=== PATIENT | male | born 1950 | race Caucasian/White ===

== ENCOUNTER 2017-12-11 16:41 | Outpatient (CLI) | payer BC, SELFPAY ==
[2017-12-11 17:20] LABS: Abs Immature Grans 0.01 k/cumm (0.0-0.09); Absolute Basophil Count 0.03 k/cumm (0.0-0.2); Absolute Eosinophil Count 0.03 k/cumm (0.0-0.7); Absolute Lymphocyte Count 1.61 k/cumm (1.2-3.4); Absolute Monocyte Count 0.52 k/cumm (0.11-0.7); Absolute Neutrophil Count 3.67 k/cumm (1.2-6.7); Basophils % 0.5; Eosinophils % 0.5; HCT 44.8 % (40.0-50.0); HGB 14.9 g/dL (13.5-17.5); Immature Grans % 0.2; Lymphocytes % 27.4; Mean Corp. HGB Concentration 33.3 g/dL (32.0-36.0); Mean Corpuscular Volume 99.1 fL (80-95); Mean Platelet Volume 11.3 fL (8.0-11.0); Monocytes % 8.9; Neutrophils % 62.5; Platelet Count 203 x1000/uL (130-400); RBC 4.52 m/cumm (4.50-6.00); RBC Distribution Width 12.5 % (11.8-14.1); White Blood Cell Count 5.87 k/cumm (4.4-10.8)
[2017-12-11 17:48] LABS: ALT 27 U/L (12-78); AST 17 U/L (15-37); Albumin 3.5 g/dL (3.4-5.0); Alkaline Phosphatase 87 U/L (46-116); Anion Gap 6.3 mmol/L (3-11); BUN 13 mg/dL (7-18); Bilirubin, Total 0.4 mg/dL (0.2-1.0); CO2 31.7 mmol/L (21.0-32.0); CREATININE 0.72 mg/dL (0.70-1.30); Calcium 8.7 mg/dL (8.5-10.1); Chloride 102 mmol/L (98-107); Glucose 106 mg/dL (70-100); Potassium 4.3 mmol/L (3.5-5.1); Sodium 140 mmol/L (136-145); Total Protein 6.4 g/dL (6.4-8.2)
== END 2017-12-11 17:01 ==
PROVIDERS: PCP General Practice; Visit Provider Family Medicine
DX: Z79.899 Other long term (current) drug therapy (principal)
CPT/HCPCS: 36415; 80053; 85025

== ENCOUNTER 2018-02-16 14:08 | Outpatient (CLI) | payer BC, SELFPAY ==
[2018-02-17 14:08] LABS: SS-B (La) Ab, IgG 1.6 Units (<20)
[2018-02-17 14:09] LABS: SS-A Antibody 1.4 Units (<20)
[2018-02-17 14:51] LABS: ANA Interpretation Negative (NEGAT)
[2018-02-19 11:34] LABS: c-ANCA Negative (Negative); p-ANCA Negative (Negative)
== END 2018-02-16 14:28 ==
PROVIDERS: PCP General Practice; Visit Provider Otolaryngology Otolaryngology/Facial Plastic Surgery
DX: H04.123 Dry eye syndrome of bilateral lacrimal glands (principal); R68.2 Dry mouth, unspecified; K13.79 Other lesions of oral mucosa
CPT/HCPCS: 36415; 86038; 86235; 86255

== ENCOUNTER 2018-05-28 15:41 | Outpatient (CLI) | payer BC, SELFPAY ==
[2018-05-28 16:25] LABS: Abs Immature Grans 0.01 k/cumm (0.0-0.09); Absolute Basophil Count 0.03 k/cumm (0.0-0.2); Absolute Eosinophil Count 0.03 k/cumm (0.0-0.7); Absolute Lymphocyte Count 1.22 k/cumm (1.2-3.4); Absolute Neutrophil Count 2.96 k/cumm (1.2-6.7); Basophils % 0.6; Eosinophils % 0.6; HCT 43.2 % (40.0-50.0); HGB 14.9 g/dL (13.5-17.5); Immature Grans % 0.2; Lymphocytes % 25.7; Mean Corp. HGB Concentration 34.5 g/dL (32.0-36.0); Mean Corpuscular Hemoglobin 33.7 pg (27.0-33.0); Mean Corpuscular Volume 97.7 fL (80-95); Mean Platelet Volume 10.6 fL (8.0-11.0); Monocytes % 10.5; Neutrophils % 62.4; Platelet Count 211 x1000/uL (130-400); RBC 4.42 m/cumm (4.50-6.00); RBC Distribution Width 13.3 % (11.8-14.1); White Blood Cell Count 4.75 k/cumm (4.4-10.8)
[2018-05-28 17:43] LABS: ALT 31 U/L (12-78); AST 22 U/L (15-37); Albumin 3.9 g/dL (3.4-5.0); Alkaline Phosphatase 83 U/L (46-116); Anion Gap 6.4 mmol/L (3-11); BUN 16 mg/dL (7-18); Bilirubin, Total 0.6 mg/dL (0.2-1.0); CO2 32.6 mmol/L (21.0-32.0); CREATININE 0.82 mg/dL (0.70-1.30); Calcium 9.1 mg/dL (8.5-10.1); Chloride 101 mmol/L (98-107); Glucose 94 mg/dL (70-100); Potassium 4.4 mmol/L (3.5-5.1); Sodium 140 mmol/L (136-145); Total Protein 6.4 g/dL (6.4-8.2)
== END 2018-05-28 16:01 ==
PROVIDERS: PCP General Practice; Visit Provider Family Medicine
DX: Z79.899 Other long term (current) drug therapy (principal); R69 Illness, unspecified
CPT/HCPCS: 36415; 80053; 85025

== ENCOUNTER 2018-08-11 16:51 | Outpatient (CLI) | payer BC, SELFPAY ==
[2018-08-11 17:53] LABS: Absolute Basophil Count 0.03 k/cumm (0.0-0.2); Absolute Eosinophil Count 0.01 k/cumm (0.0-0.7); Absolute Lymphocyte Count 1.18 k/cumm (1.2-3.4); Absolute Monocyte Count 0.47 k/cumm (0.11-0.7); Absolute Neutrophil Count 3.36 k/cumm (1.2-6.7); Basophils % 0.6; Eosinophils % 0.2; HCT 44.4 % (40.0-50.0); HGB 15.3 g/dL (13.5-17.5); Lymphocytes % 23.4; Mean Corp. HGB Concentration 34.5 g/dL (32.0-36.0); Mean Corpuscular Hemoglobin 33.9 pg (27.0-33.0); Mean Corpuscular Volume 98.4 fL (80-95); Mean Platelet Volume 10.8 fL (8.0-11.0); Monocytes % 9.3; Neutrophils % 66.5; Platelet Count 236 x1000/uL (130-400); RBC 4.51 m/cumm (4.50-6.00); RBC Distribution Width 14.1 % (11.8-14.1); White Blood Cell Count 5.05 k/cumm (4.4-10.8)
[2018-08-11 18:10] LABS: ALT 27 U/L (12-78); AST 18 U/L (15-37); Albumin 3.9 g/dL (3.4-5.0); Alkaline Phosphatase 84 U/L (46-116); Anion Gap 5.3 mmol/L (3-11); BUN 16 mg/dL (7-18); Bilirubin, Total 0.5 mg/dL (0.2-1.0); CO2 30.7 mmol/L (21.0-32.0); CREATININE 0.83 mg/dL (0.70-1.30); Calcium 9.3 mg/dL (8.5-10.1); Chloride 103 mmol/L (98-107); Glucose 90 mg/dL (70-100); Potassium 4.2 mmol/L (3.5-5.1); Sodium 139 mmol/L (136-145); Total Protein 6.8 g/dL (6.4-8.2)
== END 2018-08-11 17:11 ==
PROVIDERS: PCP General Practice; Visit Provider Family Medicine
DX: Z79.899 Other long term (current) drug therapy (principal)
CPT/HCPCS: 36415; 80053; 85025

== ENCOUNTER 2018-08-31 02:49 | Outpatient (CLI) | payer BC, SELFPAY | END 2018-08-31 03:09 | PROVIDERS: PCP General Practice; Visit Provider Family Medicine | DX: B60.0 Babesiosis (principal); I10 Essential (primary) hypertension | CPT/HCPCS: 93005; 93010 ==

== ENCOUNTER 2018-11-05 14:22 | Outpatient (CLI) | payer BC, SELFPAY ==
[2018-11-05 15:21] LABS: Absolute Basophil Count 0.02 k/cumm (0.0-0.2); Absolute Eosinophil Count 0.02 k/cumm (0.0-0.7); Absolute Lymphocyte Count 1.28 k/cumm (1.2-3.4); Absolute Monocyte Count 0.48 k/cumm (0.11-0.7); Absolute Neutrophil Count 3.89 k/cumm (1.2-6.7); Basophils % 0.4; Eosinophils % 0.4; HCT 44.9 % (40.0-50.0); HGB 15.3 g/dL (13.5-17.5); Lymphocytes % 22.5; Mean Corp. HGB Concentration 34.1 g/dL (32.0-36.0); Mean Corpuscular Hemoglobin 33.6 pg (27.0-33.0); Mean Corpuscular Volume 98.7 fL (80-95); Mean Platelet Volume 10.7 fL (8.0-11.0); Monocytes % 8.4; Neutrophils % 68.3; Platelet Count 227 x1000/uL (130-400); RBC 4.55 m/cumm (4.50-6.00); RBC Distribution Width 13.7 % (11.8-14.1); White Blood Cell Count 5.69 k/cumm (4.4-10.8)
[2018-11-05 15:57] LABS: ALT 39 U/L (16-63); AST 21 U/L (15-37); Albumin 3.8 g/dL (3.4-5.0); Alkaline Phosphatase 92 U/L (46-116); Anion Gap 7.1 mmol/L (3-11); BUN 15 mg/dL (7-18); Bilirubin, Total 0.5 mg/dL (0.2-1.0); CO2 32.9 mmol/L (21.0-32.0); CREATININE 0.93 mg/dL (0.70-1.30); Calcium 9.2 mg/dL (8.5-10.1); Chloride 103 mmol/L (98-107); Glucose 130 mg/dL (70-100); Potassium 4.5 mmol/L (3.5-5.1); Sodium 143 mmol/L (136-145); Total Protein 6.8 g/dL (6.4-8.2)
[2018-11-05 20:32] LABS: Calculated LDL 83 mg/dL; Cholesterol 155 mg/dL (50-200); HDL Cholesterol 65 mg/dL (40-60); Triglyceride 37 mg/dL (30-150)
== END 2018-11-05 14:42 ==
PROVIDERS: PCP General Practice; Visit Provider Family Medicine
DX: F32.9 Major depressive disorder, single episode, unspecified (principal); Z79.899 Other long term (current) drug therapy; Z00.00 Encounter for general adult medical examination without abnormal findings; Z13.220 Encounter for screening for lipoid disorders; Z13.1 Encounter for screening for diabetes mellitus
CPT/HCPCS: 36415; 80053; 80061; 85025

== ENCOUNTER 2019-02-07 15:45 | Emergency (ER) | payer BC, SELFPAY ==
[2019-02-07 15:53] VITALS: BP 128/68; PULSE 76; RESP 16; TEMP 36.6; O2SAT 98
--- NOTE | 2019-02-07 16:50 | DI.RAD_ITS ---
EXAM: XR FOOT LT COMPLETE INDICATION: pain, great toe MCP. COMPARISON: RIGHT FOOT COMPLETE from 06/02/2009 TECHNIQUE: 2D digital imaging was performed. FINDINGS: No acute fracture or dislocation is seen. No radiographic findings to suggest gout are seen. The [place] are normally mineralized. The joint spaces are fairly well maintained. The soft tissues are unr emarkable. IMPRESSION: No acute abnormality. No radiographic findings to suggest gout.
[2019-02-07 16:55] LABS: Uric Acid 3.6 mg/dL (3.5-7.2)
--- NOTE | 2019-02-07 17:03 | DI.VRAD_ITS ---
PROCEDURE INFORMATION: Exam: XR Left Foot Complete Exam date and time: 02/07/2019 4:24 PM Age: 68 years old Clinical history: Foot; Left; Patient HX: ? Gout / arthritis, pain in great toe TECHNIQUE: Imaging protocol: XR Left foot. Views: 3 or more views. COMPARISON: No relevant prior studies available. FINDINGS: Bones/joints: Mild subchondral cystic change and sclerosis about the 1st metatarsophalangeal joint. Joint spaces are maintained. No fracture Soft tissues: Normal. Vasculature: Vascular calcifications. IMPRESSION: Mild subchondral cystic change and sclerosis about the 1st metatarsophalangeal joint. The appearance is atypical for gout and suggestive of chronic degenerative changes. Dictated and Authenticated by: Tip Marin MD. Ordering:ZIYAD Colon MD
--- NOTE | 2019-02-07 17:28 | W.ED.GENAD ---
Discharge Plan Disposition Patient Disposition: HOME Condition: Good Discharge Details Chief Complaint: Orthopedic Clinical Impression: Acute foot pain Primary Care Provider: Ryan Guy ED Provider: Darlene Perez Home Meds and New Rx's Prescriptions: No Action gabapentin 600 MG tablet 600 mg PO DAILY RF: 0 doxycycline hyclate 100 MG capsule 100 mg PO BID RF: 0 famciclovir 250 MG tablet 500 mg PO BID RF: 0 duloxetine [Cymbalta] 60 MG capsule,delayed release(DR/EC) 30 mg PO DAILY RF: 0 fluoxetine 20 MG capsule 20 mg PO DAILY RF: 0 buprenorphine-naloxone [Suboxone] 2-0.5 mg Film 2 film buccal DAILY RF: 0 buprenorphine-naloxone [Suboxone] 8-2 mg Film 8 film sublingual DAILY RF: 0 prednisone 5 MG tablet 20 mg PO DAILY RF: 0 Discharge Instructions Instructions: Leg Pain (ED) Additional Instructions: Rest. Activities as tolerated. Elevate injury to prevent swelling. Postoperative shoe for comfort Ice to the area of discomfort for 15 min. 3-5 times daily. Tylenol every 6 hours for soreness if needed over the counter for comfort. Continue prednisone for inflammation. Have Ultrasound tomorrow, call radiology in morning, followup in ER. Followup with orthopedic doctor as discussed if not improving in one week. Return for any worsening or concerns sooner if needed. Referrals: Antony Feliciano MD [ [facility] STAFF PHYSICIAN] - Medical Decision Making Is a 68-year-old patient with chronic pain complaints who reports left great toe MCP joint pain which developed the day following Thanksgiving dinner. Patient reports he is concerned with the possibility of arthritis versus gout. He is on chronic prednisone did increase his dose to 20 mg in the last few days which has improved his pain. Patient reports pain is more tolerable than it was previously in the last few days. Patient denies associated injury or trauma. Patient did report in the last few days significant swelling of the lower leg on the left specifically without contralateral leg swelling. Patient reports the swelling had extended into the calf. Patient reports swelling of the calf is resolved at this time patient does have persistent pitting edema of the left foot with associated erythema which is vague at the MCP joint. Pain with palpation of the site. No fevers or ill feeling associated. Patient's exam is consistent with possible gouty flare. Patient requesting x-ray. X-ray reveals mild subchondral cystic changes and sclerosis about the first meta tarsal phalangeal joint. The appearance is atypical for gout and suggestive of chronic degenerative changes. Patient has no history of gout previously. Patient's uric acid was normal today. Pseudogout remains in the differential diagnosis. DVT is also a possibility however patient swelling has improved vital signs are stable and he has no associated difficulty being or shortness of breath or wheezing. No calf pain or swelling at this time however patient does have obvious edema which is pitting in the left foot. This could be dependent edema. Patient would feel more comfortable with an ultrasound evaluation of the leg however ultrasound is unavailable at this time. Discussed prophylactic use of anticoagulation however given low suspicion I do not feel this is necessary at this time patient would prefer to follow-up for outpatient ultrasound tomorrow and follow-up in the emergency room which I feel is appropriate. Patient encouraged to continue prednisone treatment which has been improving his pain. Postoperative shoe offered. Rice encouraged. Follow-up with PCP encouraged upon discharge patient is requesting a urinalysis as he reports his urine was somewhat cloudy this week. Patient denies any associated urinary urgency, frequency or dysuria. Denies any flank or abdominal pain. Patient denies again any ill feeling. Patient is requesting urinalysis to be followed up with on an outpatient basis with his PCP. Urinalysis was ordered at patient's request. The patient was stable and requested discharge. Prior to discharge, my usual and customary return precautions were reviewed with the patient - this included follow-up instructions and reasons to return to the Emergency Department if conditions worsens, does not improve as expected, or other new concerns arise. HPI General Date/Time Provider Initiated Documentation: 02/07/19 16:22. HPI Narrative: Is a 68-year-old patient with chronic pain syndrome and fatigue who reports onset of left foot pain specifically at the base of the great toe which began on the day following Thanksgiving dinner. Patient is reportedly concerned with possible gout. Patient had been tapering down on his prednisone dose. He reports that he had 1 month ago tapered from 20 mg to 15 mg. After onset of left foot pain he increased his prednisone in the last few days back to 20 mg which has been helping with his pain. Patient is requesting x-ray evaluation and evaluation for possible gout of the left foot. Patient also reports significant swelling of the left leg extending all the way to the mid calf from the foot. Patient reports the calf swelling has improved however foot swelling persists. Patient denies difficulty breathing with shortness of breath or wheezing. No other concerns or complaints today. Denies specific injury or trauma to the foot. Related Data Home Medications Medication Instructions Recorded Confirmed doxycycline hyclate 100 mg PO BID cap 04/13/13 02/07/19 duloxetine [Cymbalta] 30 mg PO DAILY cap 04/13/13 02/07/19 famciclovir 500 mg PO BID tab 04/13/13 02/07/19 gabapentin 600 mg PO DAILY tab 04/13/13 02/07/19 fluoxetine 20 mg PO DAILY 08/11/14 02/07/19 prednisone 20 mg PO DAILY 10/16/16 02/07/19 buprenorphine-naloxone [Suboxone] 2 film BUCCAL DAILY 02/07/19 02/07/19 buprenorphine-naloxone [Suboxone] 8 film SUBLINGUAL DAILY 02/07/19 02/07/19 Allergies Allergy/AdvReac Type Severity Reaction Status Date / Time ciprofloxacin Allergy Unknown skin Unverified 02/07/19 15:56 rash,fever Penicillins Allergy Unknown rash Unverified 02/07/19 15:56 Sulfa (Sulfonamide Allergy Unknown skin rash Unverified 02/07/19 15:56 Antibiotics) NSAIDS (Non-Steroidal AdvReac Unknown GI Bleeding Unverified 02/07/19 15:56 Anti-Inflamma General Stated Complaint: Orthopedic SERENA: 3 Review of Systems All systems reviewed & are unremarkable except as noted in HPI and below Constitutional Constitutional: Denies chills and Denies fever(s) Musculoskeletal Musculoskeletal: Denies numbness, Denies radiating pain into limb, Reports stiffness and Reports other (MCP joint swelling and erythema) Integumentary/Breasts Skin/Breast: Reports erythema Neurologic Neurologic: Denies numbness [facility] Social History Smoking/Tobacco Use Status: Former Tobacco Use Alcohol Intake: never Drug use: Daily Substance use type: marijuana Do you feel safe in your relationship?: Yes Exam Narrative Exam Narrative: CONST: Healthy appearing patient, in no acute distress. Well hydrated. Alert and alert. MUSCULOSKELETAL: Left great toe pain at the MCP joint with palpation. Diffuse foot swelling is present with pitting edema in the foot. Pulses are intact. Mild erythema noted at the MCP joint which is vague and consistent with possible gout. Nothing to indicate a Tenosynovitis of the digit. No swelling distally. No calf pain, ankle pain or swelling proximal to the foot. Sensation intact distally. SKIN: Normal. Dry. No rashes. No breaks in the skin. See above NEURO: Alert and awake. Speech clear. PSYCH: Normal affect. Cooperative. Course Vital Signs Vital signs: Vital Signs Temperature 36.6 C 02/07/19 15:53 Pulse 76 02/07/19 15:53 Respiratory Rate 16 02/07/19 15:53 Blood Pressure 128/68 02/07/19 15:53 Pulse Oximetry 98 02/07/19 15:53 Temperature 36.6 C 02/07/19 15:53 Temperature Source Skin 02/07/19 15:53 Pulse 76 02/07/19 15:53 Respiratory Rate 16 02/07/19 15:53 Respiratory Effort Non-Labored 02/07/19 15:53 Blood Pressure 128/68 02/07/19 15:53 Blood Pressure Position Sitting 02/07/19 15:53 Pulse Oximetry 98 02/07/19 15:53 Oxygen Delivery Method Room Air 02/07/19 15:53 Oxygen Flow Rate 0 02/07/19 15:53 Pain Level 4 02/07/19 15:53 Lab/Test Results Lab/Test Results: Laboratory Tests Range/Units 02/07/19 16:40 Uric Acid (3.5-7.2) mg/dL 3.6
[2019-02-07 17:51] LABS: Bilirubin Negative (Negative); Blood Negative (Negative); Clarity Clear (Clear); Glucose Negative (Negative); Ketones Negative (Negative); Leukocyte Esterase Negative (Negative); Nitrite Negative (Negative); Urobilinogen 0.2 EU/dL (Up TO 0.2)
--- NOTE | 2019-02-08 11:35 | PDOC.ERCMPRO ---
- If Service Date Differs Date of service: 02/08/19 Time of Service: 11:35 Care Management Progress Note Patient called with questions. States that he is now having similar symptoms on other foot. He plans to see Dr. Feliciano and will come tomorrow for the scheduled ultrasound and ED followup.CM reviewed negative tests results (U/A, Uric acid and foot xray) again. These were reviewed by provider in ED on 02/07/19.
== END 2019-02-07 17:58 | disposition home or self-care (01) ==
PROVIDERS: Emergency Provider Physician Assistant; PCP General Practice
DX: M79.675 Pain in left toe(s) (principal)
CPT/HCPCS: 36415; 99283; 73630; 81003; 84550

== ENCOUNTER 2019-05-20 14:10 | Outpatient (CLI) | payer BC, SELFPAY ==
[2019-05-20 15:24] LABS: Abs Immature Grans 0.01 k/cumm (0.0-0.09); Absolute Basophil Count 0.03 k/cumm (0.0-0.2); Absolute Eosinophil Count 0.01 k/cumm (0.0-0.7); Absolute Lymphocyte Count 0.96 k/cumm (1.2-3.4); Absolute Monocyte Count 0.33 k/cumm (0.11-0.7); Absolute Neutrophil Count 3.79 k/cumm (1.2-6.7); Basophils % 0.6; Eosinophils % 0.2; HCT 45.8 % (40.0-50.0); HGB 15.7 g/dL (13.5-17.5); Immature Grans % 0.2 %; Lymphocytes % 18.7; Mean Corp. HGB Concentration 34.3 g/dL (32.0-36.0); Mean Corpuscular Hemoglobin 34.3 pg (27.0-33.0); Mean Platelet Volume 10.6 fL (8.0-11.0); Monocytes % 6.4; Neutrophils % 73.9; Platelet Count 244 x1000/uL (130-400); RBC 4.58 m/cumm (4.50-6.00); RBC Distribution Width 13.6 % (11.8-14.1); White Blood Cell Count 5.13 k/cumm (4.4-10.8)
[2019-05-20 15:55] LABS: ALT 26 U/L (16-63); AST 23 U/L (15-37); Albumin 3.8 g/dL (3.4-5.0); Alkaline Phosphatase 103 U/L (46-116); BUN 17 mg/dL (7-18); Bilirubin, Total 0.4 mg/dL (0.2-1.0); CREATININE 0.97 mg/dL (0.70-1.30); Calcium 8.7 mg/dL (8.5-10.1); Chloride 103 mmol/L (98-107); Glucose 142 mg/dL (74-106); Potassium 4.6 mmol/L (3.5-5.1); Sodium 142 mmol/L (136-145); Total Protein 6.7 g/dL (6.4-8.2)
--- NOTE | 2019-05-21 11:34 | CMACTNOTE_ITS ---
- If Service Date Differs Date of service: 05/20/19 Time of Service: 11:34 Care Management Activity Note CM meets with Joseluis at the request of the laboratory. Joseluis talks at great length about his medical history and being diagnosed with Lyme disease in February of 2013. He shares his belief that he now has the [place] virus and several other tick borne illnesses. Joseluis states he is in need of a primary care physician. He formerly saw Dr. Mayer at [facility] but states she fired him in 2009. His last PCP was Dr. Guy but he is now retired. Records indicate that Joseluis was also seen by Dr. Jayde Cabrera at [facility] for a period of time prior to transferring to Dr. 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 Joseluis expresses no preference with respect to which doctor's office to establish care with. JOY will make inquiries of [facility] centers as to availability and will discuss those accepting new patients with Joseluis prior to making a referral.
== END 2019-05-20 14:30 ==
PROVIDERS: Visit Provider Family Medicine
DX: Z79.2 Long term (current) use of antibiotics (principal)
CPT/HCPCS: 36415; 80053; 85025

== ENCOUNTER 2019-09-21 04:57 | Outpatient (CLI) | payer BC, SELFPAY ==
[2019-09-21 14:52] LABS: Abs Immature Grans 0.01 k/cumm (0.0-0.09); Absolute Basophil Count 0.02 k/cumm (0.0-0.2); Absolute Eosinophil Count 0.01 k/cumm (0.0-0.7); Absolute Monocyte Count 0.34 k/cumm (0.11-0.7); Absolute Neutrophil Count 4.65 k/cumm (1.2-6.7); Basophils % 0.3; Eosinophils % 0.2; HGB 15.5 g/dL (13.5-17.5); Immature Grans % 0.2 %; Lymphocytes % 13.7; Mean Corp. HGB Concentration 34.4 g/dL (32.0-36.0); Mean Corpuscular Hemoglobin 34.1 pg (27.0-33.0); Mean Corpuscular Volume 99.1 fL (80-95); Mean Platelet Volume 10.6 fL (8.0-11.0); Monocytes % 5.8; Neutrophils % 79.8; Platelet Count 249 x1000/uL (130-400); RBC 4.54 m/cumm (4.50-6.00); RBC Distribution Width 13.3 % (11.8-14.1); White Blood Cell Count 5.83 k/cumm (4.4-10.8)
[2019-09-21 15:30] LABS: ESR 4 mm/hr (1-20)
[2019-09-21 16:02] LABS: ALT 34 U/L (16-63); AST 28 U/L (15-37); Alkaline Phosphatase 117 U/L (46-116); Anion Gap 5.8 mmol/L (3-11); BUN 14 mg/dL (7-18); Bilirubin, Total 0.5 mg/dL (0.2-1.0); C-Reactive Protein 0.11 mg/dL (0.0-0.3); CO2 34.2 mmol/L (21.0-32.0); Chloride 101 mmol/L (98-107); Glucose 105 mg/dL (74-106); Potassium 4.3 mmol/L (3.5-5.1); Sodium 141 mmol/L (136-145); TSH 0.97 uIU/mL (0.36-3.74)
[2019-09-21 23:02] LABS: Estradiol 30 pg/mL (<40)
[2019-09-22 09:41] LABS: DHEA Sulfate 769 ug/dL (228-284); FSH 2.8 mIU/mL (1.4-18.1); LH 0.4 mIU/mL (1.5-9.3); Prolactin 5.2 ng/mL (2.1-17.7)
[2019-09-23 16:02] LABS: Zinc, Serum 0.92 mcg/mL (0.66-1.10)
[2019-09-24 14:55] LABS: IGF-1, LC/MS, S 146 ng/mL (32-209); Z-score 1.04 SD
[2019-09-26 12:13] LABS: Testosterone, Free 4.45 ng/dL (3.47-13.0); Testosterone, Total 262 ng/dL (240-950)
== END 2019-09-21 05:17 ==
PROVIDERS: PCP Family Medicine; Visit Provider Family Medicine
DX: R53.83 Other fatigue (principal); E29.1 Testicular hypofunction; R21 Rash and other nonspecific skin eruption; B60.0 Babesiosis; E55.9 Vitamin D deficiency, unspecified; E83.2 Disorders of zinc metabolism; Z79.2 Long term (current) use of antibiotics
CPT/HCPCS: 36415; 80053; 82306; 82627; 84402; 84403; 85652; 82670; 83001; 83002; 84146; 84305; 84443; 84630; 85025; 86140

== ENCOUNTER 2019-11-08 01:43 | Outpatient (CLI) | payer BC, SELFPAY ==
--- NOTE | 2019-11-08 | DI.NM_ITS ---
APPROVED REPORT Exam: Exercise/Lexiscan transition test. Patient Location: Out-Patient Room/Bed: Stress Nurse: Kimberly Zamarripa RN BMI: 22.04 Baseline Rhythm: Sinus Rhythm Comment: PACs/PVCs Indications: Chest pain. Medical History Medical History: Lyme disease. Cardiac Medications: Aspirin. Allergies: NSAIDS. Penicillins. Sulfa. Ciprofloxacin. Cardiac Risk Factors: FHX of CAD, Smoking Exercise History: Indeterminate Lung Sounds: Clear to auscultation Heart Sounds: Regular Stress Test Details Test: Exercise stress converted to pharmacologic stress due to failure to obtain a diagnostic stress test. Nuclear Acquisition: Rest Tc-99m/Stress Tc-99m 1 day Rest Isotope: Tc-99m Sestamibi. Dose: 10.2 Date: 11/08/2019 Injection Time: 0915 Stress Isotope: Tc-99m Sestamibi. Dose: 31.5 Date: 11/08/2019 Injection Time: 1100 HR Resting HR Supine: 65 bpm Max Heart Rate (APMHR): 152.831851 bpm Resting HR Standin bpm Target HR (85% APMHR): 129.332424 bpm Max HR Achieved: 115 bpm % of APMHR: 75.66 Recovery HR: 79 bpm HR response to stress: Blunted HR response to stress BP Resting BP Supine: 158/70 mmHg Resting BP Standin/74 mmHg Max BP: 170/66 mmHg Recovery BP: 154/78 mmHg BP response to stress: Normal blood pressure response to stress. ECG Resting ECG: Sinus Rhythm Ectopy: PACs/PVCs Stress ECG: Sinus Tachycardia ST Change: No siginificant ST segment changes Arrhythmia: APC's, VPC's Recovery ECG: Sinus Rhythm Recovery ST Change: No significant ST segment changes Recovery Arrhythmia: PVCs/PACs Clinical Reason for Termination: Fatigue, Dyspnea Stress Symptoms: Dyspnea, Leg Fatigue, General Fatigue Exercise duration: 09 min57 sec Highest Stage Reached: Stage 4: 4.2 mph at 16% grade. Exercise capacity: 11.71 METs Functional Capacity: Above average capacity Stress ECG Conclusion 1. The resting electrocardiogram showed LVH with minor ST abnormalities 2. Patient exercised on the José Miguel protocol and completed a workload of 11.71 METS limited by dyspnea and fatigue 3. Normal blood pressure response to exercise. Blunted heart rate response to exercise the patient a chieved 75% of predicted heart rate for age as well as pharmacologic stress 4. The electrocardiographic portion of the test was nondiagnostic due to inadequate heart rate 5. Atrial and ventricular ectopic beats were noted Stress Test Summary STAGE Time (mins) Speed (mph) Grade (%) HR BP SYMPTOMS METS Supine 65 158/70 Standing 66 154/74 1 3 1.7 10 78 164/72 4.6 2 6 2.5 12 86 170/66 7 3 9 3.4 14 95 10.2 1 min post Lexiscan injection 90 150/72 3 min post Lexiscan injection 93 148/76 6 min post Lexiscan injection 79 154/78 MPI Conclusion Artifact No obvious ischemia within the limits of the study Radiologist Interpretation Radiologist Interpretation by: Irvin Farah MD Interpretation Date/Time: 11/08/2019 15:47:03
[2019-11-08] MEDS: Regadenoson 0.4 MG/5 ML SYR IVP (11:40)
== END 2019-11-08 02:03 ==
PROVIDERS: PCP Family Medicine; Visit Provider Family Medicine
DX: R07.9 Chest pain, unspecified (principal); Z82.49 Family history of ischemic heart disease and other diseases of the circulatory system; F17.210 Nicotine dependence, cigarettes, uncomplicated; I49.1 Atrial premature depolarization; I49.3 Ventricular premature depolarization; R94.39 Abnormal result of other cardiovascular function study
CPT/HCPCS: 78452; 93017; J2785

== ENCOUNTER 2020-01-08 13:25 | Emergency (ER) | payer MEDICARE, BC, SELFPAY ==
[2020-01-08 13:34] VITALS: BP 158/83; PULSE 76; RESP 18; TEMP 36.9; O2SAT 98
--- NOTE | 2020-01-08 14:04 | W.ED.GENAD ---
Discharge Plan Disposition Patient Disposition: HOME Condition: Good Discharge Details Clinical Impression: Bilateral knee pain, Osteoarthritis, Effusion into joint Primary Care Provider: Alex Sotelo ED Provider: Noris Womack Home Meds and New Rx's Prescriptions: Continued famciclovir 250 MG tablet 500 mg PO BID RF: 0 duloxetine [Cymbalta] 60 MG capsule,delayed release(DR/EC) 30 mg PO DAILY RF: 0 fluoxetine 20 MG capsule 20 mg PO DAILY RF: 0 buprenorphine-naloxone [Suboxone] 2-0.5 mg Film 2 film buccal DAILY RF: 0 buprenorphine-naloxone [Suboxone] 8-2 mg Film 8 film sublingual DAILY RF: 0 gabapentin 600 mg tablet 600 mg PO TID RF: 0 hydrocortisone 5 mg tablet 5 mg PO QID RF: 0 valganciclovir 450 mg tablet 450 mg PO DAILY RF: 0 trazodone 100 mg tablet 100 mg PO QHS RF: 0 prednisone 5 MG tablet 20 mg PO DAILY RF: 0 Discharge Instructions Instructions: Knee Pain (ED) Additional Instructions: Encourage rest, ice, elevation. Tylenol and ibuprofen as needed for discomfort. You may take your other chronic pain medications as prescribed. Please follow-up with orthopedics, please call Friday to schedule appointment. Number listed below. If you develop any fever/chills, increased pain, redness or other new/worsening symptoms please seek care urgently once again. Referrals: Yohan Boateng MD [ [facility] STAFF PHYSICIAN] - Alex Sotelo [Primary Care Provider] - Discharge Data Discharge Date/Time-TO BE ENTERED AT DEPARTURE: 01/08/20 15:34 Medical Decision Making Patient is a 69 year old male, presenting today with c/c of bilateral knee pain. Reports that he has diffuse arthritis states that for the past several weeks he has been having knee pain bilaterally seems to fluctuate between the 2. Today, the pain is worse in the left knee and he noted some swelling that began 4 days ago. No fevers or chills. No known trauma. He has had surgery to the left knee to have part of his patella resected many years ago. Patient does have history of chronic Lyme and is being followed by specialist in [place]. States that he did recently come off of his antibiotics for this. On exam, patient appears nontoxic. He has a small effusion to the left knee. No erythema, warmth. Has full extension, limited flexion likely secondary to the swelling. Pain along medial joint line. Ligamentously intact. Contralateral side is without significant abnormality although he does endorse some mild discomfort fairly diffusely. I not see any evidence to suggest an acute infection. Patient I discussed treatment options. He would like to move forward with x-rays for further evaluation. FINDINGS: Bones/joints: No acute fracture or dislocation. Absent inferior left patella. Query prior surgical resection. Heterotopic ossification below the remaining patella. Superior patellar enthesophyte. Large calcific tendinosis involving the superior aspect of left medial collateral ligament. Mild medial compartment joint space narrowing. Lateral and patellofemoral compartment well preserved. Soft tissues: Normal. IMPRESSION: 1. No acute fracture or dislocation. 2. 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 Query prior resection after trauma history. FINDINGS: Bones/joints: No acute fracture or dislocation. No significant degenerative joint space narrowing. Superomedial collateral ligament calcific tendinosis. Soft tissues: Normal. Vasculature: Mild atherosclerotic vascular calcifications. IMPRESSION: 1. No acute fracture or dislocation. 2. Calcific tendinosis involving the superior aspect of the medial collateral ligament 50 findings with the patient. This confirms his initial concern of osteoarthritis being because of his discomfort. Will apply Patricio wrap. He has seen Dr. Boateng historically, will refer back to him. Advised to follow-up with chronic Lyme specialist regarding reevaluation on further work-up for this. Encouraged elevation. Advised Tylenol and ibuprofen as needed for discomfort. Return precautions were discussed, in particular signs of infection. All of his questions and concerns were addressed and he is in agreement with this plan. [facility] General Mode of arrival: ambulatory. Date/Time Provider Initiated Documentation: 01/08/20 14:04. Limitations to Documentation: no limitations. Information obtained by: patient and RN notes reviewed. History of Present Illness 69 year old M presents to the emergency department with the chief complaint of bilateral knee pain, described as moderate and similar to prior episodes, Quality is described as aching, and is localized to the left, right and lower extremity. Patient reports no radiation. Patient started experiencing this week(s) and it has been intermittent. Immobilization improves symptom(s), Movement worsens symptoms (worse with ambulation) . Patient notes no other symptoms.. Patient did receive the following treatments prior to arrival, none Related Data Home Medications Medication Instructions Recorded Confirmed duloxetine [Cymbalta] 30 mg PO DAILY cap 04/13/13 01/08/20 famciclovir 500 mg PO BID tab 04/13/13 01/08/20 fluoxetine 20 mg PO DAILY 08/11/14 01/08/20 prednisone 20 mg PO DAILY 10/16/16 01/08/20 buprenorphine-naloxone [Suboxone] 2 film BUCCAL DAILY 02/07/19 01/08/20 buprenorphine-naloxone [Suboxone] 8 film SUBLINGUAL DAILY 02/07/19 01/08/20 gabapentin 600 mg PO TID 01/08/20 01/08/20 hydrocortisone 5 mg PO QID 01/08/20 01/08/20 trazodone 100 mg PO QHS 01/08/20 01/08/20 valganciclovir 450 mg PO DAILY 01/08/20 01/08/20 Allergies Allergy/AdvReac Type Severity Reaction Status Date / Time ciprofloxacin Allergy Unknown skin Unverified 01/08/20 13:38 rash,fever Penicillins Allergy Unknown rash Unverified 01/08/20 13:38 Sulfa (Sulfonamide Allergy Unknown skin rash Unverified 01/08/20 13:38 Antibiotics) NSAIDS (Non-Steroidal AdvReac Unknown GI Bleeding Unverified 01/08/20 13:38 Anti-Inflamma General Stated Complaint: GenMedical SERENA: 3 Review of Systems Constitutional Constitutional: Reports as per HPI, Denies chills, Denies fever(s), Denies headache(s) and Denies weakness ENT Ears, Nose, Mouth, and Throat: Denies headache(s) Cardiovascular Cardiovascular: Reports as per HPI Respiratory Respiratory: Reports as per HPI and Denies cough Musculoskeletal Musculoskeletal: Reports as per HPI and Denies tingling Integumentary/Breasts Skin/Breast: Reports as per HPI, Denies rash and Denies wounds Neurologic Neurologic: Reports as per HPI, Denies headache(s), Denies tingling, Denies paresthesias and Denies weakness [facility] Social History Smoking/Tobacco Use Status: Former Tobacco Use Smoking risk assessment performed?: Yes Alcohol Intake: never Drug use: Daily Substance use type: marijuana Do you feel safe at home: Yes Do you feel safe in your relationship?: Yes Exam Const General: cooperative, healthy appearing, comfortable, no acute distress, well developed and well groomed Nutritional Appearance: average body habitus and well nourished Orientation: alert and awake Resp Effort & Inspection: normal respiratory effort, able to speak in complete sentences and no respiratory distress Cardio Rate: regular rate Rhythm: regular rhythm Skin General skin exam: no rashes or lesions noted Lesions: no lesions Rashes: no rashes Trauma: no lacerations or abrasions Neuro General: patient alert and patient awake Cognition: normal cognition Speech: speech normal Gait: normal gait Motor: muscle tone normal throughout Sensory Exam: no sensory deficits noted Extrem Right lower extremity: normal to inspection, full ROM, normal capillary refill, no joint enlargement and knee Details: normal to inspection, normal ROM and knee ligament exam normal Details: anterior drawer test normal, posterior drawer test normal, valgus stress test normal and varus stress test normal; no pain with axial loading; no tenderness and no swelling Left lower extremity: normal to inspection, normal capillary refill and knee (small knee joint effuse) Details: tenderness Location: of the medial joint line, swelling and knee ligament exam normal Details: anterior drawer test normal, posterior drawer test normal, valgus stress test normal and varus stress test normal; ROM abnormal (full extension, flexion limited to 45), Nini's Test not performed (unable to complete seconedary to pain), no ecchymosis, no crepitus, no deformity and no unusual warmth; abnormal ROM and joint enlargement noted Psych Appearance: grossly normal and well kempt Mental Status: mental status grossly normal Speech and Movement: speech and movement normal Course Vital Signs Vital signs: Vital Signs Temperature 36.9 C 01/08/20 13:34 Pulse 76 01/08/20 13:34 Respiratory Rate 18 01/08/20 13:34 Blood Pressure 158/83 H 01/08/20 13:34 Pulse Oximetry 98 01/08/20 13:34 Temperature 36.9 C 01/08/20 13:34 Temperature Source Temporal Artery Scan 01/08/20 13:34 Pulse 76 01/08/20 13:34 Respiratory Rate 18 01/08/20 13:34 Respiratory Effort 01/08/20 13:47 Respiratory Depth Normal 01/08/20 13:47 Respiratory Pattern Normal 01/08/20 13:47 Blood Pressure 158/83 H 01/08/20 13:34 Blood Pressure Position Supine 01/08/20 13:34 Pulse Oximetry 98 01/08/20 13:34 Oxygen Delivery Method Room Air 01/08/20 13:34 Oxygen Flow Rate 0 01/08/20 13:34
--- NOTE | 2020-01-08 14:15 | DI.RAD_ITS ---
EXAM: XR KNEE RT 3V AP,LAT,IGNACIO CLINICAL HISTORY: acute on chronic pain. TECHNIQUE: 2D digital imaging was performed. COMPARISON: No exams were available for comparison FINDINGS: BONES: No acute fracture is present. No bony destructive lesion is seen. JOINTS: The knee is normally aligned. No joint effusion is seen. SOFT TISSUE: Atherosclerosis. Calcifications seen medial to the medial femoral condyle likely reflec ting old ligamentous injury. IMPRESSION: No acute abnormality. DATA REPOSITORY: RADIATION DOSE DELIVERED:
--- NOTE | 2020-01-08 14:15 | DI.RAD_ITS ---
EXAM: XR KNEE LT 3V AP,LAT,IGNACIO CLINICAL HISTORY: acute on chronic pain. TECHNIQUE: 2D digital imaging was performed. COMPARISON: No previous for comparison. FINDINGS: BONES: No acute fracture is present. No bony destructive lesion is seen. There is absence of the inf erior patella which may be postsurgical or posttraumatic. Dystrophic calcifications are seen inferio r to the patella. Ninth ease O phyte is seen at the superior patella. JOINTS: The knee is normally aligned. No joint effusion is seen. Mild joint space narrowing and peria rticular spurring is seen in the medial joint compartment. SOFT TISSUE: Atherosclerosis. IMPRESSION: No acute abnormality. DATA REPOSITORY: RADIATION DOSE DELIVERED:
--- NOTE | 2020-01-08 14:59 | DI.VRAD_ITS ---
PROCEDURE INFORMATION: Exam: XR Right Knee Exam date and time: 01/08/2020 2:34 PM Age: 69 years old Clinical indication: Bilateral; Patient HX: Chronic pain, left knee injury 1972 TECHNIQUE: Imaging protocol: XR Right knee. Views: 3 views. COMPARISON: No relevant prior studies available. FINDINGS: Bones/joints: No acute fracture or dislocation. No significant degenerative joint space narrowing. Superomedial collateral ligament calcific tendinosis. Soft tissues: Normal. Vasculature: Mild atherosclerotic vascular calcifications. IMPRESSION: 1. No acute fracture or dislocation. 2. Calcific tendinosis involving the superior aspect of the medial collateral ligament. Dictated and Authenticated by: Kaiser Lawrence MD. Ordering:HAFSA Hamm MD
--- NOTE | 2020-01-08 15:02 | DI.VRAD_ITS ---
PROCEDURE INFORMATION: Exam: XR Left Knee Exam date and time: 01/08/2020 2:38 PM Age: 69 years old Clinical indication: Pain; Knee; Bilateral TECHNIQUE: Imaging protocol: XR Left knee. Views: 3 views. COMPARISON: No relevant prior studies available. FINDINGS: Bones/joints: No acute fracture or dislocation. Absent inferior left patella. Query prior surgical resection. Heterotopic ossification below the remaining patella. Superior patellar enthesophyte. Large calcific tendinosis involving the superior aspect of left medial collateral ligament. Mild medial compartment joint space narrowing. Lateral and patellofemoral compartment well preserved. Soft tissues: Normal. IMPRESSION: 1. No acute fracture or dislocation. 2. 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 Query prior resection after trauma history. Dictated and Authenticated by: Kaiser Lawrence MD. Ordering:HAFSA Hamm MD
== END 2020-01-08 15:34 | disposition home or self-care (01) ==
PROVIDERS: Emergency Provider Physician Assistant; PCP Family Medicine
DX: M17.0 Bilateral primary osteoarthritis of knee (principal); M25.462 Effusion, left knee; Z86.19 Personal history of other infectious and parasitic diseases
CPT/HCPCS: 73562; 99283

== ENCOUNTER → 2020-06-12 13:19 | Outpatient (BNVA) | payer MEDICARE, BC, SELFPAY | PROVIDERS: PCP Family Medicine; Referring Provider Family Medicine; Visit Provider Student in an Organized Health Care Education/Training Program | DX: A69.20 Lyme disease, unspecified (principal); G89.29 Other chronic pain | CPT/HCPCS: 99213 ==

== ENCOUNTER 2020-07-12 21:51 | Outpatient (REF) | payer MEDICARE, BC, SELFPAY ==
[2020-07-12 21:59] LABS: Bilirubin Negative (Negative); Blood Negative (Negative); Clarity Clear (Clear); Glucose Negative (Negative); Ketones Negative (Negative); Leukocyte Esterase Negative (Negative); Nitrite Negative (Negative); Specific Gravity 1.025 (1.005-1.025); Urobilinogen 0.2 EU/dL (Up TO 0.2)
== END 2020-07-12 21:52 | disposition home or self-care (01) ==
LOC: NCHCN 21:51
PROVIDERS: PCP Family Medicine; Visit Provider Family Medicine
DX: R30.0 Dysuria (principal); I10 Essential (primary) hypertension
CPT/HCPCS: 81003

== ENCOUNTER 2020-08-24 02:04 | Outpatient (CLI) | payer MEDICARE, BC, SELFPAY ==
[2020-08-24 16:19] LABS: Abs Immature Grans 0.02 10^3/uL (0.0-0.06); Absolute Basophil Count 0.03 10^3/uL (0.0-0.2); Absolute Eosinophil Count 0.05 10^3/uL (0.0-0.7); Absolute Lymphocyte Count 1.05 10^3/uL (1.2-3.4); Absolute Monocyte Count 0.61 10^3/uL (0.1-0.8); Absolute Neutrophil Count 4.31 10^3/uL (1.2-6.7); Basophils % 0.5; Eosinophils % 0.8; HCT 46.3 % (40.0-50.0); HGB 15.6 g/dL (13.5-17.5); Immature Grans % 0.3; Lymphocytes % 17.3; MCH 33.3 pg (27.0-33.0); MCHC 33.7 % (32.0-36.0); MCV 98.7 fL (80-95); Neutrophils % 71.1; Nucleated RBC 0 %; Platelet Count 220 10^3/uL (130-400); RBC 4.69 10^6/uL (4.36-5.78); RDW 13.5 % (11.8-14.1); RDW-SD 49.6 fL; WBC 6.07 10^3/uL (4.4-10.8)
[2020-08-24 17:23] LABS: ALT 24 U/L (16-63); AST 17 U/L (15-37); Albumin 3.8 g/dL (3.4-5.0); Alkaline Phosphatase 73 U/L (46-116); Anion Gap 6.7 mmol/L (3-11); BUN 14 mg/dL (7-18); Bilirubin, Total 0.6 mg/dL (0.2-1.0); CO2 33.3 mmol/L (21.0-32.0); CREATININE 0.9 mg/dL (0.70-1.30); Calcium 9.4 mg/dL (8.5-10.1); Chloride 103 mmol/L (98-107); Glucose 126 mg/dL (74-106); Potassium 4.5 mmol/L (3.5-5.1); Sodium 143 mmol/L (136-145); Total Protein 6.7 g/dL (6.4-8.2)
== END 2020-08-24 02:05 | disposition home or self-care (01) ==
LOC: LBO 02:04
PROVIDERS: PCP Family Medicine; Visit Provider Family Medicine
DX: Z79.2 Long term (current) use of antibiotics (principal); R21 Rash and other nonspecific skin eruption; B60.09 Other babesiosis
CPT/HCPCS: 36415; 80053; 85025

== ENCOUNTER 2020-10-16 19:46 | Outpatient (REF) | payer MEDICARE, BC, SELFPAY ==
[2020-10-16 22:06] LABS: Vitamin D 25 Total 116.3 ng/mL (30-100)
[2020-10-21 17:14] LABS: Testosterone, Free 21.9 ng/dL (3.47-13.0); Testosterone, Total 643 ng/dL (240-950)
== END 2020-10-16 19:47 | disposition home or self-care (01) ==
LOC: NCHCN 19:46
PROVIDERS: PCP Family Medicine; Visit Provider Family Medicine
DX: E55.9 Vitamin D deficiency, unspecified (principal); E29.1 Testicular hypofunction
CPT/HCPCS: 82306; 84402; 84403

== ENCOUNTER 2020-10-27 20:23 | Outpatient (REF) | payer MEDICARE, BC, SELFPAY | END 2020-10-27 20:24 | disposition home or self-care (01) | LOC: NCHCN 20:23 | PROVIDERS: PCP Family Medicine; Visit Provider Family Medicine | DX: R33.9 Retention of urine, unspecified (principal) | CPT/HCPCS: 87086 ==

== ENCOUNTER → 2020-11-09 08:26 | Outpatient (BNVA) | payer MEDICARE, BC, SELFPAY | PROVIDERS: PCP Family Medicine; Referring Provider Family Medicine; Visit Provider Nurse Practitioner Gerontology | DX: N40.1 Benign prostatic hyperplasia with lower urinary tract symptoms (principal); N13.8 Other obstructive and reflux uropathy | CPT/HCPCS: 99214 ==

== ENCOUNTER 2020-11-09 09:41 | Outpatient (REF) | payer MEDICARE, BC, SELFPAY ==
[2020-11-09 18:36] LABS: PSA, Screening 0.5 ng/mL (0.0-4.5)
== END 2020-11-09 09:42 | disposition home or self-care (01) ==
LOC: LBN 09:41
PROVIDERS: PCP Family Medicine; Visit Provider Nurse Practitioner Gerontology
DX: N40.1 Benign prostatic hyperplasia with lower urinary tract symptoms (principal); N13.8 Other obstructive and reflux uropathy; Z12.5 Encounter for screening for malignant neoplasm of prostate
CPT/HCPCS: 84153

== ENCOUNTER 2020-11-10 16:25 | Outpatient (REF) | payer MEDICARE, BC, SELFPAY ==
[2020-11-13 08:28] LABS: Vitamin D 25 Total 107.6 ng/mL (30-100)
== END 2020-11-10 16:26 | disposition home or self-care (01) ==
LOC: NCHCN 16:25
PROVIDERS: PCP Family Medicine; Visit Provider Family Medicine
DX: E55.9 Vitamin D deficiency, unspecified (principal)
CPT/HCPCS: 82306

== ENCOUNTER 2020-12-01 03:22 | Outpatient (CLI) | payer MEDICARE, BC, SELFPAY ==
[2020-12-01 11:50] LABS: Abs Immature Grans 0.02 10^3/uL (0.0-0.06); Absolute Basophil Count 0.04 10^3/uL (0.0-0.2); Absolute Monocyte Count 0.55 10^3/uL (0.1-0.8); Absolute Neutrophil Count 6.18 10^3/uL (1.2-6.7); Basophils % 0.5; Eosinophils % 1.2; HCT 45.1 % (40.0-50.0); HGB 15.2 g/dL (13.5-17.5); Immature Grans % 0.2; Lymphocytes % 14.8; MCH 33.1 pg (27.0-33.0); MCHC 33.7 % (32.0-36.0); MCV 98.3 fL (80-95); MPV 10.3 fL (8.0-11.0); Monocytes % 6.8; Neutrophils % 76.5; Nucleated RBC 0 %; Platelet Count 222 10^3/uL (130-400); RBC 4.59 10^6/uL (4.36-5.78); RDW 14.1 % (11.8-14.1); RDW-SD 51.5 fL; WBC 8.09 10^3/uL (4.4-10.8)
[2020-12-01 12:50] LABS: ALT 27 U/L (16-63); AST 15 U/L (15-37); Albumin 3.7 g/dL (3.4-5.0); Alkaline Phosphatase 75 U/L (46-116); Anion Gap 3.1 mmol/L (3-11); BUN 15 mg/dL (7-18); Bilirubin, Total 0.6 mg/dL (0.2-1.0); CO2 37.9 mmol/L (21.0-32.0); Chloride 101 mmol/L (98-107); Glucose 146 mg/dL (74-106); Potassium 4.3 mmol/L (3.5-5.1); Sodium 142 mmol/L (136-145); Total Protein 6.6 g/dL (6.4-8.2)
== END 2020-12-01 03:23 | disposition home or self-care (01) ==
LOC: LBO 03:22
PROVIDERS: PCP Family Medicine; Visit Provider Family Medicine
DX: B33.8 Other specified viral diseases (principal)
CPT/HCPCS: 36415; 80053; 85025

== ENCOUNTER → 2020-12-06 09:11 | Outpatient (BNVA) | payer MEDICARE, BC, SELFPAY | PROVIDERS: PCP Family Medicine; Referring Provider Family Medicine; Visit Provider Nurse Practitioner Gerontology | DX: N40.1 Benign prostatic hyperplasia with lower urinary tract symptoms (principal); N13.8 Other obstructive and reflux uropathy; N52.9 Male erectile dysfunction, unspecified | CPT/HCPCS: 99443 ==

== ENCOUNTER 2021-01-18 18:58 | Outpatient (REF) | payer MEDICARE, BC, SELFPAY ==
[2021-01-19 00:48] LABS: Hemoglobin A1C 5.4 % (<5.7)
[2021-01-19 09:06] LABS: Vitamin D 25 Total 108.7 ng/mL (30-100)
== END 2021-01-18 18:59 | disposition home or self-care (01) ==
LOC: NCHCN 18:58
PROVIDERS: PCP Family Medicine; Visit Provider Family Medicine
DX: E55.9 Vitamin D deficiency, unspecified (principal); R73.9 Hyperglycemia, unspecified
CPT/HCPCS: 82306; 83036

== ENCOUNTER 2021-01-29 13:13 | Outpatient (CLI) | payer MEDICARE, BC, SELFPAY ==
--- NOTE | 2021-01-29 14:54 | DI.RAD_ITS ---
Exam(s) XR HIP RT COMPLETE AP PELVIS EXAM: XR HIP RT COMPLETE AP PELVIS INDICATION: RT HIP PAIN, [id number]. COMPARISON: No exams were available for comparison TECHNIQUE: 2D digital imaging was performed. FINDINGS: The hip joint spaces are well maintained. There is mild bilateral acetabular spurring. Enthesophyte s are noted at the iliac wings. Vascular calcifications are seen. IMPRESSION: Mild degenerative changes. DATA REPOSITORY: RADIATION DOSE DELIVERED:
== END 2021-01-29 13:33 ==
PROVIDERS: PCP Family Medicine; Visit Provider Family Medicine
DX: M25.551 Pain in right hip (principal); M25.751 Osteophyte, right hip
CPT/HCPCS: 73502

== ENCOUNTER → 2021-02-06 14:59 | Outpatient (BNVA) | payer MEDICARE, BC, SELFPAY | PROVIDERS: PCP Family Medicine; Visit Provider Nurse Practitioner Gerontology | DX: N40.1 Benign prostatic hyperplasia with lower urinary tract symptoms (principal); N13.8 Other obstructive and reflux uropathy; Z79.899 Other long term (current) drug therapy; F41.9 Anxiety disorder, unspecified | CPT/HCPCS: 99214 ==

== ENCOUNTER → 2021-05-07 14:48 | Outpatient (BNVA) | payer MEDICARE, SELFPAY | PROVIDERS: PCP Family Medicine; Referring Provider Family Medicine; Visit Provider Nurse Practitioner Gerontology | DX: N40.1 Benign prostatic hyperplasia with lower urinary tract symptoms (principal); N13.8 Other obstructive and reflux uropathy | CPT/HCPCS: 99214 ==

== ENCOUNTER 2021-05-09 18:47 | Outpatient (REF) | payer MEDICARE, SELFPAY ==
[2021-05-10 05:47] LABS: Vitamin D 25 Total 86.7 ng/mL (30-100)
== END 2021-05-09 18:48 | disposition home or self-care (01) ==
LOC: NCHCN 18:47
PROVIDERS: PCP Family Medicine; Visit Provider Family Medicine
DX: E55.9 Vitamin D deficiency, unspecified (principal)
CPT/HCPCS: 82306

== ENCOUNTER 2021-06-13 14:54 | Outpatient (REF) | payer MEDICARE, SELFPAY ==
[2021-06-13 22:16] LABS: Vitamin B12 1500 pg/mL (193-986)
== END 2021-06-13 14:55 | disposition home or self-care (01) ==
LOC: NCHCN 14:54
PROVIDERS: PCP Family Medicine; Visit Provider Family Medicine
DX: A69.20 Lyme disease, unspecified (principal); R61 Generalized hyperhidrosis; Z79.899 Other long term (current) drug therapy
CPT/HCPCS: 82607

== ENCOUNTER 2021-08-10 01:40 | Outpatient (CLI) | payer MEDICARE, SELFPAY ==
[2021-08-10 13:54] LABS: Abs Immature Grans 0.02 10^3/uL (0.0-0.06); Absolute Basophil Count 0.06 10^3/uL (0.0-0.2); Absolute Eosinophil Count 0.16 10^3/uL (0.0-0.7); Absolute Lymphocyte Count 1.46 10^3/uL (1.2-3.4); Absolute Monocyte Count 0.59 10^3/uL (0.1-0.8); Absolute Neutrophil Count 5.67 10^3/uL (1.2-6.7); Basophils % 0.8; HCT 43.9 % (40.0-50.0); HGB 15.1 g/dL (13.5-17.5); Immature Grans % 0.3; Lymphocytes % 18.3; MCH 33.9 pg (27.0-33.0); MCHC 34.4 % (32.0-36.0); MCV 99 fL (80-95); MPV 10.2 fL (8.0-11.0); Monocytes % 7.4; Neutrophils % 71.2; Platelet Count 260 10^3/uL (130-400); RBC 4.45 10^6/uL (4.36-5.78); RDW 13.2 % (11.8-14.1); RDW-SD 48.4 fL; WBC 7.96 10^3/uL (4.4-10.8)
[2021-08-10 14:45] LABS: ALT 28 U/L (16-63); AST 19 U/L (15-37); Albumin 3.7 g/dL (3.4-5.0); Alkaline Phosphatase 93 U/L (46-116); Anion Gap 7.2 mmol/L (3-11); BUN 18 mg/dL (7-18); Bilirubin, Total 0.5 mg/dL (0.2-1.0); CO2 32.8 mmol/L (21.0-32.0); CREATININE 0.9 mg/dL (0.70-1.30); Calcium 8.8 mg/dL (8.5-10.1); Chloride 102 mmol/L (98-107); Glucose 112 mg/dL (74-106); Potassium 4.3 mmol/L (3.5-5.1); Sodium 142 mmol/L (136-145); Total Protein 6.6 g/dL (6.4-8.2)
== END 2021-08-10 01:41 | disposition home or self-care (01) ==
LOC: LBO 01:41
PROVIDERS: PCP Family Medicine; Visit Provider Family Medicine
DX: B33.8 Other specified viral diseases (principal)
CPT/HCPCS: 36415; 80053; 85025

== ENCOUNTER 2021-10-01 17:26 | Outpatient (REF) | payer MEDICARE, SELFPAY ==
[2021-10-16] LABS: Testosterone, Free 1.44 ng/dL (3.28-12.2); Testosterone, Total 65 ng/dL (240-950)
== END 2021-10-01 17:27 | disposition home or self-care (01) ==
LOC: NCHCN 17:26
PROVIDERS: PCP Family Medicine; Visit Provider Family Medicine
DX: E29.1 Testicular hypofunction (principal)
CPT/HCPCS: 84402; 84403

== ENCOUNTER → 2021-12-05 11:38 | Outpatient (BNVA) | payer MEDICARE, SELFPAY | PROVIDERS: PCP Family Medicine; Referring Provider Family Medicine; Visit Provider Nurse Practitioner Gerontology | DX: N40.1 Benign prostatic hyperplasia with lower urinary tract symptoms (principal); N13.8 Other obstructive and reflux uropathy | CPT/HCPCS: 51798; 99215 ==

== ENCOUNTER 2022-03-27 03:01 | Outpatient (CLI) | payer MEDICARE, SELFPAY ==
[2022-03-27 12:43] LABS: Abs Immature Grans 0.01 10^3/uL (0.0-0.06); Absolute Basophil Count 0.06 10^3/uL (0.0-0.2); Absolute Eosinophil Count 0.12 10^3/uL (0.0-0.7); Absolute Lymphocyte Count 1.42 10^3/uL (1.2-3.4); Absolute Monocyte Count 0.61 10^3/uL (0.1-0.8); Absolute Neutrophil Count 5.47 10^3/uL (1.2-6.7); Basophils % 0.8; Eosinophils % 1.6; HCT 43.2 % (40.0-50.0); HGB 14.9 g/dL (13.5-17.5); Immature Grans % 0.1; Lymphocytes % 18.5; MCH 33.6 pg (27.0-33.0); MCHC 34.5 % (32.0-36.0); MCV 97 fL (80-95); MPV 11.5 fL (8.0-11.0); Monocytes % 7.9; Neutrophils % 71.1; Platelet Count 257 10^3/uL (130-400); RBC 4.44 10^6/uL (4.36-5.78); RDW 13.4 % (11.8-14.1); RDW-SD 48.7 fL; WBC 7.69 10^3/uL (4.4-10.8)
[2022-03-27 13:05] LABS: ALT 21 U/L (16-63); AST 24 U/L (15-37); Albumin 3.8 g/dL (3.4-5.0); Alkaline Phosphatase 92 U/L (46-116); Anion Gap -0.3 mmol/L (3-11); BUN 16 mg/dL (7-18); Bilirubin, Total 0.5 mg/dL (0.2-1.0); CO2 33.3 mmol/L (21.0-32.0); CREATININE 0.9 mg/dL (0.70-1.30); Calcium 8.9 mg/dL (8.5-10.1); Chloride 101 mmol/L (98-107); Estimated GFR 91.88 (mL/min/1.73m2); Glucose 120 mg/dL (74-106); Potassium 3.6 mmol/L (3.5-5.1); Sodium 134 mmol/L (136-145); Total Protein 7.1 g/dL (6.4-8.2)
== END 2022-03-27 03:02 | disposition home or self-care (01) ==
LOC: LOS 03:01
PROVIDERS: PCP Family Medicine; Visit Provider Family Medicine
DX: B33.8 Other specified viral diseases (principal)
CPT/HCPCS: 36415; 80053; 85025

== ENCOUNTER → 2022-05-27 12:59 | Outpatient (BNVA) | payer MEDICARE, SELFPAY | PROVIDERS: PCP Family Medicine; Visit Provider Nurse Practitioner Gerontology | DX: N40.1 Benign prostatic hyperplasia with lower urinary tract symptoms (principal); N13.8 Other obstructive and reflux uropathy | CPT/HCPCS: 51798; 99213 ==

== ENCOUNTER 2022-08-02 00:51 | Outpatient (CLI) | payer MEDICARE, SELFPAY ==
--- NOTE | 2022-08-02 | DI.RAD_ITS ---
Exam(s) XR HAND RT COMPLETE EXAM: XR HAND RT COMPLETE CLINICAL HISTORY: RT FINGER PAIN, [id number]. TECHNIQUE: 2D digital imaging was performed. COMPARISON: No exams were available for comparison FINDINGS: 3 views No evidence of fracture nor dislocation. No osseous lesions nor erosions. There is a 1 millimeter c alcific density adjacent to the lateral base of the proximal phalanx of the 5th finger. No other sof t tissue calcifications evident. Bone density is age-appropriate. First carpometacarpal joint appea rs unremarkable. MTP joints appear unremarkable. IMPRESSION: Mild findings as above. DATA REPOSITORY: RADIATION DOSE DELIVERED:
== END 2022-08-02 01:11 ==
LOC: DI 00:51
PROVIDERS: PCP Family Medicine; Visit Provider Family Medicine
DX: M79.644 Pain in right finger(s) (principal)
CPT/HCPCS: 73130

== ENCOUNTER 2022-08-02 13:51 | Outpatient (CLI) | payer MEDICARE, SELFPAY ==
[2022-08-02 13:52] LABS: Abs Immature Grans 0.02 10^3/uL (0.0-0.06); Absolute Basophil Count 0.05 10^3/uL (0.0-0.2); Absolute Eosinophil Count 0.03 10^3/uL (0.0-0.7); Absolute Lymphocyte Count 1.14 10^3/uL (1.2-3.4); Absolute Monocyte Count 0.66 10^3/uL (0.1-0.8); Absolute Neutrophil Count 6.56 10^3/uL (1.2-6.7); Basophils % 0.6; Eosinophils % 0.4; HCT 44.2 % (40.0-50.0); HGB 15.2 g/dL (13.5-17.5); Immature Grans % 0.2; Lymphocytes % 13.5; MCH 33.3 pg (27.0-33.0); MCHC 34.4 % (32.0-36.0); MCV 97 fL (80-95); MPV 9.9 fL (8.0-11.0); Monocytes % 7.8; Neutrophils % 77.5; Platelet Count 219 10^3/uL (130-400); RBC 4.56 10^6/uL (4.36-5.78); RDW 12.9 % (11.8-14.1); WBC 8.46 10^3/uL (4.4-10.8)
[2022-08-02 14:24] LABS: ALT 23 U/L (16-63); AST 19 U/L (15-37); Albumin 3.8 g/dL (3.4-5.0); Alkaline Phosphatase 88 U/L (46-116); Anion Gap 4.2 mmol/L (3-11); BUN 17 mg/dL (7-18); Bilirubin, Total 0.5 mg/dL (0.2-1.0); CO2 31.8 mmol/L (21.0-32.0); CREATININE 0.9 mg/dL (0.70-1.30); Calcium 8.8 mg/dL (8.5-10.1); Chloride 102 mmol/L (98-107); Estimated GFR 91.88 (mL/min/1.73m2); Glucose 124 mg/dL (74-106); Potassium 4.2 mmol/L (3.5-5.1); Sodium 138 mmol/L (136-145); Total Protein 7.1 g/dL (6.4-8.2)
[2022-08-07 16:54] LABS: Testosterone, Total 450 ng/dL (240-950)
== END 2022-08-02 13:52 | disposition home or self-care (01) ==
LOC: LBO 13:52
PROVIDERS: Internal Medicine Endocrinology, Diabetes & Metabolism; PCP Family Medicine; Visit Provider Family Medicine
DX: Z79.2 Long term (current) use of antibiotics (principal); E29.1 Testicular hypofunction
CPT/HCPCS: 36415; 80053; 84403; 85025

== ENCOUNTER → 2022-08-21 13:09 | Outpatient (BNVA) | payer MEDICARE, SELFPAY | PROVIDERS: PCP Family Medicine; Referring Provider Family Medicine; Visit Provider Student in an Organized Health Care Education/Training Program | DX: S63.614A Unspecified sprain of right ring finger, initial encounter (principal); X58.XXXA Exposure to other specified factors, initial encounter; M25.641 Stiffness of right hand, not elsewhere classified | CPT/HCPCS: 99213 ==

== ENCOUNTER 2022-11-01 01:38 | Outpatient (CLI) | payer MEDICARE, SELFPAY ==
[2022-11-01 13:48] LABS: Abs Immature Grans 0.02 10^3/uL (0.0-0.06); Absolute Basophil Count 0.04 10^3/uL (0.0-0.2); Absolute Eosinophil Count 0.05 10^3/uL (0.0-0.7); Absolute Lymphocyte Count 1.14 10^3/uL (1.2-3.4); Absolute Monocyte Count 0.46 10^3/uL (0.1-0.8); Absolute Neutrophil Count 7.01 10^3/uL (1.2-6.7); Basophils % 0.5; Eosinophils % 0.6; HCT 45.5 % (40.0-50.0); HGB 15.3 g/dL (13.5-17.5); Immature Grans % 0.2; Lymphocytes % 13.1; MCH 32.5 pg (27.0-33.0); MCHC 33.6 % (32.0-36.0); MCV 97 fL (80-95); MPV 10.2 fL (8.0-11.0); Monocytes % 5.3; Neutrophils % 80.3; Platelet Count 250 10^3/uL (130-400); RBC 4.71 10^6/uL (4.36-5.78); RDW 13.9 % (11.8-14.1); RDW-SD 50.1 fL; WBC 8.72 10^3/uL (4.4-10.8)
[2022-11-01 14:04] LABS: ALT 23 U/L (16-63); AST 15 U/L (15-37); Albumin 3.7 g/dL (3.4-5.0); Alkaline Phosphatase 95 U/L (46-116); Anion Gap 5.2 mmol/L (3-11); BUN 23 mg/dL (7-18); Bilirubin, Total 0.6 mg/dL (0.2-1.0); CO2 34.8 mmol/L (21.0-32.0); Calcium 8.9 mg/dL (8.5-10.1); Chloride 98 mmol/L (98-107); Estimated GFR 80.47 (mL/min/1.73m2); Glucose 189 mg/dL (74-106); Potassium 4.3 mmol/L (3.5-5.1); Sodium 138 mmol/L (136-145); Total Protein 7.1 g/dL (6.4-8.2)
[2022-11-04 11:28] LABS: Adrenocorticotropic Hormone, P 7.9 pg/mL
[2022-11-06 12:51] LABS: Testosterone, Total 465 ng/dL (240-950)
== END 2022-11-01 01:39 | disposition home or self-care (01) ==
LOC: LBO 01:38
PROVIDERS: Family Medicine; PCP Family Medicine; Visit Provider Internal Medicine Endocrinology, Diabetes & Metabolism
DX: Z79.2 Long term (current) use of antibiotics (principal); E29.1 Testicular hypofunction; Z79.52 Long term (current) use of systemic steroids
CPT/HCPCS: 80053; 82533; 84403; 82024; 85025

== ENCOUNTER → 2022-11-25 13:30 | Outpatient (BNVA) | payer MEDICARE, SELFPAY | PROVIDERS: PCP Family Medicine; Visit Provider Nurse Practitioner Gerontology | DX: R39.89 Other symptoms and signs involving the genitourinary system (principal); N40.1 Benign prostatic hyperplasia with lower urinary tract symptoms | CPT/HCPCS: 36415; 51798; 99214 ==

== ENCOUNTER 2022-11-25 14:01 | Outpatient (REF) | payer MEDICARE, SELFPAY ==
[2022-11-25 23:11] LABS: PSA, Diagnostic 0.6 ng/mL (<=6.5)
== END 2022-11-25 14:02 | disposition home or self-care (01) ==
LOC: LBN 14:01
PROVIDERS: PCP Family Medicine; Visit Provider Nurse Practitioner Gerontology
DX: N40.1 Benign prostatic hyperplasia with lower urinary tract symptoms (principal); N13.8 Other obstructive and reflux uropathy
CPT/HCPCS: 84153

== ENCOUNTER → 2023-03-12 03:10 | Outpatient (CLI) | payer MEDICARE, SELFPAY ==
--- NOTE | 2023-03-12 13:30 | DI.US_ITS ---
APPROVED REPORT EXAM: Comprehensive 2D, Doppler, and color-flow Echocardiogram Patient Location: Out-Patient Business Development Assistant: Zeus Rob RDCS (AE) Indications: sleep apnea Other Information Study Quality: Good Conclusion 1.Mildly to moderately dilated atria,ventricles normal. 2.Normal LV systolic function without wall motion abnormality,EF 60-65%.Normal RV systolic function. 3.Anatomically normal valves. Mild MR,mild to moderate TR,no pulmnary hypertension. 4.No intracardiac shunt 5.No pericardial effusion. Wall motion Left Ventricle The left ventricle is normal size. Left ventricular systolic function is normal. The left ventricular ejection fraction is within the normal range. There is normal left ventricular wall thickness. There is normal LV segmental wall motion. There is no ventricular septal defect visualized. LVEF is 60%. Right Ventricle Right ventricle is mildly dilated. The right ventricular systolic function is normal. The RVSP is 37. 2 mmHg. Atria Left atrium is borderline dilated. Right atrium is mildly dilated. Aortic Valve The aortic valve is normal in structure. Aortic valve is trileaflet. There is no aortic valvular sten osis. No aortic regurgitation is present. Mitral Valve The mitral valve is normal in structure. No evidence of mitral valve stenosis. Trace mitral regurgita tion. Tricuspid Valve The tricuspid valve is normal in structure. There is no tricuspid valve stenosis. Mild to moderate tr icuspid regurgitation. Pulmonic Valve The pulmonary valve is normal in structure. There is no pulmonic valvular stenosis. Moderate pulmonic regurgitation. Great Vessels The aortic root is normal in size. Ascending aorta is not well visualized. Aortic arch is not well vi sualized. IVC is normal in size and collapses >50% with inspiration. Pericardium There is no pericardial effusion. 2D Dimensions IVSD d PLAX 0.74 cm M: 0.6-1.2 Ao Root d 3.30 cm M: 3.1 - 3.7 LVPW d PLAX 0.72 cm M: 0.6 - 1.2 LVID d PLAX 4.17 cm M: 4.2 - 5.8 LVDs 2.80 cm M: 2.5 - 4.0 LV EF Teichholz 61.7 % FS 32.78 % LV EDV (Teich) 77.2 mL LV ESV (Teich) 29.6 mL Stroke Vol Index (Teich) 27.36 M-Mode TAPSE 2.28 cm (M/F) >1.7 Auto EF LV EDV A4C 116.7 mL LV EDV A2C 152.6 mL LV EDV BP 133.4 mL LV ESV A4C 46.2 mL LV ESV A2C 62.3 mL LV ESV BP 55.3 mL LVEF(%) A4C 60.4 % LVEF(%) A2C 59.2 % LVEF(%) BP 58.5 % LV SV A4C 70.5 ml LV SV A2C 90.3 ml LV SV BP 78.1 ml LV CO A4C 4.3 L/min LV CO A2C 6.0 L/min LV CO BP 5.1 L/min HR A4C 60.51 BPM HR A2C 66.06 BPM LV EDV Index (BP) LA Volume LA Length A4C 6.1 cm LA Length A2C 5.9 cm LA Area A4C s 14.94 cm2 LA Area A2C s 16.05 cm2 LA Vol A4C A-L 30.92 mL LA Vol A2C A-L 37.21 mL LA Vol Biplane A-L 34.6 mL LA Vol/BSA A4C A-L LA Vol/BSA A2C A-L LA Vol/BSA BP A-L 19.9 mL/m2 LA Vol A4C MOD 29.4 mL LA Vol A2C MOD 35.7 mL LA Vol BP MOD 32.8 mL RA Volume RA Area A4C 15.0 cm2 RA ESV A4C (A-L) 40.1mL RA Vol/BSA A4C A-L RA Length A4C 4.8 cm RA ESV A4C (MOD) 40.6mL LV Diastology MV E' medial 0.119 (>0.07 m/s) MV E Vmax 0.77 (0.4-1.3 m/s) MV E/E' MED 6.48 (<14) MV A Vmax 0.95 (0.4-1.3 m/s) MV E' lateral 0.110 (>0.1 m/s) E/A Ratio 0.8 MV E/E' LAT 7.01 (<14) MV E' Average 0.114 m/s MV E/E'(average) 6.73 Aortic Valve AoV Vmax 1.77 m/s LVOT Vmax 1.24 m/s AoV Peak Grad 12.6 mmHg LVOT Peak Grad 6.2 mmHg AoV Area (Vmax) 1.51 cm2 LVOT VTI 0.302 m AoV VTI 0.408 m LVOT Mean Grad 3.6 mmHg AoV Mean Tomas. 1.22 m/s LVOT SV 65.37 mL AoV Mean Grad 6.8 mmHg LVOT Diam s 1.65 cm AoV Area (VTI) 1.60 cm2 Velocity Ratio 0.70 Mitral Valve MV DT 248 (160-240 msec) Pulmonary Valve PV Vmax 1.29 (0.5-1.5 m/s) RVOT Vmax 0.83 m/s PV Peak Grad 6.6 mmHg RVOT Peak Gr. 2.8 mmHg PV Mean Tomas 0.83 m/s RVOT VTI 0.204 m PV Mean Grad 3.3 mmHg RVOT Mean Gr. 1.7 mmHg Tricuspid Valve RA Pressure 3.00 mmHg TR Vmax 2.92 m/s TR Peak Grad 34.1 mmHg RVSP (TR) 37.2 mmHg
== END ==
PROVIDERS: PCP Family Medicine; Visit Provider Family Medicine
DX: G47.33 Obstructive sleep apnea (adult) (pediatric) (principal)
CPT/HCPCS: 93306

== ENCOUNTER → 2023-05-19 14:30 | Outpatient (BNVA) | payer MEDICARE, SELFPAY | PROVIDERS: PCP Family Medicine; Referring Provider Family Medicine; Visit Provider Nurse Practitioner Gerontology | DX: N40.1 Benign prostatic hyperplasia with lower urinary tract symptoms (principal); N13.8 Other obstructive and reflux uropathy | CPT/HCPCS: 51798; 99214 ==

== ENCOUNTER 2023-06-09 06:10 | Outpatient (CLI) | payer MEDICARE, SELFPAY ==
[2023-06-09 12:46] LABS: Abs Immature Grans 0.01 10^3/uL (0.0-0.06); Absolute Basophil Count 0.04 10^3/uL (0.0-0.2); Absolute Eosinophil Count 0.25 10^3/uL (0.0-0.7); Absolute Lymphocyte Count 2.02 10^3/uL (1.2-3.4); Absolute Monocyte Count 0.66 10^3/uL (0.1-0.8); Absolute Neutrophil Count 4.14 10^3/uL (1.2-6.7); Basophils % 0.6; Eosinophils % 3.5; HCT 43.9 % (40.0-50.0); HGB 14.4 g/dL (13.5-17.5); Immature Grans % 0.1; Lymphocytes % 28.4; MCH 32.4 pg (27.0-33.0); MCHC 32.8 % (32.0-36.0); MCV 99 fL (80-95); Monocytes % 9.3; Neutrophils % 58.1; Platelet Count 219 10^3/uL (130-400); RBC 4.45 10^6/uL (4.36-5.78); RDW 14.2 % (11.8-14.1); RDW-SD 52.4 fL; WBC 7.12 10^3/uL (4.4-10.8)
[2023-06-09 12:59] LABS: ALT 23 U/L (16-63); AST 16 U/L (15-37); Albumin 3.6 g/dL (3.4-5.0); Alkaline Phosphatase 91 U/L (46-116); Anion Gap 6.7 mmol/L (3-11); BUN 13 mg/dL (7-18); Bilirubin, Total 0.7 mg/dL (0.2-1.0); CO2 33.3 mmol/L (21.0-32.0); CREATININE 0.8 mg/dL (0.70-1.30); Calcium 8.7 mg/dL (8.5-10.1); Chloride 102 mmol/L (98-107); Estimated GFR 94.62 (mL/min/1.73m2); Glucose 102 mg/dL (74-106); Potassium 3.8 mmol/L (3.5-5.1); Sodium 142 mmol/L (136-145); Total Protein 6.9 g/dL (6.4-8.2)
== END 2023-06-09 06:11 | disposition home or self-care (01) ==
PROVIDERS: PCP Family Medicine; Visit Provider Family Medicine
DX: Z79.2 Long term (current) use of antibiotics (principal)
CPT/HCPCS: 36415; 80053; 85025

== ENCOUNTER 2023-06-11 15:03 | Outpatient (CLI) | payer MEDICARE, SELFPAY ==
[2023-06-11 14:55] LABS: HCT 41.9 % (40.0-50.0); HGB 13.9 g/dL (13.5-17.5); MCH 32.4 pg (27.0-33.0); MCHC 33.2 % (32.0-36.0); MCV 98 fL (80-95); MPV 10.5 fL (8.0-11.0); Platelet Count 203 10^3/uL (130-400); RBC 4.29 10^6/uL (4.36-5.78); RDW-SD 50.7 fL; WBC 6.66 10^3/uL (4.4-10.8)
[2023-06-11 15:38] LABS: ALT 23 U/L (16-63); AST 17 U/L (15-37); Albumin 3.8 g/dL (3.4-5.0); Alkaline Phosphatase 99 U/L (46-116); Anion Gap 1.9 mmol/L (3-11); BUN 15 mg/dL (7-18); Bilirubin, Total 0.5 mg/dL (0.2-1.0); CO2 38.1 mmol/L (21.0-32.0); CREATININE 0.8 mg/dL (0.70-1.30); Calcium 8.9 mg/dL (8.5-10.1); Chloride 102 mmol/L (98-107); Estimated GFR 94.62 (mL/min/1.73m2); Glucose 101 mg/dL (74-106); Potassium 4.2 mmol/L (3.5-5.1); Sodium 142 mmol/L (136-145); Total Protein 7.4 g/dL (6.4-8.2)
[2023-06-11 23:01] LABS: LH <0.3 mIU/mL (3.1-34.6)
[2023-06-13 12:36] LABS: Adrenocorticotropic Hormone, P <5.0 pg/mL
[2023-06-19 09:44] LABS: Testosterone, Free 32.1 ng/dL (3.28-12.2); Testosterone, Total 955 ng/dL (240-950)
== END 2023-06-11 15:04 | disposition home or self-care (01) ==
LOC: LBO 15:03
PROVIDERS: PCP Family Medicine; Visit Provider Student in an Organized Health Care Education/Training Program
DX: E27.49 Other adrenocortical insufficiency (principal)
CPT/HCPCS: 36415; 80053; 82533; 84402; 84403; 85027; 82024; 83002; 84439; 84443

== ENCOUNTER 2023-09-30 01:33 | Outpatient (CLI) | payer MEDICARE, SELFPAY ==
--- OUTSIDE RECORDS SUMMARY | 2023-09-30 01:40 | XMS_ITS | Encounter Summary ---
Author Organization [facility] [place] [place] [address] Care Team Providers Care Slurry Control Tender Name Role Phone Unknown Primary Care Provider Unavailabl e Reason for Visit * Reason Comments Medication Refill Encounter Details Date Type Department Care Team (Late st Contact Info) Description 04/30/2018 Refill [place] [address] Natalio Willoughby MD [facility] [address] [place] [address] Social History Tobacco Use Types Packs/Day Years Used Date Smoking Tobacco: Former Cigarettes 0.5 20 0 11/19/1985 - 11/19/2005 Smokeless Tobacco: Never Alcohol Use Standard Drinks/Week Comments No 0 (1 standard drink = 0.6 oz pur e alcohol) Denies DUI or DWI Sex and Gender Information Value Date Recorded Sex Assigned at Not on file Gender Identity Not on file Sexual Orientation Not on file documented as of this encounter Plan of Treatment Not on file documented as of this encounter Visit Diagnoses Not on filedocumented in this encounter Care Teams Slurry Control Tender Relationship Specialty Start Date End Date Unknown None PCP - General 03/10/19 documented as of this encounter
--- OUTSIDE RECORDS SUMMARY | 2023-09-30 01:40 | XMS_ITS | Encounter Summary ---
Author Organization [facility] [place] [address] Care Team Providers Care Senior Game Advisor Name Role Phone Ryan Guy MD Primary Care Provider [phone] Encounter Details Date Type Department Care Team (Late st Contact Info) Description 05/26/2018 3:30 PM EDT Office Visit Rheumat[facility] at [facility] [place] [place] [address] Jermaine Hyatt MD [facility] [place] [address] Morning joint stiffness; Chronic pain of both shoulders; Bilateral wrist pain; Testicular pain; SOB (shortness of breath); Pain in both lower extremities; Inflammatory arthropathy; High risk medication use; Low serum vitamin D Social History Tobacco Use Types Packs/Day Years [...] on file documented as of this encounter Last Filed Vital Signs Vital Sign Reading Time Taken Comments Blood Pressure 116/65 05/26/2018 3:24 PM EDT Pulse 71 05/26/2018 3:24 PM EDT Temperature 37.6 ??C (99.6 ??F) 05/26/2018 3:24 PM ED T Respiratory Rate - - Oxygen Saturation 95% 05/26/2018 3:24 PM EDT Inhaled Oxygen Concentration - - Weight 68.5 kg (151 lb) 05/26/2018 3:24 PM EDT Height 170.2 cm (5' 7) 05/26/2018 3:24 PM EDT Body Mass Index 23.65 05/26/2018 3:24 PM EDT documented in this encounter Progress Notes * Jermaine Hyatt MD - 05/26/2018 3:30 PM EDT Rheumatology Follow-Up Note Rheumatology History: ?? Dr FRAIRE PATIENT ?? 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 Cymbalta and gabapentin with no discernible benefit ?? transitioned to Suboxone ?? stop hydrocortisone which she got from his Lyme doctor he should stop the Plaquenil which I had prescribed for fatigue with no effect ?? 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 Patient has been doing better brings a long list with a table to review his symptoms which her rates from 0-3vwith 2 being the worst. There were many 2-3 pages well over 30 but we went through them. After we were done we decided to focus on 3 or 4 that worried him the most. He has chronic testicular apin for many years he had a vasectomy and was worried that it had been infected at the time. Though it got better he still has residual pain. He does not want me to examine the scrotum today. He also is worried about poor circulation and occasional chest pain with shortness of b reath. It tends to be more with activity. His hands become ice cold. They do nto become white, change color, and his house is always at 71F. He has shortness of breath with activity and cough withoutPND, He has chronic hand pain along the ulnar distribution in his right elbow and in the CMC of theleft.. No chest pain Today. ROS was given on piece of paper provided by the patient to scanned into the chart in addition to what is below ROS: General (-)fevers, (+)chills, (+night sweats, (-)wt loss/gain, feels cold HEENT (-)head trauma, (-)vision change, (-)tinnitus, (-)epistaxis, (Intermittnetn )sore throat, (-)bleeding gums, (-)oral ulcers, +)dry eyes, (- )dry mouth, (-)dysphagia, (-)GERD, (-)photo sensitivity, (-)Hair loss, (+)dizziness CVS (+)chest pain, (-)palpitations, (-)pedal edema, (-)PND, (-)orthopnea. Pulm (+)shortness of breath, (+)PEGN, (-)wheezes, (-)cough, (-)pleuritic pain GI (-)N/V, (-)abdominal pain, (-)emesis, (-)hematemesis, (-)hematochezia, (- )change in appetite (-)hematuria, (-)dysuria, (-)frequency, (-)nocturia, (-)genital ulcers MS (-)muscle weakness, (-)paralysis, (-)joint pain, (-)hx of arthritis Endo (-)thyroid disorders, (-)diabetes, (-)temperature intolerance. Neuro (-)focal weakness, (-)paresthesias, (-)gait instability. Skin (-)Raynaud's, ulcers Psych (+) mood disorder. Past Medical History: Diagnosis Date ??? Asthma Childhood ??? Chronic fatigue syndrome ??? Chronic pain ??? Depression depression going back to at least 1992 at the time of several family deaths, controlled ??? Fibromyalgia ??? Opioid dependence, continuous ??? Prostatitis, chronic Patient Active Problem List Diagnosis Date Noted ??? Fatigue 11/19/2010 Priority: High Class: Chronic ??? Hypogonadism male 11/19/2010 Priority: High Class: Chronic ??? Inflammatory arthropathy 03/30/2018 ??? High risk medication use 03/30/2018 ??? Low serum vitamin D 03/30/2018 ??? Rash 03/28/2016 ??? Chronic midline low back pain without sciatica 10/16/2015 ??? Chronic midline thoracic back pain 10/16/2015 ??? Depression 07/10/2015 ??? Leg pain 10/09/2010 ??? Cervicalgia 10/09/2010 ??? Chronic fatigue syndrome 10/09/2010 ??? Chronic low back pain 10/08/2010 Past Surgical History: Procedure Laterality Date ??? CERVICAL FUSION anterior ??? KNEE SURGERY left ??? VASECTOMY Family History Problem Relation Age of Onset ??? Coronary Artery Disease Other ??? Cancer Other Social History Socioeconomic History ??? Marital status: Spouse name: Not on file ??? Number of children: 2 ??? Years of education: Not on file ??? Highest education level: Not on file Occupational History ??? 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 Financial resource strain: Not on file ??? Food insecurity: Worry: Not on file Inability: Not on file ??? Transportation needs: Medical: Not on file Non-medical: Not on file Tobacco Use ??? Smoking status: Former Smoker Packs/day: 0.50 Years: 20.00 Pack years: 10.00 Types: Cigarettes Last attempt to quit: 11/19/2005 Years since quittin.5 ??? Smokeless tobacco: Never Used Substance and Sexual Activity ??? Alcohol use: No Comment: Denies DUI or DWI ??? Drug use: No ??? Sexual activity: Not on file Lifestyle ??? Physical activity: Days per week: Not on file Minutes per session: Not on file ??? Stress: Not on file Relationships ??? Social connections: Talks on phone: Not on file Gets together: Not on file Attends hoahaoism service: Not on file Active member of club or organization: Not on file Attends meetings of clubs or organizations: Not on file Relationship status: Not on file ??? Intimate partner violence: Fear of current or ex partner: Not on file Emotionally abused: Not on file Physically abused: Not on file Forced sexual activity: Not on file Other Topics Concern ??? Not on file Social History Narrative OPIOID HISTORY Methadone affected LEA Relationship with Dr Mayer deteriorated which he states was precipitated by neurologic sx Took more medications then prescribed secondary to flares Urine toxicology was inconsistent in [address] Mayer and had a prescription for methadone Rx pain clinic and was switched to morphine because of testosterone level and took a previous prescription methadone because of BTP and was tested again and was positive with decrease levels [facility] received suboxone and helped pain Current Outpatient Medications Medication Sig Dispense Refill ??? atovaquone (MEPRON) 750 mg/5 mL Suspension Take 750 mg by mouth daily. ??? Doxycycline Hyclate (PERIOSTAT) 100 mg Tablet, Delayed Release (E.C.) Take 100 tablets by mouth. ??? Acetylcysteine (NAC) 600 mg Capsule Take by mouth. ??? Acetylcarnitine 500 mg Capsule Take 500 mg by mouth. ??? acetylcarnitin/alpha lipoic ac (ACETYLCARNITIN HCL-A LIPOIC AC) 400-200 mg Capsule Take by mouth. ??? azithromycin (ZITHROMAX) 250 mg Tablet Take 250 mg by mouth 2 times daily. Day1:take 2 tablets daily, Day 2-5:Take one tablet daily ??? diclofenac (VOLTAREN) 1 % Gel Apply 2 g topically 4 times daily as needed. 100 g 0 ??? hydrocortisone (CORTEF) 5 mg Tablet take 1 tablet by mouth four times a day 0 ??? SUBOXONE 2-0.5 mg Film dissolve 1 FILM under the tongue once daily 0 ??? predniSONE (DELTASONE) 5 mg Tablet Take 4 tablets by mouth daily. (Patient not taking: Reportedon 09/25/2017) 120 tablet 5 ??? traZODone (DESYREL) 50 mg Tablet TAKE ONE TO TWO TABLETS BY MOUTH AT BEDTIME 60 tablet 11 ??? DOCOSAHEXANOIC ACID/EPA (FISH OIL ORAL) Take 2 capsules by mouth daily. ??? valGANciclovir (VALCYTE) 450 mg Tablet Take 1 tablet by mouth daily. 30 tablet 3 ??? COQ10, LIPOSOMAL UBIQUINOL, ORAL Take 200 mg by mouth daily. ??? aspirin 81 mg Tablet, Delayed Release (E.C.) Take 81 mg by mouth daily. ??? Garlic Capsule Take 1 capsule by mouth daily. ??? UNABLE TO FIND Med Name: NAC, 1 capsule daily. ??? ferrous sulfate (FEOSOL) 325 mg (65 mg iron) Tablet Take 325 mg by mouth daily (with breakfast). ??? UNABLE TO FIND An additional iron supplement. ??? FLUoxetine (PROZAC) 20 mg Capsule Take 1 capsule by mouth daily. 90 capsule 3 ??? Prasterone, DHEA, (DHEA) 50 mg Capsule Take 50 mg by mouth daily. ??? cyclobenzaprine (FLEXERIL) 5 mg Tablet Take 1 tablet by mouth nightly. (Patient not taking: Reported on 03/30/2018) 60 tablet 1 ??? DULoxetine (CYMBALTA) 30 mg Capsule, Delayed Release(E.C.) Take 30 mg by mouth daily. ??? gabapentin (NEURONTIN) 600 mg tablet Take 600 mg by mouth daily. ??? lidocaine (LIDODERM) 5 %(700 mg/patch) Place 1 patch onto the skin as needed. ??? famciclovir (FAMVIR) 500 mg tablet Take 500 mg by mouth 2 times daily. ??? Cholecalciferol, Vitamin D3, (VITAMIN D-3) 5,000 unit Tab Take 1 tablet by mouth 2 times daily. ??? MV-MN/FA/LYCOPENE/LUT/HB#178 (FREDRICK MULTIVITAMIN FOR MEN ORAL) Take 1 tablet by mouth daily. ??? ASCORBATE CALCIUM (VITAMIN C ORAL) Take 1,000 mg by mouth 5 times daily. Time released. ??? Selenium 100 mcg Cap Take 3-4 capsules by mouth every morning. ??? b complex vitamins (VITAMIN B COMPLEX) capsule Take 1 capsule by mouth daily. ??? Testosterone 50 mg/5 gram (1 %) Gel Apply 0.5 MG 2 times daily. No current facility-administered medications for this visit. Current Outpatient Medications on File Prior to Visit Medication Sig Dispense Refill ??? atovaquone (MEPRON) 750 mg/5 mL Suspension Take 750 mg by mouth daily. ??? Doxycycline Hyclate (PERIOSTAT) 100 mg Tablet, Delayed Release (E.C.) Take 100 tablets by mouth. ??? Acetylcysteine (NAC) 600 mg Capsule Take by mouth. ??? Acetylcarnitine 500 mg Capsule Take 500 mg by mouth. ??? acetylcarnitin/alpha lipoic ac (ACETYLCARNITIN HCL-A LIPOIC AC) 400-200 mg Capsule Take by mouth. ??? azithromycin (ZITHROMAX) 250 mg Tablet Take 250 mg by mouth 2 times daily. Day1:take 2 tablets daily, Day 2-5:Take one tablet daily ??? diclofenac (VOLTAREN) 1 % Gel Apply 2 g topically 4 times daily as needed. 100 g 0 ??? hydrocortisone (CORTEF) 5 mg Tablet take 1 tablet by mouth four times a day 0 ??? SUBOXONE 2-0.5 mg Film dissolve 1 FILM under the tongue once daily 0 ??? predniSONE (DELTASONE) 5 mg Tablet Take 4 tablets by mouth daily. (Patient not taking: Reportedon 09/25/2017) 120 tablet 5 ??? traZODone (DESYREL) 50 mg Tablet TAKE ONE TO TWO TABLETS BY MOUTH AT BEDTIME 60 tablet 11 ??? DOCOSAHEXANOIC ACID/EPA (FISH OIL ORAL) Take 2 capsules by mouth daily. ??? valGANciclovir (VALCYTE) 450 mg Tablet Take 1 tablet by mouth daily. 30 tablet 3 ??? COQ10, LIPOSOMAL UBIQUINOL, ORAL Take 200 mg by mouth daily. ??? aspirin 81 mg Tablet, Delayed Release (E.C.) Take 81 mg by mouth daily. ??? Garlic Capsule Take 1 capsule by mouth daily. ??? UNABLE TO FIND Med Name: NAC, 1 capsule daily. ??? ferrous sulfate (FEOSOL) 325 mg (65 mg iron) Tablet Take 325 mg by mouth daily (with breakfast). ??? UNABLE TO FIND An additional iron supplement. ??? FLUoxetine (PROZAC) 20 mg Capsule Take 1 capsule by mouth daily. 90 capsule 3 ??? Prasterone, DHEA, (DHEA) 50 mg Capsule Take 50 mg by mouth daily. ??? cyclobenzaprine (FLEXERIL) 5 mg Tablet Take 1 tablet by mouth nightly. (Patient not taking: Reported on 03/30/2018) 60 tablet 1 ??? DULoxetine (CYMBALTA) 30 mg Capsule, Delayed Release(E.C.) Take 30 mg by mouth daily. ??? gabapentin (NEURONTIN) 600 mg tablet Take 600 mg by mouth daily. ??? lidocaine (LIDODERM) 5 %(700 mg/patch) Place 1 patch onto the skin as needed. ??? famciclovir (FAMVIR) 500 mg tablet Take 500 mg by mouth 2 times daily. ??? Cholecalciferol, Vitamin D3, (VITAMIN D-3) 5,000 unit Tab Take 1 tablet by mouth 2 times daily. ??? MV-MN/FA/LYCOPENE/LUT/HB#178 (FREDRICK MULTIVITAMIN FOR MEN ORAL) Take 1 tablet by mouth daily. ??? ASCORBATE CALCIUM (VITAMIN C ORAL) Take 1,000 mg by mouth 5 times daily. Time released. ??? Selenium 100 mcg Cap Take 3-4 capsules by mouth every morning. ??? b complex vitamins (VITAMIN B COMPLEX) capsule Take 1 capsule by mouth daily. ??? Testosterone 50 mg/5 gram (1 %) Gel Apply 0.5 MG 2 times daily. No current facility-administered medications on file prior to visit. Allergies Allergen Reactions ??? Ciprofloxacin Rash and Other (See Comments) fever ??? Diclofenac Rash ??? Mobic [Meloxicam] Palpitations ??? Sulfa (Sulfonamide Antibiotics) Rash Physical Exam: BP 116/65 Pulse 71 Temp 37.6 ??C (99.6 ??F) Ht 170.2 cm (5' 7) Wt 68.5 kg (151 lb) SpO2 95% BMI 23.65 kg/m?? General: Patient upset, tremulous, pressured not apparent today. He still is worried about chronic lyme. And has some distress about it HEENT: Mucous membranes are moist, no oral mucosal ulcerations, Neck: Supple, no lymphadenopathy, full range of motion. He was concerned sbout LAD but he was feeling his mylohyoid muscles plus some additional neck strap muscle wit his neck extedned Cardiovascular: RR, no murmurs Lungs: Clear to auscultation bilaterally. (-)R/R/W Abdomen: Soft, non tender, non distended, + bowel sounds, no hepatosplenomegaly. Neuro: Alert and oriented x3. Cranial nerves II through XII grossly intact. - Strength 5/5 throughout, -Sensation to light touch is grossly normal throughout. DTRs are 2+ throughout. Skin: (-)ulcers, (-)rash visibly and did not get into a gown Vascular: Pulses are equal in all extremities. Goo cap refill no edema MSK Back: Non tender over the spine and costovertebral angles bilaterally. (-)Archie Extremities Shoulders: FROM, non-tender to palpation Elbows:FROM, (-)pain, (-)nodules Wrists: FROM, no swelling, non-tender, tinneles paheln and durke Hands: No synovitis, no MCP compression tenderness, full claw and fist Hips: FROM, (-) archie Knees: (-)effusions, non-tender ROM Ankles: FROM, non-tender, no swelling Feet: no MTP compression tenderness Spine, shoulders, elbows, wrists, fingers, hips, knees and ankles; no active swelling, tenderness or synovitis at any joint. No soft tissue nodules. Labs: Studies: Assessment: Joseluis Dewey is a 67 y.o. male who presents today with concern about chronic Lyme/neurogenic Lyme patient currently on Azithromycin and Doxy per outside provider. Patient aware of concern and treatment recs. Focused based on extent of problem list. SOB with activity poor circulation at times with occasional chest pain. He has no chest pain at this time, no apparent edema, but will get echo and PFTs to evlaute Hand pain - ulnar nerve dysfunction given some exercises Thumb pain given diclofenac OA of the hands Testicular pain- unclear etiology Plan or Recommendations: ?? Lyme testing ?? Echo cardiogram and PFTs ?? Exercised and strethes for ulnar dysfucntion ?? Neurology referral for symptoms placed last visit ?? Asked patient to take detailed notes on when he has a symptom how long it last, what was he doing before it happened, what made it better , what made it worse. ?? Would benefit from CBT referral ?? Would recommend against continued courses of antibiotics without evidence of acute infection. documented in this encounter Plan of Treatment Not on file documented as of this encounter Visit Diagnoses Diagnosis Morning joint stiffness Stiffness of joint, not elsewhere classified, unspecified site Chronic pain of both shoulders Pain in joint, shoulder region Bilateral wrist pain Pain in joint, forearm Testicular pain Unspecified disorder of male genital organs SOB (shortness of breath) Shortness of breath Pain in both lower extremities Inflammatory arthropathy Arthropathy, unspecified, site unspecified High risk medication use Encounter for long-term (current) use of other medications Low serum vitamin D documented in this encounter Care Teams Senior Game Advisor Relationship Specialty Start Date End Date Ryan Guy MD PCP - General General Internal Medicine 08/01/16 documented as of this encounter
--- OUTSIDE RECORDS SUMMARY | 2023-09-30 01:40 | XMS_ITS | Clinical Summary ---
Author Organization [facility] Address [facility] [place] [address] Care Team Providers Care Recreation Superintendent Name Role Phone Unknown Primary Care Provider Unavailabl e Allergies Active Allergy Reactions Criticality Noted Date Comments Ciprofloxacin Rash,Other (See Comments) Medium 011 fever Diclofenac Rash 04/25/2016 Meloxicam Palpitations 04/25/2016 Sulfa (Sulfonamide Antibiotics) Rash Medications Medication Sig Dispensed Refills Start Date End Date Status famciclovir (FAMVIR) 500 mg tablet Take 500 mg by mouth 2 times daily. Active Cholecalciferol, Vitamin D3, (VITAMIN D-3) 5,000 unit Tab Take 1 tablet by mouth 2 times daily. Active MV-MN/FA/LYCOPENE/L [place]/HB#178 (FREDRICK MULTIVITAMIN FOR MEN ORAL) Take 1 tablet by mouth daily. Active ASCORBATE CALCIUM (VITAMIN C ORAL) Take 1,000 mg by mouth 2 times daily. Time released. Active Selenium 100 mcg Cap Take 3-4 capsules by mouth every morning. Active b complex vitamins (VITAMIN B COMPLEX) capsule Take 1 capsule by mouth daily. Active Testosterone 50 mg/5 gram (1 %) Gel Activ e gabapentin (NEURONTIN) 600 mg tablet Take 600 mg by mouth 3 times daily. 08/16/2013 Active lidocaine (LIDODERM) 5 %(700 mg/patch) Place 1 patch onto the skin as needed. 09/23/2013 Active DULoxetine (CYMBALTA) 30 mg Capsule, Delayed Release(E.C.) Take 30 mg by mouth daily. Active Prasterone, DHEA, (DHEA) 50 mg Capsule Take 50 mg by mouth daily. Active FLUoxetine (PROZAC) 20 mg CapsuleIndications: Mild single current episode of major depressive disorder Take 1 capsule by mouth daily. 90 capsule 3 10/02/2016 Active ferrous sulfate (FEOSOL) 325 mg (65 mg iron) Tablet Take 325 mg by mouth daily (with breakfast). Active UNABLE TO FIND An additional iron supplement. Active aspirin 81 mg Tablet, Delayed Release (E.C.) Take 81 mg by mouth daily. Active Garlic Capsule Take 1 capsule by mouth daily. Active DOCOSAHEXANOIC ACID/EPA (FISH OIL ORAL) Take 2 capsules by mouth daily. Active valGANciclovir (VALCYTE) 450 mg TabletIndications:F atigue due to depression Take 1 tablet by mouth daily. 30 tablet 3 04/03/2017 Active predniSONE (DELTASONE) 5 mg TabletIndications:C hronic fatigue syndrome Take 4 tablets by mouth daily. 120 tablet 5 08/21/2017 Active Additional Information Patient not taking.Reported on 08/06/2018 hydrocortisone (CORTEF) 5 mg Tablet take 1 tablet by mouth four times a day 0 09/18/2017 Active SUBOXONE 2-0.5 mg Film dissolve 1 FILM under the tongue once daily 0 09/22/2017 Active atovaquone (MEPRON) 750 mg/5 mL Suspension Take 750 mg by mouth daily. Active Doxycycline Hyclate (PERIOSTAT) 100 mg Tablet, Delayed Release (E.C.) Take 100 mg by mouth 2 times daily. Active Acetylcysteine (NAC) 600 mg Capsule Take by mouth. Active Acetylcarnitine 500 mg Capsule Take 500 mg by mouth. Active acetylcarnitin/alph a lipoic ac (ACETYLCARNITIN HCL-A LIPOIC AC) 400-200 mg Capsule Take by mouth daily. Active azithromycin (ZITHROMAX) 250 mg Tablet Take 250 mg by mouth daily. Day1:take 2 tablets daily, Day 2-5:Take one tablet daily Active buprenorphine-nalox one 2-0.5 mg Film dissolve 1 FILM under the tongue once daily 0 05/25/2018 Active buprenorphine-nalOX one (SUBOXONE) 8-2 mg Film dissolve 1 FILM under the tongue once daily 0 05/25/2018 Active traZODone (DESYREL) 100 mg Tablet take 1 tablet by mouth at bedtime 0 05/11/2018 Active diclofenac (VOLTAREN) 1 % GelIndications:Pain in both lower extremities,Inflamm atory arthropathy,High risk medication use,Low serum vitamin D Apply 2 g topically 4 times daily as needed. 100 g 3 08/01/2018 Active Active Problems Problem Noted Date Diagnosed Date Morning joint stiffness 05/26/2018 Chronic pain of both shoulders 05/26/2018 Bilateral wrist pain 05/26/2018 Testicular pain 05/26/2018 SOB (shortness of breath) 05/26/2018 Inflammatory arthropathy 03/30/2018 High risk medication use 03/30/2018 Low serum vitamin D 03/30/2018 Rash 03/28/2016 Chronic midline low back pain without sciatica 0 10/16/2015 Chronic midline thoracic back pain 10/16/2015 Depression 07/10/2015 Fatigue 11/19/2010 Hypogonadism male 11/19/2010 Leg pain 10/09/2010 Cervicalgia 10/09/2010 Chronic fatigue syndrome 10/09/2010 Chronic low back pain 10/08/2010 Immunizations Name Administration Dates Next Due Pneumococcal Polysaccharide (Pneumovax 23) 11/16,01/03/1993 TD Adult 04/24/2000,03/10/1992 Family History Medical History Relation Comments Cancer Other Coronary Artery Disease Other Relation Status Comments Other Social History Tobacco Use Types Packs/Day Years [...] on file Sexual Orientation Not on file Last Filed Vital Signs Vital Sign Reading Time Taken Comments Blood Pressure 139/70 08/06/2018 1:28 PM EDT Pulse 72 08/06/2018 1:28 PM EDT Temperature 37.3 ??C (99.2 ??F) 08/06/2018 1:28 PM ED T Respiratory Rate 18 08/01/2016 1:02 PM EDT Oxygen Saturation 96% 08/06/2018 1:28 PM EDT Inhaled Oxygen Concentration - - Weight 66.2 kg (146 lb) 08/06/2018 1:28 PM EDT Height 170.2 cm (5' 7) 08/06/2018 1:28 PM EDT Body Mass Index 22.87 08/06/2018 1:28 PM EDT Plan of Treatment Health Maintenance Due Date Last Done Comments CT Colonography 1950 Colonoscopy 1950 Colorectal Cancer Screening 1950 FIT DNA 1950 FIT 1950 Sigmoidoscopy (10 year) with FIT yearly 1950 Sigmoidoscopy 1950 Lipid Screening 09/04/1969 Tdap adult 09/04/1970 Zoster vaccine (1 of 2) 09/04/2001 Advance Directive 09/04/2006 Tetanus vaccine 04/24/2010 04/24/2000, 03/10/1992 AAA Screen 09/04/2016 Pneumoccocal Vaccine: 65+ (2 of 2 - PCV) 09/04/2016 11/16/2002, 01/03/1993 Covid-19 Vaccine (1 - 2022- season) 2022 Influenza (Flu) vaccine (1 o f 1 - Influenza standard series) 11/09/2023 Hepatitis C Screening Completed 09/30/2013 Procedures Procedure Name Priority Date/Time Associated Diagnosis Comments HEPATITIS C ANTIBODY Routine 09/30/2013 4:08 PM EDT Pain from Last 3 Months or Most Recently Relevant to Health Maintenance Results * Hepatitis C Antibody (09/30/2013 4:08 PM EDT) Hepatitis C Ab Negative Negative SHASTA WAHLIUM Blood specimen (specimen) 09/30/2013 4:08 PM EDT 09/30/2013 4:18 PM EDT Narrative Resulting Agency Comment Spec In Lab Natalio Willoughby MD IMMUNOLOGY ORDERABLE S [facility] from Last 3 Months or Most Recently Relevant to Health Maintenance Care Teams Recreation Superintendent Relationship Specialty Start Date End Date Unknown None PCP - General 03/10/19
--- OUTSIDE RECORDS SUMMARY | 2023-09-30 01:40 | XMS_ITS | Encounter Summary ---
Author Organization [facility] [place] [address] Care Team Providers Care Nurse Discharge Name Role Phone Unknown Primary Care Provider Unavailabl e Reason for Visit * Reason Onset Date Comments Follow-up 03/15/2019 Encounter Details Date Type Department Care Team (Late st Contact Info) Description 03/15/2019 Tele[place] [id number] Rayne Lemus RN Follow-up Social History Tobacco Use Types Packs/Day Years [...] on file documented as of this encounter Miscellaneous Notes * Telephone Encounter - Rayne Lemus RN - 03/18/2019 9:52 AM EST Jermaine Hyatt MD sent to Rayne Lemus RN Caller: Unspecified (6 days ago, 10:47 AM) ?? We can offer brook referral to an alternative institution for eval. His PCP is also a resource Thanks Jermaine I spoke with Joseluis and he reports that he needs a Marine Underwriter. States he does not have a PCP. Advised to seek out a PCP. States no PCP wants him because he has Lyme. Joseluis states wants nothing to do with him. I advised Joseluis that I have asked Nurse Cinder Pit Crane Operator to reach out to him. Joseluis does not accept the recommendations from Dr. Hyatt and has not had any phone calls from anyone else in this department. I advised Joseluis that he should speak with someone in patient relations as he is not happy with being referred elsewhere. Transferred call to [place]. * Telephone Encounter - Rayne Lemus RN - 03/15/2019 10:14 AM EST Images from the original note were not included. 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 Symptom Review: Onset: Ongoing Location: Feet and Hands Duration: Ongoing What makes it better: Tylenol helps What makes it worse: Cold weather Timing of symptoms:Back in January states pain/swelling started when he decreased Prednisone from 20 mg to 15 mg. Review of Systems related to Reason for Call: Integumentary: Pos Reports Rash on chest, back reports as macular. Reports rash is not itchy. 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 Head (ENT/Neuro): Neg Respiratory: PosReports that he has difficulty taking a deep breath sometimes. Cardiac: Not currently but reports Chest Pain in past history GI: Neg : Pos states occasional incontinence 3 or 4 times over this last month. Reports flow is sometimesdifficult to get going. Occasional burning. Reports dark yellow cloudy urine. Musculoskeletal: Pos reports swelling in hands and feet, denies red, hot, joints. Pertinent Positive and Negative findings: Reports low grade fever of 99 degrees at end of every day Select specific Decision Support Tool used: Telephone Triage Protocols for Nurses, 5th Edition, Daniela Quarles, 2016 Disposition: Telephone advice Plan of Care:TBD Per Decision Support Tool (note specific protocol from text selected above): Pain Patient/responsible caregiver able to read back instructions/plan of care? yes Recommendations for worsening condition given to patient/responsible caregiver? NO Patient/responsible caregiver able to read back actions for worsening condition? no Patient/responsible caregiver intends to comply with action/disposition? Unknown Follow up needed? yes If yes, outline:TBD Call received from Joseluis advising that ID referral was not accepted and he was advised to go backto Rheumatology. Reports he has runaway inflammation due to this virus that he has, that no one will acknowledge. Wants to see Dr. Hyatt right away. RTC to Joseluis and he was busy and requests a call back in 15 minutes. Joseluis reports he was referred to ID and they do not want to see him. See note below. 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 Has never been tested for Powassan or diagnosed with Powassan by a healthcare provider. I spent almost 1 hour on the phone with this patient trying to obtain the above information from him. Constantly redirecting him fixation on Powassan. Looking for direction in regards to Symptoms above. DeweyJoseluis to Riri Charles ?? 03/12/19 11:19 AM Pt called to follow up on status of referral. Referral was closed; I advised pt he should contact referring provider to discuss with them. Pt continued on the phone for 26 minutes very upset, repeatedly yelling at me, apologizing, crying, talking about his disease.. claims he is a victim [place] [facility] Isuggested contacting Pt Services and offered to help him get in touch with them. He did not want my help - he eventually apologized and hung up but was extremely upset. documented in this encounter Plan of Treatment Not on file documented as of this encounter Visit Diagnoses Not on filedocumented in this encounter Care Teams Nurse Discharge Relationship Specialty Start Date End Date Unknown None PCP - General 03/10/19 documented as of this encounter
--- OUTSIDE RECORDS SUMMARY | 2023-09-30 01:40 | XMS_ITS | Encounter Summary ---
Author Organization [facility] [place] [address] Care Team Providers Care Glycerine Plant Operator Name Role Phone Unknown Primary Care Provider Unavailabl e Encounter Details Date Type Department Care Team (Late st Contact Info) Description 03/16/2019 [place] [address] Riri Charles Social History Tobacco Use Types Packs/Day Years [...] on filedocumented in this encounter Care Teams Glycerine Plant Operator Relationship Specialty Start Date End Date Unknown None PCP - General 03/10/19 documented as of this encounter
--- OUTSIDE RECORDS SUMMARY | 2023-09-30 01:40 | XMS_ITS | Encounter Summary ---
Author Organization [facility] [place] [address] Care Team Providers Care Card Puncher Name Role Phone Ryan Guy MD Primary Care Provider [phone] Reason for Visit * Reason Onset Date Comments Medication Refill 07/31/2018 Encounter Details Date Type Department Care Team (Late st Contact Info) Description 07/31/2018 Refill Rheumatology at [facility] [place] [address] Jermaine Hyatt MD [facility] [place] [address] Pain in both lower extremities; Inflammatory arthropathy; [...] as of this encounter Visit Diagnoses Diagnosis Pain in both lower extremities Inflammatory arthropathy Arthropathy, unspecified, site unspecified High risk medication use Encounter for long-term (current) use of other medications Low serum vitamin D documented in this encounter Care Teams Card Puncher Relationship Specialty Start Date End Date Ryan Guy MD PCP - General General Internal Medicine 08/01/16 documented as of this encounter
--- OUTSIDE RECORDS SUMMARY | 2023-09-30 01:40 | XMS_ITS | Encounter Summary ---
Author Organization [facility] [place] [address] Care Team Providers Care Body Technician/Painter Name Role Phone Ryan Guy MD Primary Care Provider [phone] Reason for Visit * Reason Onset Date Comments Questions 02/08/2019 Encounter Details Date Type Department Care Team (Late st Contact Info) Description 02/08/2019 Telephone [place] [phone] Jane Sanches RN Questions Social History Tobacco Use Types Packs/Day Years [...] encounter Miscellaneous Notes * Telephone Encounter - Jane Griffith RN - 02/11/2019 9:29 AM EST Images from the original note were not included. Jermaine Hyatt MD to Me ?? 02/08/19 3:32 PM He need to see ID for this. I have referred in he past but now can go through the ??PCP can refer. ?? Jermaine I left a voicemail for Joseluis with the information above from (identified/confidential voicemail). I left my name and callback number for him if needed. * Telephone Encounter - Jane Griffith RN - 02/08/2019 1:12 PM EST Patient calls asking for a Powassan virus test. He has a longstanding history of Lyme and other tickborne illness and feels very strongly that he needs to get this test done. Joseluis states I will do whatever I need to in order to have this test performed. He asked about seeing the infectious disease clinic about this. I will ask to advise on this and call Joseluis back when I receive a response. Joseluis is in agreement with this plan. documented in this encounter Plan of Treatment Not on file documented as of this encounter Visit Diagnoses Not on filedocumented in this encounter Care Teams Body Technician/Painter Relationship Specialty Start Date End Date Ryan Guy MD PCP - General General Internal Medicine 08/01/16 documented as of this encounter
--- OUTSIDE RECORDS SUMMARY | 2023-09-30 01:40 | XMS_ITS | Encounter Summary ---
Author Organization [facility] Address [facility] [place] [address] Care Team Providers Care Tie Up Worker Name Role Phone Ryan Guy MD Primary Care Provider [phone] Reason for Referral * Consultation (Routine) - Specialty Diagnoses / Procedures Referred By Contbrittany t Referred To Contact Diagnoses Pain in both lower extremities Jermaine Hyatt MD [facility] [place] [address] Referral ID Status Reason Start Date Expiration Date V isits Requested Visits Authorized [id number] Consult, Test & Treat 08/10/2018 02/06/2019 1 1 Encounter Details Date Type Department Care Team (Late st Contact Info) Description 08/06/2018 1:30 PM EDT Office Visit Rheumatology at [facility] [place] [place] [address] Jermaine Hyatt MD [facility] [place] [address] Inflammatory arthropathy; Pain in both lower extremities Social History Tobacco Use Types Packs/Day Years [...] 08/06/2018 1:28 PM ED T Respiratory Rate - - Oxygen Saturation 96% 08/06/2018 1:28 PM EDT Inhaled Oxygen Concentration - - Weight 66.2 kg (146 lb) 08/06/2018 1:28 PM EDT Height 170.2 cm (5' 7) 08/06/2018 1:28 PM EDT Body Mass Index 22.87 08/06/2018 1:28 PM EDT documented in this encounter Progress Notes * Jermaine Hyatt MD - 08/06/2018 1:30 PM EDT Rheumatology Follow-Up Note Rheumatology History: ?? Dr FRAIRE PATIENT- ALANA ?? 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 ?? Cymbalta and gabapentin with no discernible benefit ?? transitioned to Suboxone ?? stop hydrocortisone which she got from his Lyme doctor he should stop the Plaquenil which I had prescribed for fatigue with no effect ?? 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 I have previously received a Ideagen message from marv which I did my best to address during our visit. 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 I have tried my best to address marv's concerns giving him additional time since he reports he has been fired from his PCP. Marv talks very fast so keeping track of his doctors by name and whathe is seeing them for is somewhat challenging. It is also difficult to get a detailed hx and discerning new symptoms, current symptoms and past symptoms. Many times leslie refers to print out eitherfrom a website or an excel sheet. At a prior visit we went through his excel sheet of symptoms, however this was challenging as the legibility of list of symptoms was poor. I had asked him to bring me a copy that was perhaps typed for the record with more detial but has not done. He has some chronic fatigue, pain and feels as if he is in a cloud. He was just treated with antibiotics and was doing better. But he went off antibiotics do to resitent thrush and it is unclear if he is being treated again with antibiotics. I have no documentation from his other doctor though requesting him to give perhaps to get his records. His most recent message was concerning the Powsassan virus with recent tic bite. This is based on the timing of the tick on the skin. He notes 'he has all the symptoms in review he will repeat the same. Mika biggest concern is that a diagnosis was missed and he has been concerned about other tick related diseases mostly he is concerned about potentially missed diagnosis of Lyme but now is resulted in neurogenic Lyme or chronic Neuroborreliosis. When talking about alternative treaments he mentions he is only interested only in IV abx therapy for chronic lyme. When explaining the risk in of a port., IV line, chronic abx therapy, he says he has I have all the symptoms in the article. aMrv is aware that he has been seen by Dr Bro an expert in Lyme Dz who has low suspscion that tis is chronic lyme or neuroboreliosis. I have explained ot leslie of my low suspicion and have offered a referal for a 3rd opinion to both ID and rheum butmicheal seems disinterested. He did curse at me which he apologized for but the patient left upset so we were unable to do an exam He is not interested in any referrals which I have provided so he says. But want me to find him a doctor that will see him. I am concenred that marv will get a port or a picc and get an infection related to treatment that is not medically necessary. I feel marv illness is outside the scope ofrheumatology. I have done my best to see marv more frequently in the setting of what is unlikely lyme related but some other underlying issue outside of rheuamtology. He did send me a mydh messagein which he is interested in a entertainment lawyer. 50 minutes of time spend discussing the concern with the patient and trying to elicit a hx. documented in this encounter Plan of Treatment Scheduled Referrals Name Type Priority Associated Diagnoses Orde r Schedule Referral to Rheumatology Outpatient Referral Routine Pain in both lower extremities Ordered: 08/10/2018 documented as of this encounter Visit Diagnoses Diagnosis Inflammatory arthropathy Arthropathy, unspecified, site unspecified Pain in both lower extremities documented in this encounter Care Teams Tie Up Worker Relationship Specialty Start Date End Date Ryan Guy MD PCP - General General Internal Medicine 08/01/16 documented as of this encounter
--- OUTSIDE RECORDS SUMMARY | 2023-09-30 01:40 | XMS_ITS | Continuity of Care Document ---
Author Organization [facility] Address [address] [place] [address] Care Team Providers Care Geology Scientist Name Role Phone Flavia Syed Primary Care Physician [facility]): 07/09/23 - 07/09/23 [facility] [address] [place] [address] Encounter Diagnosis Obstructive sleep apnea, adult(Discharge Diagnosis) - 07/09/23 Discharge Disposition: Home or Self Care Attending Physician: Robert Lemus MD Allergies, Adverse Reactions, Alerts Substance Reaction Severity Status tamsulosin Unknown Active Assessment and Plan Future Appointments Immunizations Given and Recorded Vaccine Date Status Refusal Reason SARS-CoV-2 (COVID-19) mRNA-1273 vaccine 07/11/20 R ecorded SARS-CoV-2 (COVID-19) mRNA-1273 vaccine 06/13/20 R ecorded Medications Albuterol (Eqv-Proventil HFA) 90 mcg/inh inhalation aerosol 0 Refill(s) Start Date: 04/25/23 Status: Ordered Arnuity Ellipta furoate 100 mcg inhalation powder INHALE ONE PUFF BY MOUTH EVERY DAY Start Date: 04/25/23 Status: Ordered aspirin 81 mg oral capsule 486 mg = 6 cap, Oral, every 4 hr, do not exceed 48 capsules in 24 hours, # 30 cap, 0 Refill(s) Start Date: 03/29/22 Status: Ordered DULoxetine 30 mg oral delayed release capsule 30 mg = 1 cap, Oral, Daily, do not crush or chew, 0 Refill(s) Start Date: 03/29/22 Status: Ordered famciclovir 500 mg oral tablet 500 mg = 1 tab, Oral, BID, # 14 tab, 0 Refill(s) Start Date: 03/29/22 Stop Date: 04/04/22 Status: Ordered FIRST-Testosterone MC 2% transdermal cream 0 Refill(s) Start Date: 03/29/22 Status: Ordered fluocinolone 0.01% topical cream 1 all, Topical, TID, # 15 g, 0 Refill(s) Start Date: 03/29/22 Status: Ordered FLUoxetine (Eqv-PROzac) 20 mg oral tablet 20 mg = 1 tab, Oral, Daily, # 30 tab, 0 Refill(s) Start Date: 12/05/22 Status: Ordered FLUoxetine 20 mg oral capsule 40 mg = 2 cap, Oral, Daily, # 60 cap, 0 Refill(s) Start Date: 03/29/22 Status: Ordered gabapentin 600 mg oral tablet 600 mg =, Oral, every other day, # 30 cap, 0 Refill(s) Start Date: 03/29/22 Status: Ordered hydrocortisone 5 mg oral tablet 10 mg = 2 tab, Oral, BID, # 40 tab, 0 Refill(s) Start Date: 03/29/22 Stop Date: 04/07/22 Status: Ordered ketoconazole 2% topical shampoo APPLY TO AFFECTED AREA(S) DAILY LEAVE ON 3-5 MINUTES THEN RINSE Start Date: 10/14/22 Status: Ordered lisinopril 10 mg oral tablet 10 mg = 1 tab, Oral, Daily, # 90 tab, 0 Refill(s) Start Date: 03/29/22 Status: Ordered Suboxone 0 Refill(s) Start Date: 07/09/23 Status: Ordered Suboxone 12 mg-3 mg sublingual film 2 film, SL, Daily, dissolve under the tongue, 0 Refill(s) Start Date: 03/29/22 Status: Ordered terazosin 1 mg oral capsule TAKE ONE CAPSULE BY MOUTH EVERY DAY Start Date: 10/14/22 Status: Ordered terazosin 2 mg oral capsule 0 Refill(s) Start Date: 12/05/22 Status: Ordered traZODone 100 mg oral tablet 100 mg = 1 tab, Oral, TID, # 90 tab, 0 Refill(s) Start Date: 03/29/22 Status: Ordered VALGANCICLOVIR 450 MG TABS VALGANCICLOVIR 450 MG TABS, 0 Refill(s) Start Date: 10/14/22 Status: Ordered valGANciclovir 450 mg oral tablet 450 mg = 1 tab, Oral, Daily, # 21 tab, 0 Refill(s) Start Date: 03/29/22 Stop Date: 04/18/22 Status: Ordered Vitamin B Complex oral capsule 1 cap, Oral, Daily, # 90 cap, 0 Refill(s) Start Date: 03/29/22 Status: Ordered Voltaren Arthritis Pain 1% topical gel 0 Refill(s) Start Date: 03/29/22 Status: Ordered Problem List Condition Confirmation Course Effective Dates Status Health St atus Informant Acute skin eruption of discoloration, elevations, blisters Confirmed Active Anxiety Confirmed Active Chest pain Confirmed Active Chronic insomnia Confirmed Active Chronic pain Confirmed Active Low testosterone in male Confirmed Active Depression Confirmed Active Dysuria Confirmed Active Blood pressure elevated without history of HTN Confirmed Active Hip pain, right Confirmed Active Elevated blood sugar Confirmed Active Hypertension Confirmed Active Joint pain Confirmed Active Skin lesion of scalp Confirmed Active Lyme disease Confirmed Active Night sweat Confirmed Active Obstructive sleep apnea, adult Confirmed Active Paresthesias Confirmed Active Well adult exam Confirmed Active Recurrent oral herpes simplex infection Confirmed Active Urinary retention Confirmed Active SVT (supraventricular tachycardia) Confirmed Active Vitamin D deficiency Confirmed Active Vital Signs Most recent to oldest [Reference Range]: 1 Peripheral Pulse Rate [60-100 bpm] 71 bp m (07/09/23 2:46 PM) Blood Pressure [90-140/60-90 mmHg] 115/6 7mmHg (07/09/23 2:46 PM) Mean Arterial Pressure, Cuff [65-140 mmH g] 83 mmHg (07/09/23 2:46 PM) Weight 63.05 kg (07/09/23 2:46 PM) Weight Measured (lbs) 139.001 lb (07/09/23 2:46 PM) Weight Dosing 63.050 kg (07/09/23 2:46 PM) Height 170 cm (07/09/23 2:46 PM) Height/Length Measured (inches) 66.93 in ch (07/09/23 2:46 PM) BSA Measured 1.73 m2 (07/09/23 2:46 PM) Body Mass Index 21.82 kg/m2 (07/09/23 2:46 PM) Social History Social History Type Response Tobacco Never tobacco user T obacco Use:. Sex Male Patient Care team information Care Team Personnel Name: Flavia Syed MD Position: No Access Member Role: Primary Care Physician
--- OUTSIDE RECORDS SUMMARY | 2023-09-30 01:40 | XMS_ITS | Encounter Summary ---
[place] [address] Care Team Providers Care Computer Technical Support Specialist Name Role Phone Ryan Guy MD Primary Care Provider [phone] Reason for Referral * Consultation (Routine) - Closed Specialty Diagnoses / Procedures Referred By Contac t Referred To Contact Infectious Diseases Diagnoses Inflammatory arthropathy Risk of exposure to Lyme disease [place] [address] [facility] [address] [place] [id number] Referral ID Status Reason Start Date Expiration Date V isits Requested Visits Authorized [id number] Closed Consult, Test & Treat 02/12/2019 02/12/2020 1 1 Reason for Visit * Reason Onset Date Comments Other 02/12/2019 Encounter Details Date Type Department Care Team (Late st Contact Info) Description 02/12/2019 [place] [address] Jane Sanches RN Other Social History Tobacco Use Types Packs/Day [...] Telephone Encounter - Jane Griffith RN - 02/15/2019 4:24 PM EST Images from the original note were not included. Jermaine Hyatt MD Vlahos, Elaina, RN Caller: Unspecified (4 days ago, 11:45 AM) ?? Orders in I was able to reach Joseluis and let him know that his referral for ID has been placed. He was very grateful for the assistance and thanked myself and very much for our efforts on this. I thanked Joseluis for his message and welcomed him to call back at anytime if needed. I also provided theID phone number for him. * Telephone Encounter - Jane Griffith RN - 02/12/2019 3:15 PM EST Awaiting response from chiropractic practice manager Daniela for further instruction/advisemnt. verbalized that he has asked her to review this case and advise. * Telephone Encounter - Jane Griffith RN - 02/12/2019 10:10 AM EST Joseluis called back stating that his ID referral has and is no longer valid. He requested anew referral from his PCP however they are closing the practice and asked Joseluis to request a new referral from . Joseluis also requested to get a Powassan virus test again. He has requested this multiple times. I will send Joseluis's requests to . I left him a return voicemail letting him know that we received his request for a referral and lab test and will be calling him back when we receive a response from . I left my name and callback number for him if needed. documented in this encounter Plan of Treatment Scheduled Referrals Name Type Priority Associated Diagnoses Order Schedule Referral to Infectious Disease and International [facility] Outpatient Referral Routine Inflammatory arthropathy Risk of exposure to Lyme disease Ordered: 02/12/2019 documented as of this encounter Visit Diagnoses Diagnosis Inflammatory arthropathy Arthropathy, unspecified, site unspecified Risk of exposure to Lyme disease Other specified personal history presenting hazards to health documented in this encounter Care Teams Computer Technical Support Specialist Relationship Specialty Start Date End Date Ryan Guy MD PCP - General General Internal Medicine 08/01/16 documented as of this encounter
--- OUTSIDE RECORDS SUMMARY | 2023-09-30 01:40 | XMS_ITS | Encounter Summary ---
Author Organization [facility] Address [facility] [place] [address] Care Team Providers Care Area Field Worker Name Role Phone Ryan Guy MD Primary Care Provider [phone] Reason for Referral * Consultation (Routine) - Closed Specialty Diagnoses / Procedures Referred By Contac t Referred To Contact Neurology Diagnoses Pain in both lower extremities Inflammatory arthropathy High risk medication use Low serum vitamin D Hemicrania continua Jermaine Hyatt MD [facility] [place] [address] [facility] [address] [place] [phone] Referral ID Status Reason Start Date Expiration Date V isits Requested Visits Authorized [id number] Closed Consult, Test & Treat 03/30/2018 03/30/2019 1 1 * Consultation (Routine) - Closed Specialty Diagnoses / Procedures Referred By Contac t Referred To Contact Infectious Diseases Diagnoses Pain in both lower extremities Inflammatory arthropathy High risk medication use Low serum vitamin D Hemicrania continua Jermaine Hyatt MD [facility] [place] [address] [facility] [address] [place] [phone] Referral ID Status Reason Start Date Expiration Date V isits Requested Visits Authorized [id number] Closed Specialty Service Requested 03/30/2018 03/30/2019 1 1 Encounter Details Date Type Department Care Team (Late st Contact Info) Description 03/30/2018 1:30 PM EST Office Visit Rheumatology at [facility] KARINA Mratinez [phone] Jermaine Hyatt MD [facility] [place] [address] Pain in both lower extremities; Inflammatory arthropathy; High risk medication use; Low serum vitamin D; Hemicrania continua Social History Tobacco Use Types Packs/Day Years [...] Sign Reading Time Taken Comments Blood Pressure 152/77 03/30/2018 1:23 PM EST Pulse 78 03/30/2018 1:23 PM EST Temperature 37.3 ??C (99.1 ??F) 03/30/2018 1:23 PM ES T Respiratory Rate - - Oxygen Saturation - - Inhaled Oxygen Concentration - - Weight 68.6 kg (151 lb 4.8 oz) 03/30/2018 1:23 P M EST Height 170.2 cm (5' 7) 03/30/2018 1:23 PM EST Body Mass Index 23.7 03/30/2018 1:23 PM EST documented in this encounter Progress Notes * Jermaine Hyatt MD - 03/30/2018 1:30 PM EST Rheumatology Follow-Up Note Rheumatology History: ?? Dr [...] 67 y.o. male who presents today for evaluation of post lymearthralgia. Unfortunately despite significant time spent trying to obtain a history and further evaluate his current symptoms, I was unable to obtain this information. When asked specific questions about his current issue, the patient continually refers to Elizabeth article on MSIDS model stating he has all the symptoms. The patient is concerned about neurogenic lyme. 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 He reports he is currently on antibiotic treatment at 12 Mepron, (atovaquone) doxycycline, azithromycin, valacyclovir, He feels he has poor memory and unable to work - reporting loss of previous income. No longer taking hydroxychloroquine ROS was not complete because patient was not willing to answer questions stating I have all of it referring to MSIDS. But 11 point asked ROS: General (-)fevers, (-)chills, (-)night sweats, (-)wt loss/gain. HEENT (-)head trauma, (-)vision change, (-)tinnitus, (-)epistaxis, (-)sore throat, (-)bleeding gums, (-)oral ulcers, (-)dry eyes, (-)dry mouth, (- )dysphagia, (-)GERD, (-)photo sensitivity, (-)Hair loss, (-)vertigo CVS (-)chest pain, (-)palpitations, (-)pedal edema, (-)PND, (-)orthopnea. Pulm (-)shortness of breath, (-)PENG, (-)wheezes, (-)cough, (-)pleuritic pain GI (-)N/V, (-)abdominal pain, (-)emesis, (-)hematemesis, (-)hematochezia, (- )change in appetite (-)hematuria, (-)dysuria, (-)frequency, (-)nocturia, (-)genital ulcers MS (-)muscle weakness, (-)paralysis, (-)joint pain, (-)hx of arthritis Endo (-)thyroid disorders, (-)diabetes, (-)temperature intolerance. Neuro (-)focal weakness, (-)paresthesias, (-)gait instability. Skin (-)Raynaud's, ulcers Psych (-) mood disorder. Past Medical History: Diagnosis Date [...] Socioeconomic History ??? Marital status: Spouse name: None ??? Number of children: 2 ??? Years of education: None ??? Highest education level: None Social Needs ??? Financial resource strain: None ??? Food insecurity - worry: None ??? Food insecurity - inability: None ??? Transportation needs - medical: None ??? Transportation needs - non-medical: None Occupational History ??? Occupation: [employer] Comment: disability Tobacco Use ??? Smoking status: Former Smoker Packs/day: 0.50 Years: 20.00 Pack years: 10.00 Types: Cigarettes Last attempt to quit: 11/19/2005 Years since quittin.3 ??? Smokeless tobacco: Never Used Substance and Sexual Activity ??? Alcohol use: No Comment: Denies DUI or DWI ??? Drug use: No ??? Sexual activity: None Other Topics Concern ??? None Social History Narrative OPIOID HISTORY Methadone affected LEA Relationship with Dr Mayer deteriorated which he states was precipitated by neurologic sx Took more medications then prescribed secondary to flares Urine toxicology was inconsistent [place] [address] Mayer and had a prescription for methadone [facility] clinic and was switched to morphine [...] under the tongue once daily 0 ??? traZODone (DESYREL) 50 mg Tablet TAKE ONE TO TWO TABLETS BY MOUTH AT BEDTIME 60 tablet 11 ??? DOCOSAHEXANOIC ACID/EPA (FISH OIL ORAL) Take 2 capsules by mouth daily. ??? valGANciclovir (VALCYTE) 450 mg Tablet Take 1 tablet by mouth daily. 30 tablet 3 ??? aspirin 81 mg Tablet, Delayed Release [...] Take 50 mg by mouth daily. ??? DULoxetine (CYMBALTA) 30 mg Capsule, Delayed Release(E.C.) Take 30 mg by mouth daily. ??? gabapentin (NEURONTIN) 600 mg tablet Take 600 mg by mouth daily. ??? famciclovir (FAMVIR) 500 mg tablet Take [...] Gel Apply 0.5 MG 2 times daily. ??? predniSONE (DELTASONE) 5 mg Tablet Take 4 tablets by mouth daily. (Patient not taking: Reportedon 09/25/2017) 120 tablet 5 ??? hydroxychloroquine (PLAQUENIL) 200 mg Tablet Take 1 tablet by mouth daily. (Patient not taking:Reported on 03/30/2018) 90 tablet 3 ??? COQ10, LIPOSOMAL UBIQUINOL, ORAL Take 200 mg by mouth daily. ??? cyclobenzaprine (FLEXERIL) 5 mg Tablet Take 1 tablet by mouth nightly. (Patient not taking: Reported on 03/30/2018) 60 tablet 1 ??? lidocaine (LIDODERM) 5 %(700 mg/patch) Place 1 patch onto the skin as needed. No current facility-administered medications for this visit. [...] daily, Day 2-5:Take one tablet daily ??? hydrocortisone (CORTEF) 5 mg Tablet take 1 tablet by mouth four times a day 0 ??? SUBOXONE 2-0.5 mg Film dissolve 1 FILM under the tongue once daily 0 ??? traZODone (DESYREL) 50 mg Tablet TAKE ONE TO TWO TABLETS BY MOUTH AT BEDTIME 60 tablet 11 ??? DOCOSAHEXANOIC ACID/EPA (FISH OIL ORAL) Take 2 capsules by mouth daily. ??? valGANciclovir (VALCYTE) 450 mg Tablet Take 1 tablet by mouth daily. 30 tablet 3 ??? aspirin 81 mg Tablet, Delayed Release [...] Take 50 mg by mouth daily. ??? DULoxetine (CYMBALTA) 30 mg Capsule, Delayed Release(E.C.) Take 30 mg by mouth daily. ??? gabapentin (NEURONTIN) 600 mg tablet Take 600 mg by mouth daily. ??? famciclovir (FAMVIR) 500 mg tablet Take [...] Gel Apply 0.5 MG 2 times daily. ??? predniSONE (DELTASONE) 5 mg Tablet Take 4 tablets by mouth daily. (Patient not taking: Reportedon 09/25/2017) 120 tablet 5 ??? hydroxychloroquine (PLAQUENIL) 200 mg Tablet Take 1 tablet by mouth daily. (Patient not taking:Reported on 03/30/2018) 90 tablet 3 ??? COQ10, LIPOSOMAL UBIQUINOL, ORAL Take 200 mg by mouth daily. ??? cyclobenzaprine (FLEXERIL) 5 mg Tablet Take 1 tablet by mouth nightly. (Patient not taking: Reported on 03/30/2018) 60 tablet 1 ??? lidocaine (LIDODERM) 5 %(700 mg/patch) Place 1 patch onto the skin as needed. No current facility-administered medications on file prior to visit. Allergies Allergen Reactions ??? Ciprofloxacin Rash and Other (See Comments) fever ??? Diclofenac Rash ??? Mobic [Meloxicam] Palpitations ??? Sulfa (Sulfonamide Antibiotics) Rash Physical Exam: BP 152/77 Pulse 78 Temp 37.3 ??C (99.1 ??F) Ht 170.2 cm (5' 7) Wt 68.6 kg (151 lb 4.8 oz) BMI 23.70 kg/m?? General: Patient upset, tremulous, pressured, HEENT: Mucous membranes are moist, no oral mucosal ulcerations, Neck: Supple, no lymphadenopathy, full range of motion. Cardiovascular: RR, Lungs: Clear to auscultation bilaterally. (-)R/R/W Abdomen: Soft, non tender, non distended, + bowel sounds, no hepatosplenomegaly. Neuro: Alert and oriented x3. Cranial nerves II through XII grossly intact. - Strength 5/5 throughout, -Sensation to light touch is grossly normal throughout. DTRs are 2+ throughout. Skin: (-)ulcers, (-)rash visibly and did not get into a gown Vascular: Pulses are equal in all extremities. MSK Back: Non tender over the spine and costovertebral angles bilaterally. (-)Archie Extremities Shoulders: FROM, non-tender to palpation Elbows:FROM, (-)pain, (-)nodules Wrists: FROM, no swelling, non-tender Hands: No synovitis, no MCP compression tenderness, [...] presents today with concern about chronic Lyme/neurogenic Lyme. This is my first time meeting the patient. Followed by Dr Fraire a Lyme expert. According to thenotes and patient current medication he is being treated for lyme. Based on his history he has beenadequately treated in the past unless he has been reinfected. I have explained to the patient the ri sks of repeated antibiotics. Based on the information available to me I do not thnk the patient haslyme that is Chronic neurogenic/involving the nervous system. Neurogenic Lyme disease is very variable and nonspecific symptoms which can include fatigue, cognitive slowing and memory difficulties with persistent musculoskeletal pain. Objective evidence does not support a chronic infection of Borrelia burgdorferi and does not benefit from additional antibiotic treatment based on the evidence at this time. I have offered the patient additional laboratory testing for Lyme serologies however the patient reports he is not interested in under going these test. I am concerned that other etiologies of his symptoms are being missed because of the inability to pursue alternate causes of the patient symptoms. I have recommended a IDs input to further put the patient concerns at ease. Will also request neurologist input regarding his neurologic symptoms. Macrocytosis - AST wnl - B12, folate, TSH have not been performed. Plan or Recommendations: ?? Offered lyme testing ?? Neurology referral for symptoms ?? Would benefit from CBT referral ?? Recommend PCP Check B12, folate, TSH ?? Would recommend against continued courses of antibiotics without evidence of acute infection. documented in this encounter Plan of Treatment Scheduled Referrals Name Type Priority Associated Diagnoses Order Schedule Referral to Infectious Disease and [facility] Outpatient Referral Routine Pain in both lower extremities Inflammatory arthropathy High risk medication use Low serum vitamin D Hemicrania continua Ordered: 03/30/2018 Referral to Neurology Outpatient Referral Routine Pain in both lower extremities Inflammatory arthropathy High risk medication use Low serum vitamin D Hemicrania continua Ordered: 03/30/2018 documented as of this encounter Procedures Procedure Name Priority Date/Time Associated Diagnosis Comments CRP, ACUTE INFLAMMATION Routine 03/30/2018 2:46 PM EST Pain in both lower extremities Inflammatory arthropathy High risk medication use Low serum vitamin D HEMOGRAM Routine 03/30/2018 2:46 PM EST Pain in both lower extremities Inflammatory arthropathy High risk medication use Low serum vitamin D DIFFERENTIAL, AUTOMATED Routine 03/30/2018 2:46 PM EST Pain in both lower extremities Inflammatory arthropathy High risk medication use Low serum vitamin D SEDIMENTATION RATE Routine 03/30/2018 2: 46 PM EST Pain in both lower extremities Inflammatory arthropathy High risk medication use Low serum vitamin D CBC (WITH DIFF) Routine 03/30/2018 2:46 PM EST Pain in both lower extremities Inflammatory arthropathy High risk medication use Low serum vitamin D COMPREHENSIVE METABOLIC PANEL (NON-FASTING) Routine 03/30/2018 2:46 PM EST Pain in both lower extremities Inflammatory arthropathy High risk medication use Low serum vitamin D documented in this encounter Results * Differential, Automated (03/30/2018 2:46 PM EST) Neutrophils % 67.9 % [facility] Neutr Abs (ANC) 3.97 1.70 - 6.10 x10(3)/[facility] Lymphocytes % 22.9 % [facility] Lymphocytes Abs 1.3 0.9 - 3.2 x10(3)/[facility] Monocytes % 7.9 % [facility] Monocyte Abs 0.5 0.3 - 0.9 x10(3)/[facility] Eosinophils % 0.2 % [facility] Eosinophils Abs 0.0 0.0 - 0.4 x10(3)/[facility] Basophils % 0.9 % [facility] Basophils Abs 0.0 0.0 - 0.1 x10(3)/[facility] Immature Gran % 0.20 % [facility] Comment: Immature granulocytes(IG's)percentage and absolute count will include metamyelocytes, myelocytes, and promyelocytes. Blood smears from CBCs yielding IG's will be scanned manually for concordance. If this scan disagrees with the automated IG or if promyelocytes are noted, a manual differential will be performed. Jada Gran Abs 0.01 0.00 - 0.04 x10(3)/[facility] Blood specimen (specimen) 03/30/2018 2:46 PM EST 03/30/2018 3:09 PM EST Narrative Resulting Agency Comment Spec In Lab Jermaine Hyatt MD HEMATOLOGY ORDERABLE S [facility] [place] [address] * (ABNORMAL) Hemogram (03/30/2018 2:46 PM EST) WBC 5.8 4.0 - 9.5 x10(3)/[facility] RBC 4.71 4.58 - 5.54 x10(6)/[facility] Hemoglobin 15.7 13.7 - 16.5 gm/dL [facility] Hematocrit 45.7 40.5 - 48.5 % [facility] MCV 97.0(H) 82.9 - 93.1 fL [facility] MCH 33.3(H) 27.5 - 32.1 pg [facility] MCHC 34.4 32.0 - 35.7 gm/dL [facility] Platelets 232 145 - 357 x10(3)/[facility] RDWSD 49.0(H) 36.0 - 45.0 fL [facility] RDWCV 13.6 11.4 - 13.8 % [facility] MPV 11.0 7.6 - 12.9 fL [facility] nRBC % Auto 0.0 % [facility] nRBC Abs Auto 0.000 0.000 - 0.000 x10(3)/mcL [facility] Blood specimen (specimen) 03/30/2018 2:46 PM EST 03/30/2018 3:09 PM EST Narrative Resulting Agency Comment Spec In Lab Jermaine Hyatt MD HEMATOLOGY ORDERABLE S Performing Organization Address [facility]/ZIP Co de Phone Number [facility] [place] [address] * Sedimentation rate (03/30/2018 2:46 PM EST) Sed Rate 3 0 - 15 mm/hr [facility] Blood specimen (specimen) 03/30/2018 2:46 PM EST 03/30/2018 3:09 PM EST Narrative Resulting Agency Comment Spec In Lab Jermaine Hyatt MD HEMATOLOGY ORDERABLE S Performing Organization Address [facility] Co de Phone Number [facility] [place] [address] * (ABNORMAL) Comprehensive metabolic panel (non-fasting) (03/30/2018 2:46 PM EST) Glucose Lvl 143 65 - 199 mg/dL [facility] Comment:Diabetes: >=200 mg/d L plus symptoms BUN 15 10 - 20 mg/dL [facility] Creatinine 0.79(L) 0.80 - 1.50 mg/dL [facility] Sodium 141 135 - 145 mmol/L [facility] Potassium 3.9 3.5 - 5.0 mmol/L [facility] Comment: Please note: ??Patients with WBC >100,000 may have falsely elevated Potassium levels. ??For accurate Potassium quantification in these patients send serum separator tube (gold top) for subsequent determinations. ??Contact the Clinical Chemistry Laboratory if there are any questions. Chloride 101 98 - 107 mmol/L [facility] CO2 30 22 - 31 mmol/L [facility] Anion Gap 10 5 - 15 mmol/L [facility] Calcium 9.2 8.5 - 10.5 mg/dL [facility] Total Protein 6.9 6.1 - 8.0 gm/dL [facility] Albumin 4.1 3.2 - 5.2 gm/dL [facility] AST 24 0 - 39 unit/L [facility] ALT 21 0 - 55 unit/L [facility] Alk Phos 81 40 - 120 unit/L [facility] Total Bilirubin 0.3 0.2 - 1.3 mg/dL [facility] Estimated GFR 94 >=60 mL/min/1. 73 m?? [facility] Comment: The eGFR was calculated using the CKD-EPI equation. As with all creatinine based estimates of kidney function, eGFR values calculated with the CKD-EPI equation are not accurate in patients with acute kidney failure, extremes of body mass or the acutely ill. [email or web address] eGFR 108 >=60 mL/min/1. 73 m?? [facility] Comment: The eGFR was calculated using the CKD-EPI equation. As with all creatinine based estimates of kidney function, eGFR values calculated with the CKD-EPI equation are not accurate in patients with acute kidney failure, extremes of body mass or the acutely ill. [email or web address] Blood specimen (specimen) 03/30/2018 2:46 PM EST 03/30/2018 3:09 PM EST Narrative Resulting Agency Comment Spec In Lab Jermaine Hyatt MD CHEMISTRY ORDERABLES [facility] [place] [address] * CRP, acute inflammation (03/30/2018 2:46 PM EST) CRP 0.5 <=4.9 mg/L [facility] Blood specimen (specimen) 03/30/2018 2:46 PM EST 03/30/2018 3:09 PM EST Narrative Resulting Agency Comment Spec In Lab Jermaine Hyatt MD CHEMISTRY ORDERABLES Performing Organization Address City/State/[facility] Co de Phone Number [facility] [place] [address] documented in this encounter Visit Diagnoses Diagnosis Pain in both lower extremities Inflammatory arthropathy Arthropathy, unspecified, site unspecified High risk medication use Encounter for long-term (current) use of other medications Low serum vitamin D Hemicrania continua documented in this encounter Care Teams Area Field Worker Relationship Specialty Start Date End Date Ryan Guy MD PCP - General General Internal Medicine 08/01/16 documented as of this encounter
--- OUTSIDE RECORDS SUMMARY | 2023-09-30 01:41 | XMS_ITS | Encounter Summary ---
Author Organization [facility] [place] [address] Care Team Providers Care Cleaner And Trimmer Name Role Phone Unknown Primary Care Provider Unavailabl e Reason for Visit * Reason Comments Medication Refill Encounter Details Date Type Department Care Team (Late st Contact Info) Description 08/01/2017 [place] [address] Natalio Willoughby MD [facility] [place] [address] Chronic fatigue syndrome Social History Tobacco Use Types Packs/Day Years [...] as of this encounter Visit Diagnoses Diagnosis Chronic fatigue syndrome documented in this encounter Care Teams Cleaner And Trimmer Relationship Specialty Start Date End Date Unknown None PCP - General 03/10/19 documented as of this encounter
--- OUTSIDE RECORDS SUMMARY | 2023-09-30 01:41 | XMS_ITS | Encounter Summary ---
Author Organization [facility] [place] [address] Care Team Providers Care Tearoom Hostess Name Role Phone Ryan Guy MD Primary Care Provider [phone] Reason for Visit * Reason Onset Date Comments Other 07/10/2017 Encounter Details Date Type Department Care Team (Late st Contact Info) Description 07/10/2017 [place] [phone] Douglas Herrera RN Other Social History Tobacco Use Types [...] Telephone Encounter - Rayne Lemus RN - 07/10/2017 11:46 AM EDT RTC to Joseluis and he states that Zfran would be for the nausea that he may experience when transitioning from Methadone to Suboxone. I advised that he call PCP for his request for Zofran. * Telephone Encounter - Douglas Herrera RN - 07/10/2017 8:34 AM EDT Patient calls, leaves message stating he is switching from methadone to suboxone, requests zofran prescription to be sent to [facility] in [facility]. Call placed to patient, unavailable, message [employer] with call back number provided. documented in this encounter Plan of Treatment Not on file documented as of this encounter Visit Diagnoses Not on filedocumented in this encounter Care Teams Tearoom Hostess Relationship Specialty Start Date End Date Ryan Guy MD PCP - General General Internal Medicine 08/01/16 documented as of this encounter
--- OUTSIDE RECORDS SUMMARY | 2023-09-30 01:41 | XMS_ITS | Encounter Summary ---
[place] [address] Care Team Providers Care Wire Mill Rover Name Role Phone Ryan Guy MD Primary Care Provider [phone] Reason for Visit * Reason Onset Date Comments Medication Refill 12/09/2016 Encounter Details Date Type Department Care Team (Late st Contact Info) Description 12/09/2016 [place] [address] Afia Munoz MA Chronic fatigue syndrome Social History Tobacco Use Types Packs/Day Years Used Date Smoking Tobacco: Former Cigarettes Q uit: 11/19/2005 Smokeless Tobacco: Never Alcohol Use Standard [...] syndrome documented in this encounter Care Teams Wire Mill Rover Relationship Specialty Start Date End Date Ryan Guy MD PCP - General General Internal Medicine 08/01/16 documented as of this encounter
--- OUTSIDE RECORDS SUMMARY | 2023-09-30 01:41 | XMS_ITS | Encounter Summary ---
Author Organization [facility] [place] [address] Care Team Providers Care Bad Work Gatherer Name Role Phone Alex Sotelo MD Primary Care Provider [phone] Reason for Visit * Reason Onset Date Comments Other 01/19/2016 Follow Up Encounter Details Date Type Department Care Team (Late st Contact Info) Description 01/19/2016 Telephone [place] [phone] Rayne Lemus RN Other (Follow Up) Social History Tobacco Use Types Packs/Day Years [...] Telephone Encounter - Rayne Lemus RN - 01/19/2016 4:13 PM EST Called Joseluis to report Potassium of 3.2 and to advise on eating more in his diet. Joseluis agrees and will try to take in more potassium in diet like Bananas. documented in this encounter Plan of Treatment Not on file documented as of this encounter Visit Diagnoses Not on filedocumented in this encounter Care Teams Bad Work Gatherer Relationship Specialty Start Date End Date Alex Sotelo MD [address] [address] PCP - General 09/30/13 07/31/16 documented as of this encounter
--- OUTSIDE RECORDS SUMMARY | 2023-09-30 01:41 | XMS_ITS | Encounter Summary ---
Author Organization [facility] Address [facility] [place] [address] Care Team Providers Care Cyber Intel Planner Name Role Phone Ryan Guy MD Primary Care Provider [phone] Reason for Visit * Reason Comments Follow-up Encounter Details Date Type Department Care Team (Late st Contact Info) Description 11/21/2016 11:00 AM EDT Office [place] [address] Natalio Willoughby MD [facility] [place] [address] Chronic fatigue syndrome Social History Tobacco Use [...] Sign Reading Time Taken Comments Blood Pressure 135/59 11/21/2016 11:11 AM EDT Pulse 63 11/21/2016 11:11 AM EDT Temperature 36.9 ??C (98.4 ??F) 11/21/2016 11:11 AM E DT Respiratory Rate - - Oxygen Saturation 97% 11/21/2016 11:11 AM EDT Inhaled Oxygen Concentration - - Weight 64.9 kg (143 lb) 11/21/2016 11:11 AM EDT Height 170.2 cm (5' 7) 11/21/2016 11:11 AM EDT Body Mass Index 22.4 11/21/2016 11:11 AM EDT documented in this encounter Progress Notes * Natalio Willoughby MD - 11/21/2016 11:00 AM EDT The patient is a 66-year-old male with a long history of chronic Lyme disease, ehrlichiosis, babessiosis, CMV, EBV, depression, OCD, anxiety disorder. 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 He had very much difficulty with memory-cognitive issues and confusion in the first 2 months, but now he is getting a hold of it. He has been maintained on 5 mg of prednisone in addition to a long list of medications that are in the eD-H that include Flexeril, Voltaren Gel, Cymbalta, Famvir, fluoxetine, gabapentin, testosterone, trazodone, and most importantly, he gets methadone from a methadone clinic which was the primary topic of conversation for 40 minutes. Fundamentally, he feels very angry having been dismissed from his primary care doctor and having his medical condition be minimized or trivialized, and he is very apprehensive about losing methadone because he needs it for pain relief. However, he is very apprehensive about getting it at the methadone clinic because he thinks he will run into potential customers, and word will get around that he is narcotic dependent, and it will ruin his ability to work. He is going to be seen in Pain Clinic at [facility] by Dr. Galvez and requests that I write a letter expressing this issue in hopes that he will be able to get methadone through a physician rather than through the clinic, thus preserving his privacy. I made no medication changes myself, and I will follow up in 3 months. documented in this encounter Plan of Treatment Not on file documented as of this encounter Procedures Procedure Name Priority Date/Time Associated Diagnosis Comments IRON AND TIBC Routine 11/21/2016 1:18 PM EDT Chronic fatigue syndrome TESTOSTERONE, TOTAL Routine 11/21/2016 1 :18 PM EDT Chronic fatigue syndrome documented in this encounter Results * Iron and TIBC (11/21/2016 1:18 PM EDT) Pathologist [facility] Iron 57 45 - 160 mcg/dL [facility] TIBC 265 250 - 450 mcg/dL [facility] Iron Saturation 22 20 - 50 % [facility] Blood specimen (specimen) 11/21/2016 1:18 PM EDT 11/21/2016 1:24 PM EDT Narrative Resulting Agency Comment Spec In Lab Natalio Willoughby MD CHEMISTRY ORDERABLES Performing Organization Address City/State/[facility] Co de Phone Number [facility] [place] [address] * Testosterone, total (11/21/2016 1:18 PM EDT) Pathologist [facility] Testo Total 7.48 2.80 - 8.00 ng/mL [facility] Comment: Reference Ranges: ? Males (7to18 years) ?Females (8-18 years) Samuel Stage ?ng/ml ? ng/ml ? 1 ? <0.03 ? <0.03 to 0.06 ? 2 ? <0.03 to 4.32 ? <0.03 to 0.10 ? 3 ? 0.65 to 7.78 ?<0.03 to 0.24 ? 4 ? 1.80 to 7.63 ?<0.03 to 0.27 ? 5 ? 1.88 to 8.82 ?<0.05 to 0.38 ?Males 18 years to adult ? Females 18 years to adult ? 2.80 to 8.00 ng/ml ?0.06 to 0.82 ng/ml Stated adult reference ranges derived from review of [employer] E170 Testosterone reagent package insert 01/12, V8 Stated pediatric reference ranges derived from review of [employer] E170 Testosterone II reagent package insert 09/16, V2. Blood specimen (specimen) 11/21/2016 1:18 PM EDT 11/21/2016 1:24 PM EDT Narrative Resulting Agency Comment Spec In Lab Natalio Willoughby MD CHEMISTRY ORDERABLES Performing Organization Address City/State/[facility] Co de Phone Number [facility] [place] [address] documented in this encounter Visit Diagnoses Diagnosis Chronic fatigue syndrome documented in this encounter Care Teams Cyber Intel Planner Relationship Specialty Start Date End Date Ryan Guy MD PCP - General General Internal Medicine 08/01/16 documented as of this encounter
--- OUTSIDE RECORDS SUMMARY | 2023-09-30 01:41 | XMS_ITS | Encounter Summary ---
Author Organization [facility] [address] Care Team Providers Care Manager Care Management Name Role Phone Alex Sotelo MD Primary Care Provider [phone] Encounter Details Date Type Department Care Team (Late st Contact Info) Description 11/03/2015 Telephone [place] [phone] Adali Jones LPN Social History Tobacco Use Types Packs/Day Years Used Date Smoking Tobacco: Former Cigarettes Q uit: 11/19/2005 Alcohol Use Standard Drinks/Week Comments No 0 (1 standard drink = 0.6 oz pur e alcohol) Denies DUI or DWI Sex and Gender Information Value Date Recorded Sex Assigned at Not on file Gender Identity Not on file Sexual Orientation Not on file documented as of this encounter Miscellaneous Notes * Telephone Encounter - Adali Jones LPN - 11/03/2015 3:44 PM EDT Pt phones to ask if Dr Willoughby could put an order in for another testosterone level to be drawn on 11/07/15 when comes to his pain clinic appointment. Please advise. documented in this encounter Plan of Treatment Not on file documented as of this encounter Visit Diagnoses Not on filedocumented in this encounter Care Teams Manager Care Management Relationship Specialty Start Date End Date Alex Sotelo MD [address] [address] PCP - General 09/30/13 07/31/16 documented as of this encounter
--- OUTSIDE RECORDS SUMMARY | 2023-09-30 01:41 | XMS_ITS | Encounter Summary ---
Author Organization [facility] Address [facility] [place] [address] Care Team Providers Care Ict Account Manager Name Role Phone Ryan Guy MD Primary Care Provider [phone] Reason for Visit * Reason Comments Follow-up Encounter Details Date Type Department Care Team (Late st Contact Info) Description 08/01/2016 1:00 PM EDT Office [place] [address] Natalio Willoughby MD [facility] [place] [address] Chronic fatigue syndrome Social History Tobacco Use [...] Sign Reading Time Taken Comments Blood Pressure 115/57 08/01/2016 1:02 PM EDT Pulse 69 08/01/2016 1:02 PM EDT Temperature 37.1 ??C (98.8 ??F) 08/01/2016 1:02 PM ED T Respiratory Rate 18 08/01/2016 1:02 PM EDT Oxygen Saturation 96% 08/01/2016 1:02 PM EDT Inhaled Oxygen Concentration - - Weight 70.3 kg (155 lb) 08/01/2016 1:02 PM EDT Height 170.2 cm (5' 7) 08/01/2016 1:02 PM EDT Body Mass Index 24.28 08/01/2016 1:02 PM EDT documented in this encounter Progress Notes * Natalio Willoughby MD - 08/01/2016 1:00 PM EDT The patient is a 65-year-old male with a long history of chronic Lyme disease, ehrlichiosis, depression, OCD, anxiety disorder, on methadone. He has T2 hyperintense lesions, but probably it is age-related. He is very depressed and has subjective worsening of his executive function, but it is actually probably normal. He is finally addressing the issue of coming off of disability, and he has several job offers. He is elated today with very few complaints. 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 He is going to start out doing e-negotiations and then move to a in-person position, and is very excited about that. He had an evaluation by an Integrative Medicine doctor, who documented elevated IgG to mycoplasma, but normal IgM, normal magnesium, normal testosterone although on the low end, elevated chlamydia, pneumonia, IgG and IgA, but not IgM. Normal CBC. EBV, IgG, IgM titers to VCA and EBNA. Elevated DHEA levels, but he is on exogenous testosterone. Elevated herpes virus IgG 6 and a positive CMV. His vitamin D status was normal at 85. He received a short course of prednisone and got a dramatic improvement and is requesting a low dose of prednisone. He has OA, and I think that is probably the etiology, but in any case, I gave him a trial of 5 mg of prednisone and I will follow up in 3 months. documented in this encounter Plan of Treatment Not on file documented as of this encounter Visit Diagnoses Diagnosis Chronic fatigue syndrome documented in this encounter Care Teams Ict Account Manager Relationship Specialty Start Date End Date Ryan Guy MD PCP - General General Internal Medicine 08/01/16 documented as of this encounter
--- OUTSIDE RECORDS SUMMARY | 2023-09-30 01:41 | XMS_ITS | Encounter Summary ---
Author Organization [facility] [place] [address] Care Team Providers Care Tire Duster Name Role Phone Alex oStelo MD Primary Care Provider [phone] Encounter Details Date Type Department Care Team (Late st Contact Info) Description 03/22/2016 [place] [phone] Rayne Lemus RN Social History Tobacco Use Types Packs/Day Years [...] Telephone Encounter - Rayne Lemus RN - 03/22/2016 9:59 AM EST Joseluis calls to have labs faxed to another provider. RTC and left message for Joseluis indicating that I would need a name and number to send labs to. Faxed to Dr. Sotelo @ [phone] per request of Joseluis. documented in this encounter Plan of Treatment Not on file documented as of this encounter Visit Diagnoses Not on filedocumented in this encounter Care Teams Tire Duster Relationship Specialty Start Date End Date Alex Sotelo MD [address] [address] PCP - General 09/30/13 07/31/16 documented as of this encounter
--- OUTSIDE RECORDS SUMMARY | 2023-09-30 01:41 | XMS_ITS | Encounter Summary ---
Author Organization [facility] Address [facility] [place] [address] Care Team Providers Care Security Associate Name Role Phone Ryan Guy MD Primary Care Provider [phone] Reason for Visit * Reason Comments Follow-up Encounter Details Date Type Department Care Team (Late st Contact Info) Description 02/20/2017 1:30 PM EST Office [place] [address] Natalio Willoughby MD [facility] [place] [address] Chronic fatigue syndrome; Other depression; Chronic midline thoracic back pain Social History Tobacco Use Types Packs/Day Years [...] Sign Reading Time Taken Comments Blood Pressure 137/70 02/20/2017 1:18 PM EST Pulse 71 02/20/2017 1:18 PM EST Temperature 37.2 ??C (98.9 ??F) 02/20/2017 1:18 PM ES T Respiratory Rate - - Oxygen Saturation 96% 02/20/2017 1:18 PM EST Inhaled Oxygen Concentration - - Weight 70.3 kg (155 lb) 02/20/2017 1:18 PM EST Height 170.2 cm (5' 7) 02/20/2017 1:18 PM EST Body Mass Index 24.28 02/20/2017 1:18 PM EST documented in this encounter Progress Notes * Natalio Willoughby MD - 02/20/2017 1:30 PM EST This is a follow-up appointment for Joseluis Dewey birthdate 1950 The patient is a 66-year-old male with a whole long history of chronic Lyme disease or alkalosis babesiosis CMV EBV depression OCD anxiety disorder he has T2 hyperintense lesions on the MRIof the brain probably age-related and cervical and thoracic disc disease which may be responsible for his pain he believes that he has myelopathy from the above infectious diseases but the MRI evidence albeit it was 2010 is largely for degenerative disc disease he is maintained on methadone 20 mg twice daily Cymbalta and gabapentin and is moderately symptomatic with chronic pain We spent most of the 40 minutes reviewing his unfortunate history but things are looking up he has an home delivery driver Dr. Guy who may be willing to prescribe the methadone which is been a source of constant unhappiness because he does not like to be considered a drug addict and he needs to go to the methadone clinic one possibility is that he has some medial aspect of his back pain and as a attempt to address that I have given him a trial of 20 mg of prednisone over and above the 5 that he gets today if this is successful I think he will need additional imaging both because it so old and also because it was not done with contrast I also think that we might do additional investigations even including a spinal tap and evaluation for spondyloarthropathy documented in this encounter Plan of Treatment Not on file documented as of this encounter Visit Diagnoses Diagnosis Chronic fatigue syndrome Other depression Chronic midline thoracic back pain documented in this encounter Care Teams Security Associate Relationship Specialty Start Date End Date Ryan Guy MD PCP - General General Internal Medicine 08/01/16 documented as of this encounter
--- OUTSIDE RECORDS SUMMARY | 2023-09-30 01:41 | XMS_ITS | Encounter Summary ---
Author Organization [facility] [place] [address] Care Team Providers Care Recreational Leader Name Role Phone Unknown Primary Care Provider Unavailabl e Reason for Visit * Reason Comments Medication Refill Encounter Details Date Type Department Care Team (Late st Contact Info) Description 08/01/2017 [place] [address] Natalio Willoughby MD [facility] [place] [address] Fatigue due to depression Social History Tobacco Use Types Packs/Day Years [...] as of this encounter Visit Diagnoses Diagnosis Fatigue due to depression documented in this encounter Care Teams Recreational Leader Relationship Specialty Start Date End Date Unknown None PCP - General 03/10/19 documented as of this encounter
--- OUTSIDE RECORDS SUMMARY | 2023-09-30 01:41 | XMS_ITS | Encounter Summary ---
Author [facility] [place] [address] Care Team Providers Care Waste Specialist Name Role Phone Ryan Guy MD Primary Care Provider [phone] Reason for Visit * Reason Onset Date Comments Medication Refill 08/18/2017 Encounter Details Date Type Department Care Team (Late st Contact Info) Description 08/18/2017 [place] [phone] Rayne Lemus strategy consultant fatigue syndrome Social History Tobacco Use Types [...] Telephone Encounter - Rayne Lemus RN - 08/18/2017 3:18 PM EDTFrom: Joseluis Dewey To: Eugenia Willoughby MD Sent: 08/18/2017 2:18 PM EDT Subject: Medication Renewal Request Original authorizing provider: MD Joseluis LIRA would like a refill of the following medications: predniSONE (DELTASONE) 5 mg Tablet [EUGENIA WILLOUGHBY MD] Preferred pharmacy: [address] Comment: InfectedParotid glands On 08/13/17 I had periodontal surgery /was prescribed 7 days of Keflex 500mg to prevent infection. On FridayAugust 16 I discovered my swollen parotid glands in my neck have been reduced by HALF of their size. These are same parotid glands that DR Sotelo had imaged at [facility] in early 2017. 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 On 08/11/17 I had re- started [address] Sotelo after a 2 week hiatus. This change is very important documented in this encounter Plan of Treatment Not on file documented as of this encounter Visit Diagnoses Diagnosis Chronic fatigue syndrome documented in this encounter Care Teams Waste Specialist Relationship Specialty Start Date End Date Ryan Guy MD PCP - General General Internal Medicine 08/01/16 documented as of this encounter
--- OUTSIDE RECORDS SUMMARY | 2023-09-30 01:41 | XMS_ITS | Encounter Summary ---
Author Organization [facility] [place] [address] Care Team Providers Care Meeting Planner Name Role Phone Ryan Guy MD Primary Care Provider [phone] Encounter Details Date Type Department Care Team (Late st Contact Info) Description 10/02/2017 Telephone [place] [phone] Rayne Lemus RN Social History Tobacco Use [...] Telephone Encounter - Rayne Lemus RN - 10/06/2017 10:38 AM EDT Sent [facility] message about low testosterone. documented in this encounter Plan of Treatment Not on file documented as of this encounter Visit Diagnoses Not on filedocumented in this encounter Care Teams Meeting Planner Relationship Specialty Start Date End Date Ryan Guy MD PCP - General General Internal Medicine 08/01/16 documented as of this encounter
--- OUTSIDE RECORDS SUMMARY | 2023-09-30 01:41 | XMS_ITS | Encounter Summary ---
Author Organization Counts Include [facility] Address [facility] [address] Care Team Providers Care Clinical Support Associate Name Role Phone Alex Sotelo MD Primary Care Provider [phone] Reason for Visit * Reason Comments Pain Management Pain, Chronic * Consultation (Routine) - Closed Specialty Diagnoses / Procedures Referred By Contac t Referred To Contact Pain Management Diagnoses Chronic midline low back pain without sciatica Michael Paige, PA [facility] [place] [address] [facility] [address] [place] [phone] Referral ID Status Reason Start Date Expiration Date V isits Requested Visits Authorized [id number] Closed Consult, Test & Treat 10/16/2015 10/15/2016 1 1 Encounter Details Date Type Department Care Team (Late st Contact Info) Description 11/07/2015 3:45 PM EDT [place] [phone] Michelle Bender APRN [facility] [place] [address] DDD (degenerative disc disease), cervical; Chronic low back pain with left-sided sciatica, unspecified back pain laterality Social History Tobacco Use Types Packs/Day Years [...] Sign Reading Time Taken Comments Blood Pressure 150/78 11/07/2015 3:27 PM EDT Pulse 64 11/07/2015 3:27 PM EDT Temperature - - Respiratory Rate - - Oxygen Saturation 97% 11/07/2015 3:27 PM EDT Inhaled Oxygen Concentration - - Weight 74.8 kg (164 lb 12.8 oz) 11/07/2015 3:27 PM EDT Height 172.7 cm (5' 8) 11/07/2015 3:27 PM EDT Body Mass Index 25.06 11/07/2015 3:27 PM EDT documented in this encounter Progress Notes * Michelle Bender, CATEGORY MANAGER - 11/07/2015 3:45 PM EDT Images from the original note were not included. [facility] [place] [address] Phone: PAIN MANAGEMENT NEW PATIENT / CONSULTATION NOTE DATE OF VISIT 11/07/2015 Patient Joseluis Dewey 1950 REFERRING PROVIDER JOSEPH Jenkins [facility] [place] [address] PRIMARY CARE PROVIDER ALEX SOTELO MD CHIEF COMPLAINT: Joseluis Dewey is a 65 y.o. male with paravertebral pain, who is seen in consultation at the request of Michael Paige for evaluation, recommendations, and management.The history is obtained from the patient, and I have reviewed medical records provided by the referring physician and located in the electronic medical record to fill in gaps in the patient's recollection of events, treatments and outcomes. Goal of visit: Want someone to prescribe methadone clinic. Goes to pain clinic in [facility]. Have you ever gone to another pain center? Yes in [facility]. Reason for leaving: does not want to go to a methadone clinic. I am locked out of the medical system. I want to be treated humanely. HPI Patient reports that he's been treated since 2004 or so for Lyme's disease but he believes he actually got it in 1998 and 6: Infections. He previously used to go into many old basements in [place] and felt that he had a tick bite at that point time he was finally tested positive in 2012. He hasa large folder full of multiple papers that he refers to constantly throughout the history and discussion that is somewhat rambling and tangential. 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 He tells me he previously saw Leticia Hinton here in the pain clinic but she really didn't treat him because he couldn't find any objective evidence of disease on x-rays. In 2009 he was dismissed from practice for coming up short on methadone every month and he relates that he came up short every month and sometimes did not treat his provider the way he would like to have done. He found someone else for 1 month and then his primary care provider fired him. He reports that he never had a inconsistent urine however. His doctor Nya has been prescribing him. At 2009 [facility]. He could manage his pain and I had a bad attitude with my doctor. He has tried multiple, on planimetry treatments including GC mass which she obtained from [place], he will without pain medication for 199901/10/2013 he lost a significant amount of weight and then [facility] where he was maintained on methadone. He tells me he is not beingtreated for addiction but that they are doing him a favor by treating him under the guise as of addictionhe reports that the first 2 years at [facility] he got punished for cognitive issues. He had to get up and presented to the clinic every morning for his methadone and he reports that it almost killed me he is here today because he would like to see if he could obtain his methadone from somewhereother than a methadone clinic because he would eventually like to go back to work. He feels that ifhe goes back to work and is in the methadone clinic he will not be perceived well in his community and if he tapers down off the methadone and then finds that he needs that he would not then need to go back to the methadone clinic to obtain it which would mean that he would have to percent daily for treatment which she also doesn't think that he could tolerate. Most recent MRI or Xray: Thoracic MR 07/14/2015 1. No evidence for transverse myelitis. 2. Large hiatal hernia. 3. Unexpected finding. 1 cm T2 hyperintense enhancing lesion in the posterior liver, incompletely characterized. This may reflect benign lesion such as hemangioma although more aggressive lesion not excluded. Further evaluation with abdominal imaging is recommended. PAIN ASSESSMENT: Description: Pain in neck and back pain Weakness, numbness, tingling:yes Saddle Anesthesia: ED, Other associated symptoms: Some bowel and bladder Frequency, intermittent Alleviating factors:medication Aggravating factors: cold, diet Ave past week:3- , better with testosterone level higher FUNCTIONAL HISTORY Work:no, private disability # of missed days from work past month due to pain: Na Interference with activities/ADL: yes Exercise/activities: mountain biking, 1mile daily How do you spend your day? Work on [employer] house CURRENT THERAPIES: Methadone 20 mg bid cymbalta 30 prozac 20 Gabapentin 600-1200 PAST THERAPIES: Acetaminophen:yes NSAID:yes, ulcer Opioids:methadone At methadone clninic Storage of opioids: Locked in a drawer Antidepressants :cymbalta Anticonvulsants:gabapentin 600-1200 mgs daily Muscle relaxants:yes can help Topicals:lidocaine patch Herbal supplements/vitamins:multiple supplements Injections:no Surgery: no Physical Therapy:no TENS: yes Acupuncture:yes Chiropractic:yes Massage: no doesn't help CBT,Meditation/Imagery: does imagery, prayer work Yoga/Azar Chi/ Movement:did yoga and azar chi in the past Marijuana:vape is no card Other:biomagnatism treatment REVIEW OF SYSTEMS: Constitutional: denies fever, chills, cough, signs of infection, weight changes, fatigue HEENT: Denies headaches, +blurry/limited vision eyes cross no, photophobia, difficulty hearing, Cardiac:denies chest pain or pressure, lower extremity edema Lungs: + SOB on exertion hiatal hernia GI: denies constipation or diarrhea, black tarry stool, loss of control; : denies urgency, hesitation, or incontinence + frequency, Neuro: denies dizziness, numbness, seizures, tremors looses balance Muscle skeletal: denies use of ambulatory aide, fall on bike Skin: denies open sores or rashes Psychological/Mood: Somewhat tearful, anxious Sleep: poor RELEVANT SOCIAL HISTORY: Lives with: Smoking:no Alcohol: present and past: no Illegal/prescription drug misuse past/present:denies Are you now or in past received methadone or suboxone (buprenorphine) for substance abuse? Yes at [facility] Ever participated in drug or alcohol rehabilitation program? Yes [facility] Share your pain medications or accepted pain medications from family/friends?no Financial concerns: yes Addiction Behaviors Checklist (NA = not assessed) Addiction behaviors--since last visit 1. Patient used illicit drugs or evidences problem drinking* yes 2. Patient has hoarded meds no 3. Patient used more narcotic than prescribed yes 4. Patient ran out of meds early yes 5. Patient has increased use of narcotics yes 6. Patient used analgesics PRN when prescription is for time contingent use no 7. Patient received narcotics from more than one provider yes 8. Patient bought meds on the streets no Addiction behaviors--within current visit 1. Patient appears sedated or confused (e.g., slurred speech, unresponsive) no 2. Patient expresses worries about addiction no 3. Patient expressed a strong preference for a specific type of analgesic or a specific route of administration no 4. Patient expresses concern about future availability of narcotic no 5. Patient reports worsened relationships with family no 6. Patient misrepresented analgesic prescription or use Discussed That was treated at [facility] as Abuse, but not really for that 7. Patient indicated she or he ?needs? or ?must have? analgesic meds yes 8. Discussion of analgesic meds was the predominant issue of visit no 9. Patient exhibited lack of interest in rehab or self-management no 10. Patient reports minimal/inadequate relief from narcotic analgesic no 11. Patient indicated difficulty with using medication agreement no Other 1. Significant others express concern over patient???s use of analgesics no ABC Score: __>3____ Score of ?3 indicates possible inappropriate opioid use and should flag for further examination of specific signs of misuse and more careful patient monitoring (i.e., urine screening, pill counts, removal of opioid). MEDICATIONS The [place] was checked and no concerns were identified. Medications 10/16/15 5777 Medication Sig Taking? FLUoxetine (PROZAC) 20 mg Capsule Take 1 capsule by mouth daily. traZODone (DESYREL) 50 mg Tablet take 1 to 2 tablets by mouth at bedtime cyclobenzaprine (FLEXERIL) 5 mg Tablet Take 5 mg by mouth as needed for Muscle spasms. methadone (DOLOPHINE) 100 mg/10 mL Concentrate Take 20 mg by mouth 2 times daily. DULoxetine (CYMBALTA) 30 mg Capsule, Delayed Release(E.C.) Take 30 mg by mouth daily. gabapentin (NEURONTIN) 600 mg tablet daily. lidocaine (LIDODERM) 5 %(700 mg/patch) famciclovir (FAMVIR) 500 mg tablet Take 500 mg by mouth daily. Cholecalciferol, Vitamin D3, (VITAMIN D-3) 5,000 unit Tab Take 1 tablet by mouth 2 times daily. MV-MN/FA/LYCOPENE/LUT/HB#178 (FREDRICK MULTIVITAMIN FOR MEN ORAL) Take 1 tablet by mouth daily. ASCORBATE CALCIUM (VITAMIN C ORAL) Take 1,800 mg by mouth See Admin Instructions. 1-2 TIMES DAILY Selenium 100 mcg Cap Take 1 capsule by mouth nightly. b complex vitamins (VITAMIN B COMPLEX) capsule Take 1 capsule by mouth See Admin Instructions. 1-2 daily of the timed release Prasterone, DHEA, (DHEA) 25 mg Tab Take 1 tablet by mouth daily. FERROUS FUMARATE/ASCORBIC ACID (VITRON-C ORAL) Take 1 tablet by mouth See Admin Instructions. as directed Testosterone 50 mg/5 gram (1 %) Gel Place onto the skin See Admin Instructions. apply 0.5 GM 1-2 times daily ADVERSE DRUG REACTIONS Allergies as of 11/07/2015 - Review Complete 10/16/2015 Allergen Reaction Noted ??? Ciprofloxacin Rash and Other (See Comments) 10/09/2010 ??? Sulfa (sulfonamide antibiotics) Rash MEDICAL HISTORY Past Medical History Diagnosis Date ??? Asthma Childhood ??? Chronic fatigue syndrome ??? Chronic pain ??? Depression depression going back to at least 1992 at the time of several family deaths, controlled ??? Fibromyalgia ??? Opioid dependence, continuous ??? Prostatitis, chronic SURGICAL HISTORY Past Surgical History Procedure Laterality Date ??? Knee surgery left ??? Cervical fusion anterior ??? Vasectomy FAMILY HISTORY Family History Problem Relation Age of Onset ??? Coronary Artery Disease Other ??? Cancer Other Opioid Risk Tool Female Male 1. Family history of Substance Abuse Alcohol [] 1 [] 3 Illegal Drugs [] 2 [] 3 Prescription Drugs [] 4 [] 4 2. Personal History of Substance Abuse Alcohol [] 3 [] 3 Illegal Drugs [] 4 [] 4 Prescription Drugs [x] 5 [] 5 3. Age (levon box if 16-45) [] 1 [] 1 4. History of Preadolescent Sexual Abuse [] 3 [] 0 5. Psychological Disease Attention Deficit Disorder, Obsessive Compulsive D/o, Bipolar, Schizophrenia [x] 2 [] 2 Depression [x] 1 [] 1 TOTAL: Comments about ORT in relation to this patient: Opioid Risk Category: high risk >8 PHYSICAL EXAMINATION There were no vitals filed for this visit. There is no height or weight on file to calculate BMI. There were no vitals taken for this visit. No flowsheet data found. Appearance/ Behavior Well groomed, good eye contact, relaxed, cooperative, normal speech, no acute distress, no involuntary movements Eyes Sclera anicteric, conjunctiva clear. ENT Hearing grossly intact Lungs CTA bilaterally Cardiovascular Reg RR without murmur, Skin No rash, asymmetric hair loss, bruises, scars, swelling Musckuloskeletal Inspection/Palpation/ Range of Motion/Facet Loading maneuvers The patient stands with erect posture. He has good lumbar flexibility, he has good cervical flexibility. He has normal strength, sensation, and reflexes there is no Yovani or clonus and Babinski with downgoing toes. He can tandem walk without any difficulty in short his exam is un-remarkable. Neuro Motor Strength Segment Muscle Action Bilateral Results C5 Detoid Shoulder abduction 5/5 C5 Biceps Elbow flexion 5/5 C6 Extensor carpi radialis Wrist extension 5/5 C7 Triceps Elbow extension 5/5 C8, T1 Hand intrinsics Grasp 5/5 L2-5, S 1 Gluteus medius Hip Adduction 5/5 L4-5, S1 Gluteus medius Hip Abduction 5/5 L2 Iliopsoas Hip flexion 5/5 L3 Quadriceps Knee extension 5/5 L4 Tibialis anterior Ankle Dorsiflexion 5/5 L5 Extensor hallucis Great toe extension 5/5 S1 Gastrocnemius Ankle Plantar flexion 5/5 Reflexes: Segment Tendon Bilateral C5 Biceps 2+ C6 Brachioradialis 2+ C7 Triceps 2+ Upper Rodriguez Neg L3-4 Patella 2+ S1 Ankle 2+ Lower Babinski Down going Clonus Neg Sensory Exam: No sensory deficits noted in cervical, thoracic, lumbar dermatomes Vascular: warm to touch + 2 pedal pulses ASSESSMENT The patient reports that he is chronic Lyme's disease. He certainly has a chronic pain syndrome. Hehas pain predominantly through the neck and shoulders and back. PLAN/RECOMMENDATIONS I did explain to the patient that unfortunately we would not be able to take over his prescribing. He is receiving appropriate care through the methadone clinic and he is taking an adequate dose to relieve his pain to down to a 2-3 level on a regular basis. His other treatments including Cymbalta and gabapentin are completely appropriate. I did speak to him about the fact that perhaps something like the [facility] program would help him obtain his goal of being able to return to work. At various times during this discussion he has gotten angry and upset but he has held himself in check and eventually shook my hand and left the clinic. I would be happy to make a referral for him to the [facility] program if interested and I gave him a video to review. Joseluis Herrera Maco had the opportunity to ask questions and indicated that all questions were answered to his satisfaction. Michelle Bender MS SR TECHNICAL SALES CONSULTANT-, CATEGORY MANAGER Nurse Practitioner [facility] documented in this encounter Plan of Treatment Scheduled Referrals Name Type Priority Associated Diagnoses Orde r Schedule Referral to Pain Clinic Outpatient Referral Routine Chronic midline low back pain without sciatica Ordered: 10/16/2015 documented as of this encounter Visit Diagnoses Diagnosis DDD (degenerative disc disease), cervical Degeneration of cervical intervertebral disc Chronic low back pain with left-sided sciatica, unspecified back pain laterality documented in this encounter Care Teams Clinical Support Associate Relationship Specialty Start Date End Date Alex Sotelo MD [facility] [address] [place] [id number] PCP - General 09/30/13 07/31/16 documented as of this encounter
--- OUTSIDE RECORDS SUMMARY | 2023-09-30 01:41 | XMS_ITS | Encounter Summary ---
Author Organization [facility] Address [facility] [place] [address] Care Team Providers Care Dormitory Keeper Name Role Phone Ryan Guy MD Primary Care Provider [phone] Reason for Visit * Diagnostic Test (Routine) - Closed Specialty Diagnoses / Procedures Referred By Hadley valerio Referred To Contact Radiology Diagnoses Chronic fatigue Procedures PET CT Standard Skull Base to Mid-Thigh PET CT Standard Plus Extremities & Head Natalio Willoughby MD [facility] [place] [address] [place] [address] Referral ID Status Reason Start Date Expiration Date V isits Requested Visits Authorized [id number] Closed Specialty Service Requested 05/20/2017 07/18/2017 1 1 Encounter Details Date Type Department Care Team (Latest Contact Info) Description 05/23/2017 1:22 PM EDT - 05/23/2017 11:59 PM EDT Hospital En[place] [address] Natalio Willoughby MD [facility] [place] [address] Chronic fatigue Discharge Disposition: Home Social History Tobacco Use Types Packs/Day Years [...] on file documented as of this encounter Medications at Time of Discharge Medication Sig Dispensed Refills Start Date End Date DOCOSAHEXANOIC ACID/EPA (FISH OIL ORAL) Take 2 capsules by mouth daily. valGANciclovir (VALCYTE) 450 mg TabletIndications:Nicole cook due to depression Take 1 tablet by mouth daily. 30 tablet 3 04/03/2017 aspirin 81 mg Tablet, Delayed Release (E.C.) Take 81 mg by mouth daily. Garlic Capsule Take 1 capsule by mouth daily. ferrous sulfate (FEOSOL) 325 mg (65 mg iron) Tablet Take 325 mg by mouth daily (with breakfast). UNABLE TO FIND An additional iron supplement. FLUoxetine (PROZAC) 20 mg CapsuleIndications:Larry crandall single current episode of major depressive disorder Take 1 capsule by mouth daily. 90 capsule 3 10/02/2016 Prasterone, DHEA, (DHEA) 50 mg Capsule Take 50 mg by mouth daily. DULoxetine (CYMBALTA) 30 mg Capsule, Delayed Release(E.C.) Take 30 mg by mouth daily. gabapentin (NEURONTIN) 600 mg tablet Take 600 mg by mouth 3 times daily. 08/16/2013 lidocaine (LIDODERM) 5 %(700 mg/patch) Place 1 patch onto the skin as needed. 09/23/2013 famciclovir (FAMVIR) 500 mg tablet Take 500 mg by mouth 2 times daily. Cholecalciferol, Vitamin D3, (VITAMIN D-3) 5,000 unit Tab Take 1 tablet by mouth 2 times daily. MV-MN/FA/LYCOPENE/LUT/ HB#178 (FREDRICK MULTIVITAMIN FOR MEN ORAL) Take 1 tablet by mouth daily. ASCORBATE CALCIUM (VITAMIN C ORAL) Take 1,000 mg by mouth 2 times daily. Time released. Selenium 100 mcg Cap Take 3-4 capsules by mouth every morning. b complex vitamins (VITAMIN B COMPLEX) capsule Take 1 capsule by mouth daily. Testosterone 50 mg/5 gram (1 %) Gel traZODone (DESYREL) 50 mg Tablet TAKE ONE TO TWO TABLETS BY MOUTH AT BEDTIME 60 tablet 11 05/20/2017 05/26/2018 hydroxychloroquine (PLAQUENIL) 200 mg TabletIndications:Nicole cook due to depression Take 1 tablet by mouth daily. 90 tablet 3 04/03/2017 04/01/2018 COQ10, LIPOSOMAL UBIQUINOL, ORAL Take 200 mg by mouth daily. 05/26/2018 UNABLE TO FIND Med Name: CBD, 1 capsule daily. 09/25/2017 UNABLE TO FIND Med Name: NAC, 1 capsule daily. 05/26/2018 predniSONE (DELTASONE) 5 mg TabletIndications:Bpo Specialist katharina fatigue syndrome Take 4 tablets by mouth daily. 120 tablet 5 02/20/2017 08/21/2017 methadone (DOLOPHINE) 20 mg/2 mL Concentrate Take 20 mg by mouth 2 times daily. 09/25/2017 diclofenac (VOLTAREN) 1 % GelIndications:Pain in both lower extremities Apply 2 g topically 4 times daily. 100 g 3 04/25/2016 03/02/2018 cyclobenzaprine (FLEXERIL) 5 mg TabletIndications:Bpo Specialist katharina fatigue syndrome Take 1 tablet by mouth nightly. 60 tablet 1 01/18/2016 05/26/2018 documented as of this encounter Plan of Treatment Not on file documented as of this encounter Procedures Procedure Name Priority Date/Time Associated Diagnosis Comments NM PET CT SKULL BASE TO MID-THIGH ([facility]) Routine 05/23/2017 3:05 PM EDT Chronic fatigue POCT GLUCOSE Routine 05/23/2017 1:37 PM EDT documented in this encounter Results * PET CT Standard Skull Base to Mid-Thigh (05/23/2017 3:05 PM EDT) Anatomical Region Laterality Modality Positron Emissio n Tomography (PET) Impressions 05/23/2017 5:28 PM EDT No evidence for FDG avid malignancy or metastasis with specific attention to the liver where there is normal activity in all regions and no significant abnormality seen on noncontrast enhanced CT. Thank you for referring this patient to [facility]. Narrative 05/23/2017 5:28 PM EDT EXAMINATION: PET CT STANDARD SKULL BASE TO MID-THIGH CLINICAL HISTORY: fatigue hyperintense liver lesion ? malignancy TECHNIQUE: Following IV injection of 13-jdnmyg-9-deoxyglucose (FDG) a standard uptake of approximately 60 minutes, a noncontrast CT scan followed by a PET scan were acquired from the base of the skull to mid thighs. The noncontrast CT was used for anatomic localization and photon attenuation correction of the PET scan. Blood glucose level: 113 (mg/dL) FDG dose: 11 mCi COMPARISON: None FINDINGS: HEAD/NECK: Normal activity in all soft tissue regions of the neck and visualized lower head. No significant adenopathy on CT. CHEST: Normal activity in all soft tissue regions. Incidental CT finding of large left-sided diaphragmatic hernia, coronary and aortic calcifications. No significant pulmonary nodules or adenopathy. ABDOMEN/PELVIS: Normal activity in all soft tissue regions. Specifically, there is normal activity in all regions of the liver. Small simple appearing cyst in the left hepatic lobe. No other liver abnormality is seen on the noncontrast enhanced CT portion of this PET/CT. Diffuse vascular calcifications are present. SKELETON/EXTREMITIES: Normal activity in all regions of the axial and ??visualized appendicular skeleton. ? Procedure Note Rashad Brody MD - 05/23/2017 EXAMINATION: PET CT STANDARD SKULL BASE TO MID-THIGH CLINICAL HISTORY: fatigue hyperintense liver lesion ? malignancy TECHNIQUE: Following IV injection of 70-nzheer-1-deoxyglucose (FDG) astandard uptake of approximately 60 minutes, a noncontrast CT scan followed by aPET scan were acquired from the base of the skull to mid thighs. The noncontrast CTwas used for anatomic localization and photon attenuation correction of thePET scan. Blood glucose level: 113 (mg/dL) FDG dose: 11 mCi COMPARISON: None FINDINGS: HEAD/NECK: Normal activity in all soft tissue regions of the neck and visualizedlower head. No significant adenopathy on CT. CHEST: Normal activity in all soft tissue regions. Incidental CT finding oflarge left-sided diaphragmatic hernia, coronary and aortic calcifications. No significant pulmonary nodules or adenopathy. ABDOMEN/PELVIS: Normal activity in all soft tissue regions. Specifically, there isnormal activity in all regions of the liver. Small simple appearing cyst in theleft hepatic lobe. No other liver abnormality is seen on the noncontrastenhanced CT portion of this PET/CT. Diffuse vascular calcifications are present. SKELETON/EXTREMITIES: Normal activity in all regions of the axial and visualized appendicular skeleton. IMPRESSION No evidence for FDG avid malignancy or metastasis with specific attentionto the liver where there is normal activity in all regions and no significant abnormality seen on noncontrast enhanced CT. Thank you for referring this patient to [facility]. Natalio Willoughby MD IMG PET ORDERABLES * POCT Glucose (05/23/2017 1:37 PM EDT) POC Glucose 113 65 - 199 mg/dL [facility] Comment: Supplemental ranges: <140 mg/dL before meals <180 mg/dL all other times of the day Blood specimen (specimen) 05/23/2017 1:37 PM EDT 05/23/2017 1:37 PM EDT Natalio Willoughby MD POINT OF CARE TEST O RDERABLES Performing Organization Address City/State/[facility] Co de Phone Number [facility] [place] [address] documented in this encounter Visit Diagnoses Diagnosis Chronic fatigue Other malaise and fatigue Chronic fatigue Other malaise and fatigue documented in this encounter Care Teams Dormitory Keeper Relationship Specialty Start Date End Date Ryan Guy MD PCP - General General Internal Medicine 08/01/16 documented as of this encounter
--- OUTSIDE RECORDS SUMMARY | 2023-09-30 01:41 | XMS_ITS | Encounter Summary ---
[facility] [place] [address] Care Team Providers Care Supervisor Instrument Maintenance Name Role Phone Ryan Guy MD Primary Care Provider [phone] Reason for Visit * Reason Onset Date Comments Other 08/01/2017 Encounter Details Date Type Department Care Team (Late st Contact Info) Description 08/01/2017 [place] [phone] Douglas Herrera RN Other Social History Tobacco [...] encounter Miscellaneous Notes * Telephone Encounter - Douglas Herrera RN - 08/01/2017 3:39 PM EDT Patient calls regarding Valcyte. He requests prescription for 3 weeks and will contact in [place] to complete future refills. He was notified verbally that prescription had been refused due to no indication for anti-viral. documented in this encounter Plan of Treatment Not on file documented as of this encounter Visit Diagnoses Not on filedocumented in this encounter Care Teams Supervisor Instrument Maintenance Relationship Specialty Start Date End Date Ryan Guy MD PCP - General General Internal Medicine 08/01/16 documented as of this encounter
--- OUTSIDE RECORDS SUMMARY | 2023-09-30 01:41 | XMS_ITS | Encounter Summary ---
Author Organization [facility] Address [facility] [place] [address] Care Team Providers Care Trolley Operator Name Role Phone Alex Sotelo MD Primary Care Provider [phone] Encounter Details Date Type Department Care Team (Latest Contact Info) Description 01/18/2016 2:13 PM EST - 01/18/2016 11:59 PM [facility] Hospital Encounter XRay at [address] [place] [address] Natalio Willoughby MD [facility] [place] [address] Chronic fatigue syndrome Discharge Disposition: Home Social History Tobacco Use [...] Sig Dispensed Refills Start Date End Date DULoxetine (CYMBALTA) 30 mg Capsule, Delayed Release(E.C.) [...] 1 tablet by mouth 2 times daily. MV-MN/FA/LYCOPENE/LUT/H B#178 (FREDRICK MULTIVITAMIN FOR MEN ORAL) Take 1 tablet by mouth daily. ASCORBATE CALCIUM (VITAMIN C ORAL) Take 1,000 mg by mouth 2 times daily. Time released. Selenium 100 mcg Cap Take 3-4 capsules by mouth every morning. b complex vitamins (VITAMIN B COMPLEX) capsule Take 1 capsule by mouth daily. Testosterone 50 mg/5 gram (1 %) Gel cyclobenzaprine (FLEXERIL) 5 mg TabletIndications:Chron ic fatigue syndrome Take 1 tablet by mouth nightly. 60 tablet 1 01/18/2016 05/26/2018 Diclofenac Sodium (VOLTAREN XR) 100 mg Tablet Sustained Release 24 hrIndications:Chronic fatigue syndrome Take 1 tablet by mouth daily. 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 90 capsule 3 10/12/2015 10/01/2016 traZODone (DESYREL) 50 mg Tablet take 1 to 2 tablets by mouth at bedtime 60 tablet 3 09/25/2015 01/27/2016 methadone (DOLOPHINE) 100 mg/10 mL Concentrate Take 20 mg by mouth 2 times daily. Reported on 04/25/2016 04/25/2016 Prasterone, DHEA, (DHEA) 25 mg Tab Take 1 tablet by mouth daily. Reported on 04/25/2016 04/25/2016 FERROUS FUMARATE/ASCORBIC ACID (VITRON-C ORAL) Take 1 tablet by mouth See Admin Instructions. as directed 11/21/2016 documented as of this encounter Plan of Treatment Not on file documented as of this encounter Procedures Procedure Name Priority Date/Time Associated Diagnosis Comments XR HANDS MIN 3 VIEWS BILAT Routine 01/18/2016 2:30 PM EST Chronic fatigue syndrome documented in this encounter Results * XR Hands Min 3 views Bilat (01/18/2016 2:30 PM EST) Anatomical Region Laterality Modality Hand Bilateral Digital Radiogra phy Impressions 01/18/2016 5:21 PM EST 1. ?? Slight decreased bone mineralization. 2. ??No erosions. 3. ??Mild osteoarthropathy at scattered IP joints Narrative 01/18/2016 5:21 PM EST EXAMINATION: XR HANDS MIN 3 VIEWS BILAT CLINICAL HISTORY: 1st MTP arthritis TECHNIQUE: 4 views each COMPARISON: None FINDINGS: BONES : Decreased mineralization. SOFT TISSUES: Symmetric soft tissues and no calcifications. JOINTS: IP joints- a few small osteophytes but relative preservation of joint spaces. No erosions. MCP joints- no erosions or osteophytes. Basal and scaphoid trapezial trapezoid [STT] joints- tiny osteophytes. Radial carpal joint- no erosions Distal radioulnar joint - congruent Procedure Note Rosalind Sanchez MD - 01/18/2016 EXAMINATION: XR HANDS MIN 3 VIEWS BILAT CLINICAL HISTORY: 1st MTP arthritis TECHNIQUE: 4 views each COMPARISON: None FINDINGS: BONES : Decreased mineralization. SOFT TISSUES: Symmetric soft tissues and no calcifications. JOINTS: IP joints- a few small osteophytes but relative preservation of jointspaces. No erosions. MCP joints- no erosions or osteophytes. Basal and scaphoid trapezial trapezoid [STT] joints- tiny osteophytes. Radial carpal joint- no erosions Distal radioulnar joint - congruent IMPRESSION 1. Slight decreased bone mineralization. 2. No erosions. 3. Mild osteoarthropathy at scattered IP joints Natalio Willoughby MD IMG DX ORDERABLES documented in this encounter Visit Diagnoses Diagnosis Chronic fatigue syndrome documented in this encounter Care Teams Trolley Operator Relationship Specialty Start Date End Date Alex Sotelo MD [address] [address] PCP - General 09/30/13 07/31/16 documented as of this encounter
--- OUTSIDE RECORDS SUMMARY | 2023-09-30 01:41 | XMS_ITS | Encounter Summary ---
Author Organization [facility] Address [facility] [place] [address] Care Team Providers Care Data Collection Interviewer Name Role Phone Alex Sotelo MD Primary Care Provider [phone] Encounter Details Date Type Department Care Team (Late st Contact Info) Description 04/25/2016 Transcribe [place] [id number] Natalio Willoughby MD [facility] [place] [address] Social History Tobacco Use Types Packs/Day Years [...] on filedocumented in this encounter Care Teams Data Collection Interviewer Relationship Specialty Start Date End Date lAex Sotelo MD [address] [address] PCP - General 09/30/13 07/31/16 documented as of this encounter
--- OUTSIDE RECORDS SUMMARY | 2023-09-30 01:41 | XMS_ITS | Encounter Summary ---
Author Organization [facility] [place] [address] Care Team Providers Care Nut Orchardist Name Role Phone Unknown Primary Care Provider Unavailabl e Reason for Visit * Reason Comments Medication Refill Encounter Details Date Type Department Care Team (Late st Contact Info) Description 08/18/2017 Ref[place] [address] Natalio Willoughby MD [facility] [place] [address] Chronic fatigue syndrome Social History Tobacco Use [...] syndrome documented in this encounter Care Teams Nut Orchardist Relationship Specialty Start Date End Date Unknown None PCP - General 03/10/19 documented as of this encounter
--- OUTSIDE RECORDS SUMMARY | 2023-09-30 01:41 | XMS_ITS | Encounter Summary ---
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 Joseluis states he does not feel like he should have to go to in [facility] to get a medication that Dr. Willoughby has prescribed for him in the past. Message Received: Today ? Natalio Willoughby MD sent to Rayne Lemus RN ? Caller: Unspecified (Today, ??9:00 AM) ? I never prescibed it. At his request for convenience I might have refilled it. He can followup with his natropath since he does not have a rheumatic condition I spoke with Joseluis and he states he is going to discuss with Patient Relations. Transferred to [place]. I notified Ruthie in Administration that patient was transferred to [place]. documented in this encounter Plan of Treatment Not on file documented as of this encounter Visit Diagnoses Not on filedocumented in this encounter Care Teams Bit Shaver Relationship Specialty Start Date End Date Ryan Guy MD PCP - General General Internal Medicine 08/01/16 documented as of this encounter
--- OUTSIDE RECORDS SUMMARY | 2023-09-30 01:41 | XMS_ITS | Encounter Summary ---
Author Organization [facility] Address [facility] [place] [address] Care Team Providers Care Tubular Stock Glass Bulb Machine Former Name Role Phone Alex Sotelo MD Primary Care Provider [phone] Encounter Details Date Type Department Care Team (Latest Contact Info) Description 04/25/2016 2:46 PM EST - 04/25/2016 11:59 PM EST Hospital Encounter XRay at [address] [place] [address] Natalio Willoughby MD [facility] [place] [address] Pain in both lower extremities Discharge Disposition: Home Social History Tobacco Use [...] Sig Dispensed Refills Start Date End Date Prasterone, DHEA, (DHEA) 50 mg Capsule Take [...] Testosterone 50 mg/5 gram (1 %) Gel methadone (DOLOPHINE) 20 mg/2 mL Concentrate Take 20 mg by mouth 2 times daily. 09/25/2017 diclofenac (VOLTAREN) 1 % GelIndications:Pain in both lower extremities Apply 2 g topically 4 times daily. 100 g 3 04/25/2016 03/02/2018 traZODone (DESYREL) 50 mg Tablet take 1 to 2 tablets by mouth at bedtime 60 tablet 3 01/29/2016 05/24/2016 cyclobenzaprine (FLEXERIL) 5 mg TabletIndications:Chron ic fatigue syndrome Take 1 tablet by mouth nightly. 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 90 capsule 3 10/12/2015 10/01/2016 FERROUS FUMARATE/ASCORBIC ACID (VITRON-C ORAL) Take 1 tablet by mouth See Admin Instructions. as directed 11/21/2016 documented as of this encounter Plan of Treatment Not on file documented as of this encounter Procedures Procedure Name Priority Date/Time Associated Diagnosis Comments XR FOOT MIN 3 VIEWS BILAT Routine 04/25/2016 3:15 PM EST Pain in both lower extremities documented in this encounter Results * XR Foot Min 3 views Bilat (Generic) (04/25/2016 3:15 PM EST) Anatomical Region Laterality Modality Foot Bilateral Digital Radiogra phy Impressions 04/25/2016 3:49 PM EST Mild degenerative changes within both feet, as described above. I have personally reviewed the image(s) and the residents interpretation and agree with the findings, Rosalind Sanchez at 04/25/2016 3:49 PM Narrative 04/25/2016 3:49 PM EST EXAMINATION: XR FOOT MIN 3 VIEWS BILAT (GENERIC) CLINICAL HISTORY: OA TECHNIQUE: AP, oblique and lateral views of both feet COMPARISON: None FINDINGS: Minimal degenerative changes are seen at the first MTPs, characterized by subchondral sclerosis and osteophyte formation. There is also subchondral sclerosis seen at the first TMT joints and the talonavicular joints bilaterally. Mild pes planus on the LEFT. No other osseous abnormalities are identified. Procedure Note Rosalind Sanchez MD - 04/25/2016 EXAMINATION: XR FOOT MIN 3 VIEWS BILAT (GENERIC) CLINICAL HISTORY: OA TECHNIQUE: AP, oblique and lateral views of both feet COMPARISON: None FINDINGS: Minimal degenerative changes are seen at the first MTPs, characterizedby subchondral sclerosis and osteophyte formation. There is also subchondral sclerosis seen at the first TMT joints and the talonavicular joints bilaterally. Mild pes planus on the LEFT. No other osseous abnormalities are identified. IMPRESSION Mild degenerative changes within both feet, as described above. I have personally reviewed the image(s) and the residents interpretationand agree with the findings, Rosalind Sanchez at 04/25/2016 3:49 PM Natalio Willoughby MD IMG DX ORDERABLES documented in this encounter Visit Diagnoses Diagnosis Pain in both lower extremities documented in this encounter Care Teams Tubular Stock Glass Bulb Machine Former Relationship Specialty Start Date End Date Alex Sotelo MD [address] [address] PCP - General 09/30/13 07/31/16 documented as of this encounter
--- OUTSIDE RECORDS SUMMARY | 2023-09-30 01:41 | XMS_ITS | Encounter Summary ---
Author Organization [facility] [place] [address] Care Team Providers Care Media Producer Name Role Phone Ryan Guy MD Primary Care Provider [phone] Reason for Visit * Diagnostic Test (Routine) - Closed Specialty Diagnoses / Procedures Referred By Hadley valerio Referred To Contact Radiology Diagnoses Chronic fatigue Procedures PET CT Standard Skull Base to Mid-Thigh PET CT Standard Plus Extremities & Head Natalio Willoughby MD [facility] [place] [address] [place] [address] Referral ID Status Reason Start Date Expiration Date V isits Requested Visits Authorized [id number] Closed Specialty Service Requested 05/20/2017 07/18/2017 1 1 Encounter Details Date Type Department Care Team (Latest Contact Info) Description 05/23/2017 1:21 PM EDT Hospital Encounter [place] [address] Natalio Willoughby MD [facility] [place] [address] Chronic fatigue Discharge Disposition: Home [...] capsule daily. 05/26/2018 predniSONE (DELTASONE) 5 mg TabletIndications:Slurry Plant Operator katharina fatigue syndrome Take 4 tablets by mouth daily. 120 tablet 5 02/20/2017 08/21/2017 methadone (DOLOPHINE) 20 mg/2 mL Concentrate Take 20 mg by mouth 2 times daily. 09/25/2017 diclofenac (VOLTAREN) 1 % GelIndications:Pain in both lower extremities Apply 2 g topically 4 times daily. 100 g 3 04/25/2016 03/02/2018 cyclobenzaprine (FLEXERIL) 5 mg TabletIndications:Slurry Plant Operator katharina fatigue syndrome Take 1 tablet by mouth nightly. 60 tablet 1 01/18/2016 05/26/2018 documented as of this encounter Plan of Treatment Not on file documented as of this encounter Procedures Procedure Name Priority Date/Time Associated Diagnosis Comments NM PET CT SKULL BASE TO MID-THIGH ([facility]) Routine 05/23/2017 3:05 PM EDT Chronic fatigue documented in this encounter Results * PET [...] Thank you for referring this patient to [facility]. Narrative 05/23/2017 5:28 PM EDT EXAMINATION: PET CT STANDARD SKULL BASE TO MID-THIGH CLINICAL HISTORY: fatigue hyperintense liver lesion ? malignancy TECHNIQUE: Following IV injection of 06-bgbjrs-0-deoxyglucose (FDG) a standard uptake of approximately 60 [...] ? malignancy TECHNIQUE: Following IV injection of 89-voaxpj-9-deoxyglucose (FDG) astandard uptake of approximately 60 minutes, [...] Thank you for referring this patient to [facility]. Natalio Willoughby MD IMG PET ORDERABLES documented in this encounter Visit Diagnoses Diagnosis Chronic fatigue Other malaise and fatigue Chronic fatigue Other malaise and fatigue documented in this encounter Administered Medications Inactive Administered Medications - up to 3 most recent administrations Medication Order MAR Action Action Date Dose Rate Site fludeoxyglucose (F-18) FDG injection 11 mCi 11 mCi, Intravenous, ONCE PRN, 1 dose, Starting on Fri05/23/17 at 1342, Until Fri05/23/17 at 1342, Per Protocol, RACF, Routine Given 05/23/2017 1:42 PM EDT 11 mCi documented in this encounter Care Teams Media Producer Relationship Specialty Start Date End Date Ryan Guy MD PCP - General General Internal Medicine 08/01/16 documented as of this encounter
--- OUTSIDE RECORDS SUMMARY | 2023-09-30 01:41 | XMS_ITS | Encounter Summary ---
[place] [address] Care Team Providers Care Neon Sign Servicer Name Role Phone Ryan Guy MD Primary Care Provider [phone] Reason for Visit * Reason Onset Date Comments Medication Refill 05/19/2017 Encounter Details Date Type Department Care Team (Late st Contact Info) Description 05/19/2017 [place] [phone] Douglas Herrera, RN Social History Tobacco Use Types Packs/Day [...] on filedocumented in this encounter Care Teams Neon Sign Servicer Relationship Specialty Start Date End Date Ryan Guy MD PCP - General General Internal Medicine 08/01/16 documented as of this encounter
--- OUTSIDE RECORDS SUMMARY | 2023-09-30 01:41 | XMS_ITS | Encounter Summary ---
Author Organization [facility] [place] [address] Care Team Providers Care Sorting Machine Operator Name Role Phone Unknown Primary Care Provider Unavailabl e Reason for Visit * Reason Onset Date Comments Medication Refill 10/06/2017 Encounter Details Date Type Department Care Team (Late st Contact Info) Description 10/06/2017 [place] [address] Natalio Willoughby MD [facility] DR [place]HEUMAT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
--- OUTSIDE RECORDS SUMMARY | 2023-09-30 01:41 | XMS_ITS | Encounter Summary ---
Author Organization [place] [address] Care Team Providers Care Bulbs Farmworker Name Role Phone Ryan Guy MD Primary Care Provider [phone] Reason for Visit * Reason Onset Date Comments Other 02/28/2017 Encounter Details Date Type Department Care Team (Late st Contact Info) Description 02/28/2017 Telephone [place] [phone] Rayne Lemus RN Other Social History Tobacco [...] Telephone Encounter - Rayne Lemus RN - 02/28/2017 10:35 AM EST Joseluis calls to report that he is feeling much better with taking Prednisone 20 mg daily. Will check with Dr. Willoughby for plan moving forward as it looks like he was considering imaging. RTC to Joseluis and he will wait to hear back, advised it may not be until after the Holiday. documented in this encounter Plan of Treatment Not on file documented as of this encounter Visit Diagnoses Not on filedocumented in this encounter Care Teams Bulbs Farmworker Relationship Specialty Start Date End Date Ryan Guy MD PCP - General General Internal Medicine 08/01/16 documented as of this encounter
--- OUTSIDE RECORDS SUMMARY | 2023-09-30 01:41 | XMS_ITS | Encounter Summary ---
Author Organization [facility] [place] [address] Care Team Providers Care Automatic Fancy Machine Operator Name Role Phone Alex Sotelo MD Primary Care Provider [phone] Reason for Visit * Reason Comments Medication Refill Encounter Details Date Type Department Care Team (Late st Contact Info) Description 01/27/2016 [place] [address] Natalio Willoughby MD [facility] [place] [address] Social History Tobacco Use Types Packs/Day Years [...] on filedocumented in this encounter Care Teams Automatic Fancy Machine Operator Relationship Specialty Start Date End Date Alex Sotelo MD [address] [address] PCP - General 09/30/13 07/31/16 documented as of this encounter
--- OUTSIDE RECORDS SUMMARY | 2023-09-30 01:41 | XMS_ITS | Encounter Summary ---
Author Organization [facility] Address [facility] [place] [address] Care Team Providers Care Cardiology Consultants Name Role Phone Ryan Guy MD Primary Care Provider [phone] Reason for Visit * Reason Comments Follow-up Encounter Details Date Type Department Care Team (Late st Contact Info) Description 09/25/2017 1:30 PM EDT Office [place] [address] Natalio Willoughby MD [facility] [place] [address] Fatigue due to depression; Other depression; Chronic fatigue syndrome Social History Tobacco Use [...] Sign Reading Time Taken Comments Blood Pressure 130/65 09/25/2017 1:40 PM EDT Pulse 70 09/25/2017 1:40 PM EDT Temperature 37.1 ??C (98.7 ??F) 09/25/2017 1:40 PM ED T Respiratory Rate - - Oxygen Saturation 96% 09/25/2017 1:40 PM EDT Inhaled Oxygen Concentration - - Weight 70.8 kg (156 lb) 09/25/2017 1:40 PM EDT Height 170.2 cm (5' 7) 09/25/2017 1:40 PM EDT Body Mass Index 24.43 09/25/2017 1:40 PM EDT documented in this encounter Progress Notes * Natalio Willoughby MD - 09/25/2017 1:30 PM EDT Is a follow-up appointment for Joseluis Dewey birthdate is 1950 The patient is a 67-year-old male with chronic fatigue and 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 I tried a number of different medications including Cymbalta and gabapentin with no discernible benefit he is followed by a Lyme literate doctor in [place] who prescribes antivirals Today's discussion revolved around methadone he is no longer taking methadone but has been transitioned to Suboxone still has very lot of anger about that and was very defensive about the chronic infections that he claims to have at this juncture I decided he should stop hydrocortisone which she got from his Lyme doctor he should stop the Plaquenil which I had prescribed for fatigue with no effect and I asked him to choose between Prozac and Cymbalta but not to take both He was very adamant that he has all these chronic diseases which I think are largely undocumented in today try to claim that he had lupus for which she has no serologic or clinical evidence 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 and should be on as few medicines as possible primarily directed at depression and fibromyalgia documented in this encounter Miscellaneous Notes * Addendum Note - Keisha Stratton - 09/25/2017 2:20 PM EDTAddended by: KEISHA STRATTON on: 09/25/2017 02:20 PM Modules accepted: Orders documented in this encounter Plan of Treatment Not on file documented as of this encounter Procedures Procedure Name Priority Date/Time Associated Diagnosis Comments CRP, ACUTE INFLAMMATION Routine 09/25/2017 2:26 PM EDT Fatigue due to depression TESTOSTERONE, TOTAL AND FREE Routine 09/25/2017 2:26 PM EDT documented in this encounter Results * (ABNORMAL) Testosterone, total and free (09/25/2017 2:26 PM EDT) Testo Total 126(L) 250 - 1100 ng/dL [facility] Comment: Men with clinically significant hypogonadal symptoms and testosterone values repeatedly in the range of the 200-300 ng/dL or less, may benefit from testosterone treatment after adequate risk and benefits counseling. For more information on this test, go to http://education.[employer].TV (Wayin)/faq/ TotalTestosteroneLCMSMS This test was developed and its analytical performance characteristics have been determined by [employer] [place], [place]. It has not been cleared or approved by the U.S. Food and Drug Administration. This assay has been validated pursuant to the CLIA regulations and is used for clinical purposes. Testo Free 15.0(L) 35.0 - 155.0 pg/mL [facility] Comment: This test was developed and its analytical performance characteristics have been determined by [employer] [place], [place]. It has not been cleared or approved by the U.S. Food and Drug Administration. This assay has been validated pursuant to the CLIA regulations and is used for clinical purposes. Test Performed by [facility], [employer] [place], [address] [place], [place] Tip Wylie M.D., Ph.D., Director of Laboratories , CLIA [id number] Blood specimen (specimen) Venous Draw / Unknown 09/25/2017 2:26 PM EDT 09/29/2017 4:34 PM EDT Narrative Resulting Agency Comment Spec In Lab Natalio Willoughby MD CHEMISTRY ORDERABLES [facility] [place] [address] * CRP, acute inflammation (09/25/2017 2:26 PM EDT) CRP 0.8 <=4.9 mg/L [facility] Blood specimen (specimen) 09/25/2017 2:26 PM EDT 09/25/2017 2:33 PM EDT Narrative Resulting Agency Comment Spec In Lab Natalio Willoughby MD CHEMISTRY ORDERABLES Performing Organization Address City/State/[facility] Co de Phone Number [facility] [place] [place] [address] documented in this encounter Visit Diagnoses Diagnosis Fatigue due to depression Other depression Chronic fatigue syndrome documented in this encounter Care Teams Cardiology Consultants Relationship Specialty Start Date End Date Ryan Guy MD PCP - General General Internal Medicine 08/01/16 documented as of this encounter
--- OUTSIDE RECORDS SUMMARY | 2023-09-30 01:41 | XMS_ITS | Encounter Summary ---
Author Organization [facility] [place] [address] Care Team Providers Care Athletics Teacher Name Role Phone Unknown Primary Care Provider Unavailabl e Reason for Visit * Reason Comments Medication Refill Encounter Details Date Type Department Care Team (Late st Contact Info) Description 07/30/2017 Ref[place] [address] Natalio Willoughby MD [facility] [place] [address] Fatigue due to depression Social History Tobacco [...] Telephone Encounter - Rayne Lemus RN - 07/31/2017 11:06 AM EDT Joseluis calls to report the Valcyte is working well for him and is requesting refills. documented in this encounter Plan of Treatment Not on file documented as of this encounter Visit Diagnoses Diagnosis Fatigue due to depression documented in this encounter Care Teams Athletics Teacher Relationship Specialty Start Date End Date Unknown None PCP - General 03/10/19 documented as of this encounter
--- OUTSIDE RECORDS SUMMARY | 2023-09-30 01:41 | XMS_ITS | Encounter Summary ---
[place] [address] Care Team Providers Care Heel Builder Name Role Phone Ryan Guy MD Primary Care Provider [phone] Reason for Visit * Reason Onset Date Comments Medication Refill 08/20/2017 Encounter Details Date Type Department Care Team (Late st Contact Info) Description 08/21/2017 Refill [place] [phone] Rayne Lemus, electrophysiologist fatigue syndrome Social History Tobacco Use Types [...] syndrome documented in this encounter Care Teams Heel Builder Relationship Specialty Start Date End Date Ryan Guy MD PCP - General General Internal Medicine 08/01/16 documented as of this encounter
--- OUTSIDE RECORDS SUMMARY | 2023-09-30 01:41 | XMS_ITS | Encounter Summary ---
Author Organization [facility] [place] [address] Care Team Providers Care Heating And Air Conditioning Mechanic Name Role Phone Alex Sotelo MD Primary Care Provider Encounter Details Date Type Department Care Team (Late st Contact Info) Description 03/20/2016 Orders [place] [address] Natalio Willoughby MD [facility] 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 [address] [place] [address] PCP - General 09/30/13 07/31/16 documented as of this encounter
--- OUTSIDE RECORDS SUMMARY | 2023-09-30 01:41 | XMS_ITS | Encounter Summary ---
Author Organization [facility] [place] [address] Care Team Providers Care Mobile Crane Operator Name Role Phone Ryan Guy MD Primary Care Provider [phone] Encounter Details Date Type Department Care Team (Late st Contact Info) Description 03/19/2017 Telephone [place] [address] Douglas Herrera RN Social History Tobacco Use Types Packs/Day [...] Telephone Encounter - Douglas Herrera RN - 03/21/2017 4:39 PM EST Return call to patient, no additional testing currently scheduled, patient to have f/u at clinic [facility] discuss with Dr. Willoughby. Patient states will call office to schedule earlier appointment. * Telephone Encounter - Douglas Herrera RN - 03/21/2017 12:49 PM EST Spoke with patient, states was seen in office on February 20, 2017, Talked about transverse myelitis, lyme activated aruna waite, chronic pain since 200, high viral load EB, lyme infections. Mentioned he was told he would be called about having additional imaging done as previous imaging not done with contrast. Has f/u 05/21/2017. Message sent to Dr. Willoughby. * Telephone Encounter - Douglas Herrera RN - 03/21/2017 12:16 PM EST Patient left message, returned patient's call, no answer, left message with call back number. * Telephone Encounter - Luann Skaggs - 03/19/2017 4:46 PM EST Joseluis calls back to speak with Dr. Willoughby's nurse Douglas, who was not available. Douglas had called Joseluis earlier, but was unable to leave a message as Joseluis's VM was full. Joseluis asked me to let Douglas know that he would clean out his voicemail and to please call him again tomorrow. documented in this encounter Plan of Treatment Not on file documented as of this encounter Visit Diagnoses Not on filedocumented in this encounter Care Teams Mobile Crane Operator Relationship Specialty Start Date End Date Ryan Guy MD PCP - General General Internal Medicine 08/01/16 documented as of this encounter
--- OUTSIDE RECORDS SUMMARY | 2023-09-30 01:41 | XMS_ITS | Encounter Summary ---
Author Organization [facility] [place] [address] Care Team Providers Care Neuropsychologist Name Role Phone Alex Sotelo MD Primary Care Provider [phone] Reason for Visit * Reason Onset Date Comments Other 03/20/2016 Medication Issue Encounter Details Date Type Department Care Team (Late st Contact Info) Description 03/20/2016 [place] [address] Rayne Lemus RN Other (Medication Issue) Social History Tobacco Use Types Packs/Day Years [...] Telephone Encounter - Rayne Lemus RN - 03/20/2016 2:21 PM EST Joseluis will stop Diclofenac and start Mobic at direction of Dr. Willoughby. * Telephone Encounter - Rayne Lemus RN - 03/20/2016 11:32 AM EST Joseluis calls to report Heart Problems while taking Diclofenac. Reports Heart pounding and palpitations. States diclofenac works well for Arthritis pain. Would like to try something else. RTC to Joseluis, he reports the above starting the first week he took Diclofenac. Notes that he has symptoms about 45 minutes after taking diclofenac. Denies any chest pain, SOB or dizziness. Joseluis reports that he is noticing more areas of Arthritis pain as well. I advised Joseluis that I would check with Dr. Willoughby about stopping Diclofenac and call him back. documented in this encounter Plan of Treatment Not on file documented as of this encounter Visit Diagnoses Not on filedocumented in this encounter Care Teams Neuropsychologist Relationship Specialty Start Date End Date Alex Sotelo MD [address] [address] PCP - General 09/30/13 07/31/16 documented as of this encounter
--- OUTSIDE RECORDS SUMMARY | 2023-09-30 01:41 | XMS_ITS | Encounter Summary ---
Author Organization [facility] [place] [address] Care Team Providers Care Vortex Operator Name Role Phone Alex Sotelo MD Primary Care Provider [phone] Reason for Visit * Reason Onset Date Comments Allergic Reaction 03/25/2016 Encounter Details Date Type Department Care Team (Late st Contact Info) Description 03/25/2016 Telephone [place] [phone] Rayne Lemus RN Allergic Reaction Social History Tobacco Use Types Packs/Day Years [...] Telephone Encounter - Rayne Lemus RN - 03/26/2016 10:02 AM EST I spoke with Joseluis and advised a visit to PCP to document an allergic rash. Joseluis states he does not have a PCP as he was fired by his PCP because he states that he was crazy 2 years ago. Joseluis prefers not to go to [facility] to be evaluated. He will send pictures via [facility] for to view. I have advised Zyrtecx or Claritin OTC for Symptoms in addition to Benadryl. * Telephone Encounter - Rayne Lemus RN - 03/26/2016 9:21 AM EST I spoke with Joseluis and he reports that the rash progressed yesterday to his whole body. Joseluis thinks that the reaction started right after taking because he was itchy, but no rash until the next day. Joseluis is asking that Dr. Willoughby reconsider recommendation to restart Mobic in a week. Advised I would discuss with Dr. Willoughby. * Telephone Encounter - Rayne Lemus RN - 03/26/2016 8:07 AM EST 2 days is a long time for hives to develop to a medication. Asking him top stpop until the hives have gone wait a week and try it again. thanks RTC to Joseluis and asked him to RTC to nurse to discuss above message from Dr. Willoughby. * Telephone Encounter - Rayne Lemus RN - 03/25/2016 11:51 AM EST Joseluis calls to report that he developed Hives on his arms 2 days after starting Mobic. Reports Palpitations are gone. RTC to Joseluis and he reports hives just on his arms. Denies any difficulty breathing or swallowingand rash is not progressing. I advised Joseluis to stop Mobic and take Benadryl 25-50 mg every 8 hours as needed for hives/itching. I have instructed Joseluis to seek emergency medical attention should he develop difficulty swallowing or breathing. Will check with Dr. Willoughby for his recommendations on new medication? documented in this encounter Plan of Treatment Not on file documented as of this encounter Visit Diagnoses Not on filedocumented in this encounter Care Teams Vortex Operator Relationship Specialty Start Date End Date Alex Sotelo MD [address] [address] PCP - General 7/24/14 5/24/17 documented as of this encounter
--- OUTSIDE RECORDS SUMMARY | 2023-09-30 01:41 | XMS_ITS | Encounter Summary ---
Author Organization [facility] [place] [address] Care Team Providers Care Ward Helper Name Role Phone Ryan Guy MD Primary Care Provider [phone] Reason for Visit * Reason Onset Date Comments Other 05/20/2017 Encounter Details Date Type Department Care Team (Late st Contact Info) Description 05/20/2017 Tele[place] [phone] Rayne Lemus RN Other Social History Tobacco [...] Telephone Encounter - Rayne Lemus RN - 05/21/2017 12:13 PM EDT Gave Urology Referral to Riri to set up at [facility]. * Telephone Encounter - Rayne Lemus RN - 05/21/2017 9:14 AM EDT Message Received: Yesterday ? Natalio Willoughby MD sent to Rayne Lemus RN ? Caller: Unspecified (Yesterday, ??8:38 AM) ? No he can see a urologist if he wants Left a message for Joseluis to RTC to nurse. I spoke with Joseluis and he would like to see a Urologist and would like to have a referral [facility] if possible. * Telephone Encounter - Rayne Lemus RN - 05/20/2017 2:00 PM EDT Joseluis calls to let me know that the PET/CT is scheduled for this Friday. Joseluis would like to know if Dr. Willoughby will order a testicular Ultrasound. 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 Reports Hypogonadism history. Joseluis thinks everything fits together with the EBV. Will check with Dr. Willoughby for his recommendations. * Telephone Encounter - Rayne Lemus RN - 05/20/2017 8:38 AM EDT Joseluis called Logistics Service Representative line with questions about PET/CT. RTC and left a message to RTC to nurse to discuss further. documented in this encounter Plan of Treatment Not on file documented as of this encounter Visit Diagnoses Not on filedocumented in this encounter Care Teams Ward Helper Relationship Specialty Start Date End Date Ryan Guy MD PCP - General General Internal Medicine 08/01/16 documented as of this encounter
--- OUTSIDE RECORDS SUMMARY | 2023-09-30 01:41 | XMS_ITS | Encounter Summary ---
Author Organization [facility] Address [facility] [place] [address] Care Team Providers Care Pulp Tester Name Role Phone Ryan Guy MD Primary Care Provider [phone] Reason for Visit * Reason Comments Follow-up Encounter Details Date Type Department Care Team (Late st Contact Info) Description 04/03/2017 4:00 PM EST Office [place] [address] Natalio Willoughby MD [facility] [place] [address] Fatigue due to depression Social History Tobacco [...] Sign Reading Time Taken Comments Blood Pressure 155/75 04/03/2017 3:50 PM EST Pulse 79 04/03/2017 3:50 PM EST Temperature 37.4 ??C (99.4 ??F) 04/03/2017 3:50 PM ES T Respiratory Rate - - Oxygen Saturation 96% 04/03/2017 3:50 PM EST Inhaled Oxygen Concentration - - Weight 70.3 kg (155 lb) 04/03/2017 3:50 PM EST Height 170.2 cm (5' 7) 04/03/2017 3:50 PM EST Body Mass Index 24.28 04/03/2017 3:50 PM EST documented in this encounter Progress Notes * Natalio Willoughby MD - 04/03/2017 4:00 PM EST This is a follow-up appointment for Joseluis Dewey birthdate is 1950 The patient is a 66-year-old male with a long history of chronic Lyme disease and a variety of other infections that are difficult to evaluate including 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 Today focusing mostly on EBV with the thought that he has some genetic susceptibility based on his sister having Crohn's disease and his other sister having lymphoma He does have MRI evidence of small vessel disease probably not related to any infection and we MRI his spine for evidence of myelopathy which he thought he was suffering from and that was all normal he has several specific complaints 1 of which he wants a longer acting version of famciclovir and although he does not have anything that suggests an ongoing herpetic infection I gave him a trial of valacyclovir Last time I saw him I gave him a trial of Medrol although I did not have any evidence that he had an active inflammatory process he felt better he with less fatigue and because of this and the fact the chronic Lyme patients are frequently given hydroxychloroquine I gave him a prescription for Plaquenil 200 mg once a day I asked him to get eye exams every year Most the time was spent about him complaining about the methadone clinic he has been forced to go to the methadone clinic twice daily for medication because he failed some appointments and they wouldnot give him medicine to take home I told him that there was nothing I could do about that and thatI recommended she go to a pain clinic locally and see if they are willing to assume responsibility for his methadone if he does be happy to speak with them otherwise I will follow-up in 3 months Eventually have to transfer him to another provider because I do not have room for additional adults in my schedule documented in this encounter Plan of Treatment Not on file documented as of this encounter Visit Diagnoses Diagnosis 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
--- OUTSIDE RECORDS SUMMARY | 2023-09-30 01:41 | XMS_ITS | Encounter Summary ---
Author Organization [facility] Address [facility] [place] [address] Care Team Providers Care Corporate Associate Name Role Phone Alex Sotelo MD Primary Care Provider [phone] Reason for Visit * Reason Comments Follow-up Encounter Details Date Type Department Care Team (Late st Contact Info) Description 04/25/2016 1:30 PM EST Office [place] [address] Natalio Willoughby MD [facility] [place] [address] Pain in both lower extremities; Fatigue due to depression; Other depression Social History Tobacco Use Types Packs/Day [...] Sign Reading Time Taken Comments Blood Pressure 137/72 04/25/2016 1:04 PM EST Pulse 80 04/25/2016 1:04 PM EST Temperature 36.6 ??C (97.8 ??F) 04/25/2016 1:04 PM ES T Respiratory Rate - - Oxygen Saturation 94% 04/25/2016 1:04 PM EST Inhaled Oxygen Concentration - - Weight 72.1 kg (159 lb) 04/25/2016 1:04 PM EST Height 170.2 cm (5' 7) 04/25/2016 1:04 PM EST Body Mass Index 24.9 04/25/2016 1:04 PM EST documented in this encounter Progress Notes * Natalio Willoughby MD - 04/25/2016 1:30 PM EST The patient is a 65-year-old male with a long history of chronic Lyme disease, obesity, ehrlichiosis, depression, OCD, and anxiety disorder. He has T2 hyperintense lesions and some volume loss that has not been fully explained, but is possibly consistent with age He never had neurocognitive testing done, but he thinks he has decreased executive function, but he is so depressed it is difficult to sort out. He has been out of work for many years, and has some financial constraints that are forcing him back to work and is causing a great deal of anxiety. He became very agitated during the conversation having to do with his need for methadone, which I do not prescribe, and his desire to get off of it, but the fear that he will be much worse and consequently have to go back on it and the implications that has for his lifestyle and also his employability. At various points and times, he thought he has had various different diseases besides the chronic Lyme disease, including Chatham's, but the testing was unrevealing. 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 I need to refer him to a urologist, because in order to continue the testosterone he needed to have a prostate exam, and I sent a urology consult. He is going to try to go to [facility] as well, perhaps sooner so he does not run out of the testosterone he has. Today's medical complaints are he wants to have x-rays of his foot because of foot pain, which is likely to be OA, and he has point tenderness over the supraspinatus tendon in his left shoulder, which he has had chronically. I offered to inject it. He declined, but we are going to give him diclofenac gel. Interestingly, he had a trial of nonsteroidals and he had palpitations to meloxicam, and then a rash to diclofenac. The rash was apparently extensive enough to persist in spite of Benadryl, and I gave him a prescription for prednisone. Interestingly, he got much better on prednisone in spite of the fact that his inflammatory markers have been checked in the past and have been normal. Today I ordered laboratory studies that are pending at the time of this dictation. Around the idea that prednisone improved him, I gave him topical diclofenac for his shoulder. Topical diclofenac and oral diclofenac generally do not give the same allergic reactions. I will follow up in 3 months. documented in this encounter Plan of Treatment Not on file documented as of this encounter Procedures Procedure Name Priority Date/Time Associated Diagnosis Comments EXTRACTABLE NUCLEAR ANTIGEN (RASHARD) AB Routine 04/25/2016 2:27 PM EST Pain in both lower extremities HEMOGRAM Routine 04/25/2016 2:27 PM EST Pain in both lower extremities DIFFERENTIAL, AUTOMATED Routine 04/25/2016 2:27 PM EST Pain in both lower extremities SEDIMENTATION RATE Routine 04/25/2016 2: 27 PM EST Pain in both lower extremities CBC (WITH DIFF) Routine 04/25/2016 2:27 PM EST Pain in both lower extremities CRP, CARDIAC RISK (HS CRP) Routine 04/25/2016 2:27 PM EST Pain in both lower extremities CESAR ANTIBODY SCREEN Routine 04/25/2016 2 :27 PM EST Pain in both lower extremities TESTOSTERONE, TOTAL Routine 04/25/2016 2 :27 PM EST Pain in both lower extremities CORTISOL Routine 04/25/2016 2:27 PM EST Pain in both lower extremities COMPREHENSIVE METABOLIC PANEL (NON-FASTING) Routine 04/25/2016 2:27 PM EST Pain in both lower extremities [...] PM Natalio Willoughby MD IMG DX ORDERABLES * Differential, Automated (04/25/2016 2:27 PM EST) Neutrophils % 64.6 % [facility] Neutr Abs (ANC) 5.23 1.70 - 6.10 x10(3)/[facility] Lymphocytes % 23.7 % [facility] Lymphocytes Abs 1.9 0.9 - 3.2 x10(3)/[facility] LAB[facility] Monocytes % 10.6 % [facility] Monocyte Abs 0.9 0.3 - 0.9 x10(3)/[facility] Eosinophils % 0.5 % [facility] Eosinophils Abs 0.0 0.0 - 0.4 x10(3)/[facility] LAB[facility] Basophils % 0.4 % [facility] Basophils Abs 0.0 0.0 - 0.1 x10(3[place] Immature Gran % 0.20 % [facility] Comment: Immature granulocytes(IG's)percentage and absolute count will include metamyelocytes, myelocytes, and promyelocytes. Blood smears from CBCs yielding IG's will be scanned manually for concordance. If this scan disagrees with the automated IG or if promyelocytes are noted, a manual differential will be performed. Jada Gran Abs 0.02 0.00 - 0.04 x10(3)/[facility] Blood specimen (specimen) 04/25/2016 2:27 PM EST 04/25/2016 2:43 PM EST Narrative Resulting Agency Comment Spec In Lab Natalio Willoughby MD HEMATOLOGY ORDERABLE S [facility] [place] [address] * (ABNORMAL) Hemogram (04/25/2016 2:27 PM EST) WBC 8.1 4.0 - 9.5 x10(3)/[facility] LAB[facility] RBC 4.43(L) 4.58 - 5.54 x10(6)/[facility] Hemoglobin 14.4 13.7 - 16.5 gm/dL [facility] Hematocrit 41.9 40.5 - 48.5 % [facility] MCV 94.6(H) 82.9 - 93.1 fL [facility] MCH 32.5(H) 27.5 - 32.1 pg [facility] MCHC 34.4 32.0 - 35.7 gm/dL [facility] Platelets 204 145 - 357 x10(3[place] RDWSD 48.0(H) 36.0 - 45.0 fL [facility] RDWCV 13.8 11.4 - 13.8 % [facility] MPV 11.1 7.6 - 12.9 fL [facility] nRBC % Auto 0.0 % [facility] nRBC Abs Auto 0.000 0.000 - 0.000 x10(3)/mcL [facility] Blood specimen (specimen) 04/25/2016 2:27 PM EST 04/25/2016 2:43 PM EST Narrative Resulting Agency Comment Spec In Lab Natalio Willoughby MD HEMATOLOGY ORDERABLE S Performing Organization Address City/State/[facility] Co de Phone Number [facility] [place] [address] * Testosterone, total (04/25/2016 2:27 PM EST) Testo Total 6.20 2.80 - 8.00 ng/mL [facility] Comment: Reference Ranges: ? Males (7to18 [...] adult reference ranges derived from review of UMicIt E170 Testosterone reagent package insert 01/12, V8 Stated pediatric reference ranges derived from review of UMicIt E170 Testosterone II reagent package insert 09/16, V2. Blood specimen (specimen) 04/25/2016 2:27 PM EST 04/25/2016 2:43 PM EST Narrative Resulting Agency Comment Spec In Lab Natalio Willoughby MD CHEMISTRY ORDERABLES Performing Organization Address [facility]/State/[facility] Co de Phone Number [facility] [place] [address] * Cortisol (04/25/2016 2:27 PM EST) Cortisol 4.4 mcg/dL [facility] Comment: An updated cortisol assay reagent was implemented 03/27/16. Please note the modified reference intervals. Reference ranges: ??AM (6-10am): ??4.8-19.5 mcg/dL ??PM (4-8pm) : ??2.5-11.9 mcg/dL Blood specimen (specimen) 04/25/2016 2:27 PM EST 04/25/2016 2:43 PM EST Narrative Resulting Agency Comment Spec In Lab Natalio Willoughby MD CHEMISTRY ORDERABLES [facility] [place] [address] * Extractable Nuclear Antigen (RASHARD) Ab (04/25/2016 2:27 PM EST) RASHARD Ab Test ?Result ?Flag ??Unit ??RefValue Ab to Extractable Nuclear Ag Eval,S ??SS-A/Ro Ab, IgG, S ?<0.2 ?U ? <1.0 (Negative) ??SS-B/La Ab, IgG, S ?<0.2 ?U ? <1.0 (Negative) ??Sm Ab, IgG, S ? <0.2 ?U ? <1.0 (Negative) ??ETHYLBENZENE CRACKING SUPERVISOR Ab, IgG, S ?0.2 ? U ? <1.0 (Negative) ??Scl 70 Ab, IgG, S ? <0.2 ?U ? <1.0 (Negative) ??Sarai 1 Ab, IgG, S ? <0.2 ?U ? <1.0 (Negative) ?Test Performed by: ?[facility] ?[address] [id number] ?Bladder Tier: Mike Do II, M.D., Ph.D. [facility] Blood specimen (specimen) 04/25/2016 2:27 PM EST 04/26/2016 8:05 AM EST Narrative Resulting Agency Comment Spec In Lab Natalio Willoughby MD IMMUNOLOGY ORDERABLE S Performing Organization Address [facility] de Phone Number [facility] [place] [address] * CESAR (04/25/2016 2:27 PM EST) CESAR Neg Neg [facility] Blood specimen (specimen) 04/25/2016 2:27 PM EST 04/26/2016 8:07 AM EST Narrative Resulting Agency Comment Spec In Lab Natalio Willoughby MD IMMUNOLOGY ORDERABLE S Performing Organization Address [facility] de Phone Number [facility] [place] [address] * CRP, cardiac risk (HS CRP) (04/25/2016 2:27 PM EST) CRP High Sens 9.9 mg/L [facility] Comment: For cardiac risk assessment, two values (fasting or nonfasting sample acceptable) taken at least 2 weeks apart, should be averaged to provide a more reliable estimate of marker level. This laboratory will be using the recommendations from the AHA/CDC Scientific Statement for interpretations of future risks of cardiovascular events: ?<1.0 mg/L: low risk ?1.0 to 3.0 mg/L: moderate risk ?>3.0 mg/L: high risk ?>10.0 mg/L: Acute Inflammation Note: CRP values >10 mg/L indicate an acute inflammatory condition or infection. The >10 mg/L value should not be used for cardiac risk assessment and a repeat specimen should be collected at least two weeks after resolution of the acute inflammatory condition. References: 1. Edie ALVES et. al. ??AHA/CDC Scientific Statement: Markers of Inflammation and Cardiovascular Disease. ??Circulation 2003; 107:499-511 2. Ridker PM. ??Clinical applications of C-reactive protein for cardiovascular disease detection and prevention. ??Circulation 2003; 107:363-369 CRP Cardiac Risk High Risk [facility] Blood specimen (specimen) 04/25/2016 2:27 PM EST 04/25/2016 2:43 PM EST Narrative Resulting Agency Comment Spec In Lab Natalio Willoughby MD CHEMISTRY ORDERABLES Performing Organization Address [facility] de Phone Number [facility] [place] [address] * Sedimentation rate (04/25/2016 2:27 PM EST) Sed Rate 7 0 - 15 mm/hr [facility] Blood specimen (specimen) 04/25/2016 2:27 PM EST 04/25/2016 2:43 PM EST Narrative Resulting Agency Comment Spec In Lab Natalio Willoughby MD HEMATOLOGY ORDERABLE S Performing Organization Address [facility] de Phone Number [facility] [place] [address] * Comprehensive metabolic panel (non-fasting) (04/25/2016 2:27 PM EST) Glucose Lvl 98 65 - 199 mg/dL [facility] Comment:Diabetes: >=200 mg/d L plus symptoms BUN 11 10 - 20 mg/dL [facility] Creatinine 0.80 0.80 - 1.50 mg/dL [facility] Comment: Please note that the pediatric reference intervals supplied above were not validated at [place]. Results from pediatric patients should be interpreted in conjunction to the patient's age, height and muscle mass. Sodium 141 135 - 145 mmol/L [facility] Potassium 3.9 3.5 - 5.0 mmol/L [facility] Comment: Please note: ??Patients with WBC >100,000 may have falsely elevated Potassium levels. ??For accurate Potassium quantification in these patients send serum separator tube (gold top) for subsequent determinations. ??Contact the Clinical Chemistry Laboratory if there are any questions. Chloride 101 98 - 107 mmol/L [facility] CO2 29 22 - 31 mmol/L [facility] Anion Gap 11 5 - 15 mmol/L [facility] Calcium 9.0 8.5 - 10.5 mg/dL [facility] Total Protein 6.8 6.1 - 8.0 gm/dL [facility] Albumin 4.0 3.2 - 5.2 gm/dL [facility] AST 23 0 - 39 unit/L [facility] ALT 26 0 - 55 unit/L [facility] Alk Phos 71 40 - 120 unit/L [facility] Total Bilirubin 0.6 0.2 - 1.3 mg/dL [facility] Bili, Direct 0.2 0.0 - 0.3 mg/dL [facility] Estimated GFR >60 >=60 [facility] Comment: This estimated GFR (eGFR) value was calculated using the MDRD equation which has been validated on patients between the ages of 18 and 70. The MDRD should not be used to assess kidney function in patients < 18 years of age or in patients with extremes of body mass, or in patients with acute kidney failure. This value should be multiplied by 1.2 for patients. For further information please copy and paste the following links into your internet browser. http://Linkedwith/DHnkdep http://[email or web address]/DHMCnkf Blood specimen (specimen) 04/25/2016 2:27 PM EST 04/25/2016 2:43 PM EST Narrative Resulting Agency Comment Spec In Lab Natalio Willoughby MD CHEMISTRY ORDERABLES Performing Organization Address City/State/[facility] Co de Phone Number [facility] [place] [address] documented in this encounter Visit Diagnoses Diagnosis Pain in both lower extremities Fatigue due to depression Other depression Pain in both lower extremities documented in this encounter Care Teams Corporate Associate Relationship Specialty Start Date End Date Alex Sotelo MD [facility] [address] [place] [id number] PCP - General 09/30/13 07/31/16 documented as of this encounter
--- OUTSIDE RECORDS SUMMARY | 2023-09-30 01:41 | XMS_ITS | Encounter Summary ---
Author Organization [facility] [place] [address] Care Team Providers Care Institute Director Name Role Phone Ryan Guy MD Primary Care Provider [phone] Reason for Visit * Reason Onset Date Comments Medication Refill 10/01/2016 Encounter Details Date Type Department Care Team (Late st Contact Info) Description 10/01/2016 [place] [address] Natalio Willoughby MD [facility] [address] [place] [address] Mild single current episode of major depressive [...] disorder documented in this encounter Care Teams Institute Director Relationship Specialty Start Date End Date Ryan Guy MD PCP - General General Internal Medicine 08/01/16 documented as of this encounter
--- OUTSIDE RECORDS SUMMARY | 2023-09-30 01:41 | XMS_ITS | Encounter Summary ---
[place] [address] Care Team Providers Care Income Tax Administrator Name Role Phone Ryan Guy MD Primary Care Provider [phone] Reason for Visit * Reason Onset Date Comments Appointment 03/27/2017 Encounter Details Date Type Department Care Team (Late st Contact Info) Description 03/27/2017 [place] [phone] Douglas Herrera, RN Appointment Social History Tobacco Use Types Packs/Day Years [...] Telephone Encounter - Douglas Herrera RN - 03/27/2017 3:36 PM EST Patient calls, requests earlier appointment to discuss treatment options. documented in this encounter Plan of Treatment Not on file documented as of this encounter Visit Diagnoses Not on filedocumented in this encounter Care Teams Income Tax Administrator Relationship Specialty Start Date End Date Ryan Guy MD PCP - General General Internal Medicine 08/01/16 documented as of this encounter
--- OUTSIDE RECORDS SUMMARY | 2023-09-30 01:41 | XMS_ITS | Encounter Summary ---
Author Organization [facility] [place] [address] Care Team Providers Care Broadcast Transmitter Operator Name Role Phone Alex Sotelo MD Primary Care Provider [phone] Reason for Visit * Reason Onset Date Comments Other 03/26/2016 Encounter Details Date Type Department Care Team (Late st Contact Info) Description 03/26/2016 [place] [phone] Rayne Lemus RN Other Social History Tobacco [...] Encounter - Rayne Lemus RN - 03/26/2016 2:56 PM EST Call received from Joseluis stating that he is upset that we are doubting that he is having a reaction to Mobic, he points out that he has always had stomach issues with NSAIDS as well. He will send a message regarding his NSAID history via [employer]. documented in this encounter Plan of Treatment Not on file documented as of this encounter Visit Diagnoses Not on filedocumented in this encounter Care Teams Broadcast Transmitter Operator Relationship Specialty Start Date End Date Alex Sotelo MD [facility] [address] [place] [id number] PCP - General 09/30/13 07/31/16 documented as of this encounter
--- OUTSIDE RECORDS SUMMARY | 2023-09-30 01:41 | XMS_ITS | Encounter Summary ---
[facility] [place] [address] Care Team Providers Care Racebook Writer Name Role Phone Ryan Guy MD Primary Care Provider Reason for Visit * Reason Onset Date Comments Other 05/26/2017 Pet/CT Results Encounter Details Date Type Department Care Team (Late st Contact Info) Description 05/26/2017 Telephone [place] [phone] Rayne Lemus RN Other (Pet/CT Results) Social History Tobacco Use Types Packs/Day Years [...] Telephone Encounter - Rayne Lemus RN - 05/26/2017 11:10 AM EDT Message ?? PET/CT was normal ?? ----- Message ----- ? From: Department, Radiology ? Sent: 05/23/2017 ?? 5:33 PM ? To: Natalio Willoughby MD ?? I spoke with Joseluis and reported findings per Dr. Willoughby. documented in this encounter Plan of Treatment Not on file documented as of this encounter Visit Diagnoses Not on filedocumented in this encounter Care Teams Racebook Writer Relationship Specialty Start Date End Date Ryan Guy MD PCP - General General Internal Medicine 08/01/16 documented as of this encounter
--- OUTSIDE RECORDS SUMMARY | 2023-09-30 01:41 | XMS_ITS | Encounter Summary ---
Author Organization [facility] [place] [address] Care Team Providers Care Fourth Mate Name Role Phone Unknown Primary Care Provider Unavailabl e Reason for Visit * Reason Comments Medication Refill Encounter Details Date Type Department Care Team (Late st Contact Info) Description 08/08/2017 [place] [address] Natalio Willoughby MD [facility] [address] [place] [address] Chronic fatigue syndrome Social History Tobacco Use [...] syndrome documented in this encounter Care Teams Fourth Mate Relationship Specialty Start Date End Date Unknown None PCP - General 03/10/19 documented as of this encounter
--- OUTSIDE RECORDS SUMMARY | 2023-09-30 01:41 | XMS_ITS | Encounter Summary ---
Author Organization [facility] Address [facility] [place] [address] Care Team Providers Care Labeling Machine Operator Name Role Phone Alex Sotelo MD Primary Care Provider [phone] Reason for Visit * Reason Comments Follow-up Encounter Details Date Type Department Care Team (Late st Contact Info) Description 01/18/2016 1:30 PM EST Office [place] [address] Natalio Willoughby MD [facility] [place] [address] Chronic fatigue syndrome; Hypogonadism male Social History Tobacco Use Types Packs/Day Years [...] Sign Reading Time Taken Comments Blood Pressure 124/72 01/18/2016 1:18 PM EST Pulse 69 01/18/2016 1:18 PM EST Temperature 37.4 ??C (99.4 ??F) 01/18/2016 1:18 PM ES T Respiratory Rate 18 01/18/2016 1:18 PM EST Oxygen Saturation 95% 01/18/2016 1:18 PM EST Inhaled Oxygen Concentration - - Weight 72.6 kg (160 lb) 01/18/2016 1:18 PM EST Height 170.2 cm (5' 7) 01/18/2016 1:18 PM EST Body Mass Index 25.06 01/18/2016 1:18 PM EST documented in this encounter Progress Notes * Natalio Willoughby MD - 01/18/2016 1:30 PM EST The patient is a 65-year-old male with a long history of chronic Lyme disease, obesity, Ehrlichiosis, depression, OCD and anxiety disorder. He has T2 hyperintense lesions and some volume loss on brain MRI that has not been fully explained but probably consistent with age. He never got neurocognitive testing done. He thinks he has decreased executive function but it is a little hard to sort out because he is depressed and he is on a number of different meds that could impair his cognitive function. He is continuing to use complimentary and alternative therapy. He wants to go back to work in July but he is very ambivalent because he is very anxious that he cannot do the job. At one point he was thought to have thoracic outlet or a syrinx or transverse myelitis; none of which panned out on further testing. He is convinced he has chronic Lyme disease but his Lyme tests are negative. 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 Today he complains of arthritis in right hand that resolved on its own and then followed by his left hand. The left hand is primarily at the first MTP associated with some very low grade fevers. On exam, he is basically healthy looking, very anxious. His blood pressure is 124/72, his pulse is 69, his respiration is 18, his pulse ox is 95%, his temp is 99.4. His weight is stable at 160. His HEENT exam: He was complaining of floaters. I did a funduscopic exam; I thought it was normal. His chest is clear. Heart exam is unremarkable. His carotids are free of bruits. His hands: Both hands have osteoarthritis changes. His left first MTP is somewhat swollen. I am not convinced that it is anything more than DJD but I will get some labs and x-rays to try and clarify that. Today, at his request I eva him Flexeril 5 mg at bedtime which he can take in addition to his other medications. I also gave him Diclofenac 100 mg for his arthritis. I ordered x-rays of his hands and blood tests; all of which are pending at the time of this dictation. I will follow up in three months in clinic but he is going to call me next week regarding the x-rays and the blood test results. xrays c/w OA documented in this encounter Miscellaneous Notes * Addendum Note - Lashell Rosales - 01/18/2016 2:38 PM ESTAddended by: LASHELL ROSALES on: 01/18/2016 02:38 PM Modules accepted: Orders documented in this encounter Plan of Treatment Not on file documented as of this encounter Procedures Procedure Name Priority Date/Time Associated Diagnosis Comments HEMOGRAM Routine 01/18/2016 2:51 PM EST Chronic fatigue syndrome DIFFERENTIAL, AUTOMATED Routine 01/18/2016 2:51 PM EST Chronic fatigue syndrome TESTOSTERONE, TOTAL AND FREE Routine 01/18/2016 2:51 PM EST Hypogonadism male DHEA Routine 01/18/2016 2:51 PM EST Chronic fatigue syndrome SEDIMENTATION RATE Routine 01/18/2016 2: 51 PM EST Chronic fatigue syndrome CBC (WITH DIFF) Routine 01/18/2016 2:51 PM EST Chronic fatigue syndrome CRP, CARDIAC RISK (HS CRP) Routine 01/18/2016 2:51 PM EST Chronic fatigue syndrome URIC ACID Routine 01/18/2016 2:51 PM EST Chronic fatigue syndrome COMPREHENSIVE METABOLIC PANEL (NON-FASTING) Routine 01/18/2016 2:51 PM EST Chronic fatigue syndrome documented in this encounter Results * (ABNORMAL) Differential, Automated (01/18/2016 2:51 PM EST) Neutrophils % 70.9 % [facility] Neutr Abs (ANC) 7.37(H) 1.70 - 6.10 x10(3)/[facility] Lymphocytes % 19.3 % [facility] Lymphocytes Abs 2.0 0.9 - 3.2 x10(3)/[facility] Monocytes % 8.8 % [facility] Monocyte Abs 0.9 0.3 - 0.9 x10(3)/[facility] Eosinophils % 0.3 % [facility] Eosinophils Abs 0.0 0.0 - 0.4 x10(3)/[facility] Basophils % 0.4 % [facility] Basophils Abs 0.0 0.0 - 0.1 x10(3)/[facility] Immature Gran % 0.30 % [facility] Comment: Immature granulocytes(IG's)percentage and absolute count will include metamyelocytes, myelocytes, and promyelocytes. Blood smears from CBCs yielding IG's will be scanned manually for concordance. If this scan disagrees with the automated IG or if promyelocytes are noted, a manual differential will be performed. Jada Gran Abs 0.03 0.00 - 0.04 x10(3)/[facility] Blood specimen (specimen) 01/18/2016 2:51 PM EST 01/18/2016 2:58 PM EST Narrative Resulting Agency Comment Spec In Lab Natalio Willoughby MD HEMATOLOGY ORDERABLE S [facility] [place] [address] * (ABNORMAL) Hemogram (01/18/2016 2:51 PM EST) WBC 10.4(H) 4.0 - 9.5 x10(3)/[facility] RBC 4.63 4.58 - 5.54 x10(6)/[facility] Hemoglobin 14.6 13.7 - 16.5 gm/dL [facility] Hematocrit 42.7 40.5 - 48.5 % [facility] MCV 92.2 82.9 - 93.1 [facility] MCH 31.5 27.5 - 32.1 pg [facility] MCHC 34.2 32.0 - 35.7 gm/dL [facility] Platelets 238 145 - 357 x10(3)/[facility] RDWSD 47.5(H) 36.0 - 45.0 [facility] RDWCV 14.0(H) 11.4 - 13.8 % [facility] MPV 11.3 7.6 - 12.9 [facility] nRBC % Auto 0.0 % [facility] nRBC Abs Auto 0.000 0.000 - 0.000 x10(3)/[facility] Blood specimen (specimen) 01/18/2016 2:51 PM EST 01/18/2016 2:58 PM EST Narrative Resulting Agency Comment Spec In Lab Natalio Willoughby MD HEMATOLOGY ORDERABLE S [facility] [place] [address] * Testosterone, total and free (01/18/2016 2:51 PM EST) Testo Total 448 250 - 1100 ng/dL [facility] Comment: Men with clinically significant hypogonadal symptoms and testosterone values repeatedly in the range of the 200-300 ng/dL or less, may benefit from testosterone treatment after adequate risk and benefits counseling. For more information on this test, go to http://education.[employer]/faq/ TotalTestosteroneLCMSMS Testo Free 113.8 35.0 - 155.0 pg/mL [facility] Comment: Test Performed by Lucero Cordon, [facility][1], [address] [place] [address] Tip Wylie M.D., Ph.D., Director of Laboratories , CLIA [id number] Blood specimen (specimen) 01/18/2016 2:51 PM EST 01/19/2016 8:29 AM EST Narrative Resulting Agency Comment Spec In Lab Natalio Willoughby MD CHEMISTRY ORDERABLES Performing Organization Address [facility] de Phone Number [facility] [place] [address] * DHEA (01/18/2016 2:51 PM EST) [facility] DHEA 1.8 <5.0 ng/mL [facility] Comment: ADDITIONAL INFORMATION This test was developed and its performance characteristics determined by [facility] in a manner consistent with CLIA requirements. This test has not been cleared or approved by the U.S. Food and Drug Administration. Test Performed by: [facility] [place] [address] Resin Shaver: Mike Do II, M.D., Ph.D. Blood specimen (specimen) 01/18/2016 2:51 PM EST 01/19/2016 8:22 AM EST Narrative Resulting Agency Comment Spec In Lab Natalio Willoughby MD CHEMISTRY ORDERABLES Performing Organization Address [facility] de Phone Number [facility] [place] [address] * High Sensitivity CRP (01/18/2016 2:51 PM EST) [facility] CRP High Sens 9.5 mg/L [facility] Comment: Interpretations: 1) For accurate cardiac risk assessment, the average of 2 values >2 weeks apart should be obtained (ref 1&2). A value >10 mg/L indicates an inflammatory condition, concentrations >10 mg/L should not be used for cardiac risk assessment. ?<1.0 mg/L: low risk ?1.0 - 3.0 mg/L: moderate risk ?>3.0 mg/L: high risk groups for future cardiovascular events 2) The general reference range of apparently healthy individuals using this test is <5.0 mg/L (derived from the test package insert) References: 1. Edie ALVES et. al. ??AHA/CDC Scientific Statement: Markers of Inflammation and Cardiovascular Disease. ??Circulation 2003; 107:499-511 ?2.Ridker PM. ??Clinical applications of C-reactive protein for cardiovascular disease detection and prevention. ??Circulation ?2003; 107:363-369 Blood specimen (specimen) 01/18/2016 2:51 PM EST 01/18/2016 2:58 PM EST Narrative Resulting Agency Comment Spec In Lab Natalio Willoughby MD CHEMISTRY ORDERABLES Performing Organization Address [facility] de Phone Number [facility] [place] [address] * Sedimentation rate (01/18/2016 2:51 PM EST) Sed Rate 6 0 - 15 mm/hr [facility] Blood specimen (specimen) 01/18/2016 2:51 PM EST 01/18/2016 2:58 PM EST Narrative Resulting Agency Comment Spec In Lab Natalio Willoughby MD HEMATOLOGY ORDERABLE S Performing Organization Address [facility] de Phone Number [facility] [place] [address] * Uric acid (01/18/2016 2:51 PM EST) Uric Acid 4.5 3.5 - 8.5 mg/dL [facility] Blood specimen (specimen) 01/18/2016 2:51 PM EST 01/18/2016 2:58 PM EST Narrative Resulting Agency Comment Spec In Lab Natalio Willoughby MD CHEMISTRY ORDERABLES [facility] [place] [address] * Comprehensive metabolic panel (non-fasting) (01/18/2016 2:51 PM EST) Glucose Lvl 132 65 - 199 mg/dL [facility] Comment:Diabetes: >=200 mg/d L plus symptoms BUN 14 10 - 20 mg/dL [facility] Creatinine 0.83 0.80 - 1.50 mg/dL [facility] Comment: Please note that the pediatric reference intervals supplied above were not validated at [facility]. Results from pediatric patients should be interpreted in conjunction to the patient's age, height and muscle mass. Sodium 143 135 - 145 mmol/L [facility] Potassium 3.9 3.5 - 5.0 mmol/L [facility] Comment: Please note: ??Patients with WBC >100,000 may have falsely elevated Potassium levels. ??For accurate Potassium quantification in these patients send serum separator tube (gold top) for subsequent determinations. ??Contact the Clinical Chemistry Laboratory if there are any questions. Chloride 101 98 - 107 mmol/L [facility] CO2 29 22 - 31 mmol/L [facility] Anion Gap 13 5 - 15 mmol/L [facility] Calcium 8.9 8.5 - 10.5 mg/dL [facility] Total Protein 6.6 6.1 - 8.0 gm/dL [facility] Albumin 4.4 3.2 - 5.2 gm/dL [facility] AST 23 0 - 39 unit/L [facility] ALT 19 0 - 55 unit/L [facility] Alk Phos 83 40 - 120 unit/L [facility] Total Bilirubin 0.5 0.2 - 1.3 mg/dL [facility] Bili, Direct 0.1 0.0 - 0.3 mg/dL [facility] Estimated GFR >60 >=60 [place] [...] the following links into your internet browser. 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
--- OUTSIDE RECORDS SUMMARY | 2023-09-30 01:41 | XMS_ITS | Encounter Summary ---
Author Organization [facility] [place] [address] Care Team Providers Care Poured Pipe Maker Name Role Phone Alex Sotelo MD Primary Care Provider [phone] Encounter Details Date Type Department Care Team (Late st Contact Info) Description 11/03/2015 [place] [address] Natalio Willoughby MD [facility] [place] [address] Hypogonadism male Social History Tobacco Use Types [...] on file documented as of this encounter Results * Testosterone, total and free (01/18/2016 2:51 PM EST) Testo Total 448 250 - 1100 ng/dL [facility] Comment: Men with clinically significant hypogonadal symptoms and testosterone values repeatedly in the range of the 200-300 ng/dL or less, may benefit from testosterone treatment after adequate risk and benefits counseling. For more information on this test, go to http://education.[employer].com/faq/ TotalTestosteroneLCMSMS Testo Free 113.8 35.0 - 155.0 pg/mL [facility] Comment: Test Performed by Lucero Cordon, [facility], [address] [place] [address] Tip Wylie M.D., Ph.D., Director of Laboratories , [place] [id number] Blood specimen (specimen) 01/18/2016 2:51 PM EST 01/19/2016 8:29 AM EST Narrative Resulting Agency Comment Spec In Lab Natalio Willoughby MD CHEMISTRY ORDERABLES [facility] [place] [address] documented in this encounter Visit Diagnoses Diagnosis Hypogonadism male Other testicular hypofunction documented in this encounter Care Teams Poured Pipe Maker Relationship Specialty Start Date End Date Alex Sotelo MD [address] [address] PCP - General 09/30/13 07/31/16 documented as of this encounter
--- OUTSIDE RECORDS SUMMARY | 2023-09-30 01:41 | XMS_ITS | Encounter Summary ---
Author Organization [facility] [address] Care Team Providers Care Molding Manager Name Role Phone Alex Sotelo MD Primary Care Provider [phone] Reason for Referral * Consultation (Routine) - Closed Specialty Diagnoses / Procedures Referred By Hadley valerio Referred To Contact Urology Diagnoses Hypogonadism male Natalio Willoughby MD [facility] [place] [address] [facility] [place] [address] Referral ID Status Reason Start Date Expiration Date V isits Requested Visits Authorized [id number] Closed Consult, Test & Treat 04/23/2016 04/23/2017 1 1 Encounter Details Date Type Department Care Team (Late st Contact Info) Description 04/23/2016 Orders [place] [phone] Natalio Willoughby MD [facility] [place] [address] Hypogonadism male Social History Tobacco Use Types [...] as of this encounter Plan of Treatment Scheduled Referrals Name Type Priority Associated Diagnoses Orde r Schedule Referral to Urology Outpatient Referral Routine Hypogonadism male Ordered: 04/23/2016 documented as of this encounter Visit Diagnoses Diagnosis Hypogonadism male Other testicular hypofunction documented in this encounter Care Teams Molding Manager Relationship Specialty Start Date End Date Alex Sotelo MD [place] [id number] PCP - General 09/30/13 07/31/16 documented as of this encounter
--- OUTSIDE RECORDS SUMMARY | 2023-09-30 01:41 | XMS_ITS | Encounter Summary ---
Author Organization [facility] Address [facility] [address] Care Team Providers Care Specialties Operator Name Role Phone Ryan Guy MD Primary Care Provider [phone] Encounter Details Date Type Department Care Team (Late st Contact Info) Description 05/16/2017 Orders Only [place] [address] Natalio Willoughby MD [facility] [address] [place] [address] Chronic fatigue Social History Tobacco Use Types Packs/Day Years [...] Diagnosis Chronic fatigue Other malaise and fatigue documented in this encounter Care Teams Specialties Operator Relationship Specialty Start Date End Date Ryan Guy MD PCP - General General Internal Medicine 08/01/16 documented as of this encounter
--- OUTSIDE RECORDS SUMMARY | 2023-09-30 01:41 | XMS_ITS | Encounter Summary ---
Author Organization [facility] Address [facility] [place] [address] Care Team Providers Care Boilermaker Helper Name Role Phone Ryan Guy MD Primary Care Provider [phone] Reason for Referral * Consultation (Routine) - Closed Specialty Diagnoses / Procedures Referred By Hadley t Referred To Contact Urology Diagnoses Testicular abnormality Natalio Willoughby MD [facility] [place] [address] Michael Jeronimo MD [address] [place] [address] Referral ID Status Reason Start Date Expiration Date V isits Requested Visits Authorized [id number] Closed Consult, Test & Treat 05/21/2017 11/17/2017 1 1 Encounter Details Date Type Department Care Team (Late st Contact Info) Description 05/21/2017 [place] [address] Natalio Willoughby MD [facility] 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
--- OUTSIDE RECORDS SUMMARY | 2023-09-30 01:41 | XMS_ITS | Encounter Summary ---
[place] [address] Care Team Providers Care Central Communications Specialist Name Role Phone Ryan Guy MD Primary Care Provider [phone] Reason for Visit * Reason Onset Date Comments Medication Refill 03/02/2018 Encounter Details Date Type Department Care Team (Late st Contact Info) Description 03/02/2018 Refill [place] [id number] Joseluis Manuel-Yulisa Contreras RN Pain in both lower extremities Social History [...] extremities documented in this encounter Care Teams Central Communications Specialist Relationship Specialty Start Date End Date Ryan Guy MD PCP - General General Internal Medicine 08/01/16 documented as of this encounter
--- OUTSIDE RECORDS SUMMARY | 2023-09-30 01:41 | XMS_ITS | Encounter Summary ---
Author Organization [facility] [place] [address] Care Team Providers Care Middle School English Teacher Name Role Phone Alex Sotelo MD Primary Care Provider [phone] Encounter Details Date Type Department Care Team (Late st Contact Info) Description 03/28/2016 Orders [place] [address] Natalio Willoughby MD [facility] [place] [address] Rash Social History Tobacco Use Types Packs/Day Years [...] as of this encounter Visit Diagnoses Diagnosis Rash Rash and other nonspecific skin eruption documented in this encounter Care Teams Middle School English Teacher Relationship Specialty Start Date End Date Alex Sotelo MD [facility] [address] [place] [address] PCP - General 09/30/13 07/31/16 documented as of this encounter
--- OUTSIDE RECORDS SUMMARY | 2023-09-30 01:41 | XMS_ITS | Encounter Summary ---
Author Organization [facility] [place] [address] Care Team Providers Care Svp Marketing Name Role Phone Ryan Guy MD Primary Care Provider Reason for Visit * Reason Onset Date Comments Other 05/09/2017 Encounter Details Date Type Department Care Team (Late st Contact Info) Description 05/09/2017 Telephone [place] [address] Rayne Lemus, RN Other Social History Tobacco Use Types [...] Telephone Encounter - Rayne Lemus RN - 05/09/2017 9:55 AM EST Was asked by Director Of Convention Services to RTC to Joseluis as he has questions/concerns about his diagnosis and MRI. RTC and left message asking Joseluis to RTC to nurse to discuss further. Joseluis reports that he is concerned about moving to another Rheumatology provider, but will do this if Dr. Willoughby wants him to. Joseluis is also concerned about past MRI findings being cloudy and would like to have further studies to make sure his Liver, Lungs, and Spleen are ok. Joseluis reports he is requesting studies because he has EBV and has done reading about it and wantsto make sure nothing is wrong. Joseluis does report SOB with exertion, reports no cough. Quit smoking 8 years ago. Reports occasional pain under his Left rib cage area. Joseluis would like tests done at [facility] if Dr. Willoughby agrees. Message Received: Today ? Natalio Willoughby MD sent to Rayne Lemus RN ? Caller: Unspecified (Today, ??9:50 AM) ? I am ok ordering a PET/CT but it needs to be done here ? Previous Messages I spoke with Joseluis and he agrees to have done here. Will ask to order. I advised Joseluis that PET/CT may need a prior authorization. documented in this encounter Plan of Treatment Not on file documented as of this encounter Visit Diagnoses Not on filedocumented in this encounter Care Teams Svp Marketing Relationship Specialty Start Date End Date Ryan Guy MD PCP - General General Internal Medicine 08/01/16 documented as of this encounter
--- OUTSIDE RECORDS SUMMARY | 2023-09-30 01:41 | XMS_ITS | Encounter Summary ---
[place] [address] Care Team Providers Care Livestock Ranch Hand Name Role Phone Alex Sotelo MD Primary Care Provider [phone] Reason for Visit * Reason Onset Date Comments Medication Refill 05/24/2016 Encounter Details Date Type Department Care Team (Late st Contact Info) Description 05/24/2016 Refill [place] [address] Afia Munoz MA Social History Tobacco Use Types Packs/Day Years [...] on filedocumented in this encounter Care Teams Livestock [place] Relationship Specialty Start Date End Date Alex Sotelo MD [facility] [address] [place] [address] PCP - General 09/30/13 07/31/16 documented as of this encounter
--- OUTSIDE RECORDS SUMMARY | 2023-09-30 01:42 | XMS_ITS | Encounter Summary ---
Author Organization [facility] [place] [address] Care Team Providers Care Utilities Equipment Repairer Name Role Phone Alex Sotelo MD Primary Care Provider [phone] Encounter Details Date Type Department Care Team (Late st Contact Info) Description 10/17/2015 Telephone [place] [phone] Adali Jones LPN Social History Tobacco Use [...] Telephone Encounter - Adali Jones LPN - 10/17/2015 3:14 PM EDT ?? Katarina you can tell him his testosterone levels are low and unchanged. If he wants to speak with me that is ok or if he wants me to prescribe testosterone I will do that or alternatively send him to endocrine ?? ----- Message ----- +++++ Pt will call his doctor in [place] tomorrow am and then call back us back to let us know what he wouldlike to do. documented in this encounter Plan of Treatment Not on file documented as of this encounter Visit Diagnoses Not on filedocumented in this encounter Care Teams Utilities Equipment Repairer Relationship Specialty Start Date End Date Alex Sotelo MD [address] [address] PCP - General 09/30/13 07/31/16 documented as of this encounter
--- OUTSIDE RECORDS SUMMARY | 2023-09-30 01:42 | XMS_ITS | Encounter Summary ---
Author Organization formerly [place] [address] Care Team Providers Care Accounts Payable Bookkeeper Name Role Phone Alex Sotelo MD Primary Care Provider [phone] Reason for Referral * Diagnostic Test (Routine) - Closed Specialty Diagnoses / Procedures Referred By Contac t Referred To Contact Radiology Diagnoses Chronic midline low back pain without sciatica Procedures MRI Thoracic Spine With/WO Contrast Natalio Willoughby MD [facility] [address] [place] [address] [place] [address] Referral ID Status Reason Start Date Expiration Date V isits Requested Visits Authorized [id number] Closed Specialty Service Requested 07/10/2015 09/07/2015 1 1 Reason for Visit * Diagnostic Test (Routine) - Closed Specialty Diagnoses / Procedures Referred By Contac t Referred To Contact Radiology Diagnoses Chronic midline low back pain without sciatica Procedures MRI Thoracic Spine With/WO Contrast Natalio Willoughby MD [facility] [address] [place]UMAT[place] [address] [place] [address] Referral ID Status Reason Start Date Expiration Date V isits Requested Visits Authorized [id number] Closed Specialty Service Requested 07/10/2015 09/07/2015 1 1 Encounter Details Date Type Department Care Team (Latest Contact Info) Description 07/14/2015 3:48 PM EDT - 07/14/2015 11:59 PM EDT Hospital Encounter MRI at [facility] [place] [phone] Natalio Willoughby MD [facility] [place] [address] Chronic midline low back pain without sciatica Discharge Disposition: Home Social History Tobacco Use [...] (1 %) Gel cyclobenzaprine (FLEXERIL) 5 mg Tablet Take 5 mg by mouth as needed for Muscle spasms. 11/07/2015 traZODone (DESYREL) 50 mg Tablet Take 1 to 2 tablets by mouth at bedtime 60 tablet 3 05/25/2015 09/23/2015 methadone (DOLOPHINE) 100 mg/10 mL Concentrate Take 20 mg by mouth 2 times daily. Reported on 04/25/2016 04/25/2016 FLUoxetine (PROZAC) 20 mg Capsule Take 3 capsules by mouth daily. 90 capsule 5 01/09/2015 10/12/2015 Prasterone, DHEA, (DHEA) 25 mg Tab Take 1 tablet by mouth daily. Reported on 04/25/2016 04/25/2016 FERROUS FUMARATE/ASCORBIC ACID (VITRON-C ORAL) Take 1 tablet by mouth See Admin Instructions. as directed 11/21/2016 documented as of this encounter Plan of Treatment Not on file documented as of this encounter Procedures Procedure Name Priority Date/Time Associated Diagnosis Comments MRI THORACIC SPINE WITH/WO CONTRAST Routine 07/14/2015 5:40 PM EDT Chronic midline low back pain without sciatica documented in this encounter Results * (ABNORMAL) MRI Thoracic Spine With/WO Contrast (07/14/2015 5:40 PM EDT) Anatomical Region Laterality Modality T-spine Magnetic Resonan ce Impressions 07/14/2015 8:32 PM EDT IMPRESSION: 1. ??No evidence for transverse myelitis. 2. ??Large hiatal hernia. 3. ??Unexpected finding. 1 cm T2 hyperintense enhancing lesion in the posterior liver, incompletely characterized. This may reflect benign lesion such as hemangioma although more aggressive lesion not excluded. Further evaluation with abdominal imaging is recommended. Narrative 07/14/2015 8:32 PM EDT EXAMINATION: MRI THORACIC SPINE WITH/WO CONTRAST CLINICAL HISTORY: transverse myelitis TECHNIQUE: MRI of thoracic spine was performed before and after the intravenous administration of 7 mL Gadavist COMPARISON: None FINDINGS: Examination is somewhat marred by patient motion. Dextroscoliotic curvature of the thoracic spine with mild exaggerated thoracic kyphosis. No spondylolisthesis. Regional bone marrow is diffusely heterogeneous in signal without focal aggressive lesion. The thoracic cord is normal in signal and caliber. No abnormal cord enhancement. The conus is normal, terminating at the L1 level. Central disc protrusion at T4-5 which may contact the left ventral cord. There are several small thoracic disc bulges T7-T8 which mildly indents the ventral thecal sac. No significant thoracic canal narrowing. A large portion of the stomach is present within the left hemithorax likely reflecting a large hiatal hernia. 1 cm T2 hyperintense enhancing lesion in the posterior liver, incompletely characterized. ??Somewhat diffusely thickened appearance of left adrenal gland without nodularity. The paraspinal soft tissues are otherwise unremarkable. Resulting Agency Comment Unexpected Finding Natalio Willoughby MD IM[facility] MRI ORDERABLES documented in this encounter Visit Diagnoses Diagnosis Chronic midline low back pain without sciatica documented in this encounter Administered Medications Inactive Administered Medications - up to 3 most recent administrations Medication Order MAR Action Action Date Dose Rate Site gadobutrol (GADAVIST) 1 mMol/mL injection 6 mL 6 mL, Intravenous, ONCE PRN, 1 dose, Starting on Fri07/14/15 at 1637, Until Fri07/14/15 at 1650, THORACIC, Routine Given 07/14/2015 4:50 PM EDT 6 mLs documented in this encounter Care Teams Accounts Payable Bookkeeper Relationship Specialty Start Date End Date Alex Sotelo MD [facility] [address] [address] PCP - General 09/30/13 07/31/16 documented as of this encounter
--- OUTSIDE RECORDS SUMMARY | 2023-09-30 01:42 | XMS_ITS | Encounter Summary ---
Author Organization [facility] [place] [address] Care Team Providers Care Care Transition Mgr Name Role Phone Alex Sotelo MD Primary Care Provider [phone] Reason for Visit * Reason Comments Follow-up Encounter Details Date Type Department Care Team (Late st Contact Info) Description 10/14/2014 2:15 PM EDT [place] [address] Natalio Willoughby MD [facility] [place] [address] Chronic fatigue syndrome Discharge Disposition: Home Social [...] Sign Reading Time Taken Comments Blood Pressure 130/82 10/14/2014 2:12 PM EDT Pulse 74 10/14/2014 2:12 PM EDT Temperature 36.9 ??C (98.5 ??F) 10/14/2014 2:12 PM ED T Respiratory Rate - - Oxygen Saturation 96% 10/14/2014 2:12 PM EDT Inhaled Oxygen Concentration - - Weight 65.8 kg (145 lb) 10/14/2014 2:12 PM EDT Height 170.2 cm (5' 7) 10/14/2014 2:12 PM EDT Body Mass Index 22.71 10/14/2014 2:12 PM EDT documented in this encounter Progress Notes * Natalio Willoughby MD - 10/14/2014 3:06 PM EDT This is a followup appointment on Joseluis Dewey. date is 1950. The patient is a 64-year-old male with a 15-year history of chronic Lyme disease, babessia, and ehrlichiosis based on laboratory from [place], although not confirmed here. He is on multiple medications for this including doxycycline and atovaquone through a physician in [place] and I added Prozac, gabapentin, and trazodone to his regimen. He was better the last time I saw him, but today he is more angry and tearful. In the interim, he has cut down his fluoxetine from 40 to 20. He has cut back his gabapentin to 600 once a day and cut down his duloxetine from 120 down to 30. I had an approximately 40-minute discussion with him about chronic Lyme disease. This is obviously a dramatic negative impact on his life. He is on disability, and to his understanding, he is reduce his social benefits, which he goes on in two years when he loses his disability that will be substantially less than what they would have been had he been working all the way through. That means that he is going to be quite a bit more indigent when the disability stops in two years. Also, his has breast cancer, and although she is doing quite well, she has go back to work in order to support the family, which he feels very unhappy about. In anticipation of this, he is trying to taper off of methadone in order to be employable in two years, but he is very frightened and very apprehensive about this whole business. I told him that I thought his reduction of his psychoactive medications was probably incorrect since he was not as balanced in this encounter as he was in the past, but his major motivation for coming here was to establish care locally with someone who he can trust and does not have a negative opinion about his causal attribution of Lyme disease to his current psychiatric problems. I will attempt to engage him with a neurologist at [facility] at his request, and I do agree that a fresh look at him from a neuropsychiatric standpoint would be a useful approach. I will follow up in four months, which should give us enough time to effect this referral. documented in this encounter Plan of Treatment Not on file documented as of this encounter Visit Diagnoses Diagnosis Chronic fatigue syndrome documented in this encounter Care Teams Care Transition Mgr Relationship Specialty Start Date End [place] [address] PCP - General 09/30/13 07/31/16 documented as of this encounter
--- OUTSIDE RECORDS SUMMARY | 2023-09-30 01:42 | XMS_ITS | Encounter Summary ---
Author Organization [facility] [place] [address] Care Team Providers Care Asphalt Paving Superintendent Name Role Phone Alex Sotelo MD Primary Care Provider [phone] Encounter Details Date Type Department Care Team (Late st Contact Info) Description 12/06/2014 Orders [place] [address] Natalio Willoughby MD [facility] [place] [address] Social History Tobacco Use Types Packs/Day Years [...] on filedocumented in this encounter Care Teams Asphalt Paving Superintendent Relationship Specialty Start Date End Date Alex Sotelo MD [facility] [address] [place] [address] PCP - General 09/30/13 07/31/16 documented as of this encounter
--- OUTSIDE RECORDS SUMMARY | 2023-09-30 01:42 | XMS_ITS | Encounter Summary ---
Author Organization [facility] [place] [address] Care Team Providers Care Hydrographic Surveyor Name Role Phone Alex Sotelo MD Primary Care Provider [phone] Reason for Visit * Reason Onset Date Comments Other 04/05/2014 referrals Encounter Details Date Type Department Care Team (Late st Contact Info) Description 04/05/2014 Telephone [place] [phone] Meka Sharpe RN Other (referrals) Social History Tobacco Use Types Packs/Day Years [...] encounter Miscellaneous Notes * Telephone Encounter - Meka Sharpe RN - 04/05/2014 1:49 PM EST Joseluis called and left message that he has an appointment with Dr. Willoughby on Friday, but he wantedto make sure he knew about some referrals he would like to discuss with him. One is he would like areferral to neurology. He says he has been having some cognitive issues, difficulty knowing how to pronounce words, feeling tongue tied and like his tongue is swollen. Secondly, he would like a referral for a full cardiac work up. He is concerned about what may have happened with having untreated Lyme disease for 14 years. documented in this encounter Plan of Treatment Not on file documented as of this encounter Visit Diagnoses Not on filedocumented in this encounter Care Teams Hydrographic Surveyor Relationship Specialty Start Date End Date Alex Sotelo MD [address] [address] PCP - General 09/30/13 07/31/16 documented as of this encounter
--- OUTSIDE RECORDS SUMMARY | 2023-09-30 01:42 | XMS_ITS | Encounter Summary ---
Author Organization [facility] [place] [address] Care Team Providers Care Production Maintenance Technician Name Role Phone Alex Sotelo MD Primary Care Provider [phone] Reason for Referral * Diagnostic Test (Routine) - Closed Specialty Diagnoses / Procedures Referred By Contac t Referred To Contact Radiology Diagnoses Chronic midline low back pain without sciatica Procedures MRI Thoracic Spine With/WO Contrast Natalio Willoughby MD [facility] [address] [place]HEUMATOLOG[place] [address] [place] [address] Referral ID Status Reason Start Date Expiration Date V isits Requested Visits Authorized [id number] Closed Specialty Service Requested 07/10/2015 09/07/2015 1 1 Reason for Visit * Reason Comments Follow-up Encounter Details Date Type Department Care Team (Late st Contact Info) Description 07/10/2015 1:30 PM EDT Office [place] [address] Natalio Willoughby MD [facility] DR RHEUMATOLOGY [place] [address] Chronic midline low back pain without sciatica; Chronic fatigue syndrome; Depression, unspecified depression type Social History Tobacco Use Types Packs/Day Years [...] Sign Reading Time Taken Comments Blood Pressure 159/77 07/10/2015 1:37 PM EDT Pulse 79 07/10/2015 1:37 PM EDT Temperature 36.8 ??C (98.3 ??F) 07/10/2015 1:37 PM ED T Respiratory Rate - - Oxygen Saturation 97% 07/10/2015 1:37 PM EDT Inhaled Oxygen Concentration - - Weight 74.4 kg (164 lb) 07/10/2015 1:37 PM EDT Height 170.2 cm (5' 7) 07/10/2015 1:37 PM EDT Body Mass Index 25.69 07/10/2015 1:37 PM EDT documented in this encounter Progress Notes * Natalio Willoughby MD - 07/10/2015 2:00 PM EDT The patient is a 64-year-old male with a long history of chronic Lyme disease, obesity, and ehrlichiosis based on laboratory studies from [place], but not confirmed here. He is now being treated largely with pain medicines as well as psychotropic medicines for chronic depression, OCD and anxiety disorder. He recently underwent an MRI of his brain that showed scattered white matter and T2 hyperintense lesions and some volume loss, but it does not correlate with any particular cognitive problem. I sent him for neurocognitive testing and he forgot about it. Since his last appointment, he has been mainly doing complementary and alternative medicine therapy including prayer and healing of some sort. He reads very voraciously about his own illness and has decided he has transverse myelitis, which is unlikely based on clinical features. Although he has pain in the thoracic distribution, he does not have any objective motor or sensory findings. He has had C-spine and L-spine MRI image without evidence of transverse myelitis, but I ordered a thoracic MRI to complete the series. His argument is that he has EBV, CMV, chlamydia, mycoplasma, all of which are based on serology, and those are risk factors for transverse myelitis in his reading. Additionally, he thinks that because a physician in 1998 thought he might have thoracic outlet, that this would be a mimic of transverse myelitis. In any case, will get the MRI and try to decide on the basis of that. He showed me some additional paperwork indicating low DHEA levels, which might partially account for his low testosterone. I asked him to take an [id number] exogenous DHEA that might help. He is extremely anxious and tearful today. Part of that is because he needs to go back to work to support his family and he does not want to address that, and instead is going to ramp up his methadone to 25 b.i.d., which I think might be counterproductive to him getting gainfully employed. I will follow up in 3 months. documented in this encounter Plan of Treatment Not on file documented as of this encounter Procedures Procedure Name Priority Date/Time Associated Diagnosis Comments HEMOGRAM Routine 07/10/2015 2:32 PM EDT Chronic fatigue syndrome DIFFERENTIAL, AUTOMATED Routine 07/10/2015 2:32 PM EDT Chronic fatigue syndrome CBC (WITH DIFF) Routine 07/10/2015 2:32 PM EDT Chronic fatigue syndrome TESTOSTERONE, TOTAL Routine 07/10/2015 2 :32 PM EDT Chronic fatigue syndrome documented in [...] Agency Comment Unexpected Finding Natalio Willoughby MD [facility] MRI ORDERABLES * Differential, Automated (07/10/2015 2:32 PM EDT) Neutrophils % 53.0 % [facility] Neutr Abs (ANC) 3.13 1.50 - 6.30 x10(3)/[facility] Lymphocytes % 36.5 % [facility] Lymphocytes Abs 2.2 1.0 - 3.6 x10(3)/[facility] Monocytes % 8.8 % [facility] Monocyte Abs 0.5 0.2 - 1.0 x10(3)/[facility] Eosinophils % 1.2 % [facility] Eosinophils Abs 0.1 0.0 - 0.5 x10(3)/[facility] Basophils % 0.3 % [facility] Basophils Abs 0.0 0.0 - 0.2 x10(3)/[facility] Immature Gran % 0.20 % [facility] Comment: Immature granulocytes(IG's)percentage and absolute count will include metamyelocytes, myelocytes, and promyelocytes. Blood smears from CBCs yielding IG's will be scanned manually for concordance. If this scan disagrees with the automated IG or if promyelocytes are noted, a manual differential will be performed. Jada Gran Abs 0.01 0.00 - 0.05 x10(3)/[facility] Blood specimen (specimen) 07/10/2015 2:32 PM EDT 07/10/2015 2:39 PM EDT Narrative Resulting Agency Comment Spec In Lab Natalio Willoughby MD HEMATOLOGY ORDERABLE S [facility] [place] [address] * (ABNORMAL) Hemogram (07/10/2015 2:32 PM EDT) WBC 5.9 4.0 - 10.0 x10(3)/[facility] RBC 4.22(L) 4.63 - 6.08 x10(6)/[facility] Hemoglobin 13.2(L) 13.7 - 17.5 gm/dL [facility] Hematocrit 39.6(L) 40.0 - 51.0 % [facility] MCV 93.8(H) 79.0 - 92.0 fL [facility] MCH 31.3 25.6 - 32.2 pg [facility] MCHC 33.3 32.0 - 36.5 gm/dL [facility] Platelets 246 145 - 370 x10(3)/[facility] RDWSD 47.0(H) 35.0 - 46.0 fL [facility] RDWCV 13.7 10.9 - 14.4 % [facility] MPV 11.0 9.0 - 12.0 fL [facility] Blood specimen (specimen) 07/10/2015 2:32 PM EDT 07/10/2015 2:39 PM EDT Narrative Resulting Agency Comment Spec In Lab Nataloi Willoughby MD HEMATOLOGY ORDERABLE S [facility] [place] [address] * (ABNORMAL) Testosterone, total (07/10/2015 2:32 PM EDT) Testo Total 0.89(L) 2.80 - 8.00 ng/mL [facility] Comment: Reference Ranges: ? [...] package insert 09/16, V2. Blood specimen (specimen) 07/10/2015 2:32 PM EDT 07/10/2015 2:39 PM EDT Narrative Resulting Agency Comment Spec In Lab Natalio Willoughby [place] [address] documented in this encounter Visit Diagnoses Diagnosis Chronic midline low back pain without sciatica Chronic fatigue syndrome Depression, unspecified depression type Chronic midline low back pain without sciatica documented in this encounter Care Teams Production Maintenance Technician Relationship Specialty Start Date End Date Alex Sotelo MD [facility] [address] [place] [address] PCP - General 09/30/13 07/31/16 documented as of this encounter
--- OUTSIDE RECORDS SUMMARY | 2023-09-30 01:42 | XMS_ITS | Encounter Summary ---
Author Organization [facility] [place] [address] Care Team Providers Care Net Fisher Name Role Phone Alex Sotelo MD Primary Care Provider [phone] Reason for Visit * Reason Onset Date Comments Other 01/10/2014 prozac Encounter Details Date Type Department Care Team (Late st Contact Info) Description 01/10/2014 [place] [phone] Meka Sharpe RN Other (prozac) Social History Tobacco Use Types Packs/Day Years [...] Telephone Encounter - Meka Sharpe RN - 01/11/2014 12:08 PM EST Called Joseluis and left message that Dr. Willoughby agreed to increase dose of Prozac to 60 mg daily. Rx has been sent to him to sign and should be at pharmacy by the end of today or early tomorrow. * Telephone Encounter - Meka Sharpe RN - 01/10/2014 1:29 PM EST Joseluis called and left message that Dr. Willoughby prescribed prozac for him and told him he can take as much as I want. He has been taking up to 60 mg daily and would like a new rx that instructs to take 1-3 tablets daily. He says he is very depressed and needs this medication. documented in this encounter Plan of Treatment Not on file documented as of this encounter Visit Diagnoses Not on filedocumented in this encounter Care Teams Net Fisher Relationship Specialty Start Date End Date Alex Sotelo MD [address] [address] PCP - General 09/30/13 07/31/16 documented as of this encounter
--- OUTSIDE RECORDS SUMMARY | 2023-09-30 01:42 | XMS_ITS | Encounter Summary ---
Author Organization [facility] Address [facility] [place] [address] Care Team Providers Care Litigation Assistant Name Role Phone Alex Sotelo MD Primary Care Provider Encounter Details Date Type Department Care Team (Latest Contact Info) Description 07/25/2015 - 07/25/2015 11:59 PM EDT Hospital Encounter [place] [phone] Natalio Willoughby MD [facility] [place] [address] Pain Discharge Disposition: Home Social History Tobacco Use [...] Procedure Name Priority Date/Time Associated Diagnosis Comments FILM LIBRARY STORAGE ONLY CT ABDOMEN Routine 07/25/2015 12:00 AM EDT Pain documented in this encounter Results * Film Library- Storage Only CT Abdomen (07/25/2015 12:00 AM EDT) Narrative [facility] - 07/26/2015 6:20 PM EDT This exam is for storage only and is auto-finalizing. Natalio Willoughby MD [facility] FILM LIBRARY ORD ERABLES [place], [place] documented in this encounter Visit Diagnoses Diagnosis Pain Generalized pain documented in this encounter Care Teams Litigation Assistant Relationship Specialty Start Date End Date Alex Sotelo MD [address] [address] PCP - General 09/30/13 07/31/16 documented as of this encounter
--- OUTSIDE RECORDS SUMMARY | 2023-09-30 01:42 | XMS_ITS | Encounter Summary ---
Author Organization [facility] [place] [address] Care Team Providers Care Documentation Engineer Name Role Phone Alex Sotelo MD Primary Care Provider [phone] Reason for Referral * Consultation (Routine) - Closed Specialty Diagnoses / Procedures Referred By Hadley valerio Referred To Contact Endocrinology Diagnoses Hypogonadism male Natalio Willoughby MD [facility] [place] [address] Leonard Cavazos MD [facility] [place] [address] Referral ID Status Reason Start Date Expiration Date V isits Requested Visits Authorized [id number] Closed Consult, Test & Treat 05/09/2015 05/08/2016 1 1 Encounter Details Date Type Department Care Team (Late st Contact Info) Description 05/09/2015 Orders Only Rheumatology at [place] [phone] Natalio Willoughby MD [facility] RHEUMAT[facility] DEPT. [place] [id number] Hypogonadism male Social History Tobacco Use Types [...] Priority Associated Diagnoses Order Schedule Referral to Endocrinology Outpatient Referral Routine Hypogonadism male Ordered: 05/09/2015 documented as of this encounter Visit Diagnoses Diagnosis Hypogonadism male Other testicular hypofunction documented in this encounter Care Teams Documentation Engineer Relationship Specialty Start Date [place] [address] PCP - General 09/30/13 07/31/16 documented as of this encounter
--- OUTSIDE RECORDS SUMMARY | 2023-09-30 01:42 | XMS_ITS | Encounter Summary ---
Author Organization [facility]ly [facility] [place] [address] Care Team Providers Care Community Arts Centre Manager Name Role Phone Alex Sotelo MD Primary Care Provider [phone] Reason for Visit * Reason Comments Myalgia/myositis Encounter Details Date Type Department Care Team (Late st Contact Info) Description 09/30/2013 3:00 PM EDT Office [place] [phone] Natalio Willoughby MD [facility] [place] [address] Pain (Primary Dx) Discharge Disposition: Home Social History Tobacco Use [...] Sign Reading Time Taken Comments Blood Pressure 114/72 09/30/2013 3:15 PM EDT Pulse 80 09/30/2013 3:15 PM EDT Temperature 36.7 ??C (98.1 ??F) 09/30/2013 3:15 PM ED T Respiratory Rate - - Oxygen Saturation 98% 09/30/2013 3:15 PM EDT Inhaled Oxygen Concentration - - Weight 59.9 kg (132 lb) 09/30/2013 3:15 PM EDT Height 170.2 cm (5' 7) 09/30/2013 3:15 PM EDT Body Mass Index 20.67 09/30/2013 3:15 PM EDT documented in this encounter Progress Notes * Natalio Willoughby MD - 09/30/2013 3:52 PM EDT This is a new patient consultation seen at the request of Dr. Alex Sotelo. HISTORY OF PRESENT ILLNESS: The patient is a 64-year-old male whose history, he dates back 14 years to 1998 when he was bit by a tick and thereafter he states he acquired Lyme and Babesia which have been unable to be diagnosed. 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 He has been followed in a number of different places and I saw him in 2008 with the diagnoses of chronic fatigue and fibromyalgia and he has had difficult time establishing a permanent medical relationship with various providers, but most recently he has been followed by a doctor in [place] who is prescribing him antibiotics for chronic Lyme's disease since 03/2013 and he feels a great deal better, but still needs 20 mg of methadone a day and has to go to the methadone clinic on a daily basis. He is fatigued. He has sweats. He has weight loss, especially when he tries to stop the narcotics. He has incapacitating pain that is literally of his entire body. Although he describes pain in his joints, there is no swelling, heat, or tenderness. MEDICATIONS: His current medications are atovaquone 750 mg I believe b.i.d., but I am not sure about the dose; Zithromax 500 mg daily; calcium; vitamin D; Flexeril, which is cyclobenzaprine 10 mg p.r.n.; Cymbalta 60 mg a day; krill oil; NADH; and testosterone. ALLERGIES: NONE. PAST SURGICAL HISTORY: Epididymectomy, vasectomy in 2000, cervical diskectomy in 2004, repair of patella in 1975, and T and A in 1961. FAMILY HISTORY: His family history is notable for lymphoma and heart disease, no autoimmune or pain syndromes. He has two children who are alive and well at age 19 and 21. REVIEW OF SYSTEMS: His review of systems is notable for weight loss, fatigue, weakness, pain, double vision, itchy eyes, ringing in ears, sore tongue, difficulty swallowing, chest pain, shortness of breath, palpitations, cough, nausea, nocturia, morning stiffness, headaches, dizziness, memory loss, night sweats, anxiety, and depression. SOCIAL HISTORY: He was gainfully employed until 2004, now is on disability. He still uses Nicorette gum and patches, but he quit smoking seven years ago. He uses marijuana, but not medical. PHYSICAL EXAMINATION: On exam, he is anxious, looks well, although he looks like he has lost a fair amount of weight. His blood pressure is 114/72. His pulse is 80. His temperature is 98.1. His BMI is 20.7. His HEENT exam is remarkable for a red pharynx, but he does not smoke or have reflux. His chest is clear. Heart exam is unremarkable. His abdomen is somewhat scaphoid. He has folds of skin indicating loss of fair amount of weight, and his extremities are unremarkable. LABORATORY DATA: Laboratory data done here in 2008 was negative for an autoimmune serologic panel and also was negative for Lyme. All of his tests were completely normal except a CRP of 6.5. ASSESSMENT: My assessment is that the patient has a pain syndrome. He does not really fit into fibromyalgia, but he does have chronic fatigue. I am not competent to make this diagnosis, but I would think that it would a somatoform disorder. Today, I just did some repeat testing and I will go over the next time I see him. I did not change any of his meds. I hope at one point to be able to obtain the Psychiatry opinion. documented in this encounter Plan of Treatment Not on file documented as of this encounter Procedures Procedure Name Priority Date/Time Associated Diagnosis Comments BABESIA MICROTI IGG AND IGM ANTIBODY PANEL Routine 09/30/2013 4:08 PM EDT Pain LYME IGG & IGM ANTIBODY Routine 09/30/2013 4:08 PM EDT Pain IMMUNOGLOBULINS, QUANTITATIVE Routine 09/30/2013 4:08 PM EDT Pain HEMOGRAM Routine 09/30/2013 4:08 PM EDT Pain DIFFERENTIAL, AUTOMATED Routine 09/30/2013 4:08 PM EDT Pain HEPATITIS C ANTIBODY Routine 09/30/2013 4:08 PM EDT Pain SEDIMENTATION RATE Routine 09/30/2013 4: 08 PM EDT Pain CBC (WITH DIFF) Routine 09/30/2013 4:08 PM EDT Pain CRP, CARDIAC RISK (HS CRP) Routine 09/30/2013 4:08 PM EDT Pain COMPREHENSIVE METABOLIC PANEL (NON-FASTING) Routine 09/30/2013 4:08 PM EDT Pain documented in this encounter Results * Differential, Automated (09/30/2013 4:08 PM EDT) Neutrophils % 40.3 34.0 - 71.0 % CERNER MILLENNIUM Neutr Abs (ANC) 2.59 1.50 - 6.30 x10(3)/mcL CERNER MILLENNIUM Lymphocytes % 46.0 19.0 - 53.0 % CERNER MILLENNIUM Lymphocytes Abs 3.0 1.0 - 3.6 x10(3)/mcL CERNER MILLENNIUM Monocytes % 12.4 4.0 - 13.0 % CERNER MILLENNIUM Monocyte Abs 0.8 0.2 - 1.0 x10(3)/mcL CERNER MILLENNIUM Eosinophils % 0.8 0.0 - 7.0 % CERNER MILLENNIUM Eosinophils Abs 0.0 0.0 - 0.5 x10(3)/mcL CERNER MILLENNIUM Basophils % 0.5 0.0 - 2.0 % CERNER MILLENNIUM Basophils Abs 0.0 0.0 - 0.2 x10(3)/mcL CERNER MILLENNIUM Immature Gran % 0.00 0.00 - 0.66 % CERNER MILLENNIUM Comment: Immature granulocytes(IG's)percentage and absolute count will include metamyelocytes, myelocytes, and promyelocytes. Blood smears from CBCs yielding IG's will be scanned manually for concordance. If this scan disagrees with the automated IG or if promyelocytes are noted, a manual differential will be performed. Jada Gran Abs 0.00 0.00 - 0.05 x10(3)/mcL CERNER MILLENNIUM Blood specimen (specimen) 09/30/2013 4:08 PM EDT 09/30/2013 4:18 PM EDT Narrative Resulting Agency Comment Spec In Lab Natalio Willoughby MD HEMATOLOGY ORDERABLE S CERNER MILLENNIUM * (ABNORMAL) Hemogram (09/30/2013 4:08 PM EDT) WBC 6.4 4.0 - 10.0 x10(3)/mcL CERNER MILLENNIUM RBC 4.44(L) 4.63 - 6.08 x10(6)/mcL CERNER MILLENNIUM Hemoglobin 14.6 13.7 - 17.5 gm/dL CERNER MILLENNIUM Hematocrit 42.3 40.0 - 51.0 % CERNER MILLENNIUM MCV 95.3(H) 79.0 - 92.0 fL CERNER MILLENNIUM MCH 32.9(H) 25.6 - 32.2 pg CERNER MILLENNIUM MCHC 34.5 32.0 - 36.5 gm/dL CERNER MILLENNIUM Platelets 264 145 - 370 x10(3)/mcL CERNER MILLENNIUM RDWSD 47.4(H) 35.0 - 46.0 fL CERNER MILLENNIUM RDWCV 13.5 10.9 - 14.4 % CERNER MILLENNIUM MPV 10.4 9.0 - 12.0 fL CERNER MILLENNIUM Blood specimen (specimen) 09/30/2013 4:08 PM EDT 09/30/2013 4:18 PM EDT Narrative Resulting Agency Comment Spec In Lab Natalio Willoughby MD HEMATOLOGY ORDERABLE S TYRONE WAHLIUM * Hepatitis C Antibody (09/30/2013 4:08 PM EDT) Hepatitis C Ab Negative Negative CERNE R MILLENNIUM Blood specimen (specimen) 09/30/2013 4:08 PM EDT 09/30/2013 4:18 PM EDT Narrative Resulting Agency Comment Spec In Lab Natalio Willoughby MD IMMUNOLOGY ORDERABLE S TYRONE CARRILLO * Babesia Microti IgG and IgM Antibody Panel (09/30/2013 4:08 PM EDT) Babesia Ab Panel Test ? Result ? Flag ??Unit ??RefValue ------ Babesia Microti Antibodies IgG, IgM ??Babesia microti IgG ?<1:64 ??Babesia microti IgM ?<1:20 ??Interpretation ? SEE COMMENTS ANTIBODY NOT DETECTED REFERENCE RANGES: IgG <1:64 ?IgM <1:20 Elevated antibody levels to B. microti indicate exposure to the organism. Human babesiosis infection is transmitted by the bite of an infected Ixodes tick or less frequently from transfusion with blood from an infected donor. Definitive diagnosis is made by identifying intraerythrocytic organisms in peripheral blood. In patients with low parasitemia, antibody detection by IFA is recommended. IgG levels greater than or equal to 1:1024 can be detected in acute phase patients with parasites in blood smears. The IFA assay can be used as a seroepidemiologic tool to study the frequency and distribution of B. microti in endemic areas especially in persons with mixed infections also involving Borrelia burgdorferi. This test was developed and its performance characteristics have been determined by [employer]. It has not been cleared or approved by the U.S. Food and Drug Administration. The FDA has determined that such clearance or approval is not necessary. Performance characteristics refer to the analytical performance of the test. Test Performed by: [employer] [address] [place], [place] [id number] CERNER MILLENNIUM Blood specimen (specimen) 09/30/2013 4:08 PM EDT 10/01/2013 10:11 AM EDT Narrative Resulting Agency Comment Spec In Lab Natalio Willoughby MD CHEMISTRY ORDERABLES Performing Organization Address [facility] Co de Phone Number CERANTONIA PATELENNIUM * Lyme IgG & IgM Antibody (09/30/2013 4:08 PM EDT) Lyme Screening Antibody Neg Neg CERNER MILLENNIUM Blood specimen (specimen) 09/30/2013 4:08 PM EDT 10/01/2013 8:00 AM EDT Narrative Resulting Agency Comment Spec In Lab Natalio Willoughby MD IMMUNOLOGY ORDERABLE S Performing Organization Address [facility] de Phone Number CERANTOINA PATELENNIUM * Immunoglobulins, Quantitative (09/30/2013 4:08 PM EDT) IgG 810 700 - 1600 mg/dL CERNER MILLENNIUM IgA 220 70 - 400 mg/dL CERNER MILLENNIUM IgM 102 40 - 230 mg/dL CERNER MILLENNIUM Blood specimen (specimen) 09/30/2013 4:08 PM EDT 09/30/2013 4:18 PM EDT Narrative Resulting Agency Comment Spec In Lab Natalio Willoughby MD CHEMISTRY ORDERABLES Performing Organization Address [facility] de Phone Number CERANTONIA PATELENNIUM * High Sensitivity CRP (09/30/2013 4:08 PM EDT) CRP High Sens 0.2 mg/L CERNER MILLENNIUM Comment: Interpretations: 1) For accurate cardiac risk [...] disease detection and prevention. ??Circulation 2003; [phone] Blood specimen (specimen) 09/30/2013 4:08 PM EDT 09/30/2013 4:18 PM EDT Narrative Resulting Agency Comment Spec In Lab Natalio Willoughby MD CHEMISTRY ORDERABLES Performing Organization Address [facility] Co de Phone Number [facility] RT[facility]DIGN[facility] * Sedimentation rate (09/30/2013 4:08 PM EDT) Sed Rate 5 0 - 15 mm/hr [facility] MILLEN[facility] Blood specimen (specimen) 09/30/2013 4:08 PM EDT 09/30/2013 4:18 PM EDT Narrative Resulting Agency Comment Spec In Lab Natalio Willoughby MD HEMATOLOGY ORDERABLE S Performing Organization Address [facility] Co mn Phone Number [facility] * (ABNORMAL) Comprehensive metabolic panel (non-fasting) (09/30/2013 4:08 PM EDT) Glucose Lvl 76 60 - 199 mg/dL CERNER MILLENNIUM Comment:Diabetes: >=200 mg/d L plus symptoms BUN 13 10 - 20 mg/dL CERNER MILLENNIUM Creatinine 0.78(L) 0.80 - 1.50 mg/dL CERNER MILLENNIUM Comment: Please note that the pediatric reference intervals supplied above were not validated at [facility]. Results from pediatric patients should be interpreted in conjunction to the patient's age, height and muscle mass. Sodium 139 135 - 145 mmol/L CERNER MILLENNIUM Potassium 3.2(L) 3.5 - 5.0 mmol/L CERNER MILLENNIUM Comment: Please note: ??Patients with WBC >100,000 may have falsely elevated Potassium levels. ??For accurate Potassium quantification in these patients send serum separator tube (gold top) for subsequent determinations. ??Contact the Clinical Chemistry Laboratory if there are any questions. Chloride 100 98 - 107 mmol/L CERNER MILLENNIUM CO2 30 22 - 31 mmol/L CERNER MILLENNIUM Anion Gap 9 5 - 15 mmol/L CERNER MILLENNIUM Calcium 9.3 8.5 - 10.5 mg/dL CERNER MILLENNIUM Total Protein 6.9 6.4 - 8.3 gm/dL CERNER MILLENNIUM Albumin 4.3 3.2 - 5.2 gm/dL CERNER MILLENNIUM AST 22 0 - 39 unit/L CERNER MILLENNIUM ALT 21 0 - 55 unit/L CERNER MILLENNIUM Alk Phos 83 40 - 120 unit/L CERNER MILLENNIUM Total Bilirubin 0.5 0.2 - 1.3 mg/dL CERNER MILLENNIUM Bili, Direct 0.1 0.0 - 0.3 mg/dL CERNER MILLENNIUM Estimated GFR >60 >=60 CERNER MILLENNIUM Comment: This estimated GFR (eGFR) value was [...] the following links into your internet browser. http://[email or web address] [email or web address]://[email or web address] Blood specimen (specimen) 09/30/2013 4:08 PM EDT 09/30/2013 4:18 PM EDT Narrative Resulting Agency Comment Spec In Lab Natalio Willoughby MD CHEMISTRY ORDERABLES CERANTONIA CARRILLO documented in this encounter Visit Diagnoses Diagnosis Pain- Primary Generalized pain documented in this encounter Care Teams Community Arts Centre Manager Relationship Specialty Start Date End Date Alex Sotelo MD [address] [address] PCP - General 09/30/13 07/31/16 documented as of this encounter
--- OUTSIDE RECORDS SUMMARY | 2023-09-30 01:42 | XMS_ITS | Encounter Summary ---
Author Organization [facility] Address [facility] [place] [id number] Care Team Providers Care Tariff Inspector Name Role Phone Alex Sotelo MD Primary Care Provider [phone] Reason for Referral * Consultation (Routine) - Closed Specialty Diagnoses / Procedures Referred By Contbrittany t Referred To Contact Neurology Diagnoses H/o Lyme disease Natalio Willoughby MD [facility] [place] [address] Richard Garibay MD [address] [place] [address] Referral ID Status Reason Start Date Expiration Date V isits Requested Visits Authorized [id number] Closed Consult, Test & Treat 10/27/2014 04/25/2015 3 3 Encounter Details Date Type Department Care Team (Late st Contact Info) Description 10/27/2014 Orders [place] [address] Natalio Willoughby MD [facility] [place] [address] H/o Lyme disease (Primary Dx) Social History Tobacco Use Types Packs/Day Years [...] on file documented as of this encounter Progress Notes * Meka Sharpe RN - 10/27/2014 3:06 PM EDT Referral faxed to [facility]. documented in this encounter Plan of Treatment Scheduled Referrals Name Type Priority Associated Diagnoses Orde r Schedule Referral to Neurology Outpatient Referral Routine H/o Lyme disease Ordered: 10/27/2014 documented as of this encounter Visit Diagnoses Diagnosis H/o Lyme disease- Primary Personal history of other infectious and parasitic disease documented in this encounter Care Teams Tariff Inspector Relationship Specialty Start Date End Date Alex Sotelo MD [address] [address] PCP - General 09/30/13 07/31/16 documented as of this encounter
--- OUTSIDE RECORDS SUMMARY | 2023-09-30 01:42 | XMS_ITS | Encounter Summary ---
Author Organization [facility] [place] [address] Care Team Providers Care Asp Net C Developer Name Role Phone Alex Sotelo MD Primary Care Provider [phone] Encounter Details Date Type Department Care Team (Latest Contact Info) Description 08/14/2015 10:00 AM EDT Laboratory [place] [phone] Hypogonadism male Social History Tobacco Use Types [...] Procedure Name Priority Date/Time Associated Diagnosis Comments TESTOSTERONE, TOTAL AND FREE Routine 08/14/2015 10:00 AM EDT Hypogonadism male PROLACTIN Routine 08/14/2015 10:00 AM EDT Hypogonadism male T4, FREE Routine 08/14/2015 10:00 AM EDT Hypogonadism male TESTOSTERONE, TOTAL Routine 08/14/2015 1 0:00 AM EDT PSA (ULTRASENSITIVE) Routine 08/14/2015 10:00 AM EDT Hypogonadism male FOLLICLE STIMULATING HORMONE Routine 08/14/2015 10:00 AM EDT Hypogonadism male documented in this encounter Results * (ABNORMAL) Testosterone, total (08/14/2015 10:00 AM EDT) [facility] Signature Testo Total 0.67(L) 2.80 - 8.00 ng/mL [facility] Comment: Reference Ranges: ? Males [...] package insert 09/16, V2. Blood specimen (specimen) Venous Draw / Unknown 08/14/2015 10:00 AM EDT 08/14/2015 12:39 PM EDT Narrative Resulting Agency Comment Spec In Lab Leonard Cavazos MD CHEMISTRY ORDERAB LES Performing Organization Address [facility]/ZIP Co de Phone Number [facility] [place] [address] * T4, free (08/14/2015 10:00 AM EDT) Free T4 1.06 0.93 - 1.70 ng/dL [facility] Blood specimen (specimen) 08/14/2015 10:00 AM EDT 08/14/2015 10:17 AM EDT Narrative Resulting Agency Comment Spec In Lab Leonard Cavazos MD CHEMISTRY ORDERAB LES Performing Organization Address [facility] Co de Phone Number [facility] [place] [address] * PSA (08/14/2015 10:00 AM EDT) PSA Total (Ultrasensitiv e) 0.33 0.00 - 4.00 ng/mL [facility] Blood specimen (specimen) 08/14/2015 10:00 AM EDT 08/14/2015 10:17 AM EDT Narrative Resulting Agency Comment Spec In Lab Leonard Cavazos MD CHEMISTRY ORDERAB LES Performing Organization Address [facility] Co de Phone Number [facility] [place] [address] * Prolactin (08/14/2015 10:00 AM EDT) Prolactin 7.8 4.0 - 15.2 ng/mL [facility] Blood specimen (specimen) 08/14/2015 10:00 AM EDT 08/14/2015 10:17 AM EDT Narrative Resulting Agency Comment Spec In Lab Leonard Cavazos MD CHEMISTRY ORDERAB LES Performing Organization Address [facility] de Phone Number [facility] [place] [address] * (ABNORMAL) Follicle Stimulating Hormone (08/14/2015 10:00 AM EDT) FSH 1.4(L) 1.5 - 12.4 mlU/ML [facility] Comment: Reference Ranges: Females: Follicular: ? 3.5-12.5 mIU/mL Ovulation: ?4.7-21.5 mIU/mL Luteal: ? 1.7-7.7 mIU/mL Postmenopausal: 25.8-134.8 mIU/mL Blood specimen (specimen) 08/14/2015 10:00 AM EDT 08/14/2015 10:17 AM EDT Narrative Resulting Agency Comment Spec In Lab Leonard Cavazos MD CHEMISTRY ORDERAB LES Performing Organization Address [facility] de Phone Number [facility] [place] [address] * (ABNORMAL) Testosterone, total and free (08/14/2015 10:00 AM EDT) Testo Total 73(L) 250 - 1100 ng/dL [facility] Comment: Men with clinically significant hypogonadal symptoms and testosterone values repeatedly in the range of the 200-300 ng/dL or less, may benefit from testosterone treatment after adequate risk and benefits counseling. For more information on this test, go to http://education.EncrypTix.Bridgevine/faq/ TotalTestosteroneLCMSMS Testo Free 8.7(L) 35.0 - 155.0 pg/mL [facility] Comment: Test Performed by [facility], [employer] [facility], [address] [place] [address] Tip Wylie M.D., Ph.D., Director of Laboratories , CLIA [id number] Blood specimen (specimen) 08/14/2015 10:00 AM EDT 08/14/2015 11:22 AM EDT Narrative Resulting Agency Comment Spec In Lab Leonard Cavazos MD CHEMISTRY ORDERAB LES [facility] [place] [address] documented in this encounter Visit Diagnoses Diagnosis Hypogonadism male Other testicular hypofunction documented in this encounter Care Teams Asp Net C Developer Relationship Specialty Start Date End Date Alex Sotelo MD [facility] [address] [place] [address] PCP - General 09/30/13 07/31/16 documented as of this encounter
--- OUTSIDE RECORDS SUMMARY | 2023-09-30 01:42 | XMS_ITS | Encounter Summary ---
Author Organization [facility] Address [facility] [place] [address] Care Team Providers Care Planer Operator Name Role Phone Alex Sotelo MD Primary Care Provider [phone] Reason for Referral * Consultation (Routine) - Closed Specialty Diagnoses / Procedures Referred By Contbrittany t Referred To Contact Infectious Diseases Diagnoses Chronic fatigue syndrome Natalio Willoughby MD [facility] [place] [address] Pravin Mcallister MD [facility] [place] [address] Referral ID Status Reason Start Date Expiration Date V isits Requested Visits Authorized [id number] Closed Consult, Test & Treat 10/27/2014 10/27/2015 3 3 Encounter Details Date Type Department Care Team (Late st Contact Info) Description 10/27/2014 Orders Only Rheumatology at [place] [phone] Natalio Willoughby MD [facility] [place] [address] Chronic fatigue syndrome Social History Tobacco Use [...] Disease and International Health Outpatient Referral Routine Chronic fatigue syndrome Ordered: 10/27/2014 documented as of this encounter Visit Diagnoses Diagnosis Chronic fatigue syndrome documented in this encounter Care Teams Planer Operator Relationship Specialty Start Date End Date Alex Sotelo MD [place] [id number] PCP - General 09/30/13 07/31/16 documented as of this encounter
--- OUTSIDE RECORDS SUMMARY | 2023-09-30 01:42 | XMS_ITS | Encounter Summary ---
Author Organization [facility] [place] [address] Care Team Providers Care Tubular Splitting Machine Tender Name Role Phone Alex Sotelo MD Primary Care Provider Reason for Visit * Reason Comments Medication Refill Encounter Details Date Type Department Care Team (Late st Contact Info) Description 01/09/2015 [place] [address] Natalio Willoughby MD [facility] [place] [address] Social History Tobacco Use Types Packs/Day Years [...] on filedocumented in this encounter Care Teams Tubular Splitting Machine Tender Relationship Specialty Start Date End Date Alex Sotelo MD [facility] [address] [place] [id number] PCP - General 09/30/13 07/31/16 documented as of this encounter
--- OUTSIDE RECORDS SUMMARY | 2023-09-30 01:42 | XMS_ITS | Encounter Summary ---
[facility] [place] [address] Care Team Providers Care Buckle Coverer Name Role Phone Alex Sotelo MD Primary Care Provider [phone] Encounter Details Date Type Department Care Team (Late st Contact Info) Description 05/16/2015 Orders [place] [address] Leonard Cavazos MD [facility] [place] [address] Hypogonadism male Social History Tobacco Use Types [...] documented as of this encounter Results * T4, free (08/14/2015 10:00 AM EDT) Free T4 1.06 0.93 - 1.70 ng/dL [facility] Blood specimen (specimen) 08/14/2015 10:00 AM EDT 08/14/2015 10:17 AM EDT Narrative Resulting Agency Comment Spec In Lab Leonard Cavazos MD CHEMISTRY ORDERAB LES [facility] [place] [address] * PSA (08/14/2015 10:00 AM EDT) PSA Total (Ultrasensitiv e) 0.33 0.00 - 4.00 ng/mL [facility] Blood specimen (specimen) 08/14/2015 10:00 AM EDT 08/14/2015 10:17 AM EDT Narrative Resulting Agency Comment Spec In Lab Leonard Cavazos MD CHEMISTRY ORDERAB LES [facility] [place] [address] * Prolactin (08/14/2015 10:00 AM EDT) Prolactin 7.8 4.0 - 15.2 ng/mL [facility] Blood specimen (specimen) 08/14/2015 10:00 AM EDT 08/14/2015 10:17 AM EDT Narrative Resulting Agency Comment Spec In Lab Leonard Cavazos MD CHEMISTRY ORDERAB LES Performing Organization Address City/[facility] Co de Phone Number [facility] [place] [address] * (ABNORMAL) Follicle Stimulating Hormone (08/14/2015 10:00 AM EDT) FSH 1.4(L) 1.5 - 12.4 mlU/ML [facility] Comment: Reference Ranges: Females: Follicular: ? 3.5-12.5 mIU/mL Ovulation: ?4.7-21.5 mIU/mL Luteal: ? 1.7-7.7 mIU/mL Postmenopausal: 25.8-134.8 mIU/mL Blood specimen (specimen) 08/14/2015 10:00 AM EDT 08/14/2015 10:17 AM EDT Narrative Resulting Agency Comment Spec In Lab Leonard Cavazos MD CHEMISTRY ORDERAB LES Performing Organization Address [facility]/ZIP Co de Phone Number [facility] [place] [address] * (ABNORMAL) Testosterone, total and free (08/14/2015 10:00 AM EDT) Testo Total 73(L) 250 - 1100 ng/dL [facility] Comment: Men with clinically significant hypogonadal symptoms and testosterone values repeatedly in the range of the 200-300 ng/dL or less, may benefit from testosterone treatment after adequate risk and benefits counseling. For more information on this test, go to http://education.NextGreatPlace/faq/ TotalTestosteroneLCMSMS Testo Free 8.7(L) 35.0 - 155.0 pg/mL [facility] Comment: Test Performed by [employer], Triage [facility], [address] [place] [address] Tip Wylie M.D., Ph.D., Director of Laboratories , [place] [id number] Blood specimen (specimen) 08/14/2015 10:00 AM EDT 08/14/2015 11:22 AM EDT Narrative Resulting Agency Comment Spec In Lab Leonard Cavazos MD CHEMISTRY ORDERAB LES Performing Organization Address [facility]/ZIP Co de Phone Number [facility] [place] [address] documented in this encounter Visit Diagnoses Diagnosis Hypogonadism male Other testicular hypofunction documented in this encounter Care Teams Buckle Coverer Relationship Specialty Start Date End Date Alex Sotelo MD [address] [address] PCP - General 09/30/13 07/31/16 documented as of this encounter
--- OUTSIDE RECORDS SUMMARY | 2023-09-30 01:42 | XMS_ITS | Encounter Summary ---
Author Organization [facility] Address [facility] [place] [address] Care Team Providers Care Staff Trainer Name Role Phone Alex Sotelo MD Primary Care Provider [phone] Reason for Visit * Reason Comments Follow-up Encounter Details Date Type Department Care Team (Late st Contact Info) Description 04/08/2014 2:45 PM EST [place] [address] Natalio Willoughby MD [facility] [place] [address] Chronic low back pain Discharge Disposition: Home Social History Tobacco Use [...] Sign Reading Time Taken Comments Blood Pressure 121/75 04/08/2014 3:01 PM EST Pulse 75 04/08/2014 3:01 PM EST Temperature 36.6 ??C (97.8 ??F) 04/08/2014 3:01 PM ES T Respiratory Rate - - Oxygen Saturation 99% 04/08/2014 3:01 PM EST Inhaled Oxygen Concentration - - Weight 60.8 kg (134 lb) 04/08/2014 3:01 PM EST Height 170.2 cm (5' 7) 04/08/2014 3:01 PM EST Body Mass Index 20.99 04/08/2014 3:01 PM EST documented in this encounter Progress Notes * Natalio Willoughby MD - 04/08/2014 3:43 PM EST This is a followup appointment. The patient is a 63-year-old male with chronic Lyme disease, Babesia, ehrlichiosis, all laboratory based from labs in [place] that are probably not accurate. He is on multiple medications for this including doxycycline and atovaquone, but has stopped the azithromycin because of possibility that it interacts with Prozac which I started him on last time. 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 He is currently on methadone 15 b.i.d. and plans to taper off of that in May because he has noticed increasing requirements for narcotics as time goes on. His other medications that are relevant are cyclobenzaprine that he takes 10 mg three times a day and Cymbalta 60 in addition to the fluoxetine 40 and gabapentin 600 t.i.d. On this, he was reasonably stable. I offered to refill his Flexeril, but he will get that from his Lyme doctor. I was concerned about the fact that he is taking DHEA and testosterone supplements. The testosterone supplements were in response to hypogonadism that possibly is methadone related. In any case, the DHEA could make him hyperestrogenic and because of these supplements I had him measure serum testosterone and estradiol levels. Otherwise, I made no change in his medications because he is pretty much on the maximum amount of Prozac that he can take because he is getting a little jittery on it. I will follow up in June. documented in this encounter Miscellaneous Notes * Addendum Note - Shane Nevarez - 04/08/2014 3:48 PM ESTAddended by: SHANE NEVAREZ on: 04/08/2014 03:48 PM Modules accepted: Orders documented in this encounter Plan of Treatment Not on file documented as of this encounter Procedures Procedure Name Priority Date/Time Associated Diagnosis Comments ESTROGENS, FRACTIONATED Routine 04/08/2014 3:52 PM EST Chronic low back pain TESTOSTERONE, TOTAL Routine 04/08/2014 3 :52 PM EST Chronic low back pain documented in this encounter Results * (ABNORMAL) Estrogens, Fractionated (04/08/2014 3:52 PM EST) [facility] Estrone 21 10 - 60 pg/mL [facility] Comment: Test Performed by: [place] [address] Medical Billing Manager: Dane Murrieta M.D. Estradiol <10(L) 10 - 40 pg/mL [facility] Comment: Test Performed by: [place] [address] Medical Billing Manager: Dane Murrieta M.D. Blood specimen (specimen) 04/08/2014 3:52 PM EST 04/11/2014 8:45 AM EST Narrative Resulting Agency Comment Spec In Lab Natalio Willoughby MD CHEMISTRY ORDERABLES Performing Organization Address City/State/[facility] Co de Phone Number [facility] * (ABNORMAL) Testosterone, total (04/08/2014 3:52 PM EST) [facility] Testo Total 2.05(L) 2.80 - 8.00 ng/mL [facility] Comment: Reference Ranges: ? Males (7to18 years) [...] of Sebastián E170 Testosterone reagent package insert 11, V8 Stated pediatric reference ranges derived from review of Sebastián E170 Testosterone II reagent package insert 09/16, V2. Blood specimen (specimen) 04/08/2014 3:52 PM EST 04/08/2014 3:56 PM EST Narrative Resulting Agency Comment Spec In Lab Natalio Willoughby MD CHEMISTRY ORDERABLES CERNER MILLENNIUM documented in this encounter Visit Diagnoses Diagnosis Chronic low back pain Lumbago documented in this encounter Care Teams Staff Trainer Relationship Specialty Start Date End Date Alex Sotelo MD [facility] [address] [place] [address] PCP - General 09/30/13 07/31/16 documented as of this encounter
--- OUTSIDE RECORDS SUMMARY | 2023-09-30 01:42 | XMS_ITS | Encounter Summary ---
Author Organization [facility] [place] [address] Care Team Providers Care Cool Roofing Installer Name Role Phone Alex Sotelo MD Primary Care Provider [phone] Reason for Visit * Reason Onset Date Comments Other 10/26/2014 referrals Encounter Details Date Type Department Care Team (Late st Contact Info) Description 10/26/2014 Telephone [place] [id number] Aysha Jean Baptiste LPN Other (referrals) Social History Tobacco Use Types [...] Telephone Encounter - Meka Sharpe RN - 10/27/2014 2:12 PM EDT Joseluis returned call today. Discussed referral to ID to see Dr. Mcallister. Joseluis would really like to do that. Also discussed referral to neurology at [facility]. He definitely would like to do that as well. He wants Dr. Willoughby to know he is very grateful for his help. * Telephone Encounter - Aysha Jean Baptiste LPN - 10/26/2014 3:13 PM EDT Meka when you call Joseluis Dewey to suggest going to ID (Dr. Mcallister) also suggest this for theneurologist I promised ----- Message ----- From: Delaney Rick MD Sent: 10/17/2014 1:00 PM To: Natalio Willoughby MD Sure, that would be great! He works at [employer] ([facility]) in [place], [place] and his name is Jesús Huggins and his office number is [phone] -Delaney ----- Message ----- From: Natalio Willoughby MD Sent: 10/15/2014 3:12 PM To: Pravin Mcallister MD, MD Delaney Coffey I think this patient needs a full neurologic evaluation and he wants it at [facility] so I thought we should refer him to your .. He Probably at least needs an LP and MRI Called and spoke with Joseluis and relayed above information and he said he would like to call back tomorrow and speak about the ID doctor since he isn't understanding and the phone keep cutting in and out. But he would like a referral to the neurologist. Message forwarded to Dr. Rick. documented in this encounter Plan of Treatment Not on file documented as of this encounter Visit Diagnoses Not on filedocumented in this encounter Care Teams Cool Roofing Installer Relationship Specialty Start Date End Date Alex Sotelo MD [address] [address] PCP - General 09/30/13 07/31/16 documented as of this encounter
--- OUTSIDE RECORDS SUMMARY | 2023-09-30 01:42 | XMS_ITS | Encounter Summary ---
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 [address] [facility] [place] [address] [place] [address] Referral ID Status Reason Start Date Expiration Date V isits Requested Visits Authorized [id number] Closed Consult, Test & Treat 08/18/2015 08/17/2016 1 1 Reason for Visit * Consultation (Routine) - Closed Specialty Diagnoses / Procedures Referred By Contac t Referred To Contact Endocrinology Diagnoses Hypogonadism male Natalio Willoughby MD [facility] [place] [address] Leonard Cavazos MD [facility] [place] [address] Referral ID Status Reason Start Date Expiration Date V isits Requested Visits Authorized [id number] Closed Consult, Test & Treat 05/09/2015 05/08/2016 1 1 Encounter Details Date Type Department Care Team (Late st Contact Info) Description 08/18/2015 10:00 AM EDT Office [place] [address] Leonard Cavazos MD [facility] [place] [address] Adolescent idiopathic scoliosis of thoracic region; Other secondary kyphosis Social History Tobacco Use Types Packs/Day Years [...] Sign Reading Time Taken Comments Blood Pressure 136/68 08/18/2015 9:52 AM EDT Pulse 63 08/18/2015 9:52 AM EDT Temperature - - Respiratory Rate - - Oxygen Saturation - - Inhaled Oxygen Concentration - - Weight 73 kg (161 lb) 08/18/2015 9:52 AM EDT Height 170.2 cm (5' 7) 08/18/2015 9:52 AM EDT Body Mass Index 25.22 08/18/2015 9:52 AM EDT documented in this encounter Progress Notes * Leonard Cavazos MD - 08/18/2015 10:02 AM EDT Endocrinology Consultation Date of Visit: 08/18/15 Patient: Name:Joseluis Dewey : 1950 Reason for Consult: Joseluis Dewey is being seen in the clinic today at the request of Dr. DIAMANTE SOTELO MD for the evaluation of fatigue and underlying hypogonadism. Patient's previous record sim the lab results are reviewed. Performed by: Dr. Leonard Cavazos MD., PhD., FACE Patient ID: Joseluis Dewey is a 64 y.o. male. Phone note 08/14/15: Pt was here for new endocrine consultation but went to our lab first and then went back home! (entirely forgot about his visit and apologized for his mistake) He had memory issues and had something like this happened after he had Lyme disease. He wants to be rescheduled to see soon. Ok to add him into my schedule to see soon this 08/17 at 10am for new consult re: hypogonadism. Pt knows to come to [facility] and no need for lab any more. LEONARD CAVAZOS MD HPI Joseluis Dewey is a very pleasant 64 year old male who presents for evaluation of hypogonadims with the following problem list: Patient Active Problem List Diagnoses Code ??? Chronic low back pain 724.2AG ??? Leg pain 729.5H ??? Cervicalgia 723.1 ??? Chronic fatigue syndrome 780.71 ??? Fatigue 780.79B ??? Hypogonadism male 257.2AS He used to see us once on 11/19/10 for hypogonadism and missed follow-up. His endocrine lab results on testosterone cream were hown below: Results for JOSELUIS DEWEY ( ) Ref. Range 11/19/2010 14:09 11/19/2010 15:49 04/08/2014 15:52 07/10/2015 14:32 08/14/2015 10:00 Free T4 Range: 0.93 - 1.70 ng/dL 1.14 1.06 TSH 0.27 - 4.20 mcIU/mL 0.81 Estradiol Range: 10 - 40 pg/mL <10 (L) Estrone Range: 10 - 60 pg/mL 21 FSH Range: 1.5 - 12.4 mlU/ML 13.2 (H) 1.4 (L) LH Range: 1.7 - 8.6 mlU/ML 6.2 Prolactin Range: 4.0 - 15.2 ng/mL 2.7 (L) 7.8 Cortisol Latest Units: mcg/dL 8.8 31.9 DHEAS Range: 70 - 310 mcg/dL 167 SOMC 1 Range: 68 - 245 ng/mL 141 Testo Total Range: 2.80 - 8.00 ng/mL 2.05 (L) 0.89 (L) 0.67 (L) Testo Total Range: 250 - 1100 ng/dL 995 Testo Free Range: 35.0 - 155.0 pg/mL 153.2 ACTH Range: 7 - 50 pg/mL 18 He used to have Lyme disease for 15 yrs with residual neurological deficit (on ABx for 2 yrs) and preoccupied that lyme disease caused all his health issues. He used to have C3-5 surgery without success in 2004 but worsening pain and had to take methadone for 2 yrs and marijuana before he was foundto have low testosterone at 125 in 05/2009. He was started on testosterone patch and used it on and off for a while during Oct to Dec 2009, and stated that he has been using testosterone cream compound 0.5 gm daily from [place], as ordered by his Lyme/chronic disease doctor/specialist in [place]. 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 Apart from Lyme disease, he also had fibromyalgia and chronic pain, has been followed by an MD in [place], [place] who started him on anti-viral medication (XMRV, retrovirus) for a while in 2010- and then GCMAF injection for 1 yr followed by compound B12 injection low dose daily for 2 yrs with improvement and better immunity overall. He also has chronic anemia and has been taking iron supplement daily and still using compound testosterone cream over the scrotum daily with pretty normal rerection. He feels better from fatigue and notes that both methadone and marijuana help with his fatigue, chronic pain and better mood. He usedto take proscar for BPH in the past and then stopped it since 2011 with very low PSA (0.33 today). Still some urinary difficulty at age of almost 65 with poor stream and some frequency. Fatigue - Yes but better after all Rx Depression - Better Low libido - No, better on Rx Decreased energy - Sometimes Erectile dysfunction - better on Rx Poor sleeping pattern - Yes, better on Trazadone nightly with prozac 30 mg qd and cymbalta 30 mg qd Hot flashes/sweating - Yes, soaking wet in the morning sometimes Decreased muscle mass/weight gain-- No, lost wt and then gained back over the past 6-9 months. Testes >10 cc - Yes Small prostate - used to have BPH and then better, off proscar in 2011 Gynecomastia/galactorrhea or breast tenderness - No Loss of axillary, chest and genital hairs- Yes Anemia - yes but better with iron and vitamins PMH: Patient Active Problem List Diagnosis Code ??? Chronic low back pain M54.5, G89.29 ??? Leg pain M79.606 ??? Cervicalgia M54.2 ??? Chronic fatigue syndrome R53.82 ??? Fatigue R53.83 ??? Hypogonadism male E29.1 ??? Depression F32.9 Outpatient Meds: Current Outpatient Prescriptions on File Prior to Visit Medication Sig Dispense Refill ??? cyclobenzaprine (FLEXERIL) 5 mg Tablet Take 5 mg by mouth as needed for Muscle spasms. ??? traZODone (DESYREL) 50 mg Tablet Take 1 to 2 tablets by mouth at bedtime 60 tablet 3 ??? methadone (DOLOPHINE) 100 mg/10 mL Concentrate Take 20 mg by mouth 2 times daily. ??? FLUoxetine (PROZAC) 20 mg Capsule Take 3 capsules by mouth daily. (Patient taking differently: Take 20 mg by mouth daily.) 90 capsule 5 ??? DULoxetine (CYMBALTA) 30 mg Capsule, Delayed Release(E.C.) Take 30 mg by mouth daily. ??? gabapentin (NEURONTIN) 600 mg tablet daily. ??? lidocaine (LIDODERM) 5 %(700 mg/patch) ??? famciclovir (FAMVIR) 500 mg tablet Take 500 mg by mouth daily. ??? Cholecalciferol, Vitamin D3, (VITAMIN D-3) 5,000 unit Tab Take 1 tablet by mouth 2 times daily. ??? MV-MN/FA/LYCOPENE/LUT/HB#178 (FREDRICK MULTIVITAMIN FOR MEN ORAL) Take 1 tablet by mouth daily. ??? ASCORBATE CALCIUM (VITAMIN C ORAL) Take 1,800 mg by mouth See Admin Instructions. 1-2 TIMES DAILY ??? Selenium 100 mcg Cap Take 1 capsule by mouth nightly. ??? b complex vitamins (VITAMIN B COMPLEX) capsule Take 1 capsule by mouth See Admin Instructions. 1-2 daily of the timed release ??? Prasterone, DHEA, (DHEA) 25 mg Tab Take 1 tablet by mouth daily. ??? FERROUS FUMARATE/ASCORBIC ACID (VITRON-C ORAL) Take 1 tablet by mouth See Admin Instructions. as directed ??? Testosterone 50 mg/5 gram (1 %) Gel Place onto the skin See Admin Instructions. apply 0.5 GM 1-2 times daily No current facility-administered medications on file prior to visit. Allergy: Allergies Allergen Reactions ??? Ciprofloxacin Rash and Other (See Comments) fever ??? Sulfa (Sulfonamide Antibiotics) Rash History Social History ??? Marital status: Spouse name: N/A ??? Number of children: 2 ??? 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 Smoking status: Former Smoker Quit date: 11/19/2005 ??? Smokeless tobacco: Not on file ??? Alcohol use: No Comment: Denies DUI or DWI ??? Drug use: No ??? Sexual activity: Not on file Other Topics Concern ??? Not on file Social History Narrative OPIOID HISTORY Methadone affected LEA Relationship with Dr Mayer deteriorated which he states was precipitated by neurologic sx Took more medications then prescribed secondary to flares Urine toxicology was inconsistent in [address] Mayer and had a prescription for methadone [facility] pain clinic and was switched to morphine because of testosterone level and took a previous prescription methadone because of BTP and was tested again and was positive with decrease levels [place] [facility] received suboxone and helped pain Family History: HTN, Chol, CAD s/p CABG (mother & brother), CVA (mother) sqamous cell in father Lymphoma in sister Goiter in mother Crohn's in sister Objective: Physical Exam BP 136/68 Pulse 63 Ht 170.2 cm (5' 7) Wt 73 kg (161 lb) BMI 25.22 kg/m2 Appearance: Patient is very pleasant 64 y.o. years old male, non-obese, clinically euthyroid, not in acute distress Skin - normal male hair distribution, normal in texture and temperature, no abnormal striae or ecchymosis. HEENT - PERRLA, EOMI, no lid lag or exophthalmos. Normal visual duran on confrontation. Neck - supple, no goiter or nodule, no lymphadenopathy, no carotid bruit Chest - No gynecomastia, normal chest expansion, no crackles or wheeze Heart - regular rhythm, normal apical impulse, normal S1, S2 and no murmur Abdomen - soft, non-tender, no hepatosplenomegaly. Normal testicular size Extremities - no pitting edema, normal distal pulses, no proximal muscle weakness, reflexes were slightly depressed all. Recent lab: Ref. Range 08/14/2015 10:00 PSA Total Latest Ref Range: 0.00 - 4.00 ng/mL 0.33 Free T4 Latest Ref Range: 0.93 - 1.70 ng/dL 1.06 FSH Latest Ref Range: 1.5 - 12.4 mlU/ML 1.4 (L) Prolactin Latest Ref Range: 4.0 - 15.2 ng/mL 7.8 Testo Total Latest Ref Range: 2.80 - 8.00 ng/mL 0.67 (L) Assessment: Joseluis Dewey is a 64 year old male with hypogonadism, most likely due to central cause from chronic narcotic use and empty sellar syndrome (other pituitary hormonal profile was normal in 2000. Farrah had h/o unilateral epididymectomy, bilateral vasectomy and hydrocele surgery in 1986 and used p roscar (finasteride) for a while until 2011 for his BPH. Despite using testosterone cream, his testosterone levels were low as shown above but he admitted missing sometime with his memory issue and he feels ok and better from chronic fatigue, depression and anemia (after taking iron and vitamins). He used to have labs showed very low DHEAS but there is no evidence of adrenal insufficiency with normal ACTH, cortisol and good ACTH stimulation test (cortisol up from 8.8 to 31.9 on 11/19/10). His MRI pituitary (10/26/09, outside) showed empty sella with pituitary tissue seen at the bottom ofthe sella without any mass. Labs showed no evidence of other pituitary dysfunction apart from central hypogonadism. He is already on testosterone replacement (compound cream made in [place]) and we justchecked his testosterone levels as well as PSA as above. He has chronic pain after cervical fusion and also having scoliosis and sciatica on chronic methadone and marijuanna. He wants to see our Spine [facility] specialist here for his spinal issues and will help with the referral today. Recommendation: 1. Medication: Patient prefers to continue testosterone cream 0.5 grams/day and DHEA supplement further and will make sure that he will not miss testosterone Rx as his levels are low. No side effectsof H/H or PSA and he feels ok on the current medications. As he is better from BPH with low PSA 0.2-0.3 range, there is no need to resume proscar which will negate testosterone. To cont healthy diet and exercise as tolerated to keep stable wt further. 2. Lab: already checked lab as above. 3. RTC: Next visit in 12 months or sooner as indicated by test results. Will check labs for Total and free testosterone, PSA, CBC at the time (quick-draw lab so we know the result right away at visit). 4. Refer him to our Spine center at his request for scoliosis with sciatica R>L and h/o cervicalspine fusion at C5-7 in 2004 We have reviewed our plan outlined above with the patient and patient verbalized understanding and is agreeable with this management. All questions were answered and most of the time was spent on counseling about pertinent medical conditions, medications adjustment including pros and cons of starting medication if indicated, the diagnostic and therapeutic decisions, and coordination of care. Thank you for allowing me to participate in the care of this very pleasant and interesting patient. 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
--- OUTSIDE RECORDS SUMMARY | 2023-09-30 01:42 | XMS_ITS | Encounter Summary ---
Author Organization [facility] [place] [address] Care Team Providers Care Paper Rewinder Operator Name Role Phone Alex Sotelo MD Primary Care Provider [phone] Reason for Visit * Reason Comments Follow-up Encounter Details Date Type Department Care Team (Late st Contact Info) Description 10/29/2013 3:00 PM EDT Follow-[place] [address] Natalio Willoughby MD [facility] [place] [address] Fatigue; Chronic fatigue syndrome Discharge Disposition: Home Social [...] Sign Reading Time Taken Comments Blood Pressure 141/66 10/29/2013 3:11 PM EDT Pulse 73 10/29/2013 3:11 PM EDT Temperature - - Respiratory Rate 16 10/29/2013 3:11 PM EDT Oxygen Saturation - - Inhaled Oxygen Concentration - - Weight 59.9 kg (132 lb) 10/29/2013 3:11 PM EDT Height 170.2 cm (5' 7) 10/29/2013 3:11 PM EDT Body Mass Index 20.67 10/29/2013 3:11 PM EDT documented in this encounter Progress Notes * Natalio Willoughby MD - 10/29/2013 3:27 PM EDT The patient is a 63-year-old male with a history of chronic Lyme disease, Babesia, ehrlichiosis, all based on laboratory data from labs that we do not use as reference labs, for which he is on multiple medications including azithromycin, atovaquone, doxycycline, and a number of vitamins and minerals. He is also on testosterone, DHEA, Flexeril, gabapentin, and Cymbalta for pain. Overall, he is doing terrible. He was tearful in the room. He gets to sleep around 2 a.m. He sleeps may be to 6 a.m. He wakes up crying and his was in tears in the room at the same time. His exam is really unremarkable. Today, I prescribed him Prozac 20 mg a day, and got a commitment that he is not suicidal. I will follow up in six weeks and I told him he could stay on all the other medicines that he is on, which in the future I hope to be able to taper. documented in this encounter Plan of Treatment Not on file documented as of this encounter Visit Diagnoses Diagnosis Fatigue Other malaise and fatigue Chronic fatigue syndrome documented in this encounter Care Teams Paper Rewinder Operator Relationship Specialty Start Date End Date Alex Sotelo MD [address] [address] PCP - General 09/30/13 07/31/16 documented as of this encounter
--- OUTSIDE RECORDS SUMMARY | 2023-09-30 01:42 | XMS_ITS | Encounter Summary ---
Author Organization [place] [address] Care Team Providers Care Outreach Rep Name Role Phone Alex Sotelo MD Primary Care Provider [phone] Reason for Referral * MRI/CAT Scan (Routine) - Closed Specialty Diagnoses / Procedures Referred By Contac t Referred To Contact Radiology Diagnoses Cognitive and behavioral changes Procedures MRI Brain With/WO Contrast Natalio Willoughby MD [facility] [place] [address] [place] [address] Referral ID Status Reason Start Date Expiration Date Visits Re quested Visits Authorized [id number] Closed 12/15/2014 02/12/2015 1 1 Reason for Visit * MRI/CAT Scan (Routine) - Closed Specialty Diagnoses / Procedures Referred By Contac t Referred To Contact Radiology Diagnoses Cognitive and behavioral changes Procedures MRI Brain With/WO Contrast Natalio Willoughby MD [facility] [place] [address] [place] [address] Referral ID Status Reason Start Date Expiration Date Visits Re quested Visits Authorized [id number] Closed 12/15/2014 02/12/2015 1 1 Encounter Details Date Type Department Care Team (Latest Contact Info) Description 12/15/2014 1:20 PM EDT - 12/15/2014 11:59 PM EDT Hospital Encounter MRI at [facility] [place] [address] Natalio Willoughby MD [facility] [address] [place] [address] Cognitive and behavioral changes Discharge Disposition: Home Social History Tobacco Use [...] %) Gel traZODone (DESYREL) 50 mg Tablet Take by mouth 1-2 tablets at bedtime 60 tablet 3 08/30/2014 02/20/2015 FLUoxetine (PROZAC) 20 mg CapsuleIndications:Lining Closer katharina fatigue syndrome Take 3 capsules by mouth daily. 90 capsule 5 01/11/2014 01/09/2015 atovaquone (MEPRON) 750 mg/5 mL suspension Takes 2 TBSP daily 09/21/201303/2015 doxycycline (VIBRAMYCIN) 100 mg capsule Twice daily. 09/01/2013 04/10/2015 ACETYLCARNITINE HCL (ACETYL L-CARNITINE ORAL) Take 400 mg by mouth See Admin Instructions. 3-4 times daily 04/10/2015 CALCIUM CARB/VIT D3/MAG11/ZINC (CALCIUM CARB-D3-MAG DSI67-NHIM ORAL) Take 1 tablet by mouth See Admin Instructions. 1-3 TIMES DAILY 04/10/2015 Prasterone, DHEA, (DHEA) 25 mg Tab Take 1 tablet by mouth daily. Reported on 04/25/2016 04/25/2016 FERROUS FUMARATE/ASCORBIC ACID (VITRON-C ORAL) Take 1 tablet by mouth See Admin Instructions. as directed 11/21/2016 documented as of this encounter Plan of Treatment Not on file documented as of this encounter Procedures Procedure Name Priority Date/Time Associated Diagnosis Comments MRI BRAIN WWO CONTRAST (GENERIC) Routine 12/15/2014 2:44 PM EDT Cognitive and behavioral changes documented in this encounter Results * MRI Brain With/WO Contrast (12/15/2014 2:44 PM EDT) Anatomical Region Laterality Modality Head Magnetic Resonan ce Impressions 12/15/2014 4:01 PM EDT IMPRESSION: 1. ??No evidence for encephalitis or abnormal cranial nerve enhancement. 2. ??Several scattered nonspecific enhancing foci of white matter signal alteration likely reflecting the sequela of chronic microvascular ischemic disease. Narrative 12/15/2014 4:01 PM EDT EXAMINATION: MRI BRAIN WWO CONTRAST CLINICAL HISTORY: cognitive defects concerned about lyme encephalopathy TECHNIQUE: Routine MRI of the brain was performed before and after the administration of 6 mL Gadavist COMPARISON: None FINDINGS: There are a few scattered foci of subcortical and periventricular T2 prolongation which are nonspecific and may reflect the sequela of chronic microvascular ischemic disease. ??Mild generalized volume loss with prominence of the bifrontal extra-axial spaces. The ventricles are normal in caliber and morphology. No mass effect, midline shift or extra-axial collection. No evidence for recent infarction or abnormal parenchymal or cranial nerve enhancement. The midline sagittal structures are normal in appearance. Regional bone marrow demonstrates no evidence for aggressive marrow replacing process. Mild paranasal sinus mucosal thickening. The mastoid air cells are clear. ??The orbits are normal in appearance. ??Major intracranial vascular flow voids are normal. Procedure Note Shelli Morris MD - 12/15/2014 EXAMINATION: MRI BRAIN WWO CONTRAST CLINICAL HISTORY: cognitive defects concerned about lyme encephalopathy TECHNIQUE: Routine MRI of the brain was performed before and after the administration of 6 mL Gadavist COMPARISON: None FINDINGS: There are a few scattered foci of subcortical andperiventricular T2 prolongation which are nonspecific and may reflect the sequela ofchronic microvascular ischemic disease. Mild generalized volume loss withprominence of the bifrontal extra-axial spaces. The ventricles are normal in caliberand morphology. No mass effect, midline shift or extra-axial collection. Noevidence for recent infarction or abnormal parenchymal or cranial nerveenhancement. The midline sagittal structures are normal in appearance. Regional bonemarrow demonstrates no evidence for aggressive marrow replacing process. Mildparanasal sinus mucosal thickening. The mastoid air cells are clear. The orbitsare normal in appearance. Major intracranial vascular flow voids arenormal. IMPRESSION IMPRESSION: 1. No evidence for encephalitis or abnormal cranial nerve enhancement. 2. Several scattered nonspecific enhancing foci of white matter signal alteration likely reflecting the sequela of chronic microvascularischemic disease. Natalio Willoughby MD IMG MRI ORDERABLES documented in this encounter Visit Diagnoses Diagnosis Cognitive and behavioral changes Other signs and symptoms involving cognition documented in this encounter Administered Medications Inactive Administered Medications - up to 3 most recent administrations Medication Order MAR Action Action Date Dose Rate Site gadobutrol (GADAVIST) 1 mMol/mL injection 6.35 mL 6.35 mL (0.1 mL/kg/dose ? 63.5 kg Order-specific weight), Intravenous, ONCE PRN, 1 dose, Starting on Nely 12/15/14 at 1413, Until Nely 12/15/14 at 1434, Per Protocol, Routine Given 12/15/2014 2:34 PM EDT 6 mLs documented in this encounter Care Teams Outreach Rep Relationship Specialty Start Date End Date Alex Sotelo MD [facility] [address] [place] [address] PCP - General 09/30/13 07/31/16 documented as of this encounter
--- OUTSIDE RECORDS SUMMARY | 2023-09-30 01:42 | XMS_ITS | Encounter Summary ---
Author Organization [facility] [place] [address] Care Team Providers Care Financial Foundations Associate Name Role Phone Alex Sotelo MD Primary Care Provider Reason for Visit * Reason Comments Medication Refill Encounter Details Date Type Department Care Team (Late st Contact Info) Description 05/25/2015 [place] [address] Natalio Willoughby MD [facility] [place] [address] Social History Tobacco Use Types Packs/Day Years [...] on filedocumented in this encounter Care Teams Financial Foundations Associate Relationship Specialty Start Date End Date Alex Sotelo MD [facility] [address] [place] [address] PCP - General 09/30/13 07/31/16 documented as of this encounter
--- OUTSIDE RECORDS SUMMARY | 2023-09-30 01:42 | XMS_ITS | Encounter Summary ---
Author Organization [facility] [place] [address] Care Team Providers Care Client Solutions Director Name Role Phone Alex Sotelo MD Primary Care Provider Encounter Details Date Type Department Care Team (Late st Contact Info) Description 07/24/2015 Orders [place] [address] Natalio Willoughby MD [facility] [place] [address] Medication monitoring encounter (Primary Dx) Social History Tobacco Use Types [...] as of this encounter Visit Diagnoses Diagnosis Medication monitoring encounter- Primary Encounter for therapeutic drug monitoring documented in this encounter Care Teams Client Solutions Director Relationship Specialty Start Date End Date Alex Sotelo MD [address] [address] PCP - General 09/30/13 07/31/16 documented as of this encounter
--- OUTSIDE RECORDS SUMMARY | 2023-09-30 01:42 | XMS_ITS | Encounter Summary ---
Author Organization [facility] [place] [address] Care Team Providers Care Service Car Driver Name Role Phone Alex Sotelo MD Primary Care Provider [phone] Reason for Visit * Reason Comments Follow-up Encounter Details Date Type Department Care Team (Late st Contact Info) Description 10/12/2015 1:30 PM EDT Office [place] [address] Natalio Willoughby MD [facility] [place] [address] Mild single current episode of major depressive [...] Sign Reading Time Taken Comments Blood Pressure 143/72 10/12/2015 1:21 PM EDT Pulse 67 10/12/2015 1:21 PM EDT Temperature 37.2 ??C (99 ??F) 10/12/2015 1:21 PM EDT Respiratory Rate - - Oxygen Saturation 95% 10/12/2015 1:21 PM EDT Inhaled Oxygen Concentration - - Weight 72.1 kg (159 lb) 10/12/2015 1:21 PM EDT Height 170.2 cm (5' 7) 10/12/2015 1:21 PM EDT Body Mass Index 24.9 10/12/2015 1:21 PM EDT documented in this encounter Progress Notes * Natalio Willoughby MD - 10/12/2015 1:30 PM EDT The patient is a 65-year-old male with a long history of chronic Lyme disease, obesity, ehrlichiosis, depression, OCD, and an anxiety disorder. He has T2 hyperintense lesions and some volume loss on brain MRI, that really has not been wholly explained, although is probably consistent with age. I sent him for neurocognitive testing, that did not get done, and he continues to use complementary and alternative therapy, including prayer and healing. At one point he thought he had thoracic outlet syndrome or a syrinx or transverse myelitis, none of which panned out on further testing. Today he thought he had chronic Lyme disease and adrenal insufficiency, but his Lyme test is negative and his adrenal tests done several years ago showed an appropriate cosyntropin stimulation test. 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 Most of his pain is paravertebral, consistent with fibromyalgia, and he has an appointment to the spine center on 10/15 for recommendations for his back pain to try and help him get off of methadone. Currently he is taking 20 mg twice daily. I actually think he would be a good candidate for the Margarita protocol. His current medications are: 1. Vitamin B. 2. Calcium. 3. Cymbalta, he only takes 30, had been advised 120, but in conjunction with Prozac he needs a smaller dose. 4. Famvir. 5. Prozac 20. 6. Gabapentin. He takes 600 or 1200 a day. 7. DHEA 25 daily (which probably is not enough). 8. Testosterone; I do not know the dose since he does it [id number]. 9. Trazodone 50 or 100 nightly. On exam, he is healthy appearing, comes with a large array of papers, notes, and lists, that he consistently refers to. His blood pressure is 143/72, pulse is 67, pulse oximetry of 95, temperature of 99, height of 67 inches, weight is pretty stable at 159. He has fibromyalgia tender points. No active synovitis. Laboratory data includes a normal TSH and a low testosterone. His ACTH level is normal, however. We will adjust his testosterone replacement based on the level. He is going to see his primary care doctor, Dr. Sotelo, in [place] to adjust his methadone, but I am hoping that with appropriate intervention from the spine center, he will be have less of a requirement for methadone, which undoubtedly is the cause of his hypogonadism. I will follow up in 3 months. documented in this encounter Plan of Treatment Not on file documented as of this encounter Procedures Procedure Name Priority Date/Time Associated Diagnosis Comments TESTOSTERONE, TOTAL AND FREE Routine 10/12/2015 2:12 PM EDT Mild single current episode of major depressive disorder documented in this encounter Results * (ABNORMAL) Testosterone, total and free (10/12/2015 2:12 PM EDT) [facility] Testo Total 55(L) 250 - 1100 ng/dL [facility] Comment: Men with clinically significant hypogonadal symptoms and testosterone values repeatedly in the range of the 200-300 ng/dL or less, may benefit from testosterone treatment after adequate risk and benefits counseling. For more information on this test, go to http://education.Priori Data.nWay/faq/ TotalTestosteroneLCMSMS Testo Free 6.2(L) 35.0 - 155.0 pg/mL [facility] Comment: Test Performed by [facility], [facility], [address] [place] [id number] Tip Wylie M.D., Ph.D., Director of Laboratories , CLIA [id number] Blood specimen (specimen) 10/12/2015 2:12 PM EDT 10/12/2015 3:03 PM EDT Narrative Resulting Agency Comment Spec In Lab Natalio Willoughby MD CHEMISTRY ORDERABLES [facility] [place] [address] documented in this encounter Visit Diagnoses Diagnosis Mild single current episode of major depressive disorder documented in this encounter Care Teams Service Car Driver Relationship Specialty Start Date End Date Alex Sotelo MD [facility] [address] [place] [address] PCP - General 09/30/13 07/31/16 documented as of this encounter
--- OUTSIDE RECORDS SUMMARY | 2023-09-30 01:42 | XMS_ITS | Encounter Summary ---
Author Organization [facility] [place] [address] Care Team Providers Care Network Admin Name Role Phone Alex Sotelo MD Primary Care Provider Reason for Visit * Reason Comments Medication Refill Encounter Details Date Type Department Care Team (Late st Contact Info) Description 04/25/2015 Ref[place] [address] Natalio Willoughby MD [facility] DR [place] [address] Social History Tobacco Use Types Packs/Day Years [...] on filedocumented in this encounter Care Teams Network Admin Relationship Specialty Start Date End Date Alex Sotelo MD [facility] [address] [place] [address] PCP - General 09/30/13 07/31/16 documented as of this encounter
--- OUTSIDE RECORDS SUMMARY | 2023-09-30 01:42 | XMS_ITS | Encounter Summary ---
[place] [address] Care Team Providers Care Enrichment Teacher Name Role Phone Jayde Cabrera MD Primary Care Provider [phone] Reason for Referral * Consultation (Routine) - Closed Specialty Diagnoses / Procedures Referred By Contbrittany t Referred To Contact Endocrinology Diagnoses Chronic fatigue syndrome Myra Hinton MD [facility] [place] [address] [facility] [address] [place] [id number] Referral ID Status Reason Start Date Expiration Date V isits Requested Visits Authorized [id number] Closed Specialty Service Requested 10/26/2010 04/24/2011 1 1 Reason for Visit * Reason Comments Other MRI f/u Encounter Details Date Type Department Care Team (Late st Contact Info) Description 10/26/2010 11:45 AM EDT Follow[place] [phone] Myra Hinton MD [facility] [place] [address] Chronic fatigue syndrome (Primary Dx); Cervicalgia; Leg pain; Chronic low back pain Discharge Disposition: Home Social History Tobacco Use Types Packs/Day Years Used Date Smoking Tobacco: Former Alcohol Use Standard Drinks/Week Comments No 0 (1 standard drink = 0.6 oz pur e alcohol) Denies DUI or DWI Sex and Gender Information Value Date Recorded Sex Assigned at Not on file Gender Identity Not on file Sexual Orientation Not on file documented as of this encounter Last Filed Vital Signs Vital Sign Reading Time Taken Comments Blood Pressure 134/79 10/26/2010 11:56 AM EDT Pulse 91 10/26/2010 11:56 AM EDT Temperature - - Respiratory Rate - - Oxygen Saturation 96% 10/26/2010 11:56 AM EDT Inhaled Oxygen Concentration - - Weight 79.4 kg (175 lb) 10/26/2010 11:56 AM EDT Height 170.2 cm (5' 7) 10/26/2010 11:56 AM EDT Body Mass Index 27.41 10/26/2010 11:56 AM EDT documented in this encounter Progress Notes * Myra Hinton MD - 10/26/2010 12:38 PM EDT Primary Care Physician: Dr Jayde Cabrera Chief Complaint: Chronic pain History of Present Illness: Mr. Dewey is a 60-year-old gentleman with a history of cervicalgia and chronic low back pain. He has [facility] by Dr. Etienne most recently in April 2007 and by me in 2008. Complains of fatigue, sexual dysfunction, questions endocrine dysfunction including GH deficiency and vasopressin and states he has a history of a possible pituitary issue. Cervicalgia H/o of anterior cervical fusion, C5 through C7, in 2004 with continued cervical spine pain, most notably pain in the left paraspinal region and into the left trapezius, which he describes as trigger points. He does have pain that radiates into his upper extremity, when he sits for more than a half an hour. He does have numbness. He does not have weakness. Low Back pain He also has a history of chronic low back pain, which he says is centered in his low back, and it does not radiate into his lower extremity. Since March 2010 began to have pain which is in the buttock and to the knee, overwhelming. Some numbness at the base of the spine and weakness limited by pain. Chronic Fatigue Syndrome and FM and diagnosed with a blood test by Dr Mayer Widespread myalgias, hip bursitis, fatigue. XRMT is pain flares Current meds Cymbalta Clonazepam for sleep testesterone Oxycodone 20mg 4xday--> Rx by Dr Sotelo his CFS doctor Limitations Not active, home bound Treatments CMBB and RF--> no benefit at all PT--> increased pain Acupuncture--> helped Psychology, CBT--> helped Vioxx--> helped Neurontin--> memory Tramadol did not help NSAIDS--> caused ulcers Celebrex--> ulcer Never had epidurals, Lyrica Imaging He has had MRIs of his cervical and lumbar spine, and most recently the cervical MRI from April 15, 2008, showed a prior anterior fusion of C5 through C7, advanced degenerative disk disease at C4-C5 with disk space narrowing and a posterior protruding disk osteophyte complex, degenerative changesat C5-C6 more on the right than on the left, and at C6-C7 more on the left than on the right, and these were unchanged from the study in 2007. MRI 2007 Lateral disc protrusion at L3-4 on the left MRI 10/2010 Lumbar and Cervical Mild disk bulge at L3-L4 and L4-L5, as described above. Film and interpretation reviewed by the attending Advanced disc degenerative change at C3-C4 and C4-C5 with mild narrowing of the central canal at C3-C4, new from the prior examination. ROS As in hpi o/w negative Current outpatient prescriptions Medication Sig Dispense Refill ??? DULoxetine (CYMBALTA) 60 mg capsule Take 60 mg by mouth daily. ??? OXYcodone 20 mg Tab Take 20 mg by mouth 4 times daily. ??? valGANCiclovir (VALCYTE) 450 mg tablet Take 900 mg by mouth daily. ??? famciclovir (FAMVIR) 500 mg tablet Take 500 mg by mouth 2 times daily. ??? clonAZEpam (KLONOPIN) 1 mg tablet Take 1 mg by mouth nightly. ??? cyclobenzaprine (FLEXERIL) 10 mg tablet Take 10 mg by mouth as needed. ??? Cholecalciferol, Vitamin D3, (VITAMIN D-3) 5,000 unit Tab Take 1 tablet by mouth 2 times daily. ??? ACETYLCARNITINE HCL (ACETYL L-CARNITINE ORAL) Take 400 mg by mouth See Admin Instructions. 3-4 times daily ??? NADH, BULK, MISC 20 mg by Misc.(Non-Drug; Combo Route) route daily. ??? krill znh-gmkbf-9-dha-epa 300-90 (27-45) mg Cap Take 1 capsule by mouth daily. ??? MV-MN/FA/LYCOPENE/LUT/HB#178 (FREDRICK MULTIVITAMIN FOR MEN ORAL) Take 1 tablet by mouth daily. ??? ASCORBATE CALCIUM (VITAMIN C ORAL) Take 1,800 mg by mouth See Admin Instructions. 1-2 TIMES DAILY ??? CALCIUM CARB/VIT D3/MAG11/ZINC (CALCIUM CARB-D3-MAG [id number] ORAL) Take 1 tablet by mouth SeeAdmin Instructions. 1-3 TIMES DAILY ??? Selenium 100 mcg Cap Take 1 capsule by mouth nightly. ??? b complex vitamins (VITAMIN B COMPLEX) capsule Take 1 capsule by mouth See Admin Instructions. 1-2 daily of the timed release ??? Coenzyme Q10 (CO Q-10) 200 mg Cap Take 1 capsule by mouth See Admin Instructions. 3-4 times daily ? ? AMINO AC/WHEY PROT CON & ISOL (WHEY PROTEIN ORAL) Take by mouth See Admin Instructions. 2-3times per week ??? Prasterone, DHEA, (DHEA) 25 mg Tab Take 1 tablet by mouth daily. ??? FERROUS FUMARATE/ASCORBIC ACID (VITRON-C ORAL) Take 1 tablet by mouth See Admin Instructions. as directed ??? Testosterone 50 mg/5 gram (1 %) Gel Place onto the skin See Admin Instructions. apply 0.5 GM 1-2 times daily ??? FE/VIT B COMP/B12/LIVER/PROC ([id number]) Inj Inject 0.2 mLs into the muscle daily. ??? finasteride (PROSCAR) 5 mg tablet 5mg, PO, Once daily Allergies Allergen Reactions ??? Ciprofloxacin Rash and Other (See Comments) fever ??? Sulfa (Sulfonamide Antibiotics) Rash Past Medical History Diagnosis Date ??? Asthma Childhood ??? Fibromyalgia ??? Depression depression going back to at least 1992 at the time of several family deaths, controlled ??? Prostatitis, chronic ??? Chronic pain ??? Chronic fatigue syndrome ??? Opioid dependence, continuous Past Surgical History Procedure Date ??? Knee surgery left ??? Cervical fusion anterior ??? Vasectomy History Social History ??? Marital Status: Spouse Name: N/A Number of Children: 2 ??? 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 Smoking status: Former Smoker ??? Smokeless tobacco: Not on file ??? Alcohol Use: No Denies DUI or DWI ??? Drug Use: No ??? Sexually Active: Not on file Other Topics Concern ??? Not on file Social History Narrative OPIOID HISTORYMethadone affected OSARelationship with Dr Mayer deteriorated which he states wasprecipitated by neurologic sxTook more medications then prescribed secondary to flaresUrine toxicology was inconsistent in [address] Mayer and had a prescription for methadone Rx by pain clinic and was switched to morphine because of testosterone level and took a previous prescription methadone because of BTP and was tested again and was positive with decrease [facility] received suboxone and helped pain Family History Problem Relation Age of Onset ??? Coronary Art Dis Other ??? Cancer Other Physical Exam: Filed Vitals: 10/26/10 1156 BP: 134/79 Pulse: 91 He is pleasant, polite, cooperative, and in no acute distress. His speech is directed toward his viral disease and difficult for him to focus away from this diagnosis. He has normal gait and stance. Normal balance. Normal range of motion of the cervical and lumbar spine. Strength globally intact. Appears comfortable. Assessment: 1. Chronic low back pain and leg pain 2. Chronic cervical pain. 3. Fibromyalgia. 4. Depression. 5. Opioid dependence Discussed lumbar and cervical MRI, lumbar MRI without significant pathology, cervical spine with multilevel arthritic changes. He is a candidate for SUNSHINE. In regards to his fibromyalgia, opioids are not the mainstay of treatment, but the patient says that the oxycodone does help with his spinal and muscle pain. In regards to fibromyalgia, I would continue with the cognitive behavioral therapy. In addition, consider Lyrica. I would continue on Cymbalta. It is beneficial to do a gentle therapy program and I talked to him about pool therapy, which he is not interested in at this time; but he states that he remains active by going in his [address] disks. It is my opinion that his primary care physician is treating his fibromyalgia appropriately in regards to being on anticonvulsants, antidepressants, cognitive behavioral therapy, and active program. There is also a concern about his opioid, he is a high risk patient based upon his previous historyand I discussed with the patient that we do not prescribe fpc in the pain clinic based upon availability. I discussed the limited efficacy of opioids and we discussed its ineffectiveness with previous treatm,ents. Mr Dewey feels his QOL is improved with the medications, but I am concerned the risk outweighs the benefit in his case. I have not provided him with any opioid prescriptions. Endocrinology referral provided for omplaints of fatigue, sexual dysfunction, questions endocrine dysfunction including GH deficiency and vasopressin and states he has a history of a possible pituitary issue. documented in this encounter Plan of Treatment Scheduled Referrals Name Type Priority Associated Diagnoses Order Schedule REFERRAL TO ENDOCRINOLOGY Outpatient Referral Routine Chronic fatigue syndrome Ordered: 10/26/2010 documented as of this encounter Visit Diagnoses Diagnosis Chronic fatigue syndrome- Primary Cervicalgia Leg pain Pain in limb Chronic low back pain Lumbago documented in this encounter Care Teams Enrichment Teacher Relationship Specialty Start Date End Date Jayde Cabrera MD [address] [place] [address] PCP - General 10/09/10 09/29/13 documented as of this encounter
--- OUTSIDE RECORDS SUMMARY | 2023-09-30 01:42 | XMS_ITS | Encounter Summary ---
Author Organization [facility] [place] [address] Care Team Providers Care Manager Research And Development Name Role Phone Alex Sotelo MD Primary Care Provider [phone] Reason for Visit * Reason Onset Date Comments Medication Refill 01/11/2014 Encounter Details Date Type Department Care Team (Late st Contact Info) Description 01/11/2014 [place] [address] Natalio Willoughby MD [facility] [place] [address] Chronic fatigue syndrome (Primary Dx) Social History Tobacco Use Types [...] Visit Diagnoses Diagnosis Chronic fatigue syndrome- Primary documented in this encounter Care Teams Manager Research And Development Relationship Specialty Start Date End Date Alex Sotelo MD [address] [address] PCP - General 09/30/13 07/31/16 documented as of this encounter
--- OUTSIDE RECORDS SUMMARY | 2023-09-30 01:42 | XMS_ITS | Encounter Summary ---
Author Organization [facility] [place] [address] Care Team Providers Care Network Liaison Name Role Phone Alex Sotelo MD Primary Care Provider [phone] Reason for Visit * Reason Onset Date Comments Other 08/29/2014 insomnia Encounter Details Date Type Department Care Team (Late st Contact Info) Description 08/29/2014 [place] [phone] Meka Sharpe RN Other (insomnia) Social History Tobacco Use Types Packs/Day Years [...] Telephone Encounter - Meka Sharpe RN - 08/29/2014 1:49 PM EDT Joseluis called and left message that he has not slept for several weeks. He would like to know if Dr. Willoughby will order trazodone for him. He says his pcp is on vacation and his nurse recommended that to him. documented in this encounter Plan of Treatment Not on file documented as of this encounter Visit Diagnoses Not on filedocumented in this encounter Care Teams Network Liaison Relationship Specialty Start Date End Date Alex Sotelo MD [facility] [address] [place] [address] PCP - General 09/30/13 07/31/16 documented as of this encounter
--- OUTSIDE RECORDS SUMMARY | 2023-09-30 01:42 | XMS_ITS | Encounter Summary ---
Author Organization [facility] [place] [address] Care Team Providers Care Machine Stripper Name Role Phone Alex Sotelo MD Primary Care Provider [phone] Encounter Details Date Type Department Care Team (Late st Contact Info) Description 11/01/2013 [place] [phone] Aysha Jean Baptiste LPN Social History Tobacco Use Types Packs/Day [...] encounter Miscellaneous Notes * Telephone Encounter - Aysha Jean Baptiste LPN - 11/01/2013 2:41 PM EDT I am not getting anywhere with him. He is profoundly depressed and doesn't have lyme disease. I won't treat him for lyme and if that is what he wants he will need to go elsewhere. BTW he is already on a bunch of antibiotics from a lyme doctor ----- Message ----- Called an L/M to return a call. * Telephone Encounter - Aysha Jean Baptiste LPN - 11/01/2013 10:14 AM EDT This filing writer was paged from the marketing secretary office stating that the pt is refusing to leave a message and wants to speak to someone. Called and spoke with Joseluis and he is very frustrated that he feels he isn't getting the care he needs to treat his Chronic Lyme disease. Was seen in 2008 and then refered here again in 2013. He would like to know if he can be treated for it here and if not he will go else where. He said he is depressed but doesn't fell it's right for the provider to saying now don't committ suicide. He was offered Prozac which he didn't fill. Pt states he has had Lyme disease for 14 yrs now and when he walked into the room Dr. Willoughby said to the pt what would you do if I tested you for Lyme and it came back negative. Pt would just like to know what to do now? Message forwarded to Dr. Willoughby. documented in this encounter Plan of Treatment Not on file documented as of this encounter Visit Diagnoses Not on filedocumented in this encounter Care Teams Machine Stripper Relationship Specialty Start Date End Date Alex Sotelo MD [facility] [address] [place] [address] PCP - General 09/30/13 07/31/16 documented as of this encounter
--- OUTSIDE RECORDS SUMMARY | 2023-09-30 01:42 | XMS_ITS | Encounter Summary ---
Author Organization [facility] [place] [address] Care Team Providers Care Environmental Services Coordinator Name Role Phone Alex Sotelo MD Primary Care Provider [phone] Encounter Details Date Type Department Care Team (Late st Contact Info) Description 07/18/2015 Orders [place] [address] Natalio Willoughby MD [facility] [place] [address] Chronic bilateral low back pain without sciatica Social History [...] of this encounter Visit Diagnoses Diagnosis Chronic bilateral low back pain without sciatica documented in this encounter Care Teams Environmental Services Coordinator Relationship Specialty Start Date End Date Alex Sotelo MD [facility] [address] [place] [address] PCP - General 09/30/13 07/31/16 documented as of this encounter
--- OUTSIDE RECORDS SUMMARY | 2023-09-30 01:42 | XMS_ITS | Encounter Summary ---
[facility] [place] [id number] Care Team Providers Care Video Software Engineer Name Role Phone Alex Sotelo MD Primary Care Provider Reason for Referral * Consultation (Routine) - Closed Specialty Diagnoses / Procedures Referred By Contac t Referred To Contact Pain Management Diagnoses Chronic midline low back pain without sciatica Michael Paige PA [facility] [place] [address] [facility] [address] [place] [phone] Referral ID Status Reason Start Date Expiration Date V isits Requested Visits Authorized [id number] Closed Consult, Test & Treat 10/16/2015 10/15/2016 1 1 Reason for Visit * Reason Comments Neck Pain Back Pain mid to lower Left Hip Pain * Consultation (Routine) - Closed Specialty Diagnoses / Procedures Referred By Contac t Referred To Contact Orthopaedics Diagnoses 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 [address] [facility] [address] [place] [phone] Referral ID Status Reason Start Date Expiration Date V isits Requested Visits Authorized [id number] Closed Consult, Test & Treat 08/18/2015 08/17/2016 1 1 Encounter Details Date Type Department Care Team (Late st Contact Info) Description 10/16/2015 2:00 PM EDT Office Visit [facility] [place] [address] Michael Paige PA [facility] [place] [address] Chronic midline low back pain without sciatica; Chronic midline thoracic back pain Social History [...] as of this encounter Progress Notes * Michael Paige PA - 10/16/2015 2:00 PM EDT Subjective: Joseluis Dewey is a 65-year-old male seen today at the request of Leonard Cavazos MD for chief complaint of mid back and low back pain, present for several years, ever since the 1999s. Patient also reports history of chronic Lyme disease and its coinfections , having concluded treatment only around March 2015 of this year. He denies any pain that radiates into the into the chest wall, or the upper or lower extremities. He does mention mild discomfort that he describes as sciatic pains in the distribution of the left lateral thigh, and lateral calf. He denies any numbness or weakness of the upper or lower extremities. He reports chronic joint pains throughout his body, and a round the paraspinal musculature, which he has had ever since he had this history of chronic Lyme disease that was apparently treated for over 16 years. He notes that the pain is adequately managed with a combination of methadone, as well as use of lumbar support brace. He is otherwise on medications such as gabapentin, Cymbalta, Prozac, all of whichadequately treats his chronic and multiple pains, as well as his generalized neuropathy. His pain appears improved when he is leaning forward, otherwise worse with standing up straight. Prior treatments have included medications as mentioned above. He mentions prior cervical discectomy and fusion unspecified level, performed at [facility] sometime in 2002, without much benefit. More recently, he has relied on methadone for his pain management for which he sees a clinic in [place]. He mentions having been put on Suboxone sometime in the distant past, with near-complete pain control. He denies tobacco use or alcohol use. 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 Review of systems is positive for multiple chronic joint pains, secondary to residual symptoms of his chronic Lyme disease, as well as a sense of low energy, which he has ascribed to low testosterone. Negative for gastrointestinal symptoms, bowel or bladder symptoms, otherwise. Objective: This is a is an 65-year-old man, appears his stated age and is in no acute distress, with a bright affect. His speech is hurried and somewhat anxious, but appropriate to conversation. His gait is normal. He is able to toe walk and heel walk without weakness. He stands with a slight right-sided list , but has grossly level shoulders and pelvis. He is nontender to palpation. Lumbar flexion to about 50??, lumbar extension to 10??, both without endrange pain. Motor examination shows 5 out of 5 in all lower extremity muscle groups. Sensory examination to light touch shows no focal deficits. Reflexes are +2 at both knees, +2 at both ankles. Straight leg raising is negative bilaterally. Hip range of motion in the supine position is painless. Peripheral pulses are palpable. MRI of the thoracic spine dated 07/14/2015 was reviewed today. This shows some mild thoracic curve, apex to the right, with minimal exaggeration of the thoracic kyphosis. There is a left paracentral disc protrusion at the T4-T5 level. The thoracic spine otherwise shows minimal degenerative changes. No other evidence of disc herniation, or significant central canal narrowing otherwise. No cord signal changes noted. MRI of the lumbar spine dated 10/10/2010 was reviewed today. This shows lumbar spine with minimal disc bulges at the L3-L4, L4-L5, L5-S1 levels. There are facet degenerative changes at the L4-L5, and L5-S1 levels. There are otherwise no significant central canal or neuroforaminal narrowing noted throughout the lumbar spine. Assessment/plan: This is a 65-year-old male who has had chronic low back pain, with minimal radiation into the left lower extremity, this is in the context of a mild upper thoracic dextroscoliosis, that does not show any significant nerve root impingement. This appears to be a picture of axial mid back, and low back pain. There does not seem to be any significant degree of radicular pain, and certainly no signs of neurogenic claudication. His neurological exam is quite reassuring. He mentions to me in our visit today that he is most interested in transitioning to a different medication for chronic pain control, as well as establishing care with a nearby pain center. I explained to him the purpose of our visit today, and he expressed understanding. He does not seem to appear to be interested in pursuing approaches such as physical therapy, and I see no role for epidural steroidal injections, or any decompressive surgery. Following my discussionwith him, I will be sending him to our anesthesia pain clinic for comprehensive pain evaluation andconsideration of his personal request of moving from Methadone to Suboxone. documented in this encounter Plan of Treatment Scheduled Referrals Name Type Priority Associated Diagnoses Orde r Schedule Referral to Pain Clinic Outpatient Referral Routine Chronic midline low back pain without sciatica Ordered: 10/16/2015 documented as of this encounter Visit Diagnoses Diagnosis Chronic midline low back pain without sciatica Chronic midline thoracic back pain documented in this encounter Care Teams Video Software Engineer Relationship Specialty Start Date End Date Alex Sotelo MD [address] [address] PCP - General 09/30/13 07/31/16 documented as of this encounter
--- OUTSIDE RECORDS SUMMARY | 2023-09-30 01:42 | XMS_ITS | Encounter Summary ---
Author Organization [facility] [place] [address] Care Team Providers Care Ict Help Desk Technician Name Role Phone Alex Sotelo MD Primary Care Provider [phone] Reason for Visit * Reason Onset Date Comments Other 07/20/2015 results Encounter Details Date Type Department Care Team (Late st Contact Info) Description 07/20/2015 [place] [phone] Meka Sharpe RN Other (results) Social History Tobacco Use Types Packs/Day Years [...] Telephone Encounter - Meka Sharpe RN - 07/24/2015 9:58 AM EDT Received call from Екатерина at [facility], Radiology. They need Joseluis to have creatinine checked prior toCT of abdomen tomorrow. Called Joseluis to relay this information. Joseluis is going to [facility] today to lease picker the contrast, he will get labs drawn today. Told him order will be faxed to them today. Called Екатерина back and let her know Joseluis is having creatinine checked today and order has been faxed to [facility]. * Telephone Encounter - Meka Sharpe RN - 07/20/2015 10:48 AM EDT Called Joseluis and relayed results of MRI. He would like to have CT of abdomen done at [facility] in [place], [place]. * Telephone Encounter - Meka Sharpe RN - 07/20/2015 10:48 AM EDT ----- Message from Natalio Willoughby MD sent at 07/18/2015 9:43 AM EDT ----- Needs CT abdomen I will put it in for probable hemangioma. ----- Message ----- From: Department, Radiology Sent: 07/14/2015 8:37 PM To: Natalio Willoughby MD documented in this encounter Plan of Treatment Not on file documented as of this encounter Visit Diagnoses Not on filedocumented in this encounter Care Teams Ict Help Desk Technician Relationship Specialty Start Date End Date Alex Sotelo MD [address] [address] PCP - General 09/30/13 07/31/16 documented as of this encounter
--- OUTSIDE RECORDS SUMMARY | 2023-09-30 01:42 | XMS_ITS | Encounter Summary ---
Author Organization [facility] [place] [address] Care Team Providers Care Forming Department End Finder Name Role Phone Unknown Primary Care Provider Unavailabl e Reason for Visit * Reason Comments Medication Refill Encounter Details Date Type Department Care Team (Late st Contact Info) Description 02/20/2015 [place] [address] Natalio Willoughby MD [facility] [address] [place] [address] Social History Tobacco Use Types Packs/Day Years [...] on filedocumented in this encounter Care Teams Forming Department End Finder Relationship Specialty Start Date End Date Unknown None PCP - General 03/10/19 documented as of this encounter
--- OUTSIDE RECORDS SUMMARY | 2023-09-30 01:42 | XMS_ITS | Encounter Summary ---
Author Organization [facility] [place] [address] Care Team Providers Care Hospital Food Service Worker Name Role Phone Alex Sotelo MD Primary Care Provider Reason for Visit * Reason Comments Medication Refill Encounter Details Date Type Department Care Team (Late st Contact Info) Description 09/23/2015 [place] [address] Natalio Willoughby MD [facility] [place] [address] Social History Tobacco Use Types Packs/Day Years [...] on filedocumented in this encounter Care Teams Hospital Food Service Worker Relationship Specialty Start Date End Date Alex Sotelo MD [facility] [address] [place] [id number] PCP - General 09/30/13 07/31/16 documented as of this encounter
--- OUTSIDE RECORDS SUMMARY | 2023-09-30 01:42 | XMS_ITS | Encounter Summary ---
Author Organization [facility] [place] [address] Care Team Providers Care Economic Manager Name Role Phone Alex Sotelo MD Primary Care Provider Reason for Visit * Reason Onset Date Comments Medication Refill 02/20/2015 Encounter Details Date Type Department Care Team (Late st Contact Info) Description 02/20/2015 Refill Rheumatology at [facility] [place] [address] Elizabeth Hernandes, INGOT BUGGY OPERATOR [facility] [place] [address] Social History Tobacco Use Types Packs/Day Years [...] on filedocumented in this encounter Care Teams Economic Manager Relationship Specialty Start Date End Date Alex Sotelo MD [facility] [address] [place] [id number] PCP - General 09/30/13 07/31/16 documented as of this encounter
--- OUTSIDE RECORDS SUMMARY | 2023-09-30 01:42 | XMS_ITS | Encounter Summary ---
Author Organization [facility] [place] [address] Care Team Providers Care Stranding Supervisor Name Role Phone Alex Sotelo MD Primary Care Provider [phone] Reason for Referral * MRI/CAT Scan (Routine) - Closed Specialty Diagnoses / Procedures Referred By Contac t Referred To Contact Radiology Diagnoses Cognitive and behavioral changes Procedures MRI Brain With/WO Contrast Natalio Willoughby MD [facility] [place] [address] [place] [address] Referral ID Status Reason Start Date Expiration Date Visits Re quested Visits Authorized [id number] Closed 12/15/2014 02/12/2015 1 1 Encounter Details Date Type Department Care Team (Late st Contact Info) Description 11/29/2014 Orders [place] [address] Natalio Willoughby MD [facility] [place] [address] Chronic fatigue syndrome; Cognitive and behavioral changes Social History Tobacco Use Types Packs/Day Years [...] documented as of this encounter Results * MRI Brain With/WO [...] encounter Visit Diagnoses Diagnosis Chronic fatigue syndrome Cognitive and behavioral changes Other signs and symptoms involving cognition Cognitive and behavioral changes Other signs and symptoms involving cognition documented in this encounter Care Teams Stranding Supervisor Relationship Specialty Start Date End Date Alex Sotelo MD [address] [address] PCP - General 09/30/13 07/31/16 documented as of this encounter
--- OUTSIDE RECORDS SUMMARY | 2023-09-30 01:42 | XMS_ITS | Encounter Summary ---
Author Organization [facility] [place] [address] Care Team Providers Care Pier Master Name Role Phone Alex Sotelo MD Primary Care Provider [phone] Reason for Visit * Reason Onset Date Comments Labs Only 09/30/2013 Encounter Details Date Type Department Care Team (Late st Contact Info) Description 09/30/2013 Tele[place] [address] Natalio Willoughby MD [facility] [place] [address] Labs Only Social History Tobacco Use Types Packs/Day Years [...] encounter Miscellaneous Notes * Telephone Encounter - Beverly Yeh CMA - 09/30/2013 4:34 PM EDT Joseluis calls this afternoon@ 4:31 p.m. And states That he was tested for Babesia sometime ago and was positive for Babesia Duncanii and Babesia Microti was negative @ that time. Just wanted you to be aware documented in this encounter Plan of Treatment Not on file documented as of this encounter Visit Diagnoses Not on filedocumented in this encounter Care Teams Pier Master Relationship Specialty Start Date End Date Alex Sotelo MD [place] [id number] PCP - General 09/30/13 07/31/16 documented as of this encounter
--- OUTSIDE RECORDS SUMMARY | 2023-09-30 01:42 | XMS_ITS | Encounter Summary ---
Author Organization [facility] [place] [address] Care Team Providers Care Shell Shop Supervisor Name Role Phone Alex Sotelo MD Primary Care Provider Reason for Visit * Reason Onset Date Comments Other 11/22/2014 referral Encounter Details Date Type Department Care Team (Late st Contact Info) Description 11/22/2014 [place] [phone] Meka Sharpe RN Other (referral) Social History Tobacco Use Types Packs/Day Years [...] Telephone Encounter - Rayne Lemus RN - 11/29/2014 11:01 AM EDT I have notified Joseluis that an order was placed for a Brain MRI. He is happy about this. I advisedthat he may need a PA for the MRI. * Telephone Encounter - Rayne Lemus RN - 11/29/2014 10:01 AM EDT Call received from Joseluis stating that he will agree to a Neuro-Psych eval, but would like to havea Brain MRI first. Call forwarded to Meka evasn Dr. Willoughby. I have called Joseluis to let him know that I have forwarded his request. * Telephone Encounter - Meka Sharpe RN - 11/28/2014 3:27 PM EDT Called Joseluis to explain that neurologist at [facility] declined referral. Joseluis was quite upset aboutthis. Explained that Dr. Willoughby can refer him for a neuropsychiatric evaluation. He is not sure about this. He says he does not want to be pigeon holed as crazy. He would like explanation of a neurology referral vs.a neuropsychiatric referral. Ideally he would prefer to see someone in neurology here if possible. * Telephone Encounter - Meka Sharpe RN - 11/22/2014 1:53 PM EDT Received message from Riri that she spoke to [facility] Neurology department and Dr. Huggins declined referral. He says this referral should be for a neuro- psychiatric evaluation. * Telephone Encounter - Meka Sharpe RN - 11/22/2014 11:11 AM EDT Joseluis called and left message that he has still not received an appointment to see Neurology at [facility]. Called [facility] Neurology department and left message that referral and note was faxed to Dr. Jesús Huggins on 10/27/14. Would like call back to let us know if they received it and if additional information is needed. documented in this encounter Plan of Treatment Not on file documented as of this encounter Visit Diagnoses Not on filedocumented in this encounter Care Teams Shell Shop Supervisor Relationship Specialty Start Date End Date Alex Sotelo MD [address] [address] PCP - General 09/30/13 07/31/16 documented as of this encounter
--- OUTSIDE RECORDS SUMMARY | 2023-09-30 01:42 | XMS_ITS | Encounter Summary ---
[place] [address] Care Team Providers Care Director Cardiovascular Name Role Phone Alex Sotelo MD Primary Care Provider Reason for Visit * Reason Onset Date Comments Other 12/05/2014 MRI Encounter Details Date Type Department Care Team (Late st Contact Info) Description 12/05/2014 Tele[place] [phone] Meka Sharpe RN Other (MRI) Social History Tobacco Use Types Packs/Day Years [...] Telephone Encounter - Meka Sharpe RN - 12/05/2014 4:25 PM EDT Joseluis is calling because he is waiting for an appointment to have an MRI of his brain done. documented in this encounter Plan of Treatment Not on file documented as of this encounter Visit Diagnoses Not on filedocumented in this encounter Care Teams Director Cardiovascular Relationship Specialty Start Date End Date Alex Sotelo MD [address] [address] PCP - General 09/30/13 07/31/16 documented as of this encounter
--- OUTSIDE RECORDS SUMMARY | 2023-09-30 01:42 | XMS_ITS | Encounter Summary ---
Author Organization [facility] [place] [address] Care Team Providers Care Section Chief Name Role Phone Alex Sotelo MD Primary Care Provider Reason for Visit * Reason Onset Date Comments Medication Refill 03/30/2015 Encounter Details Date Type Department Care Team (Late st Contact Info) Description 03/30/2015 Refill [place] [address] Natalio Willoughby MD [facility] [place] [address] Social History Tobacco Use Types Packs/Day Years [...] on filedocumented in this encounter Care Teams Section Chief Relationship Specialty Start Date End Date Alex Sotelo MD [facility] [address] [place] [id number] PCP - General 09/30/13 07/31/16 documented as of this encounter
--- OUTSIDE RECORDS SUMMARY | 2023-09-30 01:42 | XMS_ITS | Encounter Summary ---
Author Organization Formerly [facility] Address [facility] [place] [address] Care Team Providers Care Biomedical Scientist Name Role Phone Garcia Cabrera MD Primary Care Provider [phone] Reason for Visit * Reason Comments Fatigue consult Hypogonadism Encounter Details Date Type Department Care Team (Latest Contact Info) Description 11/19/2010 1:00 PM EDT [place] [id number] Leonard Cavazos MD [facility] [place] [address] Hypogonadotropic hypogonadism; Fatigue; BPH (benign prostatic hyperplasia) Discharge Disposition: Home Social History Tobacco Use [...] Sign Reading Time Taken Comments Blood Pressure 120/78 11/19/2010 1:06 PM EDT Pulse 79 11/19/2010 1:06 PM EDT Temperature - - Respiratory Rate - - Oxygen Saturation - - Inhaled Oxygen Concentration - - Weight 77.6 kg (171 lb) 11/19/2010 1:06 PM EDT Height 170.2 cm (5' 7) 11/19/2010 1:06 PM EDT Body Mass Index 26.78 11/19/2010 1:06 PM EDT documented in this encounter Progress Notes * Peggy Sosa - 11/19/2010 3:00 PM EDT Per order of Dr. Cavazos gave 0.25mg cortrosyn IM in the left arm at 1450. Patient tolerated injection will and will return for labs in 45 minutes. Lot: [id number] Exp: 02/2012 [facility]: [id number] * Leonard Cavazos MD - 11/19/2010 1:45 PM EDT Subjective: Endocrinology Consultation Date of Visit: 11/19/10 Patient: Name:Joseluis Dewey : 1950 Reason for Consult: Joseluis Dewey is being seen in the clinic today at the request of Dr. GARCIA CABRERA MD for the evaluation of fatigue and underlying hypogonadism. Patient's previous record as are the labresults are reviewed. Performed by: Dr. Leonard Cavazos MD., PhD., FACE Patient ID: Joseluis Dewey is a 60 y.o. male. HPI Brief History of Present Illness: Joseluis Dewey is a very pleasant 60 y.o. year old male who presents for evaluation of hypogonadims with the following problem list: Patient Active Problem List Diagnoses Code ??? Chronic low back pain 724.2AG ??? Leg pain 729.5H ??? Cervicalgia 723.1 ??? Chronic fatigue syndrome 780.71 ??? Fatigue 780.79B ??? Hypogonadism male 257.2AS Recent labs: (none) Testosterone total- Testosterone free- He used to take methadone for 2 yrs before he was found to have very low testosterone of 125 (05/2009) and was started on testosterone patch for 6 months. However, his levels were get lower at 100 in about October 2009, so he quit it since then. He then had fibromyalgia and was followed by an MD in [place], [place] who started him on anti-viral medication (XMRV, retrovirus), with improvement and better immunity overall. He also resumed compound testosterone cream over the scrotum daily with improvement of the testosterone levels (could not recall the number and no documentation for this at this time). He has fatigue on and off (yesterday felt fine without problem). Typically in a week, he feels tired most of the time, better at night and physical activity makes it worse. He is using B12 injection daily and also lots of vitamin supplements as shown in his med list. He is using proscar for BPH with very low PSA per pt. Some urinary difficulty. Fatigue - Yes Depression - Yes Low libido - No, on Rx Decreased energy - Yes Erectile dysfunction - No Poor sleeping pattern - Yes Hot flashes/sweating - Yes, some Decreased muscle mass/weight gain-- No, lost about 15 lbs/6mo Testes >10 cc - Yes Small prostate - +BPH Gynecomastia/galactorrhea or breast tenderness - No Loss of axillary, chest and genital hairs- Yes Anemia - yes but better with iron and vitamins Review of Systems ROS:(Details as shown in patient's initial visit questionaire) Constitutional: No heat but +some cold intolerance Endocrine: No thyroid problems. Integument: No balding, acne or oily skin. No easily bruising. Neurological: No headache or weakness. No dizziness Eyes: + vision change and +color blindness ENT: +ringing in his ears. No dysphagia, dental issues Cardiovascular: No chest pain but +occasional palpitations Respiratory: No cough, wheezing, shortness of breath GI: Normal appetite. No nausea, vomiting, diarrhea, constipation : No frequent urinary tract infections or polyuria, +weak urine stream Musculoskeletal: No joint aches, muscle pain. PMH: Patient Active Problem List Diagnoses Code ??? Chronic low back pain 724.2AG ??? Leg pain 729.5H ??? Cervicalgia 723.1 ??? Chronic fatigue syndrome 780.71 ??? Fatigue 780.79B ??? Hypogonadism male 257.2AS Outpatient Meds: Current outpatient prescriptions ordered prior to encounter Medication Sig Dispense Refill ??? DULoxetine (CYMBALTA) [...] Misc.(Non-Drug; Combo Route) route daily. ??? krill eif-rqrmi-1-dha-epa 300-90 (27-45) mg Cap Take 1 capsule by mouth daily. ??? MV-MN/FA/LYCOPENE/LUT/HB#178 (FREDRICK MULTIVITAMIN FOR MEN ORAL) Take 1 tablet by mouth daily. ??? ASCORBATE CALCIUM (VITAMIN C ORAL) Take 1,800 mg by mouth See Admin Instructions. 1-2 TIMES DAILY ??? CALCIUM CARB/VIT D3/MAG11/ZINC (CALCIUM CARB-D3-MAG GDH60-BNJR ORAL) Take 1 tablet by mouth SeeAdmin [...] 1-2 times daily ??? FE/VIT B COMP/B12/LIVER/PROC (DOCI-B11-JYVSSPHC) Inj Inject 0.2 mLs into the muscle daily. ??? finasteride (PROSCAR) 5 mg tablet 5mg, PO, Once daily Allergy: Allergies Allergen Reactions ??? Ciprofloxacin Rash and Other (See Comments) fever ??? Sulfa (Sulfonamide Antibiotics) Rash History Social History ??? Marital Status: Spouse Name: N/A Number of Children: 2 ??? 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 Smoking status: Former Smoker Quit date: 11/19/2005 ??? Smokeless tobacco: None ??? Alcohol Use: No Denies DUI or DWI ??? Drug Use: No ??? Sexually Active: None Other Topics Concern ??? None Social History Narrative OPIOID HISTORYMethadone affected OSARelationship [...] and helped pain Family History: HTN, Chol, CAD, CVA Lymphoma in sister Goiter in mother Crohn's in sister Objective: Physical Exam PE: BP 120/78 Pulse 79 Ht 170.2 cm (5' 7) Wt 77.565 kg (171 lb) BMI 26.78 kg/m2 Appearance: Patient is very pleasant 60 y.o. years old male, non-obese, clinically euthyroid, not in acute distress Skin - normal in texture and temperature, no acanthosis nigricans around the nape of the neck, no abnormal striae or ecchymosis. HEENT - PERRLA, EOMI, no lid lag or exophthalmos. Normal visual duran. Neck - supple, no goiter or nodule, no lymphadenopathy, no carotid bruit Chest - No gynecomastia, normal chest expansion, no crackles or wheeze Heart - regular rhythm, normal apical impulse, normal S1, S2 and no murmur Abdomen - soft, non-tender, no hepatosplenomegaly. Normal testicular size Extremities - no pitting edema, normal distal pulses, no proximal muscle weakness, reflexes were slightly depressed all. Assessment: Joseluis Dewey is a 60 y.o. 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 Despite using testosterone cream with reasonable levels per pt, he remains symptomatic with chronic fatigue, depression and anemia (the latter is better after iron and vitamins) and used to have labs showed very low DHEAS as well (?adrenal insufficiency due to low ACTH or other pituitary insufficiency seen in pts on narcotic use). He wants to check labs to ensure that his growth hormone axis is ok (also brought literature on this to show us thatlots of his Sx fit the picture). His MRI pituitary (10/26/09, outside) showed empty sella with pituitary tissue seen at the bottom ofthe sella without any mass. At least his TFTs last year was normal (TSH 1.68, FT4 0.82) which helpsto r/o hypothyroid for his fatigue. We will check pituitary hormonal profile today to confirm that he has central hypogonadism (using testosterone cream on and off per pt) and to see if there is any evidence of pituitary dysfunction. He is [place] and will follow testosterone levels as well as PSA and CBC today. Recommendation: 1. Medication: Patient will continue all current medications, low fat/controlled carb diet and execise regularly as tolerated. If he is better from BPH with low PSA today, he may need to try to hold off on proscar and may not need testosterone replacement any more at that time (otherwise these 2 meds are just counteracting each other for his testosterone action). We can recheck hormonal labs later when he is off these 2 medications to clarify his gonadal hormone status. Patient info on hypogonadism was given and explained to pt in details today. Also discussed the possible pituitary hypofunction from chronic narcotic use (usually affects gonadal, growth hormone, adrenal axes and spare the thyroid axis). 2. Lab: check lab today for Total and free testosterone, PRL, FSH, LH, TSH, FT4, corisol, DHEA-S, ACTH, IGF-1, 25-vitamin D, PSA, CMP, CBC, PSA and UA for urine specific gravity (*He mentioned drinking lots of fluid >1 gallon/day and urinate 15x/day at the end of the encounter, so we will make sure that urine sp.gr. is not low for him). & then do ACTH stimulation test after his baseline lab test above at clinic today as well. We will let patient know lab test results and adjust medication if needed during this interim. 3. RTC: Next visit in 2-3 months or sooner as indicated by test results. Will check some labs at the time (quick-draw lab so we know the result right away at visit). We have reviewed our plan outlined above [...] patient. Leonard Cavazos MD, PhD, FACE CC: GARCIA CABRERA MD documented in this encounter Plan of Treatment Not on file documented as of this encounter Procedures Procedure Name Priority Date/Time Associated Diagnosis Comments CORTISOL Routine 11/19/2010 3:49 PM EDT Hypogonadotropic hypogonadism Fatigue INSULIN LIKE GF-1 Routine 11/19/2010 2:0 9 PM EDT Hypogonadotropic hypogonadism Fatigue CMP W/FASTING GLUCOSE Routine 11/19/2010 2:09 PM EDT Hypogonadotropic hypogonadism Fatigue DIFFERENTIAL, AUTOMATED Routine 11/19/2010 2:09 PM EDT TESTOSTERONE, TOTAL AND FREE Routine 11/19/2010 2:09 PM EDT Hypogonadotropic hypogonadism Fatigue VITAMIN D, 25-HYDROXY Routine 11/19/2010 2:09 PM EDT Hypogonadotropic hypogonadism Fatigue PROLACTIN Routine 11/19/2010 2:09 PM EDT Hypogonadotropic hypogonadism Fatigue DHEA-SULFATE Routine 11/19/2010 2:09 PM EDT Hypogonadotropic hypogonadism Fatigue ACTH Routine 11/19/2010 2:09 PM EDT Hypogonadotropic hypogonadism Fatigue URINALYSIS WITH REFLEX CULTURE Routine 11/19/2010 2:09 PM EDT BPH (benign prostatic hyperplasia) CBC (WITH DIFF) Routine 11/19/2010 2:09 PM EDT Hypogonadotropic hypogonadism Fatigue TSH Routine 11/19/2010 2:09 PM EDT Hypogonadotropic hypogonadism Fatigue T4, FREE Routine 11/19/2010 2:09 PM EDT Hypogonadotropic hypogonadism Fatigue PSA (ULTRASENSITIVE) Routine 11/19/2010 2:09 PM EDT Hypogonadotropic hypogonadism Fatigue BPH (benign prostatic hyperplasia) LUTEINIZING HORMONE Routine 11/19/2010 2 :09 PM EDT Hypogonadotropic hypogonadism Fatigue FOLLICLE STIMULATING HORMONE Routine 11/19/2010 2:09 PM EDT Hypogonadotropic hypogonadism Fatigue CORTISOL Routine 11/19/2010 2:09 PM EDT Hypogonadotropic hypogonadism Fatigue documented in this encounter Results * Cortisol (11/19/2010 3:49 PM EDT) Cortisol 31.9 mcg/dL [facility] Comment: Reference ranges: ??AM (7-10am): ??6.2-19.4 mcg/dL ??PM (4-8pm): ??2.3-12.3 mcg/dL Blood specimen (specimen) 11/19/2010 3:49 PM EDT 11/19/2010 4:06 PM EDT Leonard Cavazos MD CHEMISTRY ORDERAB LES [facility] * REFLEX LAB-A-DIFF (11/19/2010 2:09 PM EDT) Neutrophils % 64.6 34.0 - 71.0 % [facility]ERNER MILLENNIUM Neutr Abs (ANC) 3.70 1.50 - 6.30 x10(3)/mcL CERNER MILLENNIUM Lymphocytes % 26.4 19.0 - 53.0 % CERNER MILLENNIUM Lymphocytes Abs 1.5 1.0 - 3.6 x10(3)/mcL CERNER MILLENNIUM Monocytes % 7.7 4.0 - 13.0 % CERNER MILLENNIUM Monocyte Abs 0.4 0.2 - 1.0 x10(3)/mcL CERNER MILLENNIUM Eosinophils % 1.0 0.0 - 7.0 % CERNER MILLENNIUM Eosinophils Abs 0.1 0.0 - 0.5 x10(3)/mcL CERNER MILLENNIUM Basophils % 0.3 0.0 - 2.0 % CERNER MILLENNIUM Basophils [...] Gran Abs 0.00 0.00 - 0.05 x10(3)/mcL MARLENENER AMANDAENNIUM Blood specimen (specimen) 11/19/2010 2:09 PM EDT 11/19/2010 2:17 PM EDT Leonard Cavazos MD HEMATOLOGY ORDERA BLES TYRONE CARRILLO * (ABNORMAL) Urinalysis with microscopic (11/19/2010 2:09 PM EDT) Glucose UA Negative Negative mg/dL [facility] MILLENNIUM Protein UA Trace(A) Neg mg/dL [facility] MILLENNIUM Bilirubin UA Negative Negative mg/dL [facility] MILLENNIUM Urobilinogen UA Normal mg/dL CERN ER MILLENNIUM pH UA 7.0 5.0 - 8.0 [facility] MILLENNIUM Blood UA Negative mg/dL [facility] MILLENNIUM Ketones UA Negative mg/dL [facility] MILLENNIUM Nitrite UA Negative [facility]ER MILLENNIUM Leukocytes UA Negative mcL CERNER MILLENNIUM Appearance UA Clear Clear CERNER MILLENNIUM Spec [place] UA 1.014 1.002 - 1.030 CERNER MILLENNIUM Color UA Yellow Yellow CERNER MILLENNIUM RBC UA 1 0 - 3 /HPF CERNER MILLENNIUM WBC UA <1 0 - 3 /HPF CERN[facility] MILLENNIUM Urine specimen (specimen) 11/19/2010 2:09 PM EDT 11/19/2010 2:21 PM EDT Leonard Cavazos MD URINE ORDERABLES [facility] MILLENNIUM * (ABNORMAL) CMP w/fasting Glucose (11/19/2010 2:09 PM EDT) Glucose Fasting 102(H) 65 - 99 mg/dL [facility] MILLENNIUM Comment: ?Fasting* Glucose Interpretive Criteria Normal ?65-99 mg/dL Impaired Fasting glucose ?100-125 mg/dL Consistent with Diabetes Mellitus ? >or= 126 mg/dL *Fasting is defined as no caloric intake for at least 8 hours In the absence of unequivocal hyperglycemia a plasma glucose value of >or= 126 mg/dL should be repeated on a subsequent day. Diagnosis and Classification of Diabetes Mellitus, Position Statement from the [place] [employer]. ??Diabetes Care, Volume 33, Supplement 1, Mar 2009 BUN 12 10 - 20 mg/dL CERNER MILLENNIUM Creatinine 0.84 0.80 - 1.50 mg/dL CERNER MILLENNIUM Sodium 138 135 - 145 mmol/L CERNER MILLENNIUM Potassium 4.0 3.5 - 5.0 mmol/L [facility] MILLENNIUM Comment: Please note: ??Patients with WBC >100,000 may have falsely elevated Potassium levels. ??For accurate Potassium quantification in these patients send serum separator tube (gold top) for subsequent determinations. ??Contact the Clinical Chemistry Laboratory if there are any questions. Chloride 100 98 - 107 mmol/L CERNER MILLENNIUM CO2 32(H) 22 - 31 mmol/L CERN[facility] MILLENNIUM Anion Gap 6 5 - 15 mmol/L CERNER MILLENNIUM Calcium 9.2 8.5 - 10.5 mg/dL CERNER MILLENNIUM Total Protein 7.4 6.4 - 8.3 gm/dL CERNER MILLENNIUM Albumin 4.5 3.2 - 5.2 gm/dL CERNER MILLENNIUM AST 22 0 - 39 unit/L CERNER MILLENNIUM ALT 20 0 - 55 unit/L CERNER MILLENNIUM Alk Phos 98 40 - 120 unit/L CERNER MILLENNIUM Total Bilirubin 0.6 0.2 - 1.3 mg/dL CERNER MILLENNIUM Bili, Direct 0.1 0.0 - 0.3 mg/dL [facility]ERN[facility] MILLENNIUM Estimated GFR >60 >=60 [facility] MILLENNIUM Comment: The National Kidney Disease Education Program (NKDEP) has recommended all laboratories report estimated GFR (eGFR) along with plasma creatinine measurements to assist you with recognition of early kidney disease. Caveats: ??Plasma creatinine should be at steady-state (unchanged within the past week). For patients multiply eGFR by 1.2.MDRD equation has not been validated for pediatric patients and is only valid for patients with age >= 18 years. At present, NKDEP does NOT recommend using the MDRD equation for drug dosing purposes and pharmacists should continue to use their current dosing methods. In addition, numerical eGFR values greater than 60 ml/min/1.73 square meters should be treated as > 60, and not an exact number due to greater inaccuracies at these higher values. Per NKDEP, they classify normal renal function as any GFR >60ml/min/1.73 square meters; chronic kidney disease when GFR <60, and renal failure when GFR <15. ??This calculation may not be valid for patients with atypical muscle mass (very lean or obese), acute renal failure, and in patients with diabetic kidney disease. References: http://nkdep.nih.gov/resources/NKDEP_Suggestn4Labs_0606_508.pdf http://www.kidney.org/professionals/kls/pdf/faq_gfr.pdf Blood specimen (specimen) 11/19/2010 2:09 PM EDT 11/19/2010 2:17 PM EDT Leonard Cavazos MD CHEMISTRY ORDERAB LES [facility] MILLENNIUM * (ABNORMAL) CBC (with Diff) (11/19/2010 2:09 PM EDT) WBC 5.7 4.0 - 10.0 x10(3)/mcL CERNER MILLENNIUM RBC 4.52(L) 4.63 - 6.08 x10(6)/mcL CERNER MILLENNIUM Hemoglobin 15.3 13.7 - 17.5 gm/dL CERN[facility] MILLENNIUM Hematocrit 43.3 40.0 - 51.0 % CERNER MILLENNIUM MCV 95.8(H) 79.0 - 92.0 fL CERNER MILLENNIUM MCH 33.8(H) 25.6 - 32.2 pg CERNER MILLENNIUM MCHC 35.3 32.0 - 36.5 gm/dL CERN[facility] MILLENNIUM Platelets 285 145 - 370 x10(3)/mcL CERNER MILLENNIUM RDWSD 43.2 35.0 - 46.0 fL CERNER MILLENNIUM RDWCV 12.4 10.9 - 14.4 % CERNER MILLENNIUM MPV 10.3 9.0 - 12.0 fL [facility] MILLENNIUM Blood specimen (specimen) 11/19/2010 2:09 PM EDT 11/19/2010 2:17 PM EDT Leonard Cavazos MD HEMATOLOGY ORDERA BLES Performing Organization Address [facility]/ZIP Co de Phone Number [facility] M[facility] * PSA (11/19/2010 2:09 PM EDT) PSA Total (Ultrasensitiv e) 0.23 0.00 - 4.00 ng/mL CERNER MILLENNIUM Blood specimen (specimen) 11/19/2010 2:09 PM EDT 11/19/2010 2:17 PM EDT Leonard Cavazos MD CHEMISTRY ORDERAB LES Performing Organization Address [facility] Co de Phone Number [facility] * TSH (11/19/2010 2:09 PM EDT) TSH 0.81 0.27 - 4.20 mcIU/mL CERN[facility] MILLENNIUM Blood specimen (specimen) 11/19/2010 2:09 PM EDT 11/19/2010 2:17 PM EDT Leonard Cavazos MD CHEMISTRY ORDERAB LES Performing Organization Address [facility] Co de Phone Number [facility] * Luteinizing Hormone (11/19/2010 2:09 PM EDT) LH 6.2 1.7 - 8.6 mlU/ML CERN[facility] MILLENNIUM Comment: Reference ranges: ?? Females ?? Follicular: ? 2.4-12.6 mIU/mL ?? Ovulation: ?14.0-95.6 mIU/mL ?? Luteal: ? 1.0-11.4 mIU/mL ?? Postmenopausal: ? 7.7-58.5 mIU/mL Blood specimen (specimen) 11/19/2010 2:09 PM EDT 11/19/2010 2:17 PM EDT Leonard Cavazos MD CHEMISTRY ORDERAB LES Performing Organization Address City/State/[facility] Co de Phone Number [facility] * (ABNORMAL) Follicle Stimulating Hormone (11/19/2010 2:09 PM EDT) FSH 13.2(H) 1.5 - 12.4 mlU/ML [facility]ERN[facility] MILLENNIUM Comment: Reference Ranges: Females: Follicular: ? 3.5-12.5 mIU/mL Ovulation: ?4.7-21.5 mIU/mL Luteal: ? 1.7-7.7 mIU/mL Postmenopausal: 25.8-134.8 mIU/mL Blood specimen (specimen) 11/19/2010 2:09 PM EDT 11/19/2010 2:17 PM EDT Leonard Cavazos MD CHEMISTRY ORDERAB LES Performing Organization Address [facility] Co de Phone Number [facility] * DHEA-sulfate (11/19/2010 2:09 PM EDT) Pathologist [facility] DHEAS 167 70 - 310 mcg/dL [facility] Comment: Reference Ranges: Postmenopausal females: ??10-190 mcg/dL ? All Females: ??35-430 mcg/dL ? All Males: ??80-560 mcg/dL Reference data for use as a general guideline only; interpret with caution. Blood specimen (specimen) 11/19/2010 2:09 PM EDT 11/20/2010 8:12 AM EDT Leonard Cavazos MD CHEMISTRY ORDERAB LES Performing Organization Address [facility] de Phone Number [facility] * Testosterone, free and total (11/19/2010 2:09 PM EDT) Testo Total 995 250 - 1100 ng/dL [facility] Testo Free 153.2 35.0 - 155.0 pg/mL [facility] Comment: Test Performed by Lucero Cordon, [facility], [address] [place], [place] Santana Fan M.D., Ph.D., Director of Laboratories , [place] [id number] Blood specimen (specimen) 11/19/2010 2:09 PM EDT 11/19/2010 4:06 PM EDT Leonard Cavazos MD CHEMISTRY ORDERAB LES [facility] * (ABNORMAL) Prolactin (11/19/2010 2:09 PM EDT) Prolactin 2.7(L) 4.0 - 15.2 ng/mL [facility] Blood specimen (specimen) 11/19/2010 2:09 PM EDT 11/19/2010 2:17 PM EDT Leonard Cavazos MD CHEMISTRY ORDERAB LES Performing Organization Address [facility] Co de Phone Number [facility] * Somatomedin C-Esoterix (11/19/2010 2:09 PM EDT) SOMC 1 141 68 - 245 ng/mL [facility] Comment: Full-term newborns and infants: : ? 15-109 2 Months: ??15-109 4 Months: ?? 7-124 6 Months: ?? 7-93 12 Months: 15-101 Test performed by [employer] [address] [place] [address], ??[place] [id number] Blood specimen (specimen) 11/19/2010 2:09 PM EDT 11/19/2010 3:30 PM EDT Leonard Cavazos MD CHEMISTRY ORDERAB LES [facility] * Vitamin D2 and D3 25 Hydroxy (11/19/2010 2:09 PM EDT) 25-Hydroxy D2 <4.0 ng/mL [facility] Comment: Test Performed by: [facility] [address], [place] [address] Customs Investigator: Mariposa Barry, Ph.D. 25-Hydroxy D3 62 ng/mL [facility] Comment: Test Performed by: [facility] [place] [address] Customs Investigator: Mariposa Barry, Ph.D. 25-OH Vit D Total 62 ng/mL [facility] Comment: -- REFERENCE VALUE -- 25-HYDROXY D TOTAL (D2+D3) Optimum levels in the normal population are 25-80 Test Performed by: [facility] [place] [address] Customs Investigator: Mariposa Barry, Ph.D. Blood specimen (specimen) 11/19/2010 2:09 PM EDT 11/19/2010 3:53 PM EDT Leonard Cavazos MD CHEMISTRY ORDERAB LES Performing Organization Address [facility] Co de Phone Number [facility] * T4, free (11/19/2010 2:09 PM EDT) Free T4 1.14 0.90 - 1.60 ng/dL [facility] Blood specimen (specimen) 11/19/2010 2:09 PM EDT 11/19/2010 2:17 PM EDT Leonard Cavazos MD CHEMISTRY ORDERAB LES Performing Organization Address [facility] Co de Phone Number [facility] * Cortisol (11/19/2010 2:09 PM EDT) Cortisol 8.8 mcg/dL [facility] Comment: Reference ranges: ??AM (7-10am): ??6.2-19.4 mcg/dL ??PM (4-8pm): ??2.3-12.3 mcg/dL Blood specimen (specimen) 11/19/2010 2:09 PM EDT 11/19/2010 2:17 PM EDT Leonard Cavazos MD CHEMISTRY ORDERAB LES Performing Organization Address [facility] Co de Phone Number [facility] * ACTH (11/19/2010 2:09 PM EDT) ACTH 18 7 - 50 pg/mL [facility] Comment: Reference range applies only to specimens collected between 7-10am. Test Performed by Lucero Cordon, [facility], [address] [place] [id number] Santana Fan M.D., Ph.D., Director of Laboratories , [place] [id number] Blood specimen (specimen) 11/19/2010 2:09 PM EDT 11/19/2010 3:02 PM EDT Leonard Cavazos MD CHEMISTRY ORDERAB LES [facility] documented in this encounter Visit Diagnoses Diagnosis Hypogonadotropic hypogonadism Other anterior pituitary disorders Fatigue Other malaise and fatigue BPH (benign prostatic hyperplasia) Unspecified hyperplasia of prostate without urinary obstruction and other lower urinary tract symptoms (LUTS) documented in this encounter Administered Medications Inactive Administered Medications - up to 3 most recent administrations Medication Order MAR Action Action Date Dose Rate Site cosyntropin (CORTROSYN) injection 0.25 mg 0.25 mg, Intravenous, ONCE, 1 dose, On 11/19/10 at 1415, Routine Given 11/19/2010 2:50 PM EDT 0.25 mg Left Arm documented in this encounter Care Teams Biomedical Scientist Relationship Specialty Start Date End Date Garcia Cabrera MD [address] [place] [address] PCP - General 10/09/10 09/29/13 documented as of this encounter
--- OUTSIDE RECORDS SUMMARY | 2023-09-30 01:42 | XMS_ITS | Encounter Summary ---
Author Organization [facility] [place] [address] Care Team Providers Care Knowledge Engineer Name Role Phone Alex Sotelo MD Primary Care Provider [phone] Reason for Visit * Reason Comments Follow-up Encounter Details Date Type Department Care Team (Late st Contact Info) Description 04/10/2015 12:45 PM EST Office [place] [address] Natalio Willoughby MD [facility] [place] [address] Chronic fatigue syndrome Social History Tobacco Use [...] Sign Reading Time Taken Comments Blood Pressure 134/75 04/10/2015 12:53 PM EST Pulse 65 04/10/2015 12:53 PM EST Temperature 36.8 ??C (98.3 ??F) 04/10/2015 12:[address] Respiratory Rate - - Oxygen Saturation 96% 04/10/2015 12:53 PM EST Inhaled Oxygen Concentration - - Weight 71.7 kg (158 lb) 04/10/2015 12:53 PM EST Height 170.2 cm (5' 7) 04/10/2015 12:53 PM EST Body Mass Index 24.75 04/10/2015 12:53 PM EST documented in this encounter Progress Notes * Natalio Willoughby MD - 04/10/2015 1:23 PM EST DATE OF : 1950. The patient is an 64-year-old male with a long history of chronic Lyme disease, Babesia, and ehrlichiosis based on laboratory from [place] although not confirmed here. He is now largely on psychotropic medicines for chronic depression, OCD and an anxiety disorder. Recently, he underwent an MRI scan that showed scattered white matter T2 hyperintense lesions and some volume loss, but it is not clear that represents a correlate any cognitive problem. I am going to send him for neurocognitive testing, which should help address whether he has organic disease that might interfere with his goal to go back to work or whether it is largely depression. His current medications are vitamins, Cymbalta 30, famciclovir 500, iron, fluoxetine 20, gabapentin 600 at bedtime, methadone 20 mg twice daily, DHEA 25 mg, selenium, testosterone gel and trazodone 100. Speaking to him he appears to be much less depressed, much less angry, much less confrontational with a very pleasant chat for about 30 minutes about these issues. His is recovering from breast cancer and he feels badly that he cannot contribute to the financial stability of the household that will allow her to retire. He is anticipating trying to go back to work. 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 His big apprehension is that he is on methadone and he will need to get off of it in order to go back to work. I reassured him that this is a process that requires sometime and since he has approximately two years I think there is ample time to make this transition. documented in this encounter Plan of Treatment Not on file documented as of this encounter Results * (ABNORMAL) Testosterone, total (07/10/2015 2:32 PM EDT) [facility] Testo Total 0.89(L) 2.80 - 8.00 ng/mL [facility] Comment: Reference Ranges: ? Males [...] adult reference ranges derived from review of [employer] E170 Testosterone reagent package insert 01/12, V8 Stated pediatric reference ranges derived from review of [employer] E170 Testosterone II reagent package insert 07/10, V2. Blood specimen (specimen) 07/10/2015 2:32 PM EDT 07/10/2015 2:39 PM EDT Narrative Resulting Agency Comment Spec In Lab Natalio Willoughby MD CHEMISTRY ORDERABLES Performing Organization Address City/State/[facility] Co de Phone Number [facility] [place] [address] documented in this encounter Visit Diagnoses Diagnosis Chronic fatigue syndrome documented in this encounter Care Teams Knowledge Engineer Relationship Specialty Start Date End Date Alex Sotelo MD [address] [address] PCP - General 09/30/13 07/31/16 documented as of this encounter
--- OUTSIDE RECORDS SUMMARY | 2023-09-30 01:42 | XMS_ITS | Encounter Summary ---
Author Organization [facility] [place] [address] Care Team Providers Care Maintenance Machinist Name Role Phone Alex Sotelo MD Primary Care Provider Reason for Visit * Reason Onset Date Comments Medication Refill 08/30/2014 Encounter Details Date Type Department Care Team (Late st Contact Info) Description 08/30/2014 [place] [address] Natalio Willoughby MD [facility] DR [place] [address] Social History Tobacco Use Types Packs/Day Years [...] on filedocumented in this encounter Care Teams Maintenance Machinist Relationship Specialty Start Date End Date Alex Sotelo MD [facility] [address] [place] [address] PCP - General 09/30/13 07/31/16 documented as of this encounter
--- OUTSIDE RECORDS SUMMARY | 2023-09-30 01:43 | XMS_ITS | Encounter Summary ---
Author Organization [facility] Address [address] [place] [address] Care Team Providers Care Cab Worker Name Role Phone Flavia Syed MD Primary Care Provider [phone] Reason for Visit * Reason Onset Date Comments Coordination Of Care 07/29/2023 Encounter Details Date Type Department Care Team (Late st Contact Info) Description 07/29/2023 Telephone [facility] Endocrinology - [address] [address] Ryan Schneider MD [address] [place] [phone] Coordination Of Care Social History Tobacco Use Types Packs/Day Years Used Date Smoking Tobacco: Former Cigarettes 0.5 43 1 969 - 2012 Passive Smoke Exposure: Past Smokeless Tobacco: Never Alcohol Use Standard Drinks/Week Comments Not Currently 0 (1 standard drink = 0.6 oz pur e alcohol) Interpersonal Safety Answer Date Record ed Physically Hurt Never 02/13/2020 Verbally Threaten Not on file 02/13/2020 Sex and Gender Information Value Date Recorded Sex Assigned at Male 06/06/2020 14:23 EDT Gender Identity Male 06/06/2020 14:23 EDT Sexual Orientation Straight 06/06/2020 14 :23 EDT documented as of this encounter Functional Status Functional Status Response Date of Assess ment Because of a physical, menta l, or emotional condition, does this person have difficulty doing errands alone such as visiting a doctor's office or shopping? No 05/08/2021 Cognitive Status Response Date of Assess ent Because of a physical, menta l, or emotional condition, does this person have serious difficulty concentrating, remembering, or making decisions? Yes 10/08/2022 documented as of this encounter Miscellaneous Notes * Telephone Encounter - Ryan Schneider MD - 07/30/2023 1009 EDT [employer] message sent. * Telephone Encounter - Raquel Walters - 07/29/[address] Schneider is leaving. He is asking to speak with Dr. Schneider before he leaves to discuss his history and make sure whatever doctor he sees after knows his full history including the history that has been taken out of his records until recently. Patient is asking to speak directly with Dr. Schneider Thank You documented in this encounter Plan of Treatment Upcoming Encounters Date Type Department Care Team (Late st Contact Info) Description 10/08/2023 13:00 EDT Office Visit [facility] Endocrinology - [address] [phone] May Cerna MD [address] [place] [phone] 10/09/2023 14:00 EDT Office Visit [facility] Rheumatology & Immunology - [address] [address] Tj Grewal MD [address] [place] [address], [address] [place] [address] documented as of this encounter Visit Diagnoses Not on filedocumented in this encounter Care Teams Cab Worker Relationship Specialty Start Date End Date Flavia Syed MD [address] [place] [address] PCP - General Family Medicine - Primary Care 01/09/22 documented as of this encounter
--- OUTSIDE RECORDS SUMMARY | 2023-09-30 01:43 | XMS_ITS | Encounter Summary ---
Author Organization [facility] Address [address] [place] [address] Care Team Providers Care Library Circulation Assistant Name Role Phone None, Provider Primary Care Provider Unavailabl e Reason for Visit * Reason Onset Date Comments Appointment Related 08/13/2021 Encounter Details Date Type Department Care Team (Late st Contact Info) Description 08/13/[address] [facility] Interventional Pain [address] [facility] [place] [address] Kobi Rubalcava MD [address] [place] [address] [address] [place] [address] Appointment Related Social History Tobacco Use Types Packs/Day Years Used Date Smoking Tobacco: Former Cigarettes Smokeless Tobacco: Never Alcohol Use Standard Drinks/Week [...] difficulty concentrating, remembering, or making decisions? Yes 05/08/2021 documented as of this encounter Miscellaneous Notes * Telephone Encounter - Jayden Evy - 08/13/2021 1098 EDT Patient called to get scheduled for a consult from a referral that was denied. Enough information has come in that this can now be scheduled Nely 09/06/21 at 9:[address] Rubalcava documented in this encounter Plan of Treatment Upcoming Encounters Date Type Department Care Team (Late st Contact Info) Description 10/08/2023 13:00 EDT Office Visit [facility] Endocrinology - [address] [address] Mya Cerna MD [address] [place] [phone] 10/09/2023 14:00 EDT Office Visit [facility] Rheumatology & Immunology - [address] [phone] Tj Grewal MD [address] [place] [address], [address] [place] [phone] documented as of this encounter Visit Diagnoses Not on filedocumented in this encounter Care Teams Library Circulation Assistant Relationship Specialty Start Date End Date None, Provider PCP - General 06/07/20 09/05/21 documented as of this encounter
--- OUTSIDE RECORDS SUMMARY | 2023-09-30 01:43 | XMS_ITS | Encounter Summary ---
Author Organization [facility] Address [address] [place] [address] Care Team Providers Care Mechanical Shovel Operator Name Role Phone Flavia Syed MD Primary Care Provider [phone] Reason for Referral * Radiology Services (Routine/Next Available) - Authorization Not Required Specialty Diagnoses / Procedures Referred By Contac t Referred To Contact Diagnoses Polyarthralgia Procedures XR HAND RIGHT 1-2 VIEWS Tj Grewal MD [address] [phone] [facility] Referral ID Status Reason Start Date Expiration Date Visits Requested Visits Authorized [id number] Authorization Not Required 10/08/2022 1 1 * Radiology Services (Routine/Next Available) - Authorization Not Required Specialty Diagnoses / Procedures Referred By Contac t Referred To Contact Diagnoses Polyarthralgia Procedures XR HAND LEFT 1-2 VIEWS Tj Grewal MD [address] [address] [facility] Referral ID Status Reason Start Date Expiration Date Visits Requested Visits Authorized [id number] Authorization Not Required 10/08/2022 1 1 Reason for Visit * Reason Comments Follow-up Encounter Details Date Type Department Care Team (Late st Contact Info) Description 10/08/2022 14:20 EDT Office Visit [facility] Rheumatology & Immunology - [address] [phone] Tj rGewal MD [address] [place] [address], [address] [place] [address] Polyarthralgia (Primary Dx) Social History Tobacco Use Types Packs/Day Years Used Date Smoking Tobacco: Former Cigarettes 0.5 43 1 969 - 2011 Passive Smoke Exposure: Past Smokeless Tobacco: Never Tobacco Cessation:Counseling Given: Not Answered Alcohol Use Standard Drinks/Week Comments Not Currently [...] :23 EDT documented as of this encounter Last Filed Vital Signs Vital Sign Reading Time Taken Comments Blood Pressure 147/66 10/08/2022 1423 EDT Pulse 72 10/08/2022 1423 EDT Temperature 36.3 ??C (97.4 ??F) 10/08/2022 1423 EDT Respiratory Rate - - Oxygen Saturation - - Inhaled Oxygen Concentration - - Weight 59.4 kg (131 lb) 10/08/2022 1423 EDT Height 166 cm (5' 5.35) 10/08/2022 1423 EDT Body Mass Index 21.56 10/08/2022 1423 EDT documented in this encounter Functional Status Functional Status Response Date of Assess ment Because of a physical, menta l, or emotional condition, does this person have difficulty doing errands alone such as visiting a doctor's office or shopping? No 05/08/2021 Cognitive Status Response Date of Assessm ent Because of a physical, menta l, or emotional condition, does this person have serious difficulty concentrating, remembering, or making decisions? Yes 10/08/2022 documented as of this encounter Patient Instructions * Patient Instructions* Tj Grewal MD - 10/08/2022 14:20 EDT As of now there is no clear evidence of autoimmune rheumatologic disease such as RA, psoriatic arthritis etc. - get X rays today (3rd floor) - continue Voltaren gel (Diclofenac 1%) topically over painful joints as needed (available over thecounter) - try exercises for shoulders and hips - continue to work with endocrinology on hydrocortisone taper Return to visit in 1 year (in person) * Attachments The following attachments cannot be sent through Care Everywhere. * Rotator Cuff: Exercises (Anguillan) * Trochanteric Bursitis: Exercises ([place]guillan) documented in this encounter Progress Notes * Tj Grewal MD - 10/08/2022 1420 EDT Division of Rheumatology and Clinical Immunology FOLLOW UP NOTE: Date of Service: 10/08/22 Reason for follow up: Polyarthralgia History of Present Illness: Joseluis Dewey is a 72 y.o. male. Last visit here in 05/2021, when he was on Hydrocortisone 15mg daily (prednisone equivalent 4mg daily). He has been following with endocrinology and has been working on tapering Hydrocortisone (given Partially empty sella on MRI, hypogonadism, chronic steroid use for many years). He has been on testosterone supplementation. Since 02/2022 he has noticed improvement in depression and joint pains since he has been taking a supplement called Beta Caryophyllene. He tapered hydrocortisone from 15mg to 10mg daily in 05/2022. Reports HO Psoriasis in scalp since 2016. Reports continued pain in BL shoulders, hands (L #1 CMC, MCP, R #3, 4 PIP), low back, hips (laterally), feet. Pain is worse: Mornings, Night, with activity Pain is better: Mid day, Rest Swelling in joints: Denies Morning Stiffness: 2 hours (low back) Has sleep apnea for 20+ years. <> Denies oral ulcers, cough, SOB (occasional), nausea, diarrhea, abdominal pain, infections,weight loss. History obtained at initial Rheumatology visit (05/08/2021): In 08/1998 he got bit by a tick. In 2000 he was given tetanus vaccine, about 6 days after that he developed tingling in legs, tinnitus, severe joint pains in neck, upper back, lower back, hands (MCPs, PIPs), wrists, hips, knees. Pain was constant all day, but worse later in the day. Unclear if pain is increased or better with activity. Morning stiffness: 2 hours Swelling in joints: knees ?? C-spine surgery in 2004, after which he was on Methadone 1331-6048, then again on Methadone from 4860-9797, since ~2017 he has been on Suboxone. Both methadone and suboxone helped. ?? 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 In 2015 he got re-infected after tick bite, and then he was again treated with antibiotics for 2 years in 2017 - 2019. Both the times he noticed some improvement with antibiotics. ?? He was started on Prednisone 5mg (Dr. Willoughby, rheum at [facility]) in 2015, which was increased to 20mg daily. He was on prednisone 20mg until ~2017, when prednisone 20mg was changed to [id number] (which is prednisone equivalent 5mg). Since 03/2021 he has been on Hydrocortisone 15mg (which is prednisone equivalent 4mg). He feels Hydrocortisone 20mg helped to some extent, and 15mg seems slightly less effective than 20mg, but tolerable. ?? Reports fatigue, brain fog. Has sleep apnea. Reports sleeping well when he takes trazadone, does not feel refreshed after night's sleep. Denies anxiety, depression (but he felt depressed until 6 months ago). ?? Has dry eyes, denies dry mouth. ?? <> Denies h/o skin rash, photosensitivity, oral ulcers, serositis (pleuritis, pericarditis), hemolytic anemia, leukopenia/lymphopenia, thrombocytopenia, kidney disease. Denies h/o arterial/venous thrombosis. <> Denies Raynaud's phenomenon, SOB, cough, hemoptysis, abdominal pain, fever, weight loss. ?? There are no problems to display for this patient. Current Outpatient Medications Medication Sig ??? aspirin 81 mg EC tablet Take 1 Tablet by mouth every 48 hours. ??? buprenorphine-naloxone (SUBOXONE) 12-[address] under the tongue daily. 12mg ??? DULoxetine (CYMBALTA) 30 mg delayed release capsule Take 1 Capsule by mouth daily. ??? famciclovir (FAMVIR) 500 mg tablet Take 1 Tablet by mouth 2 times daily. ??? fluocinolone acetonide (SYNALAR) 0.01 % external solution APPLY TO AFFECTED AREAS OF SCALP TWO TIMES A DAY ??? FLUoxetine (PROZAC) 20 mg capsule Take 1 Capsule by mouth daily. ??? gabapentin (NEURONTIN) 600 mg tablet Take 1 Tablet by mouth daily. ??? hydrocortisone (CORTEF) 5 mg tablet Take 2 Tablets by mouth daily. ??? ketoconazole (NIZORAL) 2 % cream Apply topically to affected area daily. ??? ketoconazole (NIZORAL) 2 % shampoo APPLY TO AFFECTED AREA(S) DAILY. LEAVE ON 3-5 MINUTES THEN RINSE OFF ??? lisinopriL (PRINIVIL) 10 mg tablet Take 1 Tablet by mouth daily. ??? Multivitamin Cmb No.21-Iron-FA tablet Take 1 Tablet by mouth daily. ??? prasterone, dhea, (DHEA) 50 mg tablet Take 50 mg by mouth daily. ??? terazosin (HYTRIN) 1 mg capsule Take 1 Capsule by mouth at bedtime. ??? TESTOSTERONE TD Place onto the skin 2 times daily. 1/2g ??? traZODone (DESYREL) 100 mg tablet Take 1 Tablet by mouth at bedtime. ??? UNABLE TO FIND Apply 5 Drops topically daily. Abledoc's apothocary 90% bcp/900mg ??? valGANciclovir (VALCYTE) 450 mg tablet Take 450 mg by mouth daily. (Patient not taking: Reported on 05/28/2022) ALLERGIES: Ciprofloxacin, Diclofenac, Meloxicam, and Sulfa (sulfonamide antibiotics) Past Medical History: Diagnosis Date ??? Asthma ??? Environmental allergies Past Surgical History: Procedure Laterality Date ??? CERVICAL SPINE SURGERY 2004 ??? VASECTOMY Family History Problem Relation Age of Onset ??? Heart Disease Mother Social History Socioeconomic History ??? Marital status: Spouse name: Not on file ??? Number of children: Not on file ??? Years of education: Not on file ??? Highest education level: Not on file Occupational History ??? Not on file Tobacco Use ??? Smoking status: Former Packs/day: 0.50 Types: Cigarettes Start date: 1968 Quit date: 2011 Years since quittin.5 Passive exposure: Past ??? Smokeless tobacco: Never Vaping Use ??? Vaping Use: Every day ??? Substances: THC Substance and Sexual Activity ??? Alcohol use: Not Currently ??? Drug use: Yes Types: Marijuana ??? Sexual activity: Not on file Other Topics Concern ??? Not on file Social History Narrative ??? Not on file Social Determinants of Health Financial Resource Strain: Not on file Food Insecurity: Not on file Transportation Needs: Not on file Physical Activity: Not on file Stress: Not on file Social Connections: Not on file Housing Stability: Not on file PHYSICAL EXAMINATION: BP (!) 147/66 (BP Cuff Location: Right arm, BP Patient Position: Sitting, BP Cuff Sizes: Adult, regular) Pulse 72 Temp 36.3 ??C (97.4 ??F) Ht 166 cm (65.35) Wt 59.4 kg (131 lb) BMI 21.56 kg/m?? Constitutional: Not in distress Head: Normocephalic Eyes: No erythema. Conjunctiva moist Mouth: No oral ulcers. Mucosa moist. Lymph nodes: No cervical lymphadenopathy Cardiac: Normal rate, rhythm. Normal S1S2, no murmurs Pulmonary: Normal breath sounds on auscultation. Neurological: AOx3. Extremity: No edema Skin: no rashes. ?? MSK Exam: Neck: Intact ROM Back: Intact ROM, B/L SI Joint Non-tender Shoulder: Intact ROM. No tenderness, swelling in b/l shoulders. Elbows, Wrists: No joint swelling, tenderness, erythema. Intact ROM Hands: has bony hypertrophy in R #3, 4 PIPs. No tenderness, synovial swelling. Difficulty making tight fist in R hand in R #3,4 PIPs. Hips: Intact ROM, no tenderness with ROM Knees, Ankles, Feet: No joint swelling, tenderness, erythema. Intact ROM No nail pitting or onycholysis No Dactylitis, Enthesitis Review of Outside Records/Tests: LABS No visits with results within 3 Month(s) from this visit. Latest known visit with results is: Phlebotomy Only on 05/08/2021 Component Date Value ??? C-Reactive Protein 05/08/2021 16.9 (H) ??? Sed Rate 05/08/2021 2 ??? WBC 05/08/2021 6.63 ??? RBC 05/08/2021 4.40 ??? Hemoglobin 05/08/2021 14.4 ??? HCT 05/08/2021 43.8 ??? MCV 05/08/2021 100 (H) ??? MCH 05/08/2021 32.7 ??? MCHC 05/08/2021 32.9 ??? RDW-CV 05/08/2021 13.8 ??? RDW-SD 05/08/2021 51.0 (H) ??? PLT 05/08/2021 239 ??? MPV 05/08/2021 9.9 ??? % Neutrophils 05/08/2021 58.3 ??? % Lymphocytes 05/08/2021 29.9 ??? % Monocytes 05/08/2021 10.4 ??? % Eosinophils 05/08/2021 0.6 ??? % Basophils 05/08/2021 0.5 ??? % Immature Grans 05/08/2021 0.3 ??? Absolute Neutrophils 05/08/2021 3.87 ??? Absolute Lymphocytes 05/08/2021 1.98 ??? Absolute Monocytes 05/08/2021 0.69 ??? Absolute Eosinophils 05/08/2021 0.04 ??? ABS Basophils 05/08/2021 0.03 ??? Absolute Immature Grans 05/08/2021 0.02 ??? Type of Differential: 05/08/2021 Auto ??? Sodium 05/08/2021 138 ??? Potassium 05/08/2021 4.1 ??? Chloride 05/08/2021 97 ??? CO2 Total 05/08/2021 34 (H) ??? Glucose 05/08/2021 87 ??? BUN 05/08/2021 13 ??? Creatinine 05/08/2021 0.69 ??? eGFR 05/08/2021 97 ??? Total Protein 05/08/2021 6.4 ??? Albumin 05/08/2021 4.0 ??? Alkaline Phosphatase 05/08/2021 78 ??? AST 05/08/2021 26 ??? ALT 05/08/2021 20 ??? Bilirubin, Total 05/08/2021 0.5 ??? Calcium 05/08/2021 9.0 ??? Albumin/Globulin Ratio 05/08/2021 1.7 ??? Anion Gap 05/08/2021 7 ??? CESAR Interpretation 05/08/2021 Negative ? ? Anti-DNA (Double Strande* 05/08/2021 <12.3 ??? SM (Farah) Antibody 05/08/2021 1.7 ??? TRADE FACILITATOR Antibody 05/08/2021 1.6 ??? SSA Antibody 05/08/2021 0.6 ??? SSB Antibody 05/08/2021 1.3 ? ? Rheumatoid Factor 05/08/2021 <8.6 ? ? CCP Antibodies 05/08/2021 <2.5 ??? Hep C Antibody 05/08/2021 Negative ??? Hepatitis B Core Ab, Tot* 05/08/2021 Negative ??? Hep B Surface Ag 05/08/2021 Negative IMAGING: Plan Diagnosis / Assessment: ICD-10-CM ICD-9-CM 1. Polyarthralgia M25.50 719.49 1) Chronic polyarthralgia. ?? - Work up Labs: - ESR: Normal (2), CRP: Borderline elevated (16.9mg/L) 05/2021 - RF: (-), CCP: (-) 05/2021 - CESAR: (-) 05/2021 - dsDNA, SM, TRADE FACILITATOR, SSA, SSB: (-) 05/2021 - Hep B & C screen: Negative 05/2021 - Imaging: - X rays: - Hand BL: ordered* ? - Monitoring Labs: - 05/2021: - ESR: Normal, CRP: Borderline elevated - CBC D, CMP: Normal ?? - no definitive diagnosis of autoimmune rheumatologic condition - however since he is on chronic glucocorticoids, we could consider adding a DMARD like MTX to helpwith steroid taper if he is unable to taper off hydrocortisone. - since he has been on chronic steroids, and has history of possible pituitary dysfunction? (partial empty sella on MRI), patient was referred to endocrinology to help with management of intermediate glucocorticoids if he needs to be on it. ?? - as of now he does not appear to have any evidence of inflammatory arthritis - X rays of hands ordered to look for any possible clues to diagnosis - discussed in detail regarding possible diagnoses to explain joint pain symptoms. - can consider adding Methotrexate to help with steroid taper if he notices increase in joint painswith hydrocortisone taper. Recommendations/Evaluation: Patient Instructions As of now there is no clear evidence of autoimmune rheumatologic disease such as RA, psoriatic arthritis etc. - get X rays today (3rd floor) - continue Voltaren gel (Diclofenac 1%) topically over painful joints as needed (available over thecounter) - try exercises for shoulders and hips - continue to work with endocrinology on hydrocortisone taper Return to visit in 1 year (in person) I spent a total of 40 minutes on the date of this encounter meeting with the patient and reviewing documentation/coordinating care as described in the above note. No procedures were performed at the time of the visit. Tj Grewal MD RAPID3 Summary Functional Status: 0.3 Pain Tolerance: 4.5 Global Estimate: 5 Score: 9.8 Interpretation: Moderate 10/08/2022 14:33 RAPID3 SCORES AND INTERPRETATION Functional Status 0.3 Pain Tolerance 4.5 Global Estimate 5 RAPID3 9.8 Interpretation Moderate Tj Grewal MD documented in this encounter Plan of Treatment Upcoming Encounters Date Type Department Care Team (Late st Contact Info) Description 10/08/2023 13:00 EDT Office Visit [facility] Endocrinology - [address] [phone] May Cerna MD [address] [place] [phone] 10/09/2023 14:00 EDT Office Visit [facility] Rheumatology & Immunology - [address] [phone] Tj Grewal MD 111 [facility], [address] [place] [address] Scheduled Orders Name Type Priority Associated Diagnoses Orde r Schedule XR HAND LEFT 1-2 VIEWS Imaging Routine Polyarthralgia Expected: 10/08/2022, Expires: 10/09/2023 XR HAND RIGHT 1-2 VIEWS Imaging Routine Polyarthralgia Expected: 10/08/2022, Expires: 10/09/2023 documented as of this encounter Visit Diagnoses Diagnosis Polyarthralgia- Primary Pain in joint, multiple sites documented in this encounter Care Teams Mechanical Shovel Operator Relationship Specialty Start Date End Date Flavia Syed MD [address] [place] [address] PCP - General Family Medicine - Primary Care 01/09/22 documented as of this encounter
--- OUTSIDE RECORDS SUMMARY | 2023-09-30 01:43 | XMS_ITS | Encounter Summary ---
Author Organization [facility] Address [address] [place] [address] Care Team Providers Care Band Booker Name Role Phone [facility] Primary Care Provider [phone] Reason for Visit * Reason Comments Medications Refill Encounter Details Date Type Department Care Team (Late st Contact Info) Description 12/28/2021 Refill [facility] Dermatology 5th Floor [facility] [address] [place], [place] [phone] Gokul Menezes MD 111 [facility], [address] [place] [phone] Medications Refill Social History Tobacco Use Types Packs/Day Years [...] Yes 05/08/2021 documented as of this encounter Ordered Prescriptions Prescription Sig Dispensed Refills Start Date End Da te fluocinolone acetonide (SYNALAR) 0.01 % external solution APPLY TO AFFECTED AREA(S) ON SCALP TWO TIMES A DAY 60 mL 3 01/01/2022 04/30/2022 documented in this encounter Miscellaneous Notes * Telephone Encounter - Sydnee Prasad MA - 01/01/2022 8236 EDT Medication: fluocinolone acetonide (SYNALAR) 0.01 % external solution Diagnosis: [facility] derm Last Office Visit: 02/14/20 Next Office Visit: prn Last Refill: 12/19/21 documented in this encounter Plan of Treatment Upcoming Encounters Date Type Department Care Team (Late st Contact Info) Description 10/08/2023 13:00 EDT Office Visit [facility] Endocrinology - [place] [phone] May Cerna MD [address] [place] [phone] 10/09/2023 14:00 EDT Office Visit [facility] Rheumatology & Immunology - [address] [phone] Tj Grewal MD [address] [place] [address], [address] [place] [address] documented as of this encounter Visit Diagnoses Not on filedocumented in this encounter Discontinued Medications Medication Sig Discontinue Reason Start Date End Da te fluocinolone acetonide (SYNALAR) 0.01 % external solution APPLY TO AFFECTED AREA(S) ON SCALP TWO TIMES A DAY 10/16/2021 01/01/2022 documented as of this encounter Care Teams Band Booker Relationship Specialty Start Date End Date [facility], [place] [place] [address] PCP - General 09/06/21 01/08/22 documented as of this encounter
--- OUTSIDE RECORDS SUMMARY | 2023-09-30 01:43 | XMS_ITS | Encounter Summary ---
[place] [address] Care Team Providers Care Underwater Hunter Trapper Name Role Phone Tish Mayer MD Primary Care Provider Encounter Details Date Type Department Care Team (Late st Contact Info) Description 10/08/2010 [facility] [place] [address] Mitali Chiang, RN Social History Tobacco Use Types Packs/Day Years Used Date Smoking Tobacco: Never Assessed Sex and Gender Information Value Date Recorded Sex Assigned at Not on file Gender Identity Not on file Sexual Orientation Not on file documented as of this encounter Plan of Treatment Not on file documented as of this encounter Visit Diagnoses Not on filedocumented in this encounter Care Teams Underwater Hunter Trapper Relationship Specialty Start Date End Date Tish Mayer MD [address] [place] [address] PCP - General 01/30/10 10/08/10 documented as of this encounter
--- OUTSIDE RECORDS SUMMARY | 2023-09-30 01:43 | XMS_ITS | Encounter Summary ---
Author Organization [facility] Address [address] [place] [address] Care Team Providers Care Rn Lpn Lvn Name Role Phone Flavia Syed MD Primary Care Provider [phone] Reason for Visit * Reason Comments Medications Refill Encounter Details Date Type Department Care Team (Late st Contact Info) Description 08/29/2022 Refill [facility] Dermatology 5th Floor [facility] [address] [place], [place] [phone] Gokul Menezes MD 111 [facility], [address] [place] [phone] Medications Refill Social History Tobacco Use Types [...] AREAS OF SCALP TWO TIMES A DAY 60 mL 3 08/30/2022 11/18/2022 documented in this encounter Miscellaneous Notes * Telephone Encounter - Tamanna Crawford MA - 08/30/2022 0902 EDT Requested Prescriptions Pending Prescriptions Disp Refills ??? fluocinolone acetonide (SYNALAR) 0.01 % external solution [Pharmacy Med Name: FLUOCINOLONE 0.01% SOLUTION] 60 mL 3 Sig: APPLY TO AFFECTED AREAS OF SCALP TWO TIMES A DAY Last visit: 02/14/2020 Next visit: TBS Diagnosis [facility] Last refill: 04/30/22 documented in this encounter Plan of Treatment Upcoming Encounters Date Type Department Care Team (Late st Contact Info) Description 10/08/2023 13:00 EDT Office Visit [facility] Endocrinology - [address] [phone] May Cerna MD [address] [place] [phone] 10/09/2023 14:00 EDT Office Visit [facility] Rheumatology & Immunology - [address] [address] Tj Grewal MD [address] [place] [address], [address] [place] [address] documented as of this encounter Visit Diagnoses Not on filedocumented in this encounter Discontinued Medications Medication Sig Discontinue Reason Start Date End Da te fluocinolone acetonide (SYNALAR) 0.01 % external solution APPLY TO AFFECTED AREA(S) ON SCALP TWO TIMES A DAY 04/30/2022 08/30/2022 documented as of this encounter Care Teams Rn Lpn Lvn Relationship Specialty Start Date End Date Flavia Syed MD [address] [place] [phone] PCP - General Family Medicine - Primary Care 01/09/22 documented as of this encounter
--- OUTSIDE RECORDS SUMMARY | 2023-09-30 01:43 | XMS_ITS | Encounter Summary ---
Author Organization [facility] Address [address] [place] [address] Care Team Providers Care Document Management Consultant Name Role Phone Flavia Syed MD Primary Care Provider [phone] Reason for Visit * Reason Comments Medications Refill Encounter Details Date Type Department Care Team (Late st Contact Info) Description 04/29/2022 Refill [facility] Dermatology 5th Floor [facility] [address] [place], [place] [phone] Gokul Menezes MD 111 [facility], [address] [place] [phone] Medications Refill Social History Tobacco Use Types [...] TWO TIMES A DAY 60 mL 3 04/30/2022 08/30/2022 documented in this encounter Miscellaneous Notes * Telephone Encounter - Sydnee Prasad MA - 04/30/2022 0858 EST Medication: fluocinolone acetonide (SYNALAR) 0.01 % external solution Diagnosis: Arash derm Last Office Visit: 02/14/20 Next Office Visit: PRN Last Refill: 04/05/22 documented in this encounter Plan of Treatment Upcoming Encounters Date Type Department Care Team (Late st Contact Info) Description 10/08/2023 13:00 EDT Office Visit [facility] Endocrinology - [place] [phone] May Cerna MD [address] [place] [phone] 10/09/2023 14:00 EDT Office Visit [facility] Rheumatology & Immunology - [address] [phone] Tj Grewal MD [address] [place] [address], [address] [place] [phone] documented as of this encounter Visit Diagnoses Not on filedocumented in this encounter Discontinued Medications Medication Sig Discontinue Reason Start Date End Da te fluocinolone acetonide (SYNALAR) 0.01 % external solution APPLY TO AFFECTED AREA(S) ON SCALP TWO TIMES A DAY 01/01/2022 04/30/2022 documented as of this encounter Care Teams Document Management Consultant Relationship Specialty Start Date End Date Flavia Syed MD [address] [place] [phone] PCP - General Family Medicine - Primary Care 01/09/22 documented as of this encounter
--- OUTSIDE RECORDS SUMMARY | 2023-09-30 01:43 | XMS_ITS | Encounter Summary ---
Author Organization [facility] Address [address] [place] [address] Care Team Providers Care Basket Filler Name Role Phone Flavia Syed MD Primary Care Provider [phone] Reason for Visit * Reason Onset Date Comments Results 02/13/2022 Encounter Details Date Type Department Care Team (Late st Contact Info) Description 02/13/[address] [facility] - [address] [address] Ryan Schneider MD [address] [place] [phone] Results Social History Tobacco Use Types Packs/Day Years [...] encounter Miscellaneous Notes * Telephone Encounter - Farah Charles, RN - 02/22/2022 1050 EST Pt messages: I want to be off of the hydrocortisone, especially in light of my recent bone scan! I also know my limits and I know that lowering my hydrocortisone intake in the winter months is a recipe for depression. ?? I live with chronic pain that the [place] winter exacerbates. ?? I went down to 12.5mg of hydrocortisone in the late Fall of 2020(just remembered) , but I could nottake the pain and I had to stop last winter and let my body rest. It is not your fault or my fault that I have not been able to get in to see you until January 2022. ?? I want to put this in the most positive light that I can, because I want you to understand what I am dealing with. ?? I live in Chronic Pain that has no medical diagnosis nor has any recommended or prescribed treatment available to me. ?? I need you to respect my decision that I am un-able to lower the hydrocortisone in these winter months. I will not be able to lower my intake until July of 2022. ?? continued............see new note Perhaps I need to increase my Suboxone in order to go off the hydrocortisone? I have a long historyof trying keep my Suboxone dose as low as I can. The Pain Doctor (Doctor Z @ [facility] ) says I am on a low dose and I could go up. ?? I want to heal and live the very best life that I can. I may have to let this go for now and focus on the things I can improve-. [place] [address] IU's. ( I took 10,000 IU's of Vitamin D3 A DAY from 6384-4287, I was that deficient!) ?? 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 At the time the image was taken @ [facility] in 2007 ([facility]) they had no idea that the damage to my pituitary stalk was likely caused bythe adverse event from the Tetanus shot I received on 04/24/2000 ?? It has been 14 years since I had last had my Pituitary imaged in 2007. ?? Perhaps you could order a new MRI before our follow up visit on May 28, 2022? I already met my deductible this year if you wanted to order it before March! ?? What you think about my increasing the Suboxone 2m to help me taper off the hydrocortisone? Please understand that I am all alone when making these medical decisions. ?? I am sorry to dump so much stuff in these notes, but I addressed some martin issues that feels likeallthis could help! MM Routing to provider to advise. CHARLES FARAH RN 02/22/2022 10:51 * Telephone Encounter - Ryan Schneider MD - 02/14/2022 1013 EST DEXA reviewed showing osteopenia -> recommend intake of dietary calcium (1200- 1500 mg) and vitamin D (800-1000 IU)along with performing regular weight bearing exercise as tolerated for bone health. Repeat DEXA in 3-4 years unless there is a clinical change. WordWatcht message sent. documented in this encounter Plan of Treatment Upcoming Encounters Date Type Department Care Team (Late st Contact Info) Description 10/08/2023 13:00 EDT Office Visit [facility] Endocrinology - [address] [phone] May Cerna MD [address] [place] [phone] 10/09/2023 14:00 EDT Office Visit [facility] Rheumatology & Immunology - [address] [phone] Tj Grewal MD [address] [facility], [address] [place] [address] documented as of this encounter Visit Diagnoses Not on filedocumented in this encounter Care Teams Basket Filler Relationship Specialty Start Date End Date Flavia Syed MD [address] [place] [phone] PCP - General Family Medicine - Primary Care 01/09/22 documented as of this encounter
--- OUTSIDE RECORDS SUMMARY | 2023-09-30 01:43 | XMS_ITS | Encounter Summary ---
Author Organization [facility] Address [facility] [place] [address] Care Team Providers Care Yarn Spooler Name Role Phone Jayde Cabrera MD Primary Care Provider [phone] Encounter Details Date Type Department Care Team (Latest Contact Info) Description 10/10/2010 6:19 PM EDT - 10/10/2010 11:59 PM EDT Hospital [place] [phone] CLINIC, Myra Wagner MD [facility] [place] [address] Discharge Disposition: Home Social History Tobacco Use [...] Sig Dispensed Refills Start Date End Date famciclovir (FAMVIR) 500 mg tablet Take 500 mg by mouth 2 times daily. Cholecalciferol, Vitamin D3, (VITAMIN D-3) 5,000 unit Tab Take 1 tablet by mouth 2 times daily. MV-MN/FA/LYCOPENE/LUT/HB# 178 (FREDRICK MULTIVITAMIN FOR MEN ORAL) Take 1 tablet by mouth daily. ASCORBATE CALCIUM (VITAMIN C ORAL) Take 1,000 mg by mouth 2 times daily. Time released. Selenium 100 mcg Cap Take 3-4 capsules by mouth every morning. b complex vitamins (VITAMIN B COMPLEX) capsule Take 1 capsule by mouth daily. Testosterone 50 mg/5 gram (1 %) Gel DULoxetine (CYMBALTA) 60 mg capsule Take 30 mg by mouth daily. 10/14/2014 OXYcodone 20 mg Tab Take 20 mg by mouth 4 times daily. 09/30/2013 valGANCiclovir (VALCYTE) 450 mg tablet Take 900 mg by mouth daily. 09/30/2013 clonAZEpam (KLONOPIN) 1 mg tablet Take 1 mg by mouth nightly. 09/30/2013 cyclobenzaprine (FLEXERIL) 10 mg tablet Take 5 mg by mouth nightly as needed. 10/14/2014 ACETYLCARNITINE HCL (ACETYL L-CARNITINE ORAL) Take 400 mg by mouth See Admin Instructions. 3-4 times daily 04/10/2015 NADH, BULK, MISC 20 mg by Misc.(Non-Drug; Combo Route) route daily. 10/14/2014 krill hmb-omqfj-[id number]-dha-epa 300-90 (27-45) mg Cap Take 1 capsule by mouth daily. 04/08/2014 CALCIUM CARB/VIT D3/MAG11/ZINC (CALCIUM CARB-D3-MAG RIR96-QUTR ORAL) Take 1 tablet by mouth See Admin Instructions. 1-3 TIMES DAILY 04/10/2015 Coenzyme Q10 (CO Q-10) 200 mg Cap Take 1 capsule by mouth See Admin Instructions. 3-4 times daily 09/30/2013 AMINO AC/WHEY PROT CON & ISOL (WHEY PROTEIN ORAL) Take by mouth See Admin Instructions. 2-3 times per week 09/30/2013 Prasterone, DHEA, (DHEA) 25 mg Tab Take 1 tablet by mouth daily. Reported on 04/25/2016 04/25/2016 FERROUS FUMARATE/ASCORBIC ACID (VITRON-C ORAL) Take 1 tablet by mouth See Admin Instructions. as directed 11/21/2016 FE/VIT B COMP/B12/LIVER/PROC ([id number]) Inj Inject 0.2 mLs into the muscle daily. 09/30/2013 finasteride (PROSCAR) 5 mg tablet 5mg, PO, Once daily 05/26/2009 10/01/19 14 documented as of this encounter Miscellaneous Notes * Miscellaneous - Provider, Scanning - 10/18/2010 11:48 AM EDT documented in this encounter Plan of Treatment Not on file documented as of this encounter Visit Diagnoses Not on filedocumented in this encounter Care Teams Yarn Spooler Relationship Specialty Start Date End Date Jayde Cabrera MD [address] [place] [address] PCP - General 10/09/10 09/29/13 documented as of this encounter
--- OUTSIDE RECORDS SUMMARY | 2023-09-30 01:43 | XMS_ITS | Encounter Summary ---
Author Organization [facility] Address [address] [place] [address] Care Team Providers Care Planning Intern Name Role Phone Flavia Syed MD Primary Care Provider [phone] Encounter Details Date Type Department Care Team (Late st Contact Info) Description 06/11/2023 Lab Requisition [facility] Pathology & Laboratory Medicine - [facility] [address] [place] [address] Outr Resulting Lab, Provider Social History Tobacco Use Types Packs/Day Years [...] Yes 10/08/2022 documented as of this encounter Plan of Treatment Upcoming Encounters Date Type Department Care Team (Late st Contact Info) Description 10/08/2023 13:00 EDT Office Visit [facility] Endocrinology - [address] [phone] May Cerna MD [address] [place] [address] 10/09/2023 14:00 EDT Office Visit [facility] Rheumatology & Immunology - [address] [address] Tj Grewal MD [address] [facility], [address] [place] [address] documented as of this encounter Procedures Procedure Name Priority Date/Time Associated Diagnosis Comments LH Routine 06/11/2023 14:40 EDT CORTISOL Routine 06/11/2023 14:40 EDT documented in this encounter Results * (ABNORMAL) LH (06/11/2023 14:40 EDT) Luteinizing Hormone <0.3(L) 3.1 - 34.6 mIU/mL 06/11/2023 22:57 EDT [facility] Blood VENOUS BLOOD / Unknown 06/11/2023 14:40 EDT 06/11/2023 21:21 EDT Provider Outr Resulting Lab CHEMISTRY & BLOOD GAS ORDERABLES [facility] [address] [place] [address] * CORTISOL (06/11/2023 14:40 EDT) Cortisol 5 See Note ug/dL 06/11/2023 22:12 EDT [facility] Comment: NOTE: Reference Ranges (from OCD IFU): Collected Before 10:00 AM: ??4 - 23 ug/dL Collected After 5:00 PM: ?2 - 14 ug/dL The results of this assay can be falsely elevated due to the consumption of Biotin. Blood VENOUS BLOOD / Unknown 06/11/2023 14:40 EDT 06/11/2023 21:21 EDT Provider Outr Resulting Lab CHEMISTRY & BLOOD GAS ORDERABLES Performing Organization Address City/State/[facility] Co de Phone Number [facility] [address] [place] [address] documented in this encounter Visit Diagnoses Not on filedocumented in this encounter Care Teams Planning Intern Relationship Specialty Start Date End Date Flavia Syed MD [address] [place] [phone] PCP - General Family Medicine - Primary Care 01/09/22 documented as of this encounter
--- OUTSIDE RECORDS SUMMARY | 2023-09-30 01:43 | XMS_ITS | Encounter Summary ---
Author Organization [facility] Address [address] [place] [address] Care Team Providers Care Fermenting Cellars Receiver Name Role Phone Flavia Syed MD Primary Care Provider Reason for Visit * Reason Onset Date Comments Coordination Of Care 02/25/2022 Encounter Details Date Type Department Care Team (Late st Contact Info) Description 02/25/2022 Telephone [facility] Endocrinology - [address] [address] Ryan Schneider MD [address] [place] [phone] Coordination Of Care Social History Tobacco [...] encounter Miscellaneous Notes * Telephone Encounter - Charles Farah RN - 03/21/2022 1656 EST Pt message: 'Nurse Charles, ?? I have an appointment at the [facility] in [place], [place] on 04/03/22. I had surgery for a deviated septum in 1979. Can I have the labs done at [facility] ([facility]) in [facility]? ?? I want DR. Schneider to know a couple of things surrounding the diagnosis that was given to me for my on going testosterone defiecency. ?? 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 They did not knowthat all of my pain was being caused from an Adverse Event from a Tetanus Vaccine ( The tetanus Vaccine is known for causing Pituitary damage in immune compromised individuals). 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 I was fired by my Doctor in 2009 and I was nevertested for EBV. The Head Coffee Roaster at [facility] refused to order a EBV test for me. ?? My Doctors concern at the time was to get rid of me as a patient. She had an immune compromised patient with Lyme, Babesia, Tanvir Unger Virus and Low testosterone who she was prescribing 40 mg of methadone a day. I was like someone with Alzheimers who was managing chronic pain that I knew was real. She thought she was hurting me by prescribing methadone to me. ?? The events surrounding my 2007 MRI and and my subsequent firing were all based on information that I have shown to be grossly incorrect. ?? Joseluis Dewey Lab orders efaxed to [facility] as requested. SwitchForce message sent to pt Routing to provider. CHARLES FARAH RN 03/21/2022 16:56 * Telephone Encounter - Charles Farah RN - 03/21/2022 0807 EST Per provider: I reviewed my note again regarding the low testosterone levels. ??It doesn't look like he followedup on getting his testosterone levels checked which was ordered at the last visit. ??Furthermore, he also reported a history of untreated sleep apnea at last visit which should be addressed first prior to consideration for safe testosterone supplementation. SwitchForce message sent to pt relaying message above. CHARLES FARAH RN 03/21/2022 8:36 * Telephone Encounter - Charles Farah RN - 03/20/2022 1150 EST Pt message: I had my Doctor???s office fax over the 2007 MRI to you that was taken because my body stopped making testosterone. I went two whole years with no testosterone in my body what so ever. This is clearly documented in my medical record at [facility]. 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 I received weekly Testosterone injections for six months and I still had little to no testosterone in my body. I was fired by that Doctor in 2009 and I can not get the medical system to address and treat the actual cause of my testosterone deficiency. I am a 71 year old man who has an on going medical issues no one will prescribe viagra. Routing to provider. CHARLES FARAH RN 03/20/2022 11:50 * Telephone Encounter - Charles Farah RN - 03/19/2022 0934 EST Pt message: Thank You. ?? I have contacted my clinic and they are increasing me from from 12 mg to 14 mg on April 13, 2022. ?? Last week I had an extremely painful left shoulder from what I thought was sleeping on the same shoulder every night. I woke up Friday in pain thinking I have developed a horrible case of bursitis ortendinitis in my left shoulder. I put my arm in a sling and it has improved some. 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 Before I contact my local Doc today about making an appointment, I wanted to run this by you and see if you have any recommendations? ?? I have learn that sleeping on my left side has aggravated my shoulder, but I realized that it also comes from playing the guitar 2-3 hours a day. ?? I have had bursitis in this shoulder before (2012), but it was due to an injury falling on my shoulder. ?? This time it is from a repetitive injury caused by playing guitar ?? It was not the cause of my T deficiency. ?? 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 ?? I was fired 2 years later from My Doctor in 2009 for not being able to manage my pain medication (my pain was caused the administration of Tetanus vaccine when on 04/24/2000 ?? I have a very valid reason to request a new MRI of my pituitary gland. ?? Thank You for your time and consideration! Routing to provider to advise. * Telephone Encounter - Ryan Schneider MD - 02/25/2022 1222 EST Patient sent me an extensive message over Ibetor stating that he does not wish to titrate off hydrocortisone at this time given that the weaning process has been challenging and he anticipate it that it would be a recipe for depression if done over the winter given his past experience. He also asked if he may need to increase his suboxone dose to help get off of his hydrocortisone and reports that his pain doctor at [facility] states he can go up on this. He also requested a new follow up brain MRIof his pituitary gland since his last one was done in 2007. I informed him over Ibetor that an extensive discussion such as this is best served in a formal visit. I do not prescribe suboxone so will defer this management to his pain specialist. At this time,I do not feel a repeat pituitary MRI is warranted however can certainly discuss this again at our follow up meeting. Case discussed with Dr. Morelos documented in this encounter Plan of Treatment Upcoming Encounters Date Type Department Care Team (Late st Contact Info) Description 10/08/2023 13:00 EDT Office Visit [facility] Endocrinology - [address] [phone] May Cerna MD [address] [place] [phone] 10/09/2023 14:00 EDT Office Visit [facility] Rheumatology & Immunology - [address] [address] Tj Grewal MD [address] [place] [address], [address] [place] [address] documented as of this encounter Visit Diagnoses Not on filedocumented in this encounter Care Teams Fermenting Cellars Receiver Relationship Specialty Start Date End Date Flavia Syed MD [address] [place] [phone] PCP - General Family Medicine - Primary Care 01/09/22 documented as of this encounter
--- OUTSIDE RECORDS SUMMARY | 2023-09-30 01:43 | XMS_ITS | Referral Summary ---
Author Organization [facility] Address [address] [place] [address] Care Team Providers Care Clerk General Office Name Role Phone Flavia Syed MD Primary Care Provider [phone] Encounters Date Type Department Care Team Description 09/29/2023 Telephone [facility] Endocrinology [address] [phone] May Cerna MD Labs Only 07/30/[address] [phone] Ryan Schneider MD Results 07/29/[address] [phone] Ryan Schneider MD Coordination Of Care from Last 3 Months Allergies Active Allergy Reactions Criticality Noted Date Comments Ciprofloxacin Other (See Comments),Rash Medium 011 fever Diclofenac Rash 04/25/2016 Meloxicam Palpitations 04/25/2016 Sulfa (Sulfonamide Antibiotics) Rash 06/07/2020 Medications Medication Sig Dispensed Refills Start Date End Date Status TESTOSTERONE TD Place onto the skin 2 times daily. 1/2g Active buprenorphine-naloxone (SUBOXONE) 12-[address] under the tongue daily. 14mg Active gabapentin (NEURONTIN) 600 mg tablet Take 1 Tablet by mouth daily. Active valGANciclovir (VALCYTE) 450 mg tablet Take 450 mg by mouth daily. Active FLUoxetine (PROZAC) 20 mg capsule Take 1 Capsule by mouth daily. Active DULoxetine (CYMBALTA) 30 mg delayed release capsule Take 1 Capsule by mouth daily. Active prasterone, dhea, (DHEA) 50 mg tablet Take 50 mg by mouth daily. Active hydrocortisone (CORTEF) 5 mg tablet Take 2 Tablets by mouth daily. Active traZODone (DESYREL) 100 mg tablet Take 1 Tablet by mouth at bedtime. Active UNABLE TO FIND Apply 5 Drops topically daily. Abledoc's apothocary 90% bcp/900mg Active ketoconazole (NIZORAL) 2 % cream Apply topically to affected area daily. 30 g 11 02/14/2020 Active lisinopriL (PRINIVIL) 10 mg tablet Take 1 Tablet by mouth daily. Active Multivitamin Cmb No.21-Iron-FA tablet Take 1 Tablet by mouth daily. Active aspirin 81 mg EC tablet Take 1 Tablet by mouth every 48 hours. Active terazosin (HYTRIN) 1 mg capsule Take 2 Capsules by mouth at bedtime. Active famciclovir (FAMVIR) 500 mg tablet Take 1 Tablet by mouth 2 times daily. Active Miscellaneous Medication - See Admin InstructionsIndication s:Secondary adrenal insufficiency (HCC-CMS),Empty sella syndrome (HCC-CMS) Use one 18G 1 inch needle to DRAW Solu-cortef 5 Each 01/28/2023 Active Miscellaneous Medication - See Admin InstructionsIndication s:Secondary adrenal insufficiency (HCC-CMS),Empty sella syndrome (HCC-CMS) Use on 22G 1inch needle to Inject Solucortef intra muscular. 5 Each 01/28/2023 Active Miscellaneous Medication - See Admin InstructionsIndication s:Secondary adrenal insufficiency (HCC-CMS),Empty sella syndrome (HCC-CMS) 3.0ml syringes to use with solu-cortef in case of emergency. 5 Each 01/28/2023 Active fluocinolone acetonide (SYNALAR) 0.01 % external solution APPLY TO AFFECTED AREAS OF SCALP TWO TIMES A DAY 60 mL 3 02/06/2023 Active ketoconazole (NIZORAL) 2 % shampoo APPLY TO AFFECTED AREA(S) DAILY LEAVE ON 3-5 MINUTES THEN RINSE 120 mL 11 02/14/2023 Active Active Problems Patient Care Coordination No te Formatting of this note migh t be different from the original. Clinic: Please confirm that PT does not have a Middle Initial. Yari Bunn 01/03/2022 17:24 Problem Noted Date Diagnosed Date Obstructive sleep apnea 01/28/2023 Social History Tobacco Use Types Packs/Day Years [...] Sexual Orientation Straight 06/06/2020 14 :23 EDT Last Filed Vital Signs Vital Sign Reading Time Taken Comments Blood Pressure 136/69 01/28/2023 1620 EST Pulse 69 01/28/2023 1620 EST Temperature 36.3 ??C (97.4 ??F) 10/08/2022 1423 EDT Respiratory Rate 16 09/06/2021 0857 EDT Oxygen Saturation 96% 09/06/2021 0857 EDT Inhaled Oxygen Concentration - - Weight 62.7 kg (138 lb 3.2 oz) 01/28/[address] Height 166 cm (5' 5.35) 01/28/2023 1620 EST Body Mass Index 22.75 01/28/2023 1620 EST Functional Status Functional Status Response Date of [...] concentrating, remembering, or making decisions? Yes 10/08/2022 Plan of Treatment Upcoming Encounters Date Type Department Care Team (Late st Contact Info) Description 10/08/2023 13:00 EDT Office Visit [facility] Endocrinology - [address] [address] May Cerna MD [address] [place] [phone] 10/09/2023 14:00 EDT Office Visit [facility] Rheumatology & Immunology - [facility] [address] [place], [place] [phone] Tj Grewal MD [address] [facility], [address] [place] [address] Medical Devices Implanted Type Area Clothing Worker Device Identifier Shelf Expiration Date Model / Serial / Lot Cervical Spine Fusion,Mr Safe Procedures Procedure Name Priority Date/Time Associated Diagnosis Comments HEPATITIS C AB W REFLEX TO HCV RNA BY PCR Routine 05/08/2021 16:53 EST Screening for viral disease from Last 3 Months or Most Recently Relevant to Health Maintenance Results * HEPATITIS C AB W REFLEX TO HCV RNA BY PCR (05/08/2021 16:53 EST) Hep C Antibody Negative Negative 05/09/2021 10:29 EST [facility] Blood VENOUS BLOOD / Unknown Venipuncture / Unknown 05/08/2021 16:53 EST 05/08/2021 17:15 EST Tj Grewal MD CHEMISTRY & BLOOD GA S ORDERABLES [facility] [address] [place] [address] from Last 3 Months or Most Recently Relevant to Health Maintenance Care Teams Clerk General Office Relationship Specialty Start Date End Date Flavia Syed MD [address] [place] [phone] PCP - General Family Medicine - Primary Care 01/09/22
--- OUTSIDE RECORDS SUMMARY | 2023-09-30 01:43 | XMS_ITS | Clinical Summary ---
Author Organization [facility] Address [address] [place] [address] Care Team Providers Care Shank Paperer Name Role Phone Flavia Syed MD Primary Care Provider Allergies Active Allergy Reactions Criticality Noted Date [...] does not have a Middle Initial. Yari Hernandezle 01/03/2022 17:24 Problem Noted Date Diagnosed Date Obstructive sleep apnea 01/28/2023 Encounters Date Type Department Care Team Description 09/29/2023 Telephone [facility] Endocrinology - [address] [address] May Cerna MD Labs Only 07/30/2023 Telephone [facility] Endocrinology [address] [address] Ryan Schneider MD Results 07/29/2023 Telephone [facility] Endocrinology - [address] [address] Ryan Schneider MD Coordination Of Care from Last 3 Months Surgical History Surgery Date Site/Laterality Comments CERVICAL SPINE SURGERY 03/10/2004 - 03/09/2005 VASECTOMY Medical History Medical History Date Comments Environmental allergies Asthma Family History Medical History Relation Comments Heart Disease Mother Relation Status Comments Mother Social History Tobacco Use Types Packs/Day Years [...] Sexual Orientation Straight 06/06/2020 14 :23 EDT Obstetrics History Last Filed Vital Signs Vital Sign Reading [...] Body Mass Index 22.75 01/28/2023 1620 EST Plan of Treatment Upcoming Encounters Date Type Department Care Team (Late st Contact Info) Description 10/08/2023 13:00 EDT Office Visit [facility] Endocrinology [address] [address] May Cerna MD [address] [place] [phone] 10/09/2023 14:00 EDT Office Visit [facility] Rheumatology & Immunology - [place] [address] [place] [address] Tj Grewal MD [address] [facility], [address] [place] [phone] Health Maintenance Due Date Last Done Comments Lung Cancer Screening 1950 RSV Immunization ( o r 60+ Years) (1 - 1-dose 60+ series) 2011 COVID-19 Vaccine (2022-24 season) 2022 Fall Risk Screening 01/29/2024 01/28/2023, 10/08/2022, 05/08/2021 Hepatitis C Screen Completed 05/08/2021 Medical Devices Implanted Type Area Surface Water Manager Device Identifier Shelf Expiration Date Model / [...] C Antibody Negative Negative 05/09/2021 10:29 EST [facility] Blood VENOUS BLOOD / Unknown Venipuncture / Unknown 05/08/2021 16:53 EST 05/08/2021 17:15 EST Tj Grewal MD CHEMISTRY & BLOOD GA S ORDERABLES [facility] [address] [place] [address] from Last 3 Months or Most Recently Relevant to Health Maintenance Care Teams Shank Paperer Relationship Specialty Start Date End Date Flavia Syed MD [address] [place] [address] PCP - General Family Medicine - Primary Care 01/09/22
--- OUTSIDE RECORDS SUMMARY | 2023-09-30 01:43 | XMS_ITS | Encounter Summary ---
Author Organization [facility] Address [address] [place] [address] Care Team Providers Care Etcher Photoengraving Name Role Phone Flavia Syed MD Primary Care Provider [phone] Reason for Visit * Radiology Services (Routine/Next Available) - Specialty Report Received Specialty Diagnoses / Procedures Referred By Hadley valerio Referred To Contact Diagnoses Hypogonadism in male Procedures DXA BONE DENSITY Antony Morelos, [address] [facility] [address] [place] [phone] [facility] Referral ID Status Reason Start Date Expiration Date V isits Requested Visits Authorized [id number] Specialty Report Received 01/09/2022 1 1 Encounter Details Date Type Department Care Team (Latest Contact Info) Description 01/22/2022 15:50 EST Ancillary Procedure [facility] Endocrinology - [facility] [address] [place] [address] Hypogonadism in male Social History Tobacco Use Types Packs/Day [...] Sign Reading Time Taken Comments Blood Pressure - - Pulse - - Temperature - - Respiratory Rate - - Oxygen Saturation - - Inhaled Oxygen Concentration - - Weight 61.7 kg (136 lb) 01/22/2022 1529 EST Height 166.7 cm (5' 5.63) 01/22/2022 1529 EST Body Mass Index 22.2 01/22/2022 1529 EST documented in this encounter Functional Status Functional [...] Yes 05/08/2021 documented as of this encounter Plan of Treatment Upcoming Encounters Date Type Department Care Team (Late st Contact Info) Description 10/08/2023 13:00 EDT Office Visit [facility] Endocrinology - [address] [address] May Cerna MD [address] [place] [phone] 10/09/2023 14:00 EDT Office Visit [facility] Rheumatology & Immunology - [address] [address] Tj Grewal MD [address] [place] [address], [address] [place] [address] documented as of this encounter Procedures Procedure Name Priority Date/Time Associated Diagnosis Comments DXA BONE DENSITY Routine 01/22/2022 15:50 EST Hypogonadism in male documented in this encounter Results * DXA BONE DENSITY (01/22/2022 15:50 EST) Anatomical Region Laterality Modality Other Antony Morelos DO IMG DEXA ORDER FÉLIX documented in this encounter Visit Diagnoses Diagnosis Hypogonadism in male documented in this encounter Care Teams Etcher Photoengraving Relationship Specialty Start Date End Date Flavia Syed MD [address] [place] [address] PCP - General Family Medicine - Primary Care 01/09/22 documented as of this encounter
--- OUTSIDE RECORDS SUMMARY | 2023-09-30 01:43 | XMS_ITS | Encounter Summary ---
Author Organization [facility] Address [address] [place] [address] Care Team Providers Care Supervisor Meter Shop Name Role Phone Flavia Syed MD Primary Care Provider [phone] Encounter Details Date Type Department Care Team (Late st Contact Info) Description 11/25/[address] [facility] Pathology & Laboratory Medicine - [facility] [address] [place] [address] Outr Resulting Lab, Provider Social History Tobacco [...] Info) Description 10/08/2023 13:[address] [facility] Endocrinology - [address] [phone] May Cerna MD [address] [place] [address] 10/09/2023 14:[address] [facility] Rheumatology & Immunology - [address] [address] Tj Grewal MD 111 [facility], [address] [place] [address] documented as of this encounter Procedures Procedure Name Priority Date/Time Associated Diagnosis Comments PSA TOTAL, DIAGNOSTIC Routine 11/25/2022 14:10 EDT documented in this encounter Results * PSA TOTAL, DIAGNOSTIC (11/25/2022 14:10 EDT) PSA 0.6 <=6.5 ng/mL 11/25/2022 23:07 EDT [facility] Blood VENOUS BLOOD / Unknown 11/25/2022 14:10 EDT 11/25/2022 21:56 EDT Narrative [facility] - 11/25/2022 23:07 EDT NOTE: Serum PSA concentration should not be interpreted as absolute evidence for the presence or absence of malignant disease. Assayed on Siemens ADVIA Centaur XPT using chemiluminescent technology.??Values obtained by using different assay methods cannot be used interchangeably. Provider Outr Resulting Lab CHEMISTRY & BLOOD GAS ORDERABLES [facility] [address] [place] [address] documented in this encounter Visit Diagnoses Not on filedocumented in this encounter Care Teams Supervisor Meter Shop Relationship Specialty Start Date End Date Flavia Syed MD [address] [place] [phone] PCP - General Family Medicine - Primary Care 01/09/22 documented as of this encounter
--- OUTSIDE RECORDS SUMMARY | 2023-09-30 01:43 | XMS_ITS | Encounter Summary ---
Author Organization [facility] Address [address] [place] [address] Care Team Providers Care Statistics Tutor Name Role Phone Flavia Syed MD Primary Care Provider [phone] Encounter Details Date Type Department Care Team (Late st Contact Info) Description 05/29/2022 Orders Only [facility] Radiology - [facility] [place] [address] [place], [place] [address] Murray Horner MD [address] [place], [place] [address] Social History Tobacco Use Types Packs/Day Years [...] Info) Description 10/08/2023 13:00 EDT Office Visit [facility] Endocrinology - [address] [phone] May Cerna MD [address] [place] [phone] 10/09/2023 14:00 EDT Office Visit [facility] Rheumatology & Immunology - [address] [phone] Tj Grewal MD [address] [place] [address], [address] [place] [address] documented as of this encounter Visit Diagnoses Not on filedocumented in this encounter Care Teams Statistics Tutor Relationship Specialty Start Date End Date Flavia Syed MD [address] [place] [phone] PCP - General Family Medicine - Primary Care 01/09/22 documented as of this encounter
--- OUTSIDE RECORDS SUMMARY | 2023-09-30 01:43 | XMS_ITS | Encounter Summary ---
Author Organization [facility] [place] [address] Care Team Providers Care Regulatory Administrator Name Role Phone Jayde Cabrera MD Primary Care Provider [phone] Reason for Visit * Reason Comments Backache Encounter Details Date Type Department Care Team (Late st Contact Info) Description 10/09/2010 2:15 PM EDT [place] [phone] Myra Hinton MD [facility] [place] [address] Cervicalgia; Chronic fatigue syndrome; Chronic low back pain; Leg pain Discharge Disposition: Home Social History Tobacco [...] Sign Reading Time Taken Comments Blood Pressure 147/90 10/09/2010 3:00 PM EDT lef t arm Pulse 68 10/09/2010 3:00 PM EDT Temperature - - Respiratory Rate - - Oxygen Saturation 96% 10/09/2010 3:00 PM EDT room air Inhaled Oxygen Concentration - - Weight 79.4 kg (175 lb) 10/09/2010 3:00 PM EDT Height 172.1 cm (5' 7.75) 10/09/2010 3:00 PM ED T Body Mass Index 26.81 10/09/2010 3:00 PM EDT documented in this encounter Progress Notes * Myra Hinton MD - 10/09/2010 3:25 PM EDT Primary Care Physician: Dr Jayde Cabrera Referring Provider: Dr Jayde Cabrera Reason for Request of Consultation: Chronic pain Chief Complaint: Here are my goals History of Present Illness: Mr. Dewey is a 60-year-old gentleman with a history of cervicalgia and chronic low back pain. [facility] by Dr. Etienne most recently in April 2007 and by me in 2008. Worse pain is: flares of pain Cervicalgia H/o of anterior cervical fusion, C5 [...] hip bursitis, fatigue. XRMT is pain flares Opioid I was let go because she thinks I am an addict and I was a pain in the ass Methadone affected LEA Relationship with Dr Mayer deteriorated which he states was precipitated by neurologic ?? Took more medications then prescribed secondary to flares ?? I had a sense of entitlement as I wanted no pain at all, I was angry and I understand that now, I want to get well I will have flares ?? Urine toxicology was inconsistent in [address] Mayer and had a prescription for methadoneRx by pain clinic and was switched to morphine because of testosterone level and took a previous prescription methadone because of BTP and was tested again and was positive with decrease levels ?? [place] [facility] and received suboxone and helped pain Rx: Oxycodone 20mg 4xday--> Rx by Dr Sotelo his CFS doctor Current meds Cymbalta Clonazepam for sleep testesterone Limitations Not active, home bound Treatments CMBB [...] disc protrusion at L3-4 on the left ROS As in hip o/w negative Current outpatient prescriptions Medication Sig [...] Misc.(Non-Drug; Combo Route) route daily. ??? krill [id number] 300-90 (27-45) mg Cap Take 1 capsule by mouth daily. ??? MV-MN/FA/LYCOPENE/LUT/HB#178 (FREDRICK MULTIVITAMIN FOR MEN ORAL) Take 1 tablet by mouth daily. ??? ASCORBATE CALCIUM (VITAMIN C ORAL) Take 1,800 mg by mouth See Admin Instructions. 1-2 TIMES DAILY ??? CALCIUM CARB/VIT D3/MAG11/ZINC (CALCIUM CARB-D3-MAG [id number] ORAL) Take 1 tablet by mouth SeeAdmin [...] 1-2 times daily ??? FE/VIT B COMP/B12/LIVER/PROC ([id number]) Inj Inject 0.2 mLs into the muscle daily. ??? finasteride (PROSCAR) 5 mg tablet 5mg, PO, Once daily Allergies Allergen Reactions ??? Ciprofloxacin Rash fever ??? Sulfa (Sulfonamide Antibiotics) Rash Past [...] ??? Cancer Other Physical Exam: Filed Vitals: 10/09/10 1500 BP: 147/90 Pulse: 68 He is pleasant, polite, cooperative, and in no acute distress. Upon entering the room, I introducedmyself as Dr. Hinton, and throughout our conversation he referred to me as Myra. His speech is directed toward his viral disease and difficult for him to focus away from this diagnosis. He hasnormal gait and stance. Normal balance. Normal range of motion of the cervical and lumbar spine. Strength globally intact. Assessment: 1. Chronic low back pain and leg pain 2. Chronic cervical pain. 3. Fibromyalgia. 4. Depression. 5.. Opioid dependence Mr. Dewey suffers from axial cervical pain and some arm pain as well as LBP and lE pain. His last MRI was many years prior and therefore I have scheduled him for lumbar and cervical MRI. If images unchanged or no significant pathology than his ethan is likely attributed to his FM. If indicated, he may be a candidate for SERENA. In regards to his fibromyalgia, opioids are [...] he remains active by going in his Jacuzzi. It is my opinion that his primary care physician is treating his fibromyalgia appropriately in regards to being on anticonvulsants, antidepressants, cognitive behavioral therapy, and active program. There is also a concern about his opioid, he is a high risk patient based upon his previous historyand I discussed with the patient that we do not prescribe shelter in the pain clinic based upon availability. I discussed the limited efficacy of opioids and we discussed its ineffectiveness with previous treatm,ents. Mr Deewy feels his QOL is improved with the medications, but I am concerned the risk outweighs the benefit in his case. I have not provided him with any opioid prescriptions. He will return for follow-up to discuss his MRI results and possible interventional techniques or possibly the FRP. I spent 60 minutes with the patient of which greater than 50% was spent in [id number] discussion about the his pain condition and options documented in this encounter Plan of Treatment Not on file documented as of this encounter Visit Diagnoses Diagnosis Cervicalgia Chronic fatigue syndrome Chronic low back pain Lumbago Leg pain Pain in limb documented in this encounter Care Teams Regulatory Administrator Relationship Specialty Start Date End Date Jayde Cabrera MD [address] [facility] [place] [address] PCP - General 10/09/10 09/29/13 documented as of this encounter
--- OUTSIDE RECORDS SUMMARY | 2023-09-30 01:43 | XMS_ITS | Encounter Summary ---
Author Organization [facility] Address [address] [place] [address] Care Team Providers Care Policy Service Coordinator Name Role Phone Flavia Syed MD Primary Care Provider Reason for Visit * Reason Comments Medications Refill Encounter Details Date Type Department Care Team (Late st Contact Info) Description 11/16/2022 Refill [facility] Dermatology 5th Floor [facility] [address] [place], [place] [phone] Gokul Menezes MD [address] [facility], [address] [place] [phone] Medications Refill Social History Tobacco Use Types [...] Yes 10/08/2022 documented as of this encounter Ordered Prescriptions Prescription Sig Dispensed Refills Start Date End Da te fluocinolone acetonide (SYNALAR) 0.01 % external solution APPLY TO AFFECTED AREAS OF SCALP TWO TIMES A DAY 60 mL 3 11/18/2022 02/06/2023 documented in this encounter Miscellaneous Notes * Telephone Encounter - Tamanna Crawford MA - 11/18/2022 1139 EDT Requested Prescriptions Pending Prescriptions Disp Refills ??? fluocinolone acetonide (SYNALAR) 0.01 % external solution [Pharmacy Med Name: FLUOCINOLONE 0.01% SOLUTION] 60 mL 3 Sig: APPLY TO AFFECTED AREAS OF SCALP TWO TIMES A DAY Last refill: 08/29/2022 Last visit: 02/13/2023 Next visit: TBS Diagnosis: Arash Derm documented in this encounter Plan of Treatment Upcoming Encounters Date Type Department Care Team (Late st Contact Info) Description 10/08/2023 13:00 EDT Office Visit [facility] Endocrinology - [address] [address] May Cerna MD [address] [place] [phone] 10/09/2023 14:00 EDT Office Visit [facility] Rheumatology & Immunology - [address] [address] Tj Grewal MD [address] [place] [address], [address] [place] [address] documented as of this encounter Visit Diagnoses Not on filedocumented in this encounter Discontinued Medications Medication Sig Discontinue Reason Start Date End Da te fluocinolone acetonide (SYNALAR) 0.01 % external solution APPLY TO AFFECTED AREAS OF SCALP TWO TIMES A DAY 08/30/2022 11/18/2022 documented as of this encounter Care Teams Policy Service Coordinator Relationship Specialty Start Date End Date Flavia Syed MD [address] [place] [phone] PCP - General Family Medicine - Primary Care 01/09/22 documented as of this encounter
--- OUTSIDE RECORDS SUMMARY | 2023-09-30 01:43 | XMS_ITS | Encounter Summary ---
Author Organization [facility] Address [address] [place] [address] Care Team Providers Care Manager Cardiac Cath Name Role Phone Flavia Syed MD Primary Care Provider [phone] Reason for Visit * Reason Onset Date Comments Coordination Of Care 10/29/2022 Encounter Details Date Type Department Care Team (Late st Contact Info) Description 10/29/2022 Telephone [facility] [place] [place] - [address] [address] Kasandra Singh RN Coordination Of Care Social History Tobacco Use [...] encounter Miscellaneous Notes * Telephone Encounter - Kasandra Singh RN - 10/30/2022 1003 EDT Called pt to relay Dr. Jara's message: Helmarivel, this is OK but we always worry about secondary adrenal insufficiency when someone has been on steroids for some time so they need to be tapered down slowly. He should call with any change in symptoms (dizziness, nausea, weakness, low BP). I'll place lab orders, he should have an am cortisol and ACTH level tested later this week. Pt requested labs be sent to [facility]. Orders sent as requested. Patient verbalized understanding. No barriers to learning noted. Kasandra Singh RN, BSN Endocrinology * Telephone Encounter - Kasandra Singh RN - 10/29/2022 0838 EDT Message received by [facility] and forwarded to Dr. Reed. Pt does have an upcoming appt 12/03; last appt was 05/28/22. Pt with chronic pain issues, osteoarthritis, seen for hypogonadism and steroid tapering. --- Message ----- From: Joseluis Dewey Sent: 10/22/2022 ??16:36 EDT To: Endocrinology [facility] Subject: Appointment Rescheduled ? I have stopped decreasing my 10 mg of hydrocortisone because I have too much pain. I did see Dr Grewal in Rheum this month and he mentioned the possibility of Methotrexate. I am no longer depressed (Since March 2022)and I do not want to push myself into depression by tapering any more. I received the results to my sleep study and I have SEVERE Apnea that I have had for 23 years. I amhoping that CPAP Treatment will improve my chronic on going pain. My PAIN is IMMUNE RELATED and it waxes and wanes with my immune system. I am always fighting Tanvir Unger Virus. Thanks for your time. Kasandra Singh RN, BSN Endocrinology documented in this encounter Plan of Treatment Upcoming Encounters Date Type Department Care Team (Late st Contact Info) Description 10/08/2023 13:00 EDT Office Visit [facility] Endocrinology - [address] [phone] May Cerna MD [address] [place] [phone] 10/09/2023 14:00 EDT Office Visit [facility] Rheumatology & Immunology - [address] [phone] Tj Grewal MD [address] [facility], [address] [place] [phone] documented as of this encounter Visit Diagnoses Not on filedocumented in this encounter Care Teams Manager Cardiac Cath Relationship Specialty Start Date End Date Flavia Syed MD [address] [place] [phone] PCP - General Family Medicine - Primary Care 01/09/22 documented as of this encounter
--- OUTSIDE RECORDS SUMMARY | 2023-09-30 01:43 | XMS_ITS | Encounter Summary ---
Author Organization [facility] Address [address] [place] [address] Care Team Providers Care Eviction Specialist Name Role Phone Flavia Syed MD Primary Care Provider [phone] Reason for Visit * Reason Onset Date Comments Results 07/30/2023 Encounter Details Date Type Department Care Team (Late st Contact Info) Description 07/30/2023 Telephone [facility] - [address] [address] Ryan Schneider MD [address] [place] [phone] Results Social History Tobacco Use Types [...] encounter Miscellaneous Notes * Telephone Encounter - Marsha Peguero RN - 08/07/2023 1325 EDT Patient is active on [employer], sent message that Dr. Schneider will not review the LH and Cortisol lab results from 06/11/23 as those are only two of the eight labs he ordered. T4 Free TSH CMP CBC LH Testosterone, total and free Cortisol ACTH, Plasma Marsha Peguero RN * Telephone Encounter - Marsha Peguero RN - 08/06/2023 1206 EDT Lab results from 06/11/[address] Schneider to review. Patient has secondary adrenal insufficiency. Cortisol 5 LH >0.3 Marsha Peguero RN * Telephone Encounter - Jocelyn Souza - 07/30/2023 1343 EDT Endocrinology Incoming Call Reason for call: Labs Request/Results If known, which test are you inquiring about? LH and Corticol Where was your test performed (which lab)? [facility] Lab What date was the test performed? 06/11/23 Next Appointment: 10/08/2023 Last Office Visit: 01/28/2023 Ryan Schneider MD Last Telehealth Encounter: Visit date not found Send as Routine Priority to [facility] Endocrine Nurse Delancey documented in this encounter Plan of Treatment Upcoming Encounters Date Type Department Care Team (Late st Contact Info) Description 10/08/2023 13:00 EDT Office Visit [facility] Endocrinology - [address] [address] May Cerna MD [address] [place] [phone] 10/09/2023 14:00 EDT Office Visit [facility] Rheumatology & Immunology - [address] [phone] Tj Grewal MD [address] [place] [address], [address] [place] [phone] Scheduled Orders Name Type Priority Associated Diagnoses Orde r Schedule T4 FREE Lab Routine Secondary adrenal insufficiency ([facility]) Expected: 08/07/2023 (Approximate), Expires: 08/06/2024 TSH Lab Routine Secondary adrenal insufficiency ([facility]) Expected: 08/07/2023 (Approximate), Expires: 08/06/2024 COMPREHENSIVE METABOLIC PANEL (CMP) Lab Routine Secondary adrenal insufficiency ([facility]) Expected: 08/07/2023 (Approximate), Expires: 08/06/2024 COMPLETE BLOOD COUNT Lab Routine Secondary adrenal insufficiency (HCC-CMS) Expected: 08/07/2023 (Approximate), Expires: 08/06/2024 TESTOSTERONE, TOTAL AND FREE Lab Routine Secondary adrenal insufficiency (HCC-CMS) Expected: 08/07/2023 (Approximate), Expires: 08/06/2024 ACTH, PLASMA Lab Routine Secondary adrenal insufficiency (HCC-CMS) Expected: 08/07/2023 (Approximate), Expires: 08/06/2024 documented as of this encounter Visit Diagnoses Diagnosis Secondary adrenal insufficiency (HCC-CMS)- Primary Glucocorticoid deficiency documented in this encounter Care Teams Eviction Specialist Relationship Specialty Start Date End Date Flavia Syed MD [address] [place] [phone] PCP - General Family Medicine - Primary Care 01/09/22 documented as of this encounter
--- OUTSIDE RECORDS SUMMARY | 2023-09-30 01:43 | XMS_ITS | Encounter Summary ---
Author Organization [facility] Address [address] [place] [address] Care Team Providers Care Data Entry Coordinator Name Role Phone Flavia Syed MD Primary Care Provider [phone] Reason for Visit * Reason Comments Medications Refill Encounter Details Date Type Department Care Team (Late st Contact Info) Description 02/13/2023 Refill [facility] Dermatology 5th [facility] [address] [place] [address], [place] [phone] Gokul Menezes MD 111 [facility], Level 5 [place] [phone] Medications Refill Social History Tobacco Use Types [...] Dispensed Refills Start Date End Da te ketoconazole (NIZORAL) 2 % shampoo APPLY TO AFFECTED AREA(S) DAILY LEAVE ON 3-5 MINUTES THEN RINSE 120 mL 11 02/14/2023 documented in this encounter Miscellaneous Notes * Telephone Encounter - Alley Hilario MA - 02/13/2023 4956 EST Medication: KETOCONAZOLE 2% SHAMPOO Diagnosis: Seborrheic dermatitis Last Office Visit: 02/14/2020 Next Office Visit: TBD Last Refill: 12/17/2022 ALLEY HILARIO MA 02/13/2023 15:08 documented in this encounter Plan of Treatment Upcoming Encounters Date Type Department Care Team (Late st Contact Info) Description 10/08/2023 13:00 EDT Office Visit [facility] Endocrinology - [address] [phone] May Cerna MD [address] [place] [phone] 10/09/2023 14:00 EDT Office Visit [facility] Rheumatology & Immunology - [address] [phone] Tj Grewal MD 111 [facility], [facility] [address] [place] [address] documented as of this encounter Visit Diagnoses Not on filedocumented in this encounter Discontinued Medications Medication Sig Discontinue Reason Start Date End Da te ketoconazole (NIZORAL) 2 % shampoo APPLY TO AFFECTED AREA(S) DAILY. LEAVE ON 3-5 MINUTES THEN RINSE OFF 01/18/2022 02/14/2023 documented as of this encounter Care Teams Data Entry Coordinator Relationship Specialty Start Date End Date Flavia Syed MD [address] [place] [address] PCP - General Family Medicine - Primary Care 01/09/22 documented as of this encounter
--- OUTSIDE RECORDS SUMMARY | 2023-09-30 01:43 | XMS_ITS | Encounter Summary ---
Author Organization [facility] Address [address] [place] [address] Care Team Providers Care Unix Architect Name Role Phone Flavia Syed MD Primary Care Provider [phone] Reason for Visit * Reason Onset Date Comments Patient Outreach 10/21/2022 Encounter Details Date Type Department Care Team (Late st Contact Info) Description 10/21/2022 Telephone [facility] [place] [address] [address] Ryan Hamilton MD [address] [place] [phone] Patient Outreach Social History Tobacco Use Types Packs/Day Years [...] Telephone Encounter - Charles Farah RN - 11/12/2022 0956 EDT Greetings, I recently had lab work done at the [facility] in [facility] on 11/01 and I am un-able to view the test results from 11/01/2022. I can only see the Cortisol Test results? I would appreciate it if someone could check to see if there is problem with my test results not posting. ALSO MY CORTISOL TEST had a 12 value. I take 2,500 mcg biotin a day. I have been taking 2500 mcg of Biotin a day for a bout a month to help repair my fingernails and my damaged hair. I am happy to wait if the tests need more time to be processed and populated. Thanks Lab results available 11/06/2022 in scans Pt has upcoming appt. CHARLES FARAH RN 11/12/2022 9:57 * Telephone Encounter - Nahomi Ruiz RN - 11/06/2022 0920 EDT Images from the original note were not included. Nahomi Reynoso RN, BSN 11/06/22 9:20 * Telephone Encounter - Charles Farah RN - 10/30/2022 1157 EDT I called the [facility] and asked them to fax my recent sleep study to Dr Reed today10/29/22. (sleep study was September 22, 2022 ) ?? Please ask Dr. Hamilton to take a look because I have Severe Sleep Apnea. ?? My new sleep study is a mirror of the Sleep Study that I had around 2007. I believe I have had thischronic sleep apnea for over 24 years now. My Lyme, Babesia and a Vaccine injury were unknown at the time. Initially I was prescribed the wrong sleep machine for a year and half and by the time I gotthe correct machine I was a mess and my Doctor fired six months later. ?? Thanks MM ?? Actually - I will call [facility] medical and get the fax number for Dr Hamilton so I can send the sleep study. ?? Thanks for your note! MM Please send me a Fax Number I can use to send the results to Dr. Hamilton.? A 2006 sleep study I had showed the same SEVERE apnea as my new study. This info never made it intomy medical file, even though severe Sleep-Apnea was clearly diagnosed. My new sleep apnea equipmentjust arrived today! The chronic pain 30/09 that I manage is tied to my ongoing chronic sleep apnea that I have had for 24 years. I have a bizarre medical history where ALL the Doctors denied that I was sick for 15 years. I need [facility] Doctors to understand how much pain I live in without validation or diagnosis of my condition. Sleep study available in scans 10/29/2022 CHARLES FARAH RN 10/30/2022 12:00 * Telephone Encounter - Nahomi Ruiz RN - 10/28/2022 1312 EDT Images from the original note were not included. Nahomi Reynoso RN, BSN 10/28/22 13:12 * Telephone Encounter - Charles Farah RN - 10/23/2022 1606 EDT NOV: 12/03/22 RIDDHI: 05/28/22: 1) labwork to be done in morning (before 10 am) ?? 2) continue the 10 mg for now and then plan to decrease 7.5 mg after your trip (down by 2.5 mg every 2-3 months) ?? 3) follow up of sleep study. ?? 4) pituitary MRI ?? 5) follow up 5 months Routing to provider. CHARLES FARAH RN 10/23/2022 16:07 * Telephone Encounter - Jesica Dow - 10/21/2022 [address] hamilton to know a sleep study report will be faxed to him soon. Patient also wantshim to know he reduced the hydrocortisone from 20 ml to 10 ml but cannot reduce any further due to pain. documented in this encounter Plan of Treatment Upcoming Encounters Date Type Department Care Team (Late st Contact Info) Description 10/08/2023 13:00 EDT Office Visit [facility] Endocrinology - [address] [phone] May Cerna MD [address] [place] [phone] 10/09/2023 14:00 EDT Office Visit [facility] Rheumatology & Immunology - [address] [phone] Tj Grewal MD 111 [facility], [address] [place] [phone] documented as of this encounter Visit Diagnoses Not on filedocumented in this encounter Care Teams Unix Architect Relationship Specialty Start Date End Date Flavia Syed MD [address] [place] [phone] PCP - General Family Medicine - Primary Care 01/09/22 documented as of this encounter
--- OUTSIDE RECORDS SUMMARY | 2023-09-30 01:43 | XMS_ITS | Encounter Summary ---
Author Organization [facility] Address [address] [place] [address] Care Team Providers Care Internet Ecommerce Specialist Name Role Phone Flavia Syed MD Primary Care Provider [phone] Reason for Visit * Reason Onset Date Comments Labs Only 05/26/2023 Encounter Details Date Type Department Care Team (Late st Contact Info) Description 05/26/2023 Telephone [facility] Endocrinology - [address] [address] Ryan Schneider MD [address] [place] [phone] Labs Only (/) Social History Tobacco Use Types Packs/Day Years [...] Telephone Encounter - Marsha Peguero RN - 05/29/2023 1318 EDT This RN left a for patient with Dr. Schneider's message regarding lab prep, asking he contact clinic with any questions. On day prior to lab test, hold evening hydrocortisone. Get bloodwork in the morning (8-9 am) and then can take morning hydrocortisone dose after lab test is done (he should bring his hydrocortisone bottle with him to the lab so he can after bloodwork is drawn). Marsha Peguero RN * Telephone Encounter - Brianda Cueto RN - 05/29/2023 0971 EDT Patient requesting testosterone labs and other. RIDDHI 01/28/23 Next OV 07/29/23 Patient does not seem to have completed labs ordered by Dr. Schneider in 01/2023 RIDDHI 01/28/23 1) check morning fasting blood work before taking hydrocortisone in the morning. Hold yesterday evening dose of hydrocortisone. Routing to Dr. Schneider to clarify instructions for fasting blood work. BRIANDA CUETO RN 05/29/2023 10:05 * Telephone Encounter - Raeann Watts - 05/26/2023 1345 EDT Endocrinology Incoming Call Reason for call: Labs Only (/) Labs Request/Results What labs would you like orders for? Testosterone, whatever else he usually has standing orders for When do you need it by? No date given Where would you like the labs drawn? [facility] Are you at the lab now? No - Send ROUTINE priority to [facility] Endocrinology Nurse Pool Next Appointment: 07/29/2023 Last Office Visit: 01/28/2023 Ryan Schneider MD Last Telehealth Encounter: Visit date not found Raeann Watts 05/26/2023 13:45 documented in this encounter Plan of Treatment Upcoming Encounters Date Type Department Care Team (Late st Contact Info) Description 10/08/2023 13:00 EDT Office Visit [facility] Endocrinology - [address] [address] May Cerna MD [address] [place] [phone] 10/09/2023 14:00 EDT Office Visit [facility] Rheumatology & Immunology - [address] [phone] Tj Grewal MD [address] [place] [address], [address] [place] [phone] documented as of this encounter Visit Diagnoses Not on filedocumented in this encounter Care Teams Internet Ecommerce Specialist Relationship Specialty Start Date End Date Flavia Syed MD [address] [place] [phone] PCP - General Family Medicine - Primary Care 01/09/22 documented as of this encounter
--- OUTSIDE RECORDS SUMMARY | 2023-09-30 01:43 | XMS_ITS | Encounter Summary ---
Author Organization [facility] Address [facility] [place] [address] Care Team Providers Care Landscaper Name Role Phone Jayde Cabrera MD Primary Care Provider [phone] Encounter Details Date Type Department Care Team (Late st Contact Info) Description 10/10/2010 6:19 PM EDT - 10/10/2010 11:59 PM EDT Hospital [place] [phone] Social History Tobacco Use Types Packs/Day Years [...] Misc.(Non-Drug; Combo Route) route daily. 10/14/2014 krill fle-iriyv-4-dha-epa 300-90 (27-45) mg Cap Take 1 capsule by mouth daily. 04/08/2014 CALCIUM CARB/VIT D3/MAG11/ZINC (CALCIUM CARB-D3-MAG ZTO41-SOCS ORAL) Take 1 tablet by mouth See [...] Instructions. as directed 11/21/2016 FE/VIT B COMP/B12/LIVER/PROC ([id number]) Inj Inject 0.2 mLs into the muscle daily. 09/30/2013 finasteride (PROSCAR) 5 mg tablet 5mg, PO, Once daily 05/26/2009 10/01/19 14 documented as of this encounter Plan of Treatment Not on file documented as of this encounter Visit Diagnoses Not on filedocumented in this encounter Care Teams Landscaper Relationship Specialty Start Date End Date Jayde Cabrera MD [address] [place] [address] PCP - General 10/09/10 09/29/13 documented as of this encounter
--- OUTSIDE RECORDS SUMMARY | 2023-09-30 01:43 | XMS_ITS | Encounter Summary ---
Author Organization [facility] Address [address] [place] [address] Care Team Providers Care Openstack Cloud Consulting Architect Name Role Phone [facility] Primary Care Provider [phone] Flavia Syed MD Primary Care Provider [phone] Reason for Visit * Reason Comments Other Encounter Details Date Type Department Care Team (Late st Contact Info) Description 10/12/2021 Refill [facility] Dermatology 5th Floor [facility] [address] [place], [place] [phone] Gokul Menezes MD 111 [facility], [address] [place] [phone] Other Social History Tobacco Use Types Packs/Day [...] TWO TIMES A DAY 60 mL 3 10/16/2021 01/01/2022 documented in this encounter Miscellaneous Notes * Telephone Encounter - Sydnee Prasad MA - 10/15/2021 0941 EDT Medication: fluocinolone acetonide (SYNALAR) 0.01 % external solution Diagnosis: Arash derm Last Office Visit: 02/14/20 Next Office Visit: prn Last Refill: 09/30/21 documented in this encounter Plan of Treatment Upcoming Encounters Date Type Department Care Team (Late st Contact Info) Description 10/08/2023 13:00 EDT Office Visit [facility] Endocrinology - [address] [phone] May Cerna MD [address] [place] [phone] 10/09/2023 14:00 EDT Office Visit [facility] Rheumatology & Immunology - [address] [phone] Tj Grewal MD [address] [place] [address], [address] [place] [phone] documented as of this encounter Visit Diagnoses Not on filedocumented in this encounter Discontinued Medications Medication Sig Discontinue Reason Start Date End Da te fluocinolone acetonide (SYNALAR) 0.01 % external solution APPLY TO AFFECTED AREA(S) ON SCALP TWO TIMES A DAY 07/16/2021 10/16/2021 documented as of this encounter Care Teams Openstack Cloud Consulting Architect Relationship Specialty Start Date End Date [facility] [address] [place] [address] PCP - General 09/06/21 01/08/22 Flavia Syed MD [address] [place] [phone] PCP - General Family Medicine - Primary Care 01/09/22 documented as of this encounter
--- OUTSIDE RECORDS SUMMARY | 2023-09-30 01:43 | XMS_ITS | Encounter Summary ---
Author Organization [facility] Address [address] [place] [address] Care Team Providers Care Financial Reporting Specialist Name Role Phone Flavia Syed MD Primary Care Provider Reason for Referral * Radiology Services (Routine/Next Available) - Specialty Report Received Specialty Diagnoses / Procedures Referred By Contac t Referred To Contact Diagnoses Hypogonadism in male Procedures DXA BONE DENSITY Antony Morelos DO [address] [address] [facility] Referral ID Status Reason Start Date Expiration Date V isits Requested Visits Authorized [id number] Specialty Report Received 01/09/2022 1 1 Reason for Visit * Reason Comments Other low testosterone lev els * Referral (Routine) - Receiving Office to Obtain Authorization Specialty Diagnoses / Procedures Referred By Contac t Referred To Contact Endocrinology Diagnoses Low testosterone level in male Flavia Syed MD [address] [place] [address] [facility] Endocrinology [address] [place] [address] Referral ID Status Reason Start Date Expiration Date Visits Requested Visits Authorized [id number] Receiving Office to Obtain Authorization 1 1 Encounter Details Date Type Department Care Team (Latest Contact Info) Description 01/09/2022 15:00 EDT Office Visit [facility] Endocrinology - [address] [address] Ryan Rubio MD [address] [place] [phone] Hypogonadism in male (Primary Dx) Social History Tobacco Use Types [...] Sign Reading Time Taken Comments Blood Pressure 131/62 01/09/2022 1512 EDT Pulse 66 01/09/2022 1512 EDT Temperature - - Respiratory Rate - - Oxygen Saturation - - Inhaled Oxygen Concentration - - Weight 62 kg (136 lb 9.6 oz) 01/09/2022 1512 EDT Height 167 cm (5' 5.75) 01/09/2022 1512 EDT Body Mass Index 22.22 01/09/2022 1512 EDT documented in this encounter Functional Status [...] Yes 05/08/2021 documented as of this encounter Patient Instructions * Patient Instructions* Ryan Rubio MD - 01/09/2022 15:00 EDT 1) drop hydrocortisone by 2.5 mg (from 15 to 12.5 mg) from the new months to slowest reduce your steroid intake. You can cut one of the 5 mg tablets in half to make 2.5 mg 2) check DEXA scan 3) will follow up in 3 months documented in this encounter Progress Notes * Ryan Rubio MD - 01/09/2022 1500 EDT Endocrinology New Patient Visit Date of Service: 01/09/2022 Chief Complaint Patient presents with ??? Other low testosterone levels HPI: This is a 71 y.o. 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 After his C-spine surgery in 2004, he was placed on methadone from 7700-6934, again from 9454-6883 and then switched to suboxone in 2018 which he has remained on. He was started on prednisone 5 mg in 2015 (Dr. Willoughby, rheum at [facility]) for chronic pain syndrome-> increased to 20 mg daily until 2017 which was then changed to hydrocortisone 20 mg -> 15 mg hydrocortisone now since August 2019 He said it was murder going down from steroids from 20 to 15 mg. He feels that he is very immunocompromised at this time in the setting of multiple co-infections. 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 I do not have the imaging report to review at this time. Patient reports that first month testosterone was noted in 2003. He describes this is related to being vaccine injury he reports daily night sweats and has to change his sheets constantly. He has hadCOVID in June last year which he reports reactivated his EBV and possible shingles. He reports that the medical system was so busy denying that he had Lyme disease that the testosterone levels have not been addressed much. ROS Fatigue/exhaustion - recovering from 22 years of chronic infections, therefore yes Libido -> notes he has a very active sex drive Erectile dysfunction -> he is having erections Muscle weakness - yes, although was not able to isolate location or if just general Headache - rare Past T use - has been on injections 2 shots a week. Unclear what exact dose. He states this wasn't working for him He does note a history of untreated sleep apnea (report not available in front of me, last one per patient was in 2007). He has had recent normal Hb from yesterday. He reports having a deviated septum and that they could not get his CPAP settings right. He currently uses a bandage over his nose. LE edema? - reports trace edema CP/pressure/SOB? - no Calf swelling/tenderness? - yes, both. Loses balance a lot. Acne? All over the back, little Muscle strength? - lives in chronic pain, in particular perineum pain. Describes having an active lifestyle, Sweats hot flashes? Does have regular night sweats. Has to change out sheets as they get soaked weight changes? no Changes in energy or mood? No. Reports he uses an electrical guitar around 3 hrs a day that his family got him recently. History of prostate ca? no CHF? no Glucose levels normal on last BMP BPH questions 1) Incomplete emptying: yes 2) Increased frequency: A lot 3) Intermittency: no 4) Urgency: yes 5) Weak stream: Can be 6) Straining: no 7) Nocturia: No ( on terizosin) Testosterone applicator: 2 clicks in the morning 2 clicks in the evening -> dose since 2009 Where he gets testosterone applicator: -[facility] ([id number] account number) Phone number Dr Sotelo's - [facility]: [phone] Review of Systems A 10 point review of systems was obtained, pertinent positives and negatives as listed above, all others negative. There is no problem list on file for this patient. Past Medical History: Diagnosis Date ??? Asthma ??? Environmental allergies Past Surgical History: Procedure Laterality Date ??? CERVICAL SPINE SURGERY 2004 ??? VASECTOMY Current Outpatient Medications on File Prior to Visit Medication Sig Dispense Refill ??? aspirin 81 mg EC tablet Take 81 mg by mouth daily. ??? buprenorphine-naloxone (SUBOXONE) 12-[address] under the tongue daily. ??? DULoxetine (CYMBALTA) 30 mg delayed release capsule Take 30 mg by mouth daily. ??? fluocinolone acetonide (SYNALAR) 0.01 % external solution APPLY TO AFFECTED AREA(S) ON SCALP TWO TIMES A DAY 60 mL 3 ??? FLUoxetine (PROZAC) 20 mg capsule Take 20 mg by mouth daily. ??? gabapentin (NEURONTIN) 600 mg tablet Take 600 mg by mouth 3 times daily. ??? hydrocortisone (CORTEF) 5 mg tablet Take 5 mg by mouth 3 times daily. ??? ketoconazole (NIZORAL) 2 % cream Apply topically to affected area daily. 30 g 11 ??? ketoconazole (NIZORAL) 2 % shampoo APPLY TO AFFECTED AREA(S) DAILY. LEAVE ON 3-5 MINUTES THEN RINSE OFF 120 mL 11 ??? lisinopriL (PRINIVIL) 10 mg tablet Take 10 mg by mouth daily. ??? Multivitamin Cmb No.21-Iron-FA tablet Take by mouth. ??? prasterone, dhea, (DHEA) 50 mg tablet Take by mouth daily. ??? terazosin (HYTRIN) 1 mg capsule Take 1 mg by mouth at bedtime. ??? TESTOSTERONE TD Place onto the skin 2 times daily. ??? traZODone (DESYREL) 100 mg tablet Take 100 mg by mouth at bedtime. ??? UNABLE TO FIND Med Name: Adrenal supplement, zylomets, Iron supplements, (Patient not taking: Reported on 01/09/2022) ??? valGANciclovir (VALCYTE) 450 mg tablet Take 450 mg by mouth daily. No current facility-administered medications on file prior to visit. Allergies Allergen Reactions ??? Ciprofloxacin Other (See Comments) and Rash fever ??? Diclofenac Rash ??? Meloxicam Palpitations ??? Sulfa (Sulfonamide Antibiotics) Rash BP 131/62 Pulse 66 Ht 167 cm (65.75) Wt 62 kg (136 lb 9.6 oz) BMI 22.22 kg/m?? Physical Exam: Gen: alert, cooperative, in NAD HEENT: atraumatic, normocephalic, conjunctivae clear CV: RRR, nml S1/S2, no murmurs/rubs/gallops appreciated Resp: CTAB, no wheezes/rales/rhonchi Extr: no peripheral edema, atraumatic Skin: No evidence of rash or lesion. Turgor and color normal. Previous Labs: No results found for: HGBA1C, GLUF, MICROALBUR No results found for: CHOL, HDL, LDLBASE, TRIG, CHOLHDL Lab Results Component Value Date ALT 20 05/08/2021 AST 26 05/08/2021 ALKPHOS 78 05/08/2021 Assessment: 71 y.o. 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 As he has been on relatively supra-physiological dosing of steroids for years, will need to an extensive long steroid taper. Recommend decreasing by 2.5 mg for next few months until I see him again (15 mg -> 2.5 mg). Also recommend a DEXA scan to check bone mineral density given his increased risk of developing osteoporosis. Regarding his history of hypogonadism, will check a testosterone level at this time to see if he isadequately replaced. Suspect etiology related to opioid use although untreated LEA may also cause this. Plan: Joseluis was seen today for hypogonadism. Diagnoses and all orders for this visit: Hypogonadism in male - TESTOSTERONE; Future - DXA BONE DENSITY; Future 1) drop hydrocortisone by 2.5 mg (from 15 to 12.5 mg) from the new months to slowest reduce your steroid intake. You can cut one of the 5 mg tablets in half to make 2.5 mg 2) check DEXA scan 3) will follow up in 3 months Patient was seen and examined with Dr Jethro RUBIO MD 01/09/2022 17:28 * Antony Morelos, DO - 01/09/2022 1500 EDT Attestation: I performed or was present during the martin or critical portions of the visit and participated in the management of the patient on 01/09/22. I agree with the findings and plan of care as documented in the resident's/fellow's note. Antony Morelos DO 01/10/2022 13:03 documented in this encounter Plan of Treatment Upcoming Encounters Date Type Department Care Team (Late st Contact Info) Description 10/08/2023 13:00 EDT Office Visit [facility] Endocrinology - [address] [address] May Cerna MD [address] [place] [phone] 10/09/2023 14:00 EDT Office Visit [facility] Rheumatology & Immunology - [address] [phone] Tj Grewal MD [address] [place] [address], [address] [place] [address] documented as of this encounter Results * DXA BONE DENSITY (01/22/2022 15:50 EST) Anatomical Region Laterality Modality Other Antony Morelos DO IMG DEXA ORDER FÉLIX documented in this encounter Visit Diagnoses Diagnosis Hypogonadism in male- Primary documented in this encounter Historical Medications * This list may reflect changes made after this encounter. Medication Sig Dispensed Refills Start Date End Date terazosin (HYTRIN) 1 mg capsule Take 2 Capsules by mouth at bedtime. aspirin 81 mg EC tablet Take 1 Tablet by mouth every 48 hours. Multivitamin Cmb No.21-Iron-FA tablet Take 1 Tablet by mouth daily. added in this encounter Care Teams Financial Reporting Specialist Relationship Specialty Start Date End Date Flavia Syed MD [address] [place] [phone] PCP - General Family Medicine - Primary Care 01/09/22 documented as of this encounter
--- OUTSIDE RECORDS SUMMARY | 2023-09-30 01:43 | XMS_ITS | Encounter Summary ---
Author Organization [facility] Address [address] [place] [address] Care Team Providers Care Ibm [employer] Commerce Consultant Name Role Phone Flavia Syed MD Primary Care Provider [phone] Reason for Visit * Reason Onset Date Comments Coordination Of Care 12/03/2022 Encounter Details Date Type Department Care Team (Late st Contact Info) Description 12/03/2022 Telephone [facility] Endocrinology - [address] [address] Ryan Schneider MD [address] [place] [phone] Coordination Of Care Social History Tobacco [...] encounter Miscellaneous Notes * Telephone Encounter - Leora Newberry - 12/03/2022 1546 EDT Patient calling to notify care team that CPAP Therapy started on 11/27/22 Reports he is doing well with the treatment Patient had to reschedule today 12/03/22 due to delay at previous appt same day documented in this encounter Plan of Treatment Upcoming Encounters Date Type Department Care Team (Late st Contact Info) Description 10/08/2023 13:00 EDT Office Visit [facility] Endocrinology - [address] [address] May Cerna MD [address] [place] [phone] 10/09/2023 14:00 EDT Office Visit [facility] Rheumatology & Immunology - [address] [address] Tj Grewal MD [address], [address] [place] [phone] documented as of this encounter Visit Diagnoses Not on filedocumented in this encounter Care Teams Ibm Web[employer] Commerce Consultant Relationship Specialty Start Date End Date Flavia Syed MD [address] [place] [phone] PCP - General Family Medicine - Primary Care 01/09/22 documented as of this encounter
--- OUTSIDE RECORDS SUMMARY | 2023-09-30 01:43 | XMS_ITS | Encounter Summary ---
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 (Primary Dx) Social History Tobacco Use Types [...] Info) Description 10/08/2023 13:00 EDT Office Visit [facility] Endocrinology - [address] [address] May Cerna MD [address] [place] [phone] 10/09/2023 14:00 EDT Office Visit [facility] Rheumatology & Immunology - [address] [phone] Tj Grewal MD [address] [place] [address], [address] [place] [phone] Scheduled Orders Name Type Priority Associated Diagnoses Orde r Schedule ACTH, PLASMA Lab Routine moth exterminator (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
--- OUTSIDE RECORDS SUMMARY | 2023-09-30 01:43 | XMS_ITS | Encounter Summary ---
Author Organization [facility] Address [address] [place] [address] Care Team Providers Care Technology Resource Teacher Name Role Phone Flavia Syed MD Primary Care Provider [phone] Reason for Visit * Reason Comments Hypogonadism Encounter Details Date Type Department Care Team (Latest Contact Info) Description 01/28/2023 16:00 EST Office Visit [facility] Endocrinology - [address] [phone] Ryan Rubio MD [address] [place] [phone] Secondary adrenal insufficiency (HCC-CMS) (Primary Dx); Empty sella syndrome (HCC-CMS) Social History Tobacco Use Types Packs/Day Years [...] EST Pulse 69 01/28/2023 1620 EST Temperature - - Respiratory Rate - - Oxygen Saturation - - Inhaled Oxygen Concentration - - Weight 62.7 kg (138 lb 3.2 oz) 01/28/[address] Height 166 cm (5' 5.35) 01/28/2023 1620 EST Body Mass Index 22.75 01/28/2023 1620 EST documented in this encounter Functional Status [...] * Patient Instructions* Ryan Rubio MD - 01/28/2023 16:00 EST 1) check morning fasting blood work before taking hydrocortisone in the morning. Hold yesterday evening dose of hydrocortisone. 2) 7.5 mg hydrocortisone in the AM. 2.5 mg in the afternoon (2-4 pm) 3) follow up in 6 months. Recommend following sick day rules: - if you develop fever, flu-like illness or get a vaccine, double your dose of hydrocortisone for 3days - if you experience vomiting and/or diarrhea then double or triple your dose of hydrocortisone depending on severity - if you are vomiting and cannot keep the hydrocortisone down, you need to administer injectable hydrocortisone (Solu-Cortef) and go into the ER -recommend wearing identification on person stating you have adrenal insufficiency such as an ID bracelet or necklace in case of emergency and need for EMS to give stress dose steroids urgently. documented in this encounter Ordered Prescriptions Prescription Sig Dispensed Refills Start Date End Da te Miscellaneous Medication - See Admin InstructionsIndication s:Secondary adrenal insufficiency (HCC-CMS),Empty sella syndrome (HCC-CMS) 3.0ml syringes to use with solu-cortef in case of emergency. 5 Each 01/28/2023 Miscellaneous Medication - See Admin InstructionsIndication s:Secondary adrenal insufficiency (HCC-CMS),Empty sella syndrome (HCC-CMS) Use on 22G 1inch needle to Inject Solucortef intra muscular. 5 Each 01/28/2023 Miscellaneous Medication - See Admin InstructionsIndication s:Secondary adrenal insufficiency (HCC-CMS),Empty sella syndrome (HCC-CMS) Use one 18G 1 inch needle to DRAW Solu-cortef 5 Each 01/28/2023 hydrocortisone sodium succinate, PF, (SOLU-CORTEF ACT-O-VIAL, PF,) 100 mg/2 mL recon soln injectionIndications:S econdary adrenal insufficiency (HCC-CMS),Empty sella syndrome (HCC-CMS) Inject 2 mL into the muscle once as needed for up to 1 dose for Other (for emergency use for stress dosing when unable to take oral steroid (vomiting, poor alertness).). After administration go to the emergency department. For adrenal insufficiency 1 Each 1 01/28/2023 01/28/2023 documented in this encounter Progress Notes * Ryan Rubio MD - 01/28/2023 1600 EST Images from the original note were not included. Endocrinology Follow up Visit Date of Service: 01/28/2023 Chief Complaint Patient presents with ??? Hypogonadism HPI: This is a 72 y.o. 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 He was started on prednisone 5 mg in 2015 (Dr. Willoughby, rheum at [facility]) for chronic pain syndrome-> increased to 20 mg daily until 2017 which was then changed to hydrocortisone 20 mg -> 15 mg hydrocortisone now since August 2019. He has had many difficulties with coming down on steroid dose and states he feels terrible when doing so. He reports that he had a MRI brain in 2007 which showed stalk compression -> repeat MRI shows a partially empty sella without evidence of a mass or other concerning abnormalities. He has previously reported a history of untreated sleep apnea in setting of a deviated septum. He has been on testosterone supplementation which he receives from a doctor in [place]. He was not clearon the dose but is apply as a cream twice daily. He reports a history of living in chronic pain and is currently on suboxone. Interval Hx (01/28/2023) No acute complaints noted. He expressed that he was happy that diagnosis of severe sleep apnea was found and is on treatment with CPAP since nov 2022. He did express significant frustration regarding his past experiences with other doctors during out visit today and expressed that he was upset that he has had likely untreated sleep apnea since 2000. He noted that since starting CPAP, he has felt more tired. He states that he was always feeling hyper and now feels that his reserves are being restored with CPAP treatment. He expressed that all hissymptoms that he complained in the past was likely due to untreated sleep apnea and expressed gratitude that this is finally being addressed. He notes that he has been unable to wean down off 10 mg of hydrocortisone daily. He does not note significant nausea/vomiting in the evening or feels worse at night. He requested referral to pain clinic at [facility] -> advised to follow up with PCP.. Review of Systems A 10 point review [...] daily. (Patient not taking: Reported on 05/28/2022) No current facility-administered medications on file prior to visit. Allergies Allergen Reactions ??? Ciprofloxacin Other (See Comments) and Rash fever ??? Diclofenac Rash ??? Meloxicam Palpitations ??? Sulfa (Sulfonamide Antibiotics) Rash Ht 166 cm (65.35) BMI 21.56 kg/m?? Physical Exam: Gen: alert, cooperative, in NAD HEENT: atraumatic, normocephalic, conjunctivae clear Previous Labs: No results found for: HGBA1C, GLUF, MICROALBUR No results found for: CHOL, HDL, LDLBASE, TRIG, CHOLHDL Lab Results Component Value Date ALT 20 05/08/2021 AST 26 05/08/2021 ALKPHOS 78 05/08/2021 Assessment: 72 y.o. 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 Given that patient is getting testosterone supplementation from doctor in [place], will defer dosing/management to their practice. Patient noted that he will provide medical records from them to find out dose of testosterone. Recommend checking morning pituitary labs to reassess hormonal axis after treatment of severe LEA with CPAP. Given inability to wean hydrocortisone, suspect that patient may have developed secondary adrenal insufficiency from prolonged past steroid use. Recommend to split to twice daily dosing (7.5 mg in AMand 2.5 mg in afternoon) to see if this is helpful for symptoms given short action of hydrocortisone. We reviewed sick day rules in setting of presumed adrenal insufficiency. Recommend medical alert bracelet. IM emergency hydrocortisone provided. Patient advised to follow up with PCP regarding [facility] pain clinic referral and EKG findings from LEA. Plan: Joseluis was seen today for hypogonadism. Diagnoses and all orders for this visit: Secondary adrenal insufficiency (HCC-CMS) - ACTH, PLASMA; Future - CORTISOL; Future - TESTOSTERONE, TOTAL AND FREE; Future - LH; Future - COMPLETE BLOOD COUNT; Future - COMPREHENSIVE METABOLIC PANEL (CMP); Future - TSH; Future - T4 FREE; Future - hydrocortisone sodium succinate, PF, (SOLU-CORTEF ACT-O-VIAL, PF,) 100 mg/2 mL recon soln injection; Inject 2 mL into the muscle once as needed for up to 1 dose for Other (for emergency use for stress dosing when unable to take oral steroid (vomiting, poor alertness).). After administration go [facility] emergency department. For adrenal insufficiency - Miscellaneous Medication - See Admin Instructions; Use one 18G 1 inch needle to DRAW Solu-cortef - Miscellaneous Medication - See Admin Instructions; Use on 22G 1inch needle to Inject Solucortef intra muscular. - Miscellaneous Medication - See Admin Instructions; 3.0ml syringes to use with solu-cortef in caseof emergency. Empty sella syndrome (HCC-CMS) - ACTH, PLASMA; Future - CORTISOL; Future - TESTOSTERONE, TOTAL AND FREE; Future - LH; Future - COMPLETE BLOOD COUNT; Future - COMPREHENSIVE METABOLIC PANEL (CMP); Future - TSH; Future - T4 FREE; Future - hydrocortisone sodium succinate, PF, (SOLU-CORTEF ACT-O-VIAL, PF,) 100 mg/2 mL recon soln injection; Inject 2 mL into the muscle once as needed for up to 1 dose for Other (for emergency use for stress dosing when unable to take oral steroid (vomiting, poor alertness).). After administration go [facility] emergency department. For adrenal insufficiency - Miscellaneous Medication - See Admin Instructions; Use one 18G 1 inch needle to DRAW Solu-cortef - Miscellaneous Medication - See Admin Instructions; Use on 22G 1inch needle to Inject Solucortef intra muscular. - Miscellaneous Medication - See Admin Instructions; 3.0ml syringes to use with solu-cortef in caseof emergency. 1) check morning fasting blood work before taking hydrocortisone in the morning. Hold yesterday evening dose of hydrocortisone. 2) 7.5 mg hydrocortisone in the AM. 2.5 mg in the afternoon (2-4 pm) 3) follow up in 6 months. ?? Recommend following sick day rules: - if you develop fever, flu-like illness or get a vaccine, double your dose of hydrocortisone for 3days - if you experience vomiting and/or diarrhea then double or triple your dose of hydrocortisone depending on severity - if you are vomiting and cannot keep the hydrocortisone down, you need to administer injectable hydrocortisone (Solu-Cortef) and go into the ER -recommend wearing identification on person stating you have adrenal insufficiency such as an ID bracelet or necklace in case of emergency and need for EMS to give stress dose steroids urgently. Patient was seen and examined with Dr Madalyn RUBIO MD 01/28/2023 16:23 * Mayra Bergman MD - 01/28/2023 1600 EST Attestation statement: I performed or was present during the martin or critical portions of the visit and participated in the management of the patient. I agree with the findings and plan of care documented in the resident's/fellow's note. Dr Mayra REYNOLDS.[facility], Group Activities Aide in Endocrinology [facility] 01/29/23 7:38 documented in this encounter Plan of Treatment Upcoming Encounters Date Type Department Care Team (Late st Contact Info) Description 10/08/2023 13:00 EDT Office Visit [facility] Endocrinology - [address] [phone] May Cerna MD [address] [place] [phone] 10/09/2023 14:00 EDT Office Visit [facility] Rheumatology & Immunology - [address] [phone] Tj Grewal MD [address] [place] [address], [address] [place] [phone] Scheduled Orders Name Type Priority Associated Diagnoses Orde r Schedule ACTH, PLASMA Lab Routine Secondary adrenal insufficiency (HCC-CMS) Empty sella syndrome (HCC-CMS) Expected: 01/29/2023 (Approximate), Expires: 01/29/2024 CORTISOL Lab Routine Secondary adrenal insufficiency (HCC-CMS) Empty sella syndrome (HCC-CMS) Expected: 01/29/2023 (Approximate), Expires: 01/29/2024 TESTOSTERONE, TOTAL AND FREE Lab Routine Secondary adrenal insufficiency (HCC-CMS) Empty sella syndrome (HCC-CMS) Expected: 01/28/2023 (Approximate), Expires: 01/29/2024 LH Lab Routine Secondary adrenal insufficiency (HCC-CMS) Empty sella syndrome (HCC-CMS) Expected: 01/29/2023 (Approximate), Expires: 01/29/2024 COMPLETE BLOOD COUNT Lab Routine Secondary adrenal insufficiency (HCC-CMS) Empty sella syndrome (HCC-CMS) Expected: 01/29/2023 (Approximate), Expires: 01/29/2024 COMPREHENSIVE METABOLIC PANEL (CMP) Lab Routine Secondary adrenal insufficiency (HCC-CMS) Empty sella syndrome (HCC-CMS) Expected: 01/29/2023 (Approximate), Expires: 01/29/2024 TSH Lab Routine Secondary adrenal insufficiency (HCC-CMS) Empty sella syndrome (HCC-CMS) Expected: 01/28/2023 (Approximate), Expires: 01/29/2024 T4 FREE Lab Routine Secondary adrenal insufficiency (HCC-CMS) Empty sella syndrome (HCC-CMS) Expected: 01/28/2023 (Approximate), Expires: 01/29/2024 documented as of this encounter Visit Diagnoses Diagnosis Secondary adrenal insufficiency (HCC-CMS)- Primary Glucocorticoid deficiency Empty sella syndrome (HCC-CMS) Other disorders of the pituitary and other syndromes of diencephalohypophyseal origin documented in this encounter Care Teams Technology Resource Teacher Relationship Specialty Start Date End Date Flavia Syed MD [address] [place] [phone] PCP - General Family Medicine - Primary Care 01/09/22 documented as of this encounter
--- OUTSIDE RECORDS SUMMARY | 2023-09-30 01:43 | XMS_ITS | Encounter Summary ---
Author Organization [facility] Address [address] [place] [address] Care Team Providers Care Mechanical Artist Name Role Phone Flavia Syed MD Primary Care Provider [phone] Reason for Visit * Reason Comments Medications Refill Encounter Details Date Type Department Care Team (Late st Contact Info) Description 02/05/2023 Refill [facility] Dermatology 5th Floor [facility] [address] [place], [place] [phone] Gokul Menezes MD [address] [facility], [address] [place] [phone] Medications Refill Social History Tobacco Use Types [...] TIMES A DAY 60 mL 3 02/06/2023 documented in this encounter Miscellaneous Notes * Telephone Encounter - Alley Hilario MA - 02/06/2023 0801 EST Medication: FLUOCINOLONE 0.01% SOLUTION Diagnosis: Seborrheic dermatitis Last Office Visit: 02/14/2020 Next Office Visit: TBD Last Refill: 01/22/2023 ALLEY HILARIO MA 02/06/2023 8:03 documented in this encounter Plan of Treatment Upcoming Encounters Date Type Department Care Team (Late st Contact Info) Description 10/08/2023 13:00 EDT Office Visit [facility] Endocrinology - [address] [phone] May Cerna MD [address] [place] [phone] 10/09/2023 14:00 EDT Office Visit [facility] Rheumatology & Immunology - [address] [phone] Tj Grewal MD [address] [place] [address], [facility] [address] [place] [address] documented as of this encounter Visit Diagnoses Not on filedocumented in this encounter Discontinued Medications Medication Sig Discontinue Reason Start Date End Da te fluocinolone acetonide (SYNALAR) 0.01 % external solution APPLY TO AFFECTED AREAS OF SCALP TWO TIMES A DAY 11/18/2022 02/06/2023 documented as of this encounter Care Teams Mechanical Artist Relationship Specialty Start Date End Date Flavia Syed MD [address] [place] [phone] PCP - General Family Medicine - Primary Care 01/09/22 documented as of this encounter
--- OUTSIDE RECORDS SUMMARY | 2023-09-30 01:43 | XMS_ITS | Encounter Summary ---
Author Organization [facility] Address [address] [place] [address] Care Team Providers Care Medical Claims Processor Name Role Phone [facility] Provider [phone] Reason for Visit * Reason Onset Date Comments New/Evolving Symptoms 12/04/2021 psoriasis Encounter Details Date Type Department Care Team (Late st Contact Info) Description 12/04/[address] [facility] Rheumatology & Immunology - [facility] [address] [place] [address] Tj Grewal MD [address] [facility], [address] [place] [address] New/Evolving Symptoms (psoriasis) Social History Tobacco Use Types Packs/Day Years [...] encounter Miscellaneous Notes * Telephone Encounter - Conchita Huggins RN - 12/11/2021 1239 EDT Spoke with pt who is scheduled for FU with Dr. Grewal in March.pt c/o psoriasis all over. Was onscalp about 2 years ago, now in different areas. Advised pt to call Derm for evaluation of psoriasis flare. Pt also scheduled for Endo in January for NPV, for chronic glucocorticoid steroid use. Pt stated will call Derm for new FU. Will keep Endo appt and then see Dr. Grewal in March to discuss what he can do to help. * Telephone Encounter - Jeri La - 12/04/2021 4692 EDT Called patient to reschedule follow up. Patient mentioned that he has been dealing with psoriasis all over his body lately. Since appointment is a ways away he is wondering if he could get some information/guidance on dealing with psoriasis from a rheumatology stand point. Please call to discuss. documented in this encounter Plan of Treatment Upcoming Encounters Date Type Department Care Team (Late st Contact Info) Description 10/08/2023 13:[address] [facility] Endocrinology - [address] [phone] May Cerna MD [address] [place] [phone] 10/09/2023 14:[address] [facility] Rheumatology & Immunology - [address] [phone] Tj Grewal MD [address] [facility], [address] [place] [address] documented as of this encounter Visit Diagnoses Not on filedocumented in this encounter Care Teams Medical Claims Processor Relationship Specialty Start Date End Date [facility] [address] [place] [address] PCP - General 09/06/21 01/08/22 documented as of this encounter
--- OUTSIDE RECORDS SUMMARY | 2023-09-30 01:43 | XMS_ITS | Encounter Summary ---
Author Organization [facility] Address [address] [place] [address] Care Team Providers Care Forensic Anthropologist Name Role Phone Flavia Syed MD Primary Care Provider [phone] Encounter Details Date Type Department Care Team (Late st Contact Info) Description 11/01/2022 Lab Requisition [facility] Pathology & Laboratory Medicine - [facility] [address] [place] [address] Outr Resulting Lab, Provider Social History Tobacco [...] Info) Description 10/08/2023 13:00 EDT Office Visit [facility] Endocrinology - [address] [phone] May Cerna MD [address] [place] [phone] 10/09/2023 14:00 EDT Office Visit [facility] Rheumatology & Immunology - [facility] [address] [place] [address] Tj Grewal MD [address] [facility], [address] [place] [address] documented as of this encounter Procedures Procedure Name Priority Date/Time Associated Diagnosis Comments CORTISOL Routine 11/01/2022 13:24 EDT documented in this encounter Results * CORTISOL (11/01/2022 13:24 EDT) Cortisol 12 See Note ug/dL 11/01/2022 22:33 EDT [facility] Comment: NOTE: Reference Ranges (from [facility] IFU): Collected Before 10:00 AM: ??4 - 23 ug/dL Collected After 5:00 PM: ?2 - 14 ug/dL The results of this assay can be falsely elevated due to the consumption of Biotin. Blood VENOUS BLOOD / Unknown 11/01/2022 13:24 EDT 11/01/2022 21:54 EDT Provider Outr Resulting Lab CHEMISTRY & BLOOD GAS ORDERABLES [facility] [address] [place] [address] documented in this encounter Visit Diagnoses Not on filedocumented in this encounter Care Teams Forensic Anthropologist Relationship Specialty Start Date End Date Flavia Syed MD [address] [place] [phone] PCP - General Family Medicine - Primary Care 01/09/22 documented as of this encounter
--- OUTSIDE RECORDS SUMMARY | 2023-09-30 01:43 | XMS_ITS | Encounter Summary ---
Author Organization [facility] Address [address] [place] [address] Care Team Providers Care Client Associate Name Role Phone Flavia Syed MD Primary Care Provider [phone] Reason for Referral * Radiology Services (Routine/Next Available) - Authorization Not Required Specialty Diagnoses / Procedures [facility] Referred To Contact Diagnoses Hypogonadism in male Empty sella syndrome (HCC-CMS) Procedures MR PITUITARY W WO CONTRAST Tati Jara DO [address] [facility] [address] [place] [phone] [facility] Referral ID Status Reason Start Date Expiration Date Visits Requested Visits Authorized [id number] Authorization Not Required 05/28/2022 1 1 Reason for Visit * Reason Comments Hypogonadism Encounter Details Date Type Department Care Team (Latest Contact Info) Description 05/28/2022 15:00 EDT Office Visit [facility] Endocrinology - [facility] [address] [place] [address] Ryan Rubio MD 130 [facility] [address] [place] [phone] Hypogonadism in male (Primary Dx); Empty sella syndrome (HCC-CMS) Social History Tobacco Use Types Packs/Day Years Used Date Smoking Tobacco: Former Cigarettes Smokeless Tobacco: Never Tobacco Cessation:Counseling Given: Not [...] Sign Reading Time Taken Comments Blood Pressure 129/61 05/28/2022 1505 EDT Pulse 63 05/28/2022 1505 EDT Temperature - - Respiratory Rate - - Oxygen Saturation - - Inhaled Oxygen Concentration - - Weight 61.2 kg (135 lb) 05/28/2022 1505 EDT Height 166.7 cm (5' 5.63) 05/28/2022 1505 EDT Body Mass Index 22.04 05/28/2022 1505 EDT documented in this encounter Functional Status [...] * Patient Instructions* Ryan Rubio MD - 05/28/2022 15:00 EDT 1) labwork to be done in morning (before 10 am) 2) continue the 10 mg for now and then plan to decrease 7.5 mg after your trip (down by 2.5 mg every 2-3 months) 3) follow up of sleep study. 4) pituitary MRI 5) follow up 5 months documented in this encounter Progress Notes * Katie Reaves MA - 05/28/2022 1500 EDT Taking BPC for his depression etc. New medication topical * Ryan Rubio MD - 05/28/2022 1500 EDT Images from the original note were not included. Endocrinology Follow up Visit Date of Service: 05/28/2022 Chief Complaint Patient presents with ??? Hypogonadism HPI: This is a 71 y.o. 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 He was started on prednisone 5 mg in 2015 (Dr. Willoughby, rheum at [facility]) for chronic pain syndrome-> increased to 20 [...] since 2009 Where he gets testosterone applicator: -[employer] [facility] ([id number] account number) Phone number Dr Sotelo's - [facility]: [phone] Interval Hx (05/28/2022) -patient was seen today for follow up of hypogonadism. I reviewed the patient's past pituitary MRI performed in May 2009 done in setting of low testosterone which was grossly unremarkable apart from findings suggestive of a partially empty sellar syndrome but no pituitary mass or lesion. I explained that this is typically a radiological findings and not necessarily clinical relevant although could explain a decrease pituitary hormone secretion and would make sure pituitary hormones have been assessed. He had a normal prolactin back in 2019 although did have a suppressed LH at this time at 0.4. He has started a new beta caryophyllene (Dr. Chung Segura) from [employer]. He reports that it broke his 23 year depression and he felt a sense of well-being within 20 secondary of applying it to his hands. He reports his sleep is better and that his vision is brighter. He's cut down the hydrocortisone to 10 mg daily (from 10 days ago) from 15 mg but still having neckpain as his primary substance. He has increased his suboxone dose recently due to pain. Review of Systems A 10 point review [...] Palpitations ??? Sulfa (Sulfonamide Antibiotics) Rash Ht 166.7 cm (65.63) Wt 61.2 kg (135 lb) BMI 22.04 kg/m?? Physical Exam: Gen: alert, cooperative, in NAD HEENT: atraumatic, normocephalic, conjunctivae clear Extr: no peripheral edema, atraumatic Skin: No evidence of rash or lesion. Turgor and color normal. Previous Labs: No results found for: HGBA1C, GLUF, MICROALBUR No results found for: CHOL, HDL, LDLBASE, TRIG, CHOLHDL Lab Results Component Value Date ALT 05/08/2021 AST 26 05/08/2021 ALKPHOS 78 05/08/2021 Assessment: 71 y.o. 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 He continues to express concern that his prior vaccination(s), chronic lyme disease/EBV infections have damaged his pituitary gland and his ability to produce testosterone. I reviewed with him that he currently has known LEA that is presently untreated (not on CPAP, he sleeps on his side with tape on his nose). He states he has a sleep study scheduled to follow up in July. I advised him that untreated sleep apnea can cause/worsen hypogonadism and should be addressed prior to supplementation withtestosterone. He should also get labwork including testosterone level which was ordered at last visit. Baseline CBC and PSA ordered. We reviewed his pituitary MRI report together which does show a partially empty sella. This is a radiological finding and does not necessarily have clinical relevance given he has another possible cause of secondary hypogonadism. After discussion with patient, will elect to repeat pituitary MRI given it has been 13 years since last scan. Regarding his steroid use, I congratulated him on his success at decreasing to 10 mg of hydrocortisone. Will tentatively plan for a long taper decreasing by 2.5 mg every few months. Plan: Joseluis was seen today for hypogonadism and chronic steroid use Diagnoses and all orders for this visit: Hypogonadism in male - TESTOSTERONE; Future (already ordered) - CBC; Future - PSA; Future - PITUITARY MRI W WO CONTRAST; Future Empty Sella Syndrome - PITUITARY MRI W WO CONTRAST; Future 1) labwork to be done in morning (before 10 am) ?? 2) continue the 10 mg for now and then plan to decrease 7.5 mg after your trip (down by 2.5 mg every 2-3 months) ?? 3) follow up of sleep study. ?? 4) pituitary MRI ?? 5) follow up 5 months Patient was seen and examined with Dr Estefani RUBIO MD 05/28/2022 15:11 * Tati aJra DO - 05/28/2022 1500 EDT Endocrine Attending: This patient was seen and evaluated with the fellow and I agree with the assessment and plan. documented in this encounter Plan of Treatment Upcoming Encounters Date Type Department Care Team (Late st Contact Info) Description 10/08/2023 13:00 EDT Office Visit [facility] Endocrinology - [address] [address] May Cerna MD [address] [place] [phone] 10/09/2023 14:00 EDT Office Visit [facility] Rheumatology & Immunology - [address] [phone] Tj Grewal MD 111 [facility], [address] [place] [phone] documented as of this encounter Results * MR PITUITARY W WO CONTRAST (07/31/2022 14:34 EDT) Anatomical Region Laterality Modality Head Magnetic Resonan ce 07/31/2022 16:3 2 EDT Impressions 07/31/2022 16:32 EDT Partially empty sella without evidence of a mass or other concerning abnormality. Narrative 07/31/2022 16:32 EDT EXAM: MRI PITUITARY WO/W CONTRAST HISTORY: partial sella syndrome, hypogonadism follow up; partial sella syndrome, hypogonadism follow up TECHNIQUE: MRI of the pituitary without and with intravenous gadolinium contrast. Dynamic post-contrast sequences were obtained. Structured report code: [email or web address] COMPARISON: Head MRI 12/15/2014. FINDINGS: SELLA: Normal aside from partially empty morphology which was also seen on 12/15/2014. INFUNDIBULUM: Midline position. Normal caliber. CAVERNOUS SINUSES: Normal venous enhancement. Cavernous carotid flow voids are present. HYPOTHALAMUS: Normal. OPTIC CHIASM: Normal. PARANASAL SINUSES: Mild mural thickening is seen in the visible portions of the maxillary sinuses. VISIBLE INTRACRANIAL CONTENTS: Mild diffuse parenchymal volume loss. A few scattered T2 hyperintensities are seen in the supratentorial white matter, a nonspecific finding which typically represents the sequela of chronic microangiopathy. Procedure Note Norberto Ortez MD - 07/31/2022 EXAM: MRI PITUITARY WO/W CONTRAST HISTORY: partial sella syndrome, hypogonadism follow up; partial sellasyndrome, hypogonadism follow up TECHNIQUE: MRI of the pituitary without and with intravenous gadoliniumcontrast. Dynamic post-contrast sequences were obtained. Structured reportcode: [email or web address] COMPARISON: Head MRI 12/15/2014. FINDINGS: SELLA: Normal aside from partially empty morphology which was also seen on12/15/2014. INFUNDIBULUM: Midline position. Normal caliber. CAVERNOUS SINUSES: Normal venous enhancement. Cavernous carotid flow voids are present. HYPOTHALAMUS: Normal. OPTIC CHIASM: Normal. PARANASAL SINUSES: Mild mural thickening is seen in the visible portions of the maxillarysinuses. VISIBLE INTRACRANIAL CONTENTS: Mild diffuse parenchymal volume loss. A few scattered T2 hyperintensitiesare seen in the supratentorial white matter, a nonspecific finding whichtypically represents the sequela of chronic microangiopathy. IMPRESSION Partially empty sella without evidence of a mass or other concerningabnormality. Tati Jara DO IMG MRI ORDERABLES documented in this encounter Visit Diagnoses Diagnosis Hypogonadism in male- Primary Empty sella syndrome (HCC-CMS) Other disorders of the pituitary and other syndromes of diencephalohypophyseal origin Hypogonadism in male Empty sella syndrome (HCC-CMS) Other disorders of the pituitary and other syndromes of diencephalohypophyseal origin documented in this encounter Historical Medications * This list may reflect changes made after this encounter. Medication Sig Dispensed Refills Start Date End Date famciclovir (FAMVIR) 500 mg tablet Take 1 Tablet by mouth 2 times daily. added in this encounter Care Teams Client Associate Relationship Specialty Start Date End Date Flavia Syed MD [address] [place] [address] PCP - General Family Medicine - Primary Care 01/09/22 documented as of this encounter
--- OUTSIDE RECORDS SUMMARY | 2023-09-30 01:43 | XMS_ITS | Encounter Summary ---
Author Organization [facility] Address [address] [place] [address] Care Team Providers Care Cribbing Setter Name Role Phone None, Provider Primary Care Provider [facility] Primary Care Provider [phone] Flavia Syed MD Primary Care Provider [phone] Reason for Visit * Reason Comments Other Encounter Details Date Type Department Care Team (Late st Contact Info) Description 07/15/2021 Refill [facility] Dermatology [address]th [address] [phone] Gokul Menezes MD 111 [facility], [address] [place] [address] Other Social History Tobacco Use Types Packs/Day [...] TWO TIMES A DAY 60 mL 3 07/16/2021 10/16/2021 documented in this encounter Miscellaneous Notes * Telephone Encounter - Sydnee Prasad MA - 07/16/2021 0851 EDT Medication: fluocinolone acetonide (SYNALAR) 0.01 % external solution Diagnosis: [facility] derm Last Office Visit: 02/14/20 Next Office Visit: prn Last Refill: 07/03/21 * Telephone Encounter - Joleen Jacobo RN - 07/16/2021 0815 EDT sukhdeep documented in this encounter Plan of Treatment Upcoming Encounters Date Type Department Care Team (Late st Contact Info) Description 10/08/2023 13:00 EDT Office Visit [facility] Endocrinology - [address] [phone] May Cerna MD [address] [place] [phone] 10/09/2023 14:00 EDT Office Visit [facility] Rheumatology & Immunology - [address] [phone] Tj Grewal MD [address] [place] [address], [address] [place] [address] documented as of this encounter Visit Diagnoses Not on filedocumented in this encounter Discontinued Medications Medication Sig Discontinue Reason Start Date End Da te fluocinolone acetonide (SYNALAR) 0.01 % external solution APPLY TO AFFECTED AREA(S) ON SCALP TWO TIMES A DAY 04/23/2021 07/16/2021 documented as of this encounter Care Teams Cribbing Setter Relationship Specialty Start Date End Date None, Provider PCP - General 06/07/20 09/05/21 [facility] [address] [place] [address] PCP - General 09/06/21 01/08/22 Flavia Syed MD [address] [place] [address] PCP - General Family Medicine - Primary Care 01/09/22 documented as of this encounter
--- OUTSIDE RECORDS SUMMARY | 2023-09-30 01:43 | XMS_ITS | Encounter Summary ---
Author Organization [facility] Address [address] [place] [address] Care Team Providers Care Rolling Chair Pusher Name Role Phone Flavia Syed MD Primary Care Provider [phone] Reason for Visit * Reason Comments Medications Refill Encounter Details Date Type Department Care Team (Late st Contact Info) Description 01/17/2022 Refill [facility] Dermatology [address] [facility] [address] [place], [place] [phone] Gokul Menezes MD 111 [facility], [address] [place] [phone] Medications Refill Social History Tobacco Use Types [...] MINUTES THEN RINSE OFF 120 mL 11 01/18/2022 02/14/2023 documented in this encounter Miscellaneous Notes * Telephone Encounter - Riri [place] RN - 01/18/2022 1411 EST Requested Prescriptions Pending Prescriptions Disp Refills ??? ketoconazole (NIZORAL) 2 % shampoo [Pharmacy Med Name: KETOCONAZOLE 2% SHAMPOO] 120 mL 11 Sig: APPLY TO AFFECTED AREA(S) DAILY. LEAVE ON 3-5 MINUTES THEN RINSE OFF Last seen 02/14/20 with Gokul Menezes MD for Seborrheic Dermatitis. Has no follow up appointment scheduled. Last Rx 01/31/21 (120 ml) with 11 refills. documented in this encounter Plan of Treatment Upcoming Encounters Date Type Department Care Team (Late st Contact Info) Description 10/08/2023 13:00 EDT Office Visit [facility] Endocrinology - [address] [phone] May Cerna MD [address] [place] [phone] 10/09/2023 14:00 EDT Office Visit [facility] Rheumatology & Immunology - [address] [address] Tj Grewal MD [address] [place] [address], [address] [place] [address] documented as of this encounter Visit Diagnoses Not on filedocumented in this encounter Discontinued Medications Medication Sig Discontinue Reason Start Date End Da te ketoconazole (NIZORAL) 2 % shampoo APPLY TO AFFECTED AREA(S) DAILY. LEAVE ON 3-5 MINUTES THEN RINSE OFF 01/31/2021 01/18/2022 documented as of this encounter Care Teams Rolling Chair Pusher Relationship Specialty Start Date End Date Flavia Syed MD [address] [place] [phone] PCP - General Family Medicine - Primary Care 01/09/22 documented as of this encounter
--- OUTSIDE RECORDS SUMMARY | 2023-09-30 01:43 | XMS_ITS | Encounter Summary ---
Author Organization [facility] Address [address] [place] [address] Care Team Providers Care Supply And Distribution Manager Name Role Phone [facility], Primary Care Provider [phone] Reason for Visit * Reason Comments Pain All over * Referral (Routine) - Authorized Specialty Diagnoses / Procedures [facility] Referred To Contact Pain Medicine Diagnoses Other chronic pain Flavia Syed MD [address] [place] [address] [facility] [address] [facility] [place] [address] Referral ID Status Reason Start Date Expiration Date V isits Requested Visits Authorized [id number] Authorized 1 1 Encounter Details Date Type Department Care Team (Latest Contact Info) Description 09/06/2021 9:15 EDT Initial consult [facility] Interventional Pain [address] [place] [address] Kobi Rubalcava MD 62 [facility] [address] [place] [address] Chronic pain syndrome (Primary Dx) Social History Tobacco Use [...] Sign Reading Time Taken Comments Blood Pressure 161/87 09/06/2021 0857 EDT Pulse 84 09/06/2021 0857 EDT Temperature 36.2 ??C (97.1 ??F) 09/06/2021 0857 EDT Respiratory Rate 16 09/06/2021 0857 EDT Oxygen Saturation 96% 09/06/2021 0857 EDT Inhaled Oxygen Concentration - - Weight - - Height - - Body Mass Index - - documented in this encounter Functional Status Functional [...] Yes 05/08/2021 documented as of this encounter Progress Notes * Kobi Rubalcava MD - 09/06/2021 0915 EDT PAIN NEW CONSULT NOTE Referring Physician Flavia Syed MD Primary Care Physician [facility] Chief Complaint: Pain (All over ) History of Present Illness: This is a 71 y.o. 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 The patient reports that all of his issues started after a tetanus vaccine in April of 2000 and is discouraged because he feels that no one has taken him seriously. He reports that he was fired from his PCP secondary to difficulty managing his pain medications and he feels that he has never beengiven a reason for his pain. He has had multiple co- infections and feels that he is very immunocompromised at this time. The patient reports that he wants treatment from a physician for his pain. He reports that he is currently going to a suboxone clinic for his suboxone and he would like to stop being treated like an addict. The patient reports severe pain in neck, back, lower back, hands, wrists, hips, knees that is constant. He describes this as a central nervous system pain. Patient currently denies any bowel and/or bladder incontinence, progressive weakness, saddle numbness, unexplained fever, trauma or unexplained weight loss. Medications: Gabapentin 600mg TID Suboxone 12mg Other chronic pain modalities: Acupuncture Does not do physical therapy (fear) Meditation Past Medical History: Diagnosis Date ??? Asthma ??? Environmental allergies Past Surgical History: Procedure Laterality Date ??? CERVICAL SPINE SURGERY 2004 ??? VASECTOMY Current Outpatient Medications Medication Sig Dispense Refill ??? buprenorphine-naloxone (SUBOXONE) 12-[address] [...] Take 10 mg by mouth daily. ??? prasterone, dhea, (DHEA) 50 mg tablet Take by mouth daily. ??? TESTOSTERONE TD Place onto the skin 2 times daily. ??? traZODone (DESYREL) 100 mg tablet Take 100 mg by mouth at bedtime. ??? UNABLE TO FIND Med Name: Adrenal supplement, zylomets, Iron supplements, (Patient not taking: Reported on 05/08/2021) ??? valGANciclovir (VALCYTE) 450 mg tablet Take 450 mg by mouth daily. No current facility-administered medications for this visit. Allergies Allergen Reactions ??? Ciprofloxacin Other (See Comments) and Rash fever ??? Diclofenac Rash ??? Meloxicam Palpitations ??? Sulfa (Sulfonamide Antibiotics) Rash Social History Socioeconomic History ??? Marital status: Spouse name: Not on file ??? Number of children: Not on file ??? Years of education: Not on file ??? Highest education level: Not on file Occupational History ??? Not on file Tobacco Use ??? Smoking status: Former Smoker Types: Cigarettes ??? Smokeless tobacco: Never Used Vaping Use ??? Vaping Use: Every day [...] on file Social Connections: Not on file Family History Problem Relation Age of Onset ??? Heart Disease Mother Review of Systems: A 12 point review of system was performed and reviewed. Pertinent positives have been included in HPI and past medical history. All others negative. Please see scan documents for details. Physical Exam: Vitals: BP (!) 161/87 (BP Cuff Location: Left arm, BP Patient Position: Sitting, BP Cuff Sizes: Adult, regular) Pulse 84 Temp 36.2 ??C (97.1 ??F) (Tympanic) Resp 16 SpO2 96% Constitutional: Vital signs listed above. Well-developed, well-nourished, and No pallor Psych: alert, oriented. Speech is normal, relaxed. Affect is appropriate to thought. Eyes: Sclera white, conjunctiva clear, lids are without lag. Pupils equal, not pinpoint. CV: Skin warm and dry. No lower extremity edema. Respiratory: Breathing easily without tachypnea or bradypnea. Not using accessory muscles. Skin: Warm and dry. no hyperpigmentation, vitiligo, or suspicious lesions Neurological: Mental Status; Awake, alert, oriented Cranial Nerves: II-XII grossly intact Motor: Normal bulk and tone. Antigravity throughout Gait: Pt is able to raise from a seated position without difficulty. Gait is not antalgic and the patient ambulates without assistance. Assessment and Plan: Encounter Diagnoses Name Primary? Chronic pain syndrome Yes This is a 71 y.o. 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 At this time, I do not believe there are any injections that would be helpful for this patient given the breadth of his chronic pain. I discussed with him that we do not prescribe opioids. He was also interested in ketamine infusions and I discussed that this can happen through private ketamine clinics however, this was not something we offered either. Given this, the patient was interested in pursuing other modalities to help with his chronicpain and I suggested the comprehensive pain center for him. He was hopeful that they would help himwith other modalities other than medications and interventions which could help with his chronic pain. I would be happy to see the patient back if there were any interventional options that he would like to pursue in the future. - Comprehensive pain referral provided today. I spent a total of 40 minutes on the date of this encounter meeting with the patient and reviewing documentation/coordinating care as described in the above note. Afia Rubalcava MD 09/06/2021 11:09 documented in this encounter Plan of Treatment Upcoming Encounters Date Type Department Care Team (Late st Contact Info) Description 10/08/2023 13:00 EDT Office Visit [facility] Endocrinology - [address] [phone] May Cerna MD [address] [place] [phone] 10/09/2023 14:00 EDT Office Visit [facility] Rheumatology & Immunology - [address] [phone] Tj Grewal MD [address] [place] [address], [address] [place] [address] documented as of this encounter Visit Diagnoses Diagnosis Chronic pain syndrome- Primary documented in this encounter Care Teams Supply And Distribution Manager Relationship Specialty Start Date End Date [facility] [address] [place] [address] PCP - General 09/06/21 01/08/22 documented as of this encounter
--- OUTSIDE RECORDS SUMMARY | 2023-09-30 01:43 | XMS_ITS | Encounter Summary ---
Author Organization [facility] Address [address] [place] [address] Care Team Providers Care Savings Teller Name Role Phone Flavia Syed MD Primary Care Provider [phone] Reason for Visit * Reason Onset Date Comments Labs Only 09/29/2023 Encounter Details Date Type Department Care Team (Late st Contact Info) Description 09/29/2023 [place]phone [facility] [place] [address] [address] May Cerna MD [address] [place] [address] Labs Only Social History Tobacco Use Types [...] Telephone Encounter - Marsha Peguero RN - 09/29/2023 1504 EDT Patient has 10/08/[address] Cerna and wants to have labs drawn. Patient never had the labs drawn Dr. Schneider had ordered on 07/28/23. Pending lab orders to Dr. Cerna to approve, add labs, delete labs etc. Need to route back to spool sorter to faxed to [facility]. Marsha Peguero RN * Telephone Encounter - Jaylene Estrada - 09/29/2023 0576 EDT Endocrinology Incoming Call Reason for call: Labs Only Labs Request/Results What labs would you like orders for? Applicable labs for 10/07 follow up When do you need it by? Patient has appointment 09/29 @ 0900 Where would you like the labs drawn? [facility] P: F: Are you at the lab now? No - Send ROUTINE priority to [facility] Endocrinology Nurse [place] Next Appointment: 10/08/2023 Last Office Visit: 01/28/2023 Ryan Schneider MD Last Telehealth Encounter: Visit date not found Jaylene Estrada 09/29/2023 14:45 documented in this encounter Plan of Treatment Upcoming Encounters Date Type Department Care Team (Late st Contact Info) Description 10/08/2023 13:00 EDT Office Visit [facility] Endocrinology - [address] [place] [address] May Cerna MD [address] [place] [phone] 10/09/2023 14:00 EDT Office Visit [facility] Rheumatology & Immunology - [address] [address] Tj Grewal MD [address] [place] [address], [address] [place] [phone] documented as of this encounter Visit Diagnoses Diagnosis Secondary adrenal insufficiency (HCC-CMS)- Primary Glucocorticoid deficiency documented in this encounter Care Teams Savings Teller Relationship Specialty Start Date End Date Flavia Syed MD [address] [place] [address] PCP - General Family Medicine - Primary Care 01/09/22 documented as of this encounter
--- OUTSIDE RECORDS SUMMARY | 2023-09-30 01:43 | XMS_ITS | Encounter Summary ---
Author Organization [facility] Address [address] [place] [address] Care Team Providers Care Clipper Operator Name Role Phone Flavia Syed MD Primary Care Provider [phone] Reason for Visit * Reason Onset Date Comments Orders (Non Pre-visit) 06/05/2023 Labs Only 06/05/2023 Encounter Details Date Type Department Care Team (Late st Contact Info) Description 06/05/[address] [facility] [place] - [address] [address] Ryan Schneider MD [address] [place] [phone] Orders (Non Pre-visit); Labs Only Social History Tobacco Use Types [...] encounter Miscellaneous Notes * Telephone Encounter - Maru Arevalo MA - 06/09/2023 0946 EDT E faxed labs to [facility] to [phone] per patient request. * Telephone Encounter - Marsha Peguero, RN - 06/09/2023 0935 EDT Routing to VERNON reid to print out Dr. Schneider's 01/28/23 lab orders and fax then to [facility] at [phone]. Marsha Peguero, RN * Telephone Encounter - Izzy Root - 06/09/2023 0928 EDT Lab calling to get the orders faxed over * Telephone Encounter - Leora Newberry - 06/09/2023 0914 EDT Patient calling seeking coordination on LAB ORDERS Which have not been received Third attempt Patient is currently at lab waiting on documents for draw 06/09/23 [facility] * Telephone Encounter - Izzy Root - 06/05/2023 1315 EDT Endocrinology Incoming Call Reason for call: Labs Labs Request/Results What labs would you like orders for? [facility] When do you need it by? 06/06/2023 Where would you like the labs drawn? [facility] Are you at the lab now? No - Send ROUTINE priority to [facility] Endocrinology Nurse [place] Next Appointment: 07/29/2023 Last Office Visit: 01/28/2023 Ryan Schneider MD Last Telehealth Encounter: Visit date not found documented in this encounter Plan of Treatment Upcoming Encounters Date Type Department Care Team (Late st Contact Info) Description 10/08/2023 13:00 EDT Office Visit [facility] Endocrinology - [address] [phone] May Cerna MD [address] [place] [phone] 10/09/2023 14:00 EDT Office Visit [facility] Rheumatology & Immunology - [address] [phone] Tj Grewal MD [address] [place] [address], [address] [place] [address] documented as of this encounter Visit Diagnoses Not on filedocumented in this encounter Care Teams Clipper Operator Relationship Specialty Start Date End Date Flavia Syed MD [address] [place] [phone] PCP - General Family Medicine - Primary Care 01/09/22 documented as of this encounter
--- OUTSIDE RECORDS SUMMARY | 2023-09-30 01:43 | XMS_ITS | Encounter Summary ---
Author Organization [facility] Address [address] [place] [address] Care Team Providers Care Manager Pathology Name Role Phone Flavia Syed MD Primary Care Provider [phone] Reason for Referral * Radiology Services (Routine/Next Available) - Authorization Not Required Specialty Diagnoses / Procedures Referred By Contac t Referred To Contact Diagnoses Hypogonadism in male Empty sella syndrome (HCC-CMS) Procedures MR PITUITARY W WO Tati Penn, [address] [employer] [address] [place] [phone] [facility] Referral ID Status Reason Start Date Expiration Date Visits Requested Visits Authorized [id number] Authorization Not Required 05/28/2022 1 1 Reason for Visit * Radiology Services (Routine/Next Available) - Authorization Not Required Specialty Diagnoses / Procedures Referred By Contac t Referred To Contact Diagnoses Hypogonadism in male Empty sella syndrome (HCC-CMS) Procedures MR PITUITARY W WO CONTRAST Tati Jara, [address] [employer] [address] [place] [phone] [facility] Referral ID Status Reason Start Date Expiration Date Visits Requested Visits Authorized [id number] Authorization Not Required 05/28/2022 1 1 Encounter Details Date Type Department Care Team (Latest Contact Info) Description 07/31/2022 13:47 EDT - 07/31/2022 23:59 EDT [address] Encounter [address] MRI [address] [place] [address] Hypogonadism in male; Empty sella syndrome (HCC-CMS) Discharge Disposition: Home or Self Care Social History Tobacco Use Types Packs/Day [...] Yes 05/08/2021 documented as of this encounter Medications at Time of Discharge Medication Sig Dispensed Refills Start Date End Date aspirin 81 mg EC tablet Take 1 Tablet by mouth every 48 hours. buprenorphine-naloxone (SUBOXONE) 12-[address] under the tongue daily. 14mg DULoxetine (CYMBALTA) 30 mg delayed release capsule Take 1 Capsule by mouth daily. famciclovir (FAMVIR) 500 mg tablet Take 1 Tablet by mouth 2 times daily. FLUoxetine (PROZAC) 20 mg capsule Take 1 Capsule by mouth daily. gabapentin (NEURONTIN) 600 mg tablet Take 1 Tablet by mouth daily. hydrocortisone (CORTEF) 5 mg tablet Take 2 Tablets by mouth daily. ketoconazole (NIZORAL) 2 % cream Apply topically to affected area daily. 30 g 11 02/14/2020 lisinopriL (PRINIVIL) 10 mg tablet Take 1 Tablet by mouth daily. Multivitamin Cmb No.21-Iron-FA tablet Take 1 Tablet by mouth daily. prasterone, dhea, (DHEA) 50 mg tablet Take 50 mg by mouth daily. terazosin (HYTRIN) 1 mg capsule Take 2 Capsules by mouth at bedtime. TESTOSTERONE TD Place onto the skin 2 times daily. 1/2g traZODone (DESYREL) 100 mg tablet Take 1 Tablet by mouth at bedtime. UNABLE TO FIND Apply 5 Drops topically daily. Abledoc's apothocary 90% bcp/900mg valGANciclovir (VALCYTE) 450 mg tablet Take 450 mg by mouth daily. fluocinolone acetonide (SYNALAR) 0.01 % external solution APPLY TO AFFECTED AREA(S) ON SCALP TWO TIMES A DAY 60 mL 3 04/30/2022 08/30/2022 ketoconazole (NIZORAL) 2 % shampoo APPLY TO AFFECTED AREA(S) DAILY. LEAVE ON 3-5 MINUTES THEN RINSE OFF 120 mL 11 01/18/2022 02/14/2023 documented as of this encounter Discharge Disposition Disposition Code Departure Means Destination Home or Self Care documented in this encounter Miscellaneous Notes * Result Encounter Note - Ryan Schneider MD - 07/31/2022 1400 EDT Repeat pituitary MRI again shows known partially empty sella. No other concerning features were noted. [employer] message sent to patient. documented in this encounter Plan of Treatment Upcoming Encounters Date Type Department Care Team (Late st Contact Info) Description 10/08/2023 13:00 EDT Office Visit [facility] Endocrinology - [address] [phone] May Cerna MD [address] [place] [phone] 10/09/2023 14:00 EDT Office Visit [facility] Rheumatology & Immunology - [address] [address] Tj Grewal MD [address] [place] [address], [address] [place] [address] documented as of this encounter Procedures Procedure Name Priority Date/Time Associated Diagnosis Comments MR PITUITARY W WO CONTRAST Routine 07/31/2022 14:34 EDT Hypogonadism in male Empty sella syndrome (HCC-CMS) documented in this encounter Results * MR PITUITARY W [...] encounter Visit Diagnoses Diagnosis Hypogonadism in male Empty sella syndrome (HCC-CMS) Other disorders of the pituitary and other syndromes of diencephalohypophyseal origin documented in this encounter Administered Medications Inactive Administered Medications - up to 3 most recent administrations Medication Order MAR Action Action Date Dose Rate Site gadoterate meglumine solution 1-30 mL 1-30 mL, intravenous, Once in imaging, 1 dose, Starting on Fri07/31/22 at 1434, Until Fri07/31/22 at 1434, Routine, Imaging Protocol Orders Given 07/31/2022 14:34 EDT 12 mL documented in this encounter Orders Medications Ordered That Emil ht Not Have Been Administered Count Last Ordered Date First Ordered Date gadoterate meglumine solution 1-30 mL 1 documented in this encounter Care Teams Manager Pathology Relationship Specialty Start Date End Date Flavia Syed MD [address] [place] [phone] PCP - General Family Medicine - Primary Care 01/09/22 documented as of this encounter
--- OUTSIDE RECORDS SUMMARY | 2023-09-30 01:43 | XMS_ITS | Encounter Summary ---
Author Organization [facility] Address [address] [place] [address] Care Team Providers Care Dry Heat Cabinet Attendant Name Role Phone Flavia Syed MD Primary Care Provider [phone] Reason for Visit * Reason Onset Date Comments Results 11/08/2022 Encounter Details Date Type Department Care Team (Late st Contact Info) Description 11/08/2022 Telephone [facility] [place] [address] [address] Ryan Schneider MD [address] [place] [phone] Results Social History Tobacco Use Types [...] Telephone Encounter - Ryan Schneider MD - 11/08/2022 3136 EDT Cortisol and ACTH levels reviewed which are robust. Would continue with same hydrocortisone dose until we can discuss further at your next appointment later on in the month. [employer] message sent to patient. documented in this encounter Plan of Treatment Upcoming Encounters Date Type Department Care Team (Late st Contact Info) Description 10/08/2023 13:00 EDT Office Visit [facility] Endocrinology - [address] [phone] May Cerna MD [address] [place] [phone] 10/09/2023 14:00 EDT Office Visit [facility] Rheumatology & Immunology - [address] [phone] Tj Grewal MD [address] [facility], [address] [place] [address] documented as of this encounter Visit Diagnoses Not on filedocumented in this encounter Care Teams Dry Heat Cabinet Attendant Relationship Specialty Start Date End Date Flavia Syed MD [address] [place] [phone] PCP - General Family Medicine - Primary Care 01/09/22 documented as of this encounter
--- OUTSIDE RECORDS SUMMARY | 2023-09-30 01:44 | XMS_ITS | Encounter Summary ---
Author Organization [facility] Address [address] [place] [address] Care Team Providers Care Divisional Human Resources Director Name Role Phone Tish Mayer MD Primary Care Provider [phone] Reason for Visit * (Routine) - Receiving Office to Obtain Authorization Specialty Diagnoses / Procedures Referred By Hadley valerio Referred To Contact Procedures PET OUTSIDE IMAGES Unknown, Provider, Referral ID Status Reason Start Date Expiration Date Visits Requested Visits Authorized [id number] Receiving Office to Obtain Authorization 05/10/2020 1 1 Encounter Details Date Type Department Care Team (Late st Contact Info) Description 05/23/2017 Hospital Encounter [facility] Radiology - Main [place] [address] [place] [address] Social History Tobacco Use Types Packs/Day Years [...] Sexual Orientation Straight 06/06/2020 14 :23 EDT COVID-19 Exposure Response Date Recorded In the last month, have you been in contact with someone who was confirmed or suspected to have Coronavirus / COVID-19? Unable to assess 06/07/2020 14:00 EDT documented as of this encounter Plan of Treatment Upcoming Encounters Date Type Department Care Team (Late st Contact Info) Description 10/08/2023 13:00 EDT Office Visit [facility] Endocrinology - [facility] [address] [place], [place] [phone] May Cerna MD [address] [place] [phone] 10/09/2023 14:00 EDT Office Visit [facility] Rheumatology & Immunology - [address] [phone] Tj Grewal MD [address] [place] [address], [address] [place] [address] documented as of this encounter Procedures Procedure Name Priority Date/Time Associated Diagnosis Comments PET OUTSIDE IMAGES Routine 05/10/2020 12 :11 EST documented in this encounter Results * PET OUTSIDE IMAGES (05/10/2020 12:11 EST) Narrative FABRIZIOROGERDAVIS - 05/10/2020 12:11 EST This is a non-reportable exam. Provider Unknown MD WONG OTHER IMAGING OR DERABLES Performing Organization Address City/State/[facility] Co de Phone Number MYRIAM documented in this encounter Visit Diagnoses Not on filedocumented in this encounter Care Teams Divisional Human Resources Director Relationship Specialty Start Date End Date Tish Mayer MD PCP - General 01/21/15 05/09/20 documented as of this encounter
--- OUTSIDE RECORDS SUMMARY | 2023-09-30 01:44 | XMS_ITS | Encounter Summary ---
Author Organization [facility] Address [address] [place] [address] Care Team Providers Care Breakdown Mill Operator Name Role Phone None, Provider Primary Care Provider [facility] Primary Care Provider [phone] Flavia Syed MD Primary Care Provider [phone] Reason for Visit * Reason Comments Other Encounter Details Date Type Department Care Team (Late st Contact Info) Description 01/28/2021 Refill [facility] Dermatology [address] [phone] Gokul Menezes MD [address] [facility], [address] [place] [address] Other Social History Tobacco Use Types Packs/Day Years Used Date Smoking Tobacco: Former Cigarettes Smokeless Tobacco: Never Interpersonal Safety Answer Date Record ed Physically Hurt Never 02/13/2020 Verbally Threaten Not on file 02/13/2020 Sex and Gender Information Value Date Recorded Sex Assigned at Male 06/06/2020 14:23 EDT Gender Identity Male 06/06/2020 14:23 EDT Sexual Orientation Straight 06/06/2020 14 :23 EDT documented as of this encounter Ordered Prescriptions Prescription Sig Dispensed Refills Start Date End Da te ketoconazole (NIZORAL) 2 % shampoo APPLY TO AFFECTED AREA(S) DAILY. LEAVE ON 3-5 MINUTES THEN RINSE OFF 120 mL 11 01/31/2021 01/18/2022 documented in this encounter Miscellaneous Notes * Telephone Encounter - Sydnee Prasad MA - 01/30/2021 6097 EST Medication: Ketoconazole 2% shampoo Diagnosis: Seborrheic dermatitis Last Office Visit: 02/14/20 Next Office Visit: PRN Last Refill: 12/31/20 documented in this encounter Plan of Treatment Upcoming Encounters Date Type Department Care Team (Late st Contact Info) Description 10/08/2023 13:00 EDT Office Visit [facility] Endocrinology - [address] [phone] May Cerna MD [address] [place] [phone] 10/09/2023 14:00 EDT Office Visit [facility] Rheumatology & Immunology - [address] [phone] Tj Grewal MD [address] [place] [address], [address] [place] [phone] documented as of this encounter Visit Diagnoses Not on filedocumented in this encounter Discontinued Medications Medication Sig Discontinue Reason Start Date End Da te ketoconazole (NIZORAL) 2 % shampoo Apply topically to affected area daily. . leave on 3-5 minutes then rinse off 02/14/2020 01/31/2021 documented as of this encounter Care Teams Breakdown Mill Operator Relationship Specialty Start Date End Date None, Provider PCP - General 06/07/20 09/05/21 [facility] [address] [place] [address] PCP - General 09/06/21 01/08/22 Flavia Syed MD [address] [place] [address] PCP - General Family Medicine - Primary Care 01/09/22 documented as of this encounter
--- OUTSIDE RECORDS SUMMARY | 2023-09-30 01:44 | XMS_ITS | Encounter Summary ---
Author Organization [facility] Address [address] [place] [address] Care Team Providers Care Truck Chauffeur Name Role Phone Tish Mayer MD Primary Care Provider [phone] None, Provider Primary Care Provider Unavailabl e Reason for Visit * Reason Onset Date Comments Appointment Related 03/14/2020 Encounter Details Date Type Department Care Team (Late st Contact Info) Description 03/14/2020 Telephone [facility] Adult Neurology - [facility] [address] [place] [address] Riri Sanabria, DO [address] [phone] Appointment Related Social History Tobacco Use Types [...] 14:00 EDT documented as of this encounter Miscellaneous Notes * Telephone Encounter - Riri Winston - 04/21/2020 1421 EST Spoke to Joseluis, confirmed the mailed address for Dr. Sanabria - he is going to send some paperwork prior to his appointment so it can be scanned to the chart. * Telephone Encounter - Ishmael Vega - 03/15/2020 1350 EST Rescheduled appt to televideoNPV with Dr. Sanabria on 05/10 at 2:30pm Meeting ID: [id number] Password: [id number] * Telephone Encounter - Ishmael Vega - 03/15/2020 1333 EST Pt called back to reschedule appt with Dr. Sanabria on 03/28 so he has time to collect paperwork. When rescheduling he was interested in knowing if he would be able to do an in person appt * Telephone Encounter - Michelle Guevara - 03/14/2020 1441 EST Sienna from [facility] calling to check on referral and appt for patient. Advised referral was received back in November. She asked if I would call patient to schedule. Called and spoke to Joseluis. Scheduled NPV/zoom appt with Dr Sanabria for 03/28/20 at 2:30pm Assigned referral. NPV/zoom ; Meeting ID: [id number] Password: [id number] He is faxing over some medical /clinical notes/documentation for Doctor to see prior to appt. Also mailing MRI CD from 2004 done at [facility]. documented in this encounter Plan of Treatment Upcoming Encounters Date Type Department Care Team (Late st Contact Info) Description 10/08/2023 13:00 EDT Office Visit [facility] Endocrinology - [address] [place], [place] [phone] May Cerna MD [address] [place] [phone] 10/09/2023 14:00 EDT Office Visit [facility] Rheumatology & Immunology - [address] [phone] Tj Grewal MD [address] [facility], [address] [place] [address] documented as of this encounter Visit Diagnoses Not on filedocumented in this encounter Care Teams Truck Chauffeur Relationship Specialty Start Date End Date Tish Mayer MD PCP - General 01/21/15 05/09/20 None, Provider PCP - General 06/07/20 09/05/21 documented as of this encounter
--- OUTSIDE RECORDS SUMMARY | 2023-09-30 01:44 | XMS_ITS | Encounter Summary ---
Author Organization [facility] Address [address] [place] [address] Care Team Providers Care Lump Receiver Name Role Phone Unavailable Primary Care Provider Unavailabl e Encounter Details Date Type Department Care Team (Late st Contact Info) Description 05/05/2003 Results Only [facility] - Maple conversion [address] [place] [address] Santana Carroll MD [address] [place] [id number] Social History Tobacco Use Types Packs/Day Years Used Date Smoking Tobacco: Never Assessed Sex and Gender Information Value Date Recorded Sex Assigned at Male 06/06/2020 14:23 EDT Gender Identity Male 06/06/2020 14:23 EDT Sexual Orientation Straight 06/06/2020 14 :23 EDT documented as of this encounter Plan of Treatment Upcoming Encounters Date Type Department Care Team (Late st Contact Info) Description 10/08/2023 13:00 EDT Office Visit [facility] Endocrinology - [address] [address] May Cerna MD [address] [place] [phone] 10/09/2023 14:00 EDT Office Visit [facility] Rheumatology & Immunology - [facility] [address] [place] [address] Tj Grewal MD 111 [facility], [facility], [address] [place] [address] documented as of this encounter Procedures Procedure Name Priority Date/Time Associated Diagnosis Comments SURGICAL PATHOLOGY Routine 05/05/2003 0:00 EST documented in this encounter Results * SURGICAL PATHOLOGY (05/05/2003 0:00 EST) Pathology Report: SURGICAL PATHOLOGY REPORT Reports generated via electronic interface contain original data; however they are lacking the format of the original report. Caution should be taken when reading/interpreting unformatted reports. Name: ? JOSELUIS DEWEY ? Accession #: ? [id number] ? : ? 1950 (Age: 52) ??M ? Collect Date: ? 05/05/2003 ? Location: ? [facility] ? Receive Date: ? 05/06/2003 ? Provider: SANTANA CARROLL MD Copy to: CELIA VAZQUEZ MD ? Final Pathologic Diagnosis: A. ?Esophagus, 38 cm, biopsy: 1. ?Squamocolumnar mucosa with reactive epithelial changes. 2. ?No goblet cell intestinal metaplasia identified. 3. ?No eosinophil infiltrate identified. 4. ?Gastric cardiac and fundic mucosa with mild chronic gastritis. 5. ?No active gastritis identified. B. ?Stomach, antrum, biopsy: 1. ?Gastric fundic and antral mucosa with mild chronic gastritis. 2. ?No active gastritis identified. 3. ?Gary stain negative for definitive Helicobacter pylori-like microorganisms. C. ?Duodenum, biopsy: ? 1. ??Duodenal mucosa with features consistent with peptic duodenitis. ??See comment. ?? Comment: ? Business Practices Supervisor sections of (C) have been reviewed at intradepartmental consultation conference. ??Sections of (C) demonstrate duodenal mucosa with focal foveolar metaplasia, reactive epithelial changes, and acute epithelial inflammation, most compatible with peptic duodenitis. ??(Dr. Rowe)/[facility] Document reviewed and electronically signed by: ALLISON ROWE MD Report ??Date: 05/10/2003 16:54 By the signature above, the attending physician certifies that he/she has personally conducted a gross and/or microscopic examination of the described specimens and rendered or confirmed the above diagnosis. Specimen(s) Received: A. ?Esophagus 38.0 cm B. ?Antrum C. ?Duodenum Clinical History: ? Anemia Gross Description: ? Received in Hollande's fixative labeled Maco and esophagus 38.0 cm are six burkett-pink irregular soft tissue fragments ranging from 0.2 x 0.2 x 0.2 cm to 0.5 x 0.3 x 0.2 cm. ??The specimen is entirely submitted as (A1) and (A2). Received in Hollande's fixative labeled Dewey and antrum are three burkett-pink irregular soft tissue fragments ranging from 0.2 x 0.2 x 0.2 cm to 0.3 x 0.3 x 0.2 cm. ??The specimen is entirely submitted as (B). ?? Received in Hollande's fixative labeled Dewey and duodenum are three burkett-pink irregular soft tissue fragments ranging from 0.3 x 0.2 x 0.2 cm to 0.4 x 0.2 x 0.2 cm. ??The specimen is entirely submitted as (C). ??(Casper Miles)/[facility] End of Report LD ALEJO 05/05/2003 05/06/2003 15: 09 EST Santana Carroll MD PATHOLOGY ORDERABLE S [facility] [address] [place] [address] documented in this encounter Visit Diagnoses Not on filedocumented in this encounter
--- OUTSIDE RECORDS SUMMARY | 2023-09-30 01:44 | XMS_ITS | Encounter Summary ---
Author Organization [facility] Address [address] [place] [address] Care Team Providers Care Garage Supervisor Name Role Phone None, Provider Primary Care Provider [facility] Primary Care Provider [phone] Flavia Syed MD Primary Care Provider [phone] Encounter Details Date Type Department Care Team (Late st Contact Info) Description 11/09/2020 Lab Requisition [facility] [place] [facility] Pathology & Laboratory Medicine - [facility] [address] [place] [address] Outr Resulting Lab, Provider Social History Tobacco [...] Info) Description 10/08/2023 13:00 EDT Office Visit [facility] [place] [facility] Endocrinology - [address] [phone] May Cerna MD [address] [place] [phone] 10/09/2023 14:00 EDT Office Visit [facility] [place] [facility] Rheumatology & Immunology - [address] [phone] Tj Grewal MD 111 [facility], [address] [place] [address] documented as of this encounter Procedures Procedure Name Priority Date/Time Associated Diagnosis Comments PSA TOTAL, DIAGNOSTIC Routine 11/09/2020 9:10 EDT documented in this encounter Results * PSA TOTAL, DIAGNOSTIC (11/09/2020 9:10 EDT) PSA 0.5 0.0 - 4.5 ng/mL 11/09/2020 18:31 EDT [facility] Blood VENOUS BLOOD / Unknown 11/09/2020 9:10 EDT 11/09/2020 16:30 EDT Narrative [facility] - 11/09/2020 18:31 EDT NOTE: Serum PSA concentration should not be interpreted as absolute evidence for the presence or absence of malignant disease. Assayed on Siemens ADVIA Centaur XPT using chemiluminescent technology.??Values obtained by using different assay methods cannot be used interchangeably. Provider Outr Resulting Lab CHEMISTRY & BLOOD GAS ORDERABLES Performing Organization Address City/State/[facility] Co de Phone Number [facility] [address] [place] [address] documented in this encounter Visit Diagnoses Not on filedocumented in this encounter Care Teams Garage Supervisor Relationship Specialty Start Date End Date None, Provider PCP - General 06/07/20 09/05/21 [facility] [address] [place] [address] PCP - General 09/06/21 01/08/22 Flavia Syed MD [address] [place] [address] PCP - General Family Medicine - Primary Care 01/09/22 documented as of this encounter
--- OUTSIDE RECORDS SUMMARY | 2023-09-30 01:44 | XMS_ITS | Encounter Summary ---
Author Organization [facility] Address [address] [place] [address] Care Team Providers Care Commercial Hvac Technician Name Role Phone Tish Mayer MD Primary Care Provider [phone] Reason for Visit * Reason Comments New Patient Visit Skin lesions, changi ng lesions of concern on scalp noticed 2015, hx of lyme disease * Referral (Routine) - Closed Specialty Diagnoses / Procedures Referred By [facility] Referred To Contact Dermatology Diagnoses Disorder of the skin and subcutaneous tissue, unspecified Flavia Syed MD [address] [place] [phone] [facility] [address] [place] [id number] Referral ID Status Reason Start Date Expiration Date Visits Re quested Visits Authorized [id number] Closed 1 1 Encounter Details Date Type Department Care Team (Late st Contact Info) Description 02/14/2020 10:50 EST Office Visit [facility] Dermatology [address] [phone] Gokul Menezes MD 111 [facility], [address] [place] [phone] Seborrheic dermatitis (Primary Dx) Social History Tobacco Use Types [...] End Da te ketoconazole (NIZORAL) 2 % cream Apply topically to affected area daily. 30 g 11 02/14/2020 fluocinolone acetonide (SYNALAR) 0.01 % external solution Apply topically 2 times daily. to scalp 60 mL 3 02/14/2020 05/09/2020 ketoconazole (NIZORAL) 2 % shampoo Apply topically to affected area daily. . leave on 3-5 minutes then rinse off 1 Bottle 11 02/14/2020 01/31/2021 documented in this encounter Progress Notes * Sydnee Prasad MA - 02/14/2020 1050 EST Review of Systems Constitutional: Positive for fatigue. Negative for fever and unexpected weight change. HENT: Negative for mouth sores. Eyes: Negative for pain. Respiratory: Negative for cough and shortness of breath. Cardiovascular: Negative for chest pain and palpitations. Gastrointestinal: Negative for abdominal pain, blood in stool, constipation, diarrhea, nausea and vomiting. Genitourinary: Negative for dysuria, frequency and hematuria. Musculoskeletal: Positive for arthralgias. Negative for myalgias, joint swelling and muscle stiffness in the morning. Skin: Negative for rash. Neurological: Positive for numbness and headaches. Endo/Heme/Allergies: Bruises/bleeds easily. Psychiatric/Behavioral: Positive for sleep disturbance. The patient is not nervous/anxious. SYDNEE PRASAD MA 02/14/2020 11:01 * Gokul Menezes MD - 02/14/2020 1050 EST Dermatology Outpatient Clinic Note 02/14/2020 Chief Complaint: History of Present Illness: Patient is a 69 y.o. male who presents for new evaluation and treatment of rash scalp and face x few yrs. No hx skin ca. FH of unknown type of skin cancer. 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 Pt reports hx of lyme, erlichiosis, babesiosis, hsv, ebv, mycoplasma, among other infections past few yrs. He has chronic pain issues. Patient has a current medication list which includes the following prescription(s): buprenorphine-naloxone, duloxetine, fluoxetine, gabapentin, hydrocortisone, dhea, testosterone, trazodone, UNABLE TO FIND, and valganciclovir. See documentation in [facility] for medical, surgical, social and family history, which were reviewed atthis visit. Present medications, allergies, review of systems are also documented and were all reviewed at this visit. EXAM: Examined face neck trunk and both arms and legs Diffuse red scaling scalp and eyebrows, paranasal and ears c/w [facility] derm He has depressions in skull assoc w/ suture lines, but I do not appreciate cutis verticis gyrata onexam IMPRESSION & PLAN: # [facility]. Rx ketoconazole shampoo daily scalp and face daily for face. Synalar mauricio bid prn scalp. Brochure for [facility]. rtc prn Gokul Menezes MD 02/14/2020 11:26 documented in this encounter Plan of Treatment Upcoming Encounters Date Type Department Care Team (Late st Contact Info) Description 10/08/2023 13:00 EDT Office Visit [facility] Endocrinology - [address] [phone] May Cerna MD [address] [place] [phone] 10/09/2023 14:00 EDT Office Visit [facility] Rheumatology & Immunology - [address] [phone] Tj Grewal MD [address] [place] [address], [address] [place] [address] documented as of this encounter Visit Diagnoses Diagnosis Seborrheic dermatitis- Primary Seborrheic dermatitis, unspecified documented in this encounter Historical Medications * This list may reflect changes made after this encounter. Medication Sig Dispensed Refills Start Date End Date UNABLE TO FIND Apply 5 Drops topically daily. Abledoc's apothocary 90% bcp/900mg traZODone (DESYREL) 100 mg tablet Take 1 Tablet by mouth at bedtime. hydrocortisone (CORTEF) 5 mg tablet Take 2 Tablets by mouth daily. prasterone, dhea, (DHEA) 50 mg tablet Take 50 mg by mouth daily. DULoxetine (CYMBALTA) 30 mg delayed release capsule Take 1 Capsule by mouth daily. FLUoxetine (PROZAC) 20 mg capsule Take 1 Capsule by mouth daily. valGANciclovir (VALCYTE) 450 mg tablet Take 450 mg by mouth daily. gabapentin (NEURONTIN) 600 mg tablet Take 1 Tablet by mouth daily. buprenorphine-naloxone (SUBOXONE) 12-[address] under the tongue daily. 14mg TESTOSTERONE TD Place onto the skin 2 times daily. 1/2g added in this encounter Care Teams Commercial Hvac Technician Relationship Specialty Start Date End Date Tish Mayer MD PCP - General 01/21/15 05/09/20 documented as of this encounter
--- OUTSIDE RECORDS SUMMARY | 2023-09-30 01:44 | XMS_ITS | Encounter Summary ---
Author Organization [facility] Address [address] [place] [address] Care Team Providers Care Rolling Mill Plugger Name Role Phone Tish Mayer MD Primary Care Provider [phone] None, Provider Primary Care Provider Unavailabl e Reason for Visit * Reason Onset Date Comments Other 05/03/2020 Encounter Details Date Type Department Care Team (Late st Contact Info) Description 05/03/[address] [facility] Adult Neurology - [facility] [address] [place] [address] Riri Sanabria, DO [address] [phone] Other Social History Tobacco Use Types Packs/Day [...] encounter Miscellaneous Notes * Telephone Encounter - Laila Crespo MA - 05/03/2020 1626 EST Patient brought a [address] Sanabria documenting his medical history that his medicalrecords does not reflect. After the letter he included a collection of medical records from other hospitals including a disc with imaging. I will place these in Dr. Sanabria's mail box for her review. * Telephone Encounter - Edith Tucker - 05/03/2020 1106 EST pt called to check if the paperwork he left on office desk was located. It was documented in this encounter Plan of Treatment Upcoming Encounters Date Type Department Care Team (Late st Contact Info) Description 10/08/2023 13:[address] [facility] Endocrinology - [address] [address] May Cerna MD [address] [place] [phone] 10/09/2023 14:[address] [facility] Rheumatology & Immunology - [address] [phone] Tj Grewal MD [address] [place] [address], [address] [place] [phone] documented as of this encounter Visit Diagnoses Not on filedocumented in this encounter Care Teams Rolling Mill Plugger Relationship Specialty Start Date End Date Tish Mayer MD PCP - General 01/21/15 05/09/20 None, Provider PCP - General 06/07/20 09/05/21 documented as of this encounter
--- OUTSIDE RECORDS SUMMARY | 2023-09-30 01:44 | XMS_ITS | Encounter Summary ---
Author Organization [facility] Address [address] [place] [address] Care Team Providers Care Merchandising Intern Name Role Phone None, Provider Primary Care Provider Unavailabl e Reason for Visit * Reason Comments New Patient Visit Joint Pain shoulders,hands, ank les, back,etc * Referral (Routine) - Receiving Office to Obtain Authorization Specialty Diagnoses / Procedures Referred By Hadley valerio Referred To Contact Rheumatology Diagnoses Pain in unspecified joint Lyme disease, unspecified Flavia Syed MD [address] [place] [phone] [place] [address] [address] [place] [address] Referral ID Status Reason Start Date Expiration Date Visits Requested Visits Authorized [id number] Receiving Office to Obtain Authorization 1 1 Encounter Details Date Type Department Care Team (Late st Contact Info) Description 05/08/2021 14:40 EST Office Visit [facility] Rheumatology & Immunology - [facility] [address], [place] [phone] Tj Grewal MD [address] [facility], [address] [place] [address] Polyarthralgia (Primary Dx); Screening for viral disease Social History Tobacco Use Types Packs/Day Years [...] Sign Reading Time Taken Comments Blood Pressure 166/76 05/08/2021 1507 EST Pulse 86 05/08/2021 1507 EST Temperature - - Respiratory Rate - - Oxygen Saturation - - Inhaled Oxygen Concentration - - Weight 62.6 kg (138 lb) 05/08/2021 1507 EST Height 167 cm (5' 5.75) 05/08/2021 1507 EST Body Mass Index 22.44 05/08/2021 1507 EST documented in this encounter Functional Status [...] * Patient Instructions* Tj Grewal MD - 05/08/2021 14:40 EST - get lab work today (2nd floor) - consider following up with endocrinology given your pituitary issues and having been on chronic prednisone/hydrocortisone Return to visit in 6 months (in person) documented in this encounter Progress Notes * Leida Gómez MA - 05/08/2021 1440 EST Lyme disease 02/2013/ contraction 08/1998 TD injection 04/24/2000 Surgery cervical dicetomy with fusion/ 2004 2009 PCP fired him because of pain management * Tj Grewal MD - 05/08/2021 1440 EST Division of Rheumatology and Clinical Immunology Date of Service: 05/08/21 Reason for Consult: Joint pain Referring Provider: Flavia Syed MD History of Present Illness: Joseluis Dewey is a 70 y.o. male with PMHx as below. In 08/1998 he got bit by a [...] stiffness: 2 hours Swelling in joints: knees C-spine surgery in 2004, after which he was on Methadone [id number], then again on Methadone from [id number], since ~2017 he has been on Suboxone. Both methadone and suboxone helped. 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 In 2015 he got re-infected after tick bite, and then he was again treated with antibiotics for 2 years in 2017 - 2019. Both the times he noticed some improvement with antibiotics. He was started on Prednisone 5mg (Dr. Willoughby, rheum at [facility]) in 2015, which was increased to 20mg daily. He was on prednisone 20mg until ~2017, when prednisone 20mg was changed to [id number] (which is prednisone equivalent 5mg). Since 03/2021 he has been on Hydrocortisone 15mg (which is prednisone equivalent 4mg). He feels Hydrocortisone 20mg helped to some extent, and 15mg seems slightly less effective than 20mg, but tolerable. Reports fatigue, brain fog. Has sleep apnea. Reports sleeping well when he takes trazadone, does not feel refreshed after night's sleep. Denies anxiety, depression (but he felt depressed until 6 months ago). Has dry eyes, denies dry mouth. <> Denies h/o skin rash, photosensitivity, oral ulcers, serositis (pleuritis, pericarditis), hemolytic anemia, leukopenia/lymphopenia, thrombocytopenia, kidney disease. Denies h/o arterial/venous thrombosis. <> Denies Raynaud's phenomenon, SOB, cough, hemoptysis, abdominal pain, fever, weight loss. There are no problems to display for this patient. Current Outpatient Medications Medication Sig ??? buprenorphine-naloxone (SUBOXONE) 12-[address] under the tongue daily. ??? DULoxetine (CYMBALTA) 30 mg delayed release capsule Take 30 mg by mouth daily. ??? fluocinolone acetonide (SYNALAR) 0.01 % external solution APPLY TO AFFECTED AREA(S) ON SCALP TWO TIMES A DAY ??? FLUoxetine [...] tablet Take 450 mg by mouth daily. ALLERGIES: Ciprofloxacin, Diclofenac, Meloxicam, and Sulfa (sulfonamide [...] on file Social Connections: Not on file REVIEW OF SYSTEMS: 10 organ review of system was negative except as in HPI PHYSICAL EXAMINATION: BP (!) 166/76 (BP Cuff Location: Right arm, BP Patient Position: Sitting, BP Cuff Sizes: Adult, regular) Pulse 86 Ht 167 cm (65.75) Wt 62.6 kg (138 lb) BMI 22.44 kg/m?? Constitutional: Not in distress Head: Normocephalic Vascular: b/l radial pulses & dorsalis pedis pulses symmetric and well felt. Eyes: No erythema. Conjunctiva moist Mouth: No oral ulcers. Mucosa moist. Lymph nodes: No cervical lymphadenopathy Cardiac: Normal rate, rhythm. Normal S1S2, no murmurs Pulmonary: Normal breath sounds on auscultation. Abdominal: No organomegaly, soft, nontender. Neurological: AOx3. Extremity: No edema Skin: no rashes. MSK Exam: Muscle strength: power 5/5 in b/l UE and LE in proximal and distal muscle groups Neck: Intact ROM Back: Intact ROM, B/L SI Joint Non-tender Shoulder: Intact ROM. No tenderness, swelling in b/l shoulders. Elbows, Wrists, Hands: No joint swelling, tenderness, erythema. Intact ROM Hips: Intact ROM, no tenderness with ROM Knees, Ankles, Feet: No joint swelling, tenderness, erythema. Intact ROM No nail pitting or onycholysis No Dactylitis, Enthesitis. Review of Outside Records/Tests: LABS Results for orders placed or performed in visit on 05/08/21 C REACTIVE PROTEIN Result Value Ref Range C-Reactive Protein 16.9 (H) <10.0 mg/L SED RATE Result Value Ref Range Sed Rate 2 0 - 20 mm/hr COMPLETE BLOOD COUNT AND DIFFERENTIAL Result Value Ref Range WBC 6.63 4.00 - 10.40 K/cmm RBC 4.40 4.36 - 5.78 M/cmm Hemoglobin 14.4 13.8 - 17.3 gm/dL HCT 43.8 39.5 - 50.2 % MCV 100 (H) 81 - 95 fl MCH 32.7 27.6 - 33.0 pg MCHC 32.9 32.8 - 36.4 gm/dL RDW-CV 13.8 <14.2 % RDW-SD 51.0 (H) <46.0 fl PLT 239 141 - 377 K/cmm MPV 9.9 9.5 - 12.7 fl Neutrophils 58.3 % Lymphocytes 29.9 % Monocytes 10.4 % Eosinophils 0.6 % Basophils 0.5 % Immature Grans 0.3 % Absolute Neutrophils 3.87 2.20 - 8.85 K/cmm Absolute Lymphocytes 1.98 1.09 - 3.30 K/cmm Absolute Monocytes 0.69 0.10 - 0.80 K/cmm Absolute Eosinophils 0.04 0.03 - 0.61 K/cmm Absolute Basophils 0.03 0.01 - 0.11 K/cmm Absolute Immature Grans 0.02 0.00 - 0.06 K/cmm Type of Differential: Auto COMPREHENSIVE METABOLIC PANEL (CMP) Result Value Ref Range Sodium 138 136 - 145 mmol/L Potassium 4.1 3.5 - 5.0 mmol/L Chloride 97 96 - 110 mmol/L CO2 Total 34 (H) 22 - 32 mmol/L Glucose 87 70 - 100 mg/dL BUN 13 10 - 26 mg/dL Creatinine 0.69 0.66 - 1.25 mg/dL eGFR 97 >60 mL/min/1.73m2 Total Protein 6.4 6.3 - 8.2 g/dL Albumin 4.0 3.4 - 4.9 g/dL Alkaline Phosphatase 78 38 - 126 U/L AST 26 15 - 46 U/L ALT 20 <50 U/L Bilirubin, Total 0.5 <1.4 mg/dL Calcium 9.0 8.5 - 10.5 mg/dL Albumin/Globulin Ratio 1.7 1.0 - 2.5 Anion Gap 7 5 - 14 ANTI NUCLEAR AB (CESAR), IFA Result Value Ref Range CESAR Interpretation Negative Negative ANTI DNA (DOUBLE STRANDED) Result Value Ref Range Anti-DNA (Double Stranded) <12.3 <30.0 IU/mL SM (FARAH) ANTIBODY Result Value Ref Range SM (Farah) Antibody 1.7 <20.0 Units HOSPITAL NURSE LIAISON ANTIBODIES BY YONIS Result Value Ref Range HOSPITAL NURSE LIAISON Antibody 1.6 <20.0 Units SSA ANTIBODIES BY YONIS Result Value Ref Range SSA Antibody 0.6 <20.0 Units SSB ANTIBODIES BY YONIS Result Value Ref Range SSB Antibody 1.3 <20.0 Units RHEUMATOID FACTOR Result Value Ref Range Rheumatoid Factor <8.6 <12.0 IU/mL CCP ANTIBODIES Result Value Ref Range CCP Antibodies <2.5 <5.0 U/mL HEPATITIS C AB W REFLEX TO HCV RNA BY PCR Result Value Ref Range Hep C Antibody Negative Negative HEPATITIS B CORE ANTIBODY (TOTAL) Result Value Ref Range Hepatitis B Core Ab, Total Negative Negative HEPATITIS B SURFACE ANTIGEN Result Value Ref Range Hep B Surface Ag Negative Negative IMAGING: Diagnosis / Assessment: ICD-10-CM ICD-9-CM 1. Polyarthralgia M25.50 719.49 2. Screening for viral disease Z11.59 V73.99 1) Chronic polyarthralgia. - Work up Labs: - RF: (-), CCP: (-) 05/2021 - CESAR: (-) 05/2021 - dsDNA, SM, HOSPITAL NURSE LIAISON, SSA, SSB: (-) 05/2021 - Hep B & C screen: Negative 05/2021 - Monitoring Labs: - 05/2021: - ESR: Normal, CRP: Borderline elevated - CBC D, CMP: Normal - no definitive diagnosis of autoimmune rheumatologic condition - however since he is on chronic glucocorticoids, we could consider adding a DMARD like HCQ or MTX to help with steroid taper if he is unable to taper off hydrocortisone. 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 - discussed in detail regarding possible diagnoses to explain joint pain symptoms. - patient was of the impression that he is on relatively higher doses of glucocorticoids, however Iclarified that he is on a much lower dose given that Hydrocortisone 15mg is approximately 4mg of prednisone. - can consider adding Methotrexate to help with steroid taper if needed, but will await endocrinology inputs on tapering steroids. Recommendations/Evaluation: Patient Instructions - get lab work today (2nd floor) - consider following up with endocrinology given your pituitary issues and having been on chronic prednisone/hydrocortisone Return to visit in 6 months (in person) I spent a total of 65 minutes on the date of this encounter meeting with the patient and reviewing documentation/coordinating care as described in the above note. No procedures were performed at the time of the visit. Tj Grewal MD documented in this encounter Plan of Treatment Upcoming Encounters Date Type Department Care Team (Late st Contact Info) Description 10/08/2023 13:00 EDT Office Visit [facility] Endocrinology - [address] [phone] May Cerna MD [address] [place] [phone] 10/09/2023 14:00 EDT Office Visit [facility] Rheumatology & Immunology - [address] [phone] Tj Grewal MD [address] [facility], [address] [place] [address] documented as of this encounter Results * HEPATITIS B SURFACE ANTIGEN (05/08/2021 16:53 EST) Hep B Surface Ag Negative Negative 05/09/2021 10:22 EST [facility] Blood VENOUS BLOOD / Unknown Venipuncture / Unknown 05/08/2021 16:53 EST 05/08/2021 17:15 EST Tj Grewal MD CHEMISTRY & BLOOD GA S ORDERABLES [facility] [address] [place] [address] * HEPATITIS B CORE ANTIBODY (TOTAL) (05/08/2021 16:53 EST) Hepatitis B Core Ab, Total Negative Negative 05/09/2021 11:10 EST [facility] Blood VENOUS BLOOD / Unknown Venipuncture / Unknown 05/08/2021 16:53 EST 05/08/2021 17:15 EST Tj Grewal MD CHEMISTRY & BLOOD GA S ORDERABLES Performing Organization Address City/[facility]/ZIP Co de Phone Number [facility] [address] [place] [address] * HEPATITIS C AB W REFLEX TO HCV RNA BY PCR (05/08/2021 16:53 EST) Pathologist [facility] Hep C Antibody Negative Negative 05/09/2021 10:29 EST [facility] Blood VENOUS BLOOD / Unknown Venipuncture / Unknown 05/08/2021 16:53 EST 05/08/2021 17:15 EST Tj Grewal MD CHEMISTRY & BLOOD GA S ORDERABLES Performing Organization Address City/[facility]/ZIP Co de Phone Number [facility] [address] [place] [address] * CCP ANTIBODIES (05/08/2021 16:53 EST) Pathologist [facility] CCP Antibodies <2.5 <5.0 U/mL 05/09/2021 10:16 EST [facility] Blood VENOUS BLOOD / Unknown Venipuncture / Unknown 05/08/2021 16:53 EST 05/08/2021 17:15 EST Tj Grewal MD IMMUNOLOGY AND SEROL OGY ORDERABLES Performing Organization Address City/[facility]/ZIP Co de Phone Number [facility] [address] [place] [address] * RHEUMATOID FACTOR (05/08/2021 16:53 EST) Pathologist [facility] Rheumatoid Factor <8.6 <12.0 IU/mL 05/08/2021 17:48 EST [facility] Blood VENOUS BLOOD / Unknown Venipuncture / Unknown 05/08/2021 16:53 EST 05/08/2021 17:15 EST Tj Grewal MD CHEMISTRY & BLOOD GA S ORDERABLES Performing Organization Address [facility] de Phone Number [facility] [address] [place] [address] * SSB ANTIBODIES BY YONIS (05/08/2021 16:53 EST) SSB Antibody 1.3 <20.0 Units 05/10/2021 12:39 EST [facility] Comment: ? Negative: <20.0 Units ? Weak Positive: 20.0 - 39.9 Units ? Moderate Positive: 40.0 - 80.0 Units ? Strong Positive: >80.0 Units Results were obtained with the [employer] QUANTA Lite SS-B YONIS. ??SS-B values obtained with different manufacturers' assay methods may not be used interchangeably. ??The magnitude of the reported IgG levels cannot be correlated to an endpoint titer. Blood VENOUS BLOOD / Unknown Venipuncture / Unknown 05/08/2021 16:53 EST 05/08/2021 17:15 EST Tj Grewal MD IMMUNOLOGY AND SEROL OGY ORDERABLES Performing Organization Address [facility] de Phone Number [facility] [address] [place] [address] * SSA ANTIBODIES BY YONIS (05/08/2021 16:53 EST) SSA Antibody 0.6 <20.0 Units 05/10/2021 12:37 EST [facility] Comment: ? Negative: <20.0 Units ? Weak Positive: 20.0 - 39.9 Units ? Moderate Positive: 40.0 - 80.0 Units ? Strong Positive: >80.0 Units Results were obtained with the [employer] QUANTA Lite SS-A YONIS. ??SS-A values obtained with different manufacturers' assay methods may not be used interchangeably. ??The magnitude of the reported IgG levels cannot be correlated to an endpoint titer. Blood VENOUS BLOOD / Unknown Venipuncture / Unknown 05/08/2021 16:53 EST 05/08/2021 17:15 EST Tj Grewal MD IMMUNOLOGY AND SEROL SARINA ORDERABLES Performing Organization Address [facility] de Phone Number [facility] [address] [place] [address] * HOSPITAL NURSE LIAISON ANTIBODIES BY YONIS (05/08/2021 16:53 EST) [facility] HOSPITAL NURSE LIAISON Antibody 1.6 <20.0 Units 05/10/2021 12:44 EST [facility] Comment: ? Negative: <20.0 Units ? Weak Positive: 20.0 - 39.9 Units ? Moderate Positive: 40.0 - 80.0 Units ? Strong Positive: >80.0 Units Results were obtained with the [employer] Quanta Lite HOSPITAL NURSE LIAISON YONIS. HOSPITAL NURSE LIAISON values obtained with different spinning frame changer's assay methods may not be used interchangeaby. ??The magnitude of the reported IgG levels cannot be be correlated to an endpoint titer. A positive result in the [employer] Lite HOSPITAL NURSE LIAISON YONIS indicates the presence of antibodies reactive with the HOSPITAL NURSE LIAISON/Sm complex but cannot distinguish between anti-Sm and anti-HOSPITAL NURSE LIAISON activity. Blood VENOUS BLOOD / Unknown Venipuncture / Unknown 05/08/2021 16:53 EST 05/08/2021 17:15 EST Tj Grewal MD IMMUNOLOGY AND SEROL OGParviz ORDERABLES Performing Organization Address [facility] de Phone Number [facility] [address] [place] [address] * SM (FARAH) ANTIBODY (05/08/2021 16:53 EST) Pathologist [facility] SM (Farah) Antibody 1.7 <20.0 Units 05/10/2021 12:42 EST [facility] Comment: ? Negative: <20.0 Units ? Weak Positive: 20.0 - 39.9 Units ? Moderate Positive: 40.0 - 80.0 Units ? Strong Positive: >80.0 Units Results were obtained with the [employer] QUANTA Lite Sm YONIS. ??Sm values obtained with different manufacturers' assay methods may not be used interchangeably. ??The magnitude of the reported IgG levels cannot be correlated to an endpoint titer. Blood VENOUS BLOOD / Unknown Venipuncture / Unknown 05/08/2021 16:53 EST 05/08/2021 17:15 EST Tj Grewal MD IMMUNOLOGY AND SEROL SARINA ORDERABLES Performing Organization Address City/State/[facility] Co de Phone Number [facility] [address] [place] [id number] * ANTI DNA (DOUBLE STRANDED) (05/08/2021 16:53 EST) [facility] Anti-DNA (Double Stranded) <12.3 <30.0 IU/mL 05/10/2021 12:24 [facility] Comment: ? Negative: ??<30.0 IU/mL ? Borderline Positive: ??30.0 - 75.0 IU/mL ? Positive: ??>75.0 IU/mL Results were obtained with the [employer] QUANTA Lite dsDNA SC YONIS assay on the [employer] DSX. Blood VENOUS BLOOD / Unknown Venipuncture / Unknown 05/08/2021 16:53 EST 05/08/2021 17:15 EST Tj Grewal MD IMMUNOLOGY AND SEROL OGParviz ORDERABLES Performing Organization Address [facility] Co de Phone Number [facility] [address] [place] [address] * ANTI NUCLEAR AB (CESAR), IFA (05/08/2021 16:53 EST) CESAR Interpretation Negative Negative 2021 15:26 [facility] Comment:No titer performed, CESAR Screen is negative. Blood VENOUS BLOOD / Unknown Venipuncture / Unknown 05/08/2021 16:53 EST 05/08/2021 17:15 EST Narrative [facility] - 05/09/2021 15:26 EST Results were obtained with the [employer] NOVA Lite HEp-2 CESAR Kit by indirect immunofluorescence. Tj Grewal MD IMMUNOLOGY AND SEROL OGParviz ORDERABLES Performing Organization Address [facility] Co de Phone Number [facility] [address] [place] [address] * (ABNORMAL) COMPREHENSIVE METABOLIC PANEL (CMP) (05/08/2021 16:53 EST) Sodium 138 136 - 145 mmol/L 05/08/2021 17:48 [facility] Potassium 4.1 3.5 - 5.0 mmol/L 05/08/2021 17:48 [facility] Chloride 97 96 - 110 mmol/L 05/08/2021 17:48 [facility] CO2 Total 34(H) 22 - 32 mmol/L 05/08/2021 17:48 [facility] Glucose 87 70 - 100 mg/dL 05/08/2021 17:48 [facility] BUN 13 10 - 26 mg/dL 05/08/2021 17:48 [facility] Creatinine 0.69 0.66 - 1.25 mg/dL 05/08/2021 17:48 [facility] eGFR 97 >60 mL/min/1.7 3m2 05/08/2021 17:48 [facility] Total Protein 6.4 6.3 - 8.2 g/dL 05/08/2021 17:48 [facility] Albumin 4.0 3.4 - 4.9 g/dL 05/08/2021 17:48 [facility] Alkaline Phosphatase 78 38 - 126 U/L 05/08/2021 17:48 [facility] AST 26 15 - 46 U/L 05/08/2021 17:48 [facility] ALT 20 <50 U/L 05/08/2021 17:48 [facility] Bilirubin, Total 0.5 <1.4 mg/dL 05/09/19 17:48 [facility] Calcium 9.0 8.5 - 10.5 mg/dL 05/08/2021 17:48 [facility] Albumin/Globulin Ratio 1.7 1.0 - 2.5 05/08/2021 17:48 [facility] Anion Gap 7 5 - 14 05/08/2021 17:48 [facility] Blood VENOUS BLOOD / Unknown Venipuncture / Unknown 05/08/2021 16:53 EST 05/08/2021 17:15 EST Tj Grewal MD CHEMISTRY & BLOOD GA S ORDERABLES Performing Organization Address City/State/[facility] Co de Phone Number [facility] [address] [place] [address] * (ABNORMAL) COMPLETE BLOOD COUNT AND DIFFERENTIAL (05/08/2021 16:53 EST) WBC 6.63 4.00 - 10.40 K/cmm 05/08/2021 17:21 [facility] RBC 4.40 4.36 - 5.78 M/cmm 05/08/2021 17:21 [facility] Hemoglobin 14.4 13.8 - 17.3 gm/dL 05/08/2021 17:21 [facility] HCT 43.8 39.5 - 50.2 % 05/08/2021 17:21 [facility] MCV 100(H) 81 - 95 fl 05/08/2021 17:21 [facility] MCH 32.7 27.6 - 33.0 pg 05/08/2021 17:21 [facility] MCHC 32.9 32.8 - 36.4 gm/dL 05/08/2021 17:21 [facility] RDW-CV 13.8 <14.2 % 05/08/2021 17:21 [facility] RDW-SD 51.0(H) <46.0 fl 05/08/2021 17:21 [facility] PLT 239 141 - 377 K/cmm 05/08/2021 17:21 [facility] MPV 9.9 9.5 - 12.7 fl 05/08/2021 17:21 [facility] % Neutrophils 58.3 % 05/08/2021 17:21 [facility] % Lymphocytes 29.9 % 05/08/2021 17:21 [facility] % Monocytes 10.4 % 05/08/2021 17:21 [facility] % Eosinophils 0.6 % 05/08/2021 17:21 [facility] % Basophils 0.5 % 05/08/2021 17:21 [facility] % Immature Grans 0.3 % 05/09/19 17:21 [facility] Absolute Neutrophils 3.87 2.20 - 8.85 K/cmm 05/08/2021 17:21 [facility] Absolute Lymphocytes 1.98 1.09 - 3.30 K/cmm 05/08/2021 17:21 [facility] Absolute Monocytes 0.69 0.10 - 0.80 K/cmm 05/08/2021 17:21 [facility] Absolute Eosinophils 0.04 0.03 - 0.61 K/cmm 05/08/2021 17:21 [facility] ABS Basophils 0.03 0.01 - 0.11 K/cmm 05/08/2021 17:21 [facility] Absolute Immature Grans 0.02 0.00 - 0.06 K/cmm 05/08/2021 17:21 [facility] Type of Differential: Auto 05/08/2021 17:21 EST [facility] Blood VENOUS BLOOD / Unknown Venipuncture / Unknown 05/08/2021 16:53 EST 05/08/2021 17:15 EST Tj Grewal MD PACKAGES & DNA PROBE ORDERABLES Performing Organization Address [facility] Co de Phone Number [facility] [address] [place] [phone] * SED RATE (05/08/2021 16:53 EST) Sed Rate 2 0 - 20 mm/hr 05/08/2021 19:05 EST [facility] Blood VENOUS BLOOD / Unknown Venipuncture / Unknown 05/08/2021 16:53 EST 05/08/2021 17:15 EST Tj Grewal MD HEMATOLOGY & PF4 ORD ERABLES Performing Organization Address [facility] [facility] Co de Phone Number [facility] [address] [place] [address] * (ABNORMAL) C REACTIVE PROTEIN (05/08/2021 16:53 EST) C-Reactive Protein 16.9(H) <10.0 mg/L 05/08/2021 17:48 EST [facility] Blood VENOUS BLOOD / Unknown Venipuncture / Unknown 05/08/2021 16:53 EST 05/08/2021 17:15 EST Tj Grewal MD CHEMISTRY & BLOOD GA S ORDERABLES Performing Organization Address [facility] Co de Phone Number [facility] [address] [place] [address] documented in this encounter Visit Diagnoses Diagnosis Polyarthralgia- Primary Pain in joint, multiple sites Screening for viral disease Special screening examination for unspecified viral disease documented in this encounter Care Teams Merchandising Intern Relationship Specialty Start Date End Date None, Provider PCP - General 06/07/20 09/05/21 documented as of this encounter
--- OUTSIDE RECORDS SUMMARY | 2023-09-30 01:44 | XMS_ITS | Encounter Summary ---
Author Organization [facility] Address [address] [place] [address] Care Team Providers Care Certified Addiction Counselor Name Role Phone None, Provider Primary Care Provider Unavailabl e Encounter Details Date Type Department Care Team (Late st Contact Info) Description 05/08/2021 16:45 EST Phlebotomy Only [facility] 2 Phlebotomy [address] [place] [address] Customer Services Coordinator, Acc Phlebotomy Polyarthralgia; Screening for viral disease Social History Tobacco [...] Info) Description 10/08/2023 13:00 EDT Office Visit [facility] Endocrinology - [address] [place], [place] [id number] May Cerna MD [address] [place] [id number] 10/09/2023 14:00 EDT Office Visit [facility] Rheumatology & Immunology - [facility] [address] [place], [place] [phone] Tj Grewal MD [address] [facility], [address] [place] [address] documented as of this encounter Procedures Procedure Name Priority Date/Time Associated Diagnosis Comments SS-B (LA) ANTIBODY, IGG Routine 05/08/2021 16:53 EST Polyarthralgia ZZHN SSA ANTIBODIES BY YONIS Routine 05/08/2021 16:53 EST Polyarthralgia SM (FARAH) ANTIBODY, IGG Routine 05/08/2021 16:53 EST Polyarthralgia CCP ANTIBODIES Routine 05/08/2021 16:53 EST Polyarthralgia HEPATITIS C AB W REFLEX TO HCV RNA BY PCR Routine 05/08/2021 16:53 EST Screening for viral disease MANAGER MOBILITY ANTIBODY, IGG Routine 05/08/2021 16: 53 EST Polyarthralgia DOUBLE STRANDED DNA ANTIBODY, IGG Routine 05/08/2021 16:53 EST Polyarthralgia HEPATITIS B CORE ANTIBODY (TOTAL) Routine 05/08/2021 16:53 EST Screening for viral disease HEPATITIS B SURFACE ANTIGEN Routine 05/08/2021 16:53 EST Screening for viral disease SED RATE Routine 05/08/2021 16:53 EST Polyarthralgia COMPLETE BLOOD COUNT AND DIFFERENTIAL Routine 05/08/2021 16:53 EST Polyarthralgia RHEUMATOID FACTOR Routine 05/08/2021 16: 53 EST Polyarthralgia C REACTIVE PROTEIN Routine 05/08/2021 16 :53 EST Polyarthralgia ANTI NUCLEAR AB (CESAR), IFA Routine 05/08/2021 16:53 EST Polyarthralgia COMPREHENSIVE METABOLIC PANEL (CMP) Routine 05/08/2021 16:53 EST Polyarthralgia documented in this encounter Results * HEPATITIS B SURFACE ANTIGEN (05/08/2021 16:53 EST) Hep B Surface Ag Negative Negative 05/09/2021 10:22 EST [facility] Blood VENOUS BLOOD / Unknown Venipuncture / Unknown 05/08/2021 16:53 EST 05/08/2021 17:15 EST Tj Grewal MD CHEMISTRY & BLOOD GA S ORDERABLES Performing Organization Address City/[facility]/ZIP Co de Phone Number [facility] [address] [place] [address] * HEPATITIS B CORE ANTIBODY (TOTAL) (05/08/2021 16:53 EST) Hepatitis B Core Ab, Total Negative Negative 05/09/2021 11:10 EST [facility] Blood VENOUS BLOOD / Unknown Venipuncture / Unknown 05/08/2021 16:53 EST 05/08/2021 17:15 EST Tj Grewal MD CHEMISTRY & BLOOD GA S ORDERABLES Performing Organization Address City/[facility]/ZIP Co de Phone Number [facility] [address] [place] [address] * HEPATITIS C AB W REFLEX TO HCV RNA BY PCR (05/08/2021 16:53 EST) Hep C Antibody Negative Negative 05/09/2021 10:29 EST [facility] Blood VENOUS BLOOD / Unknown Venipuncture / Unknown 05/08/2021 16:53 EST 05/08/2021 17:15 EST Tj Grewal MD CHEMISTRY & BLOOD GA S ORDERABLES [facility] [address] [place] [address] * CCP ANTIBODIES (05/08/2021 16:53 EST) Pathologist [facility] CCP Antibodies <2.5 <5.0 U/mL 05/09/2021 10:16 EST [facility] Blood VENOUS BLOOD / Unknown Venipuncture / Unknown 05/08/2021 16:53 EST 05/08/2021 17:15 EST Tj Grewal MD IMMUNOLOGY AND SEROL OGY ORDERABLES Performing Organization Address City/[facility]/ZIP Co de Phone Number [facility] [address] [place] [address] * RHEUMATOID FACTOR (05/08/2021 16:53 EST) Pathologist [facility] Rheumatoid Factor <8.6 <12.0 IU/mL 05/08/2021 17:48 EST [facility] Blood VENOUS BLOOD / Unknown Venipuncture / Unknown 05/08/2021 16:53 EST 05/08/2021 17:15 EST Tj Grewal MD CHEMISTRY & BLOOD GA S ORDERABLES Performing Organization Address City/[facility]/ZIP Co de Phone Number [facility] [address] [place] [address] * SSB ANTIBODIES BY YONIS (05/08/2021 16:53 EST) Pathologist [facility] SSB Antibody 1.3 <20.0 Units 05/10/2021 12:39 EST [facility] Comment: ? Negative: <20.0 Units ? Weak Positive: 20.0 - 39.9 Units ? Moderate Positive: 40.0 - 80.0 Units ? Strong Positive: >80.0 Units Results were obtained with the INOVA QUANTA Lite SS-B YONIS. ??SS-B values obtained with different manufacturers' assay methods may not be used interchangeably. ??The magnitude of the reported IgG levels cannot be correlated to an endpoint titer. Blood VENOUS BLOOD / Unknown Venipuncture / Unknown 05/08/2021 16:53 EST 05/08/2021 17:15 EST Tj Grewal MD IMMUNOLOGY AND SERIRVING BRANCH ORDERABLES Performing Organization Address City/State/[facility] Co de Phone Number [facility] [address] [place] [address] * SSA ANTIBODIES BY OYNIS (05/08/2021 16:53 EST) SSA Antibody 0.6 <20.0 Units 05/10/2021 12:37 EST [facility] Comment: ? Negative: [...] AND SEROL SARINA ORDERABLES Performing Organization Address [facility] de Phone Number [facility] [address] [place] [address] * MANAGER MOBILITY ANTIBODIES BY YONIS (05/08/2021 16:53 EST) MANAGER MOBILITY Antibody 1.6 <20.0 Units 05/10/2021 12:44 EST [facility] Comment: ? Negative: <20.0 Units ? Weak Positive: 20.0 - 39.9 Units ? Moderate Positive: 40.0 - 80.0 Units ? Strong Positive: >80.0 Units Results were obtained with the Cyphort Quanta Lite MANAGER MOBILITY YONIS. MANAGER MOBILITY values obtained with different airframe and powerplant mechanic's assay methods may not be used interchangeaby. ??The magnitude of the reported IgG levels cannot be be correlated to an endpoint titer. A positive result in the Quanta Lite MANAGER MOBILITY YONIS indicates the presence of antibodies reactive with the MANAGER MOBILITY/Sm complex but cannot distinguish between anti-Sm and anti-MANAGER MOBILITY activity. Blood VENOUS BLOOD / Unknown Venipuncture / Unknown 05/08/2021 16:53 EST 05/08/2021 17:15 EST Tj Grewal MD IMMUNOLOGY AND SERIRVING BRANCH ORDERABLES Performing Organization Address [facility] de Phone Number [facility] [address] [place] [address] * SM (FARAH) ANTIBODY (05/08/2021 16:53 EST) SM (Farah) Antibody 1.7 <20.0 Units 05/10/2021 12:42 EST [facility] Comment: ? Negative: <20.0 Units ? Weak Positive: 20.0 - 39.9 Units ? Moderate Positive: 40.0 - 80.0 Units ? Strong Positive: >80.0 Units Results were obtained with the INOVA QUANTA Lite Sm YONIS. ??Sm values obtained with different manufacturers' assay methods may not be used interchangeably. ??The magnitude of the reported IgG levels cannot be correlated to an endpoint titer. Blood VENOUS BLOOD / Unknown Venipuncture / Unknown 05/08/2021 16:53 EST 05/08/2021 17:15 EST Tj Grewal MD IMMUNOLOGY AND SEROL SARINA ORDERABLES Performing Organization Address [facility] Co de Phone Number [facility] [address] [place] [address] * ANTI DNA (DOUBLE STRANDED) (05/08/2021 16:53 EST) Pathologist [facility] Anti-DNA (Double Stranded) <12.3 <30.0 IU/mL 05/10/2021 12:24 EST [facility] Comment: ? Negative: ??<30.0 IU/mL ? Borderline Positive: ??30.0 - 75.0 IU/mL ? Positive: ??>75.0 IU/mL Results were obtained with the INOVA QUANTA Lite dsDNA SC YONIS assay on the Zigabid DSX. Blood VENOUS BLOOD / Unknown Venipuncture / Unknown 05/08/2021 16:53 EST 05/08/2021 17:15 EST Tj Grewal MD IMMUNOLOGY AND SEROL SARINA ORDERABLES Performing Organization Address [facility] de Phone Number [facility] [address] [place] [address] * ANTI NUCLEAR AB (CESAR), IFA (05/08/2021 16:53 EST) Pathologist [facility] CESAR Interpretation Negative Negative 2021 15:26 EST [facility] Comment:No titer performed, CESAR Screen is negative. Blood VENOUS BLOOD / Unknown Venipuncture / Unknown 05/08/2021 16:53 EST 05/08/2021 17:15 EST [facility] LABORATORY SERVICES - 05/09/2021 15:26 EST Results were obtained with the Origin Digital[employer] NOVA Lite HEp-2 CESAR Kit by indirect immunofluorescence. Tj Grewal MD IMMUNOLOGY AND DALI BRANCH ORDERABLES [facility] [address] [place] [address] * (ABNORMAL) COMPREHENSIVE METABOLIC PANEL (CMP) (05/08/2021 16:53 EST) Sodium 138 136 - 145 mmol/L 05/08/2021 17:48 [facility] Potassium 4.1 3.5 - 5.0 mmol/L 05/08/2021 17:48 [facility] Chloride 97 96 - 110 mmol/L 05/08/2021 17:48 [facility] CO2 Total 34(H) 22 - 32 mmol/L 05/08/2021 17:48 [facility] Glucose 87 70 - 100 mg/dL 05/08/2021 17:48 [facility] BUN 13 10 - 26 mg/dL 05/08/2021 17:48 [facility] Creatinine 0.69 0.66 - 1.25 mg/dL 05/08/2021 17:48 [facility] eGFR 97 >60 mL/min/1.7 3m2 05/08/2021 17:48 [facility] Total Protein 6.4 6.3 - 8.2 g/dL 05/08/2021 17:48 [facility] Albumin 4.0 3.4 - 4.9 g/dL 05/08/2021 17:48 [facility] Alkaline Phosphatase 78 38 - 126 U/L 05/08/2021 17:48 [facility] AST 26 15 - 46 U/L 05/08/2021 17:48 [facility] ALT 20 <50 U/L 05/08/2021 17:48 [facility] Bilirubin, Total 0.5 <1.4 mg/dL 05/09/19 17:48 [facility] Calcium 9.0 8.5 - 10.5 mg/dL 05/08/2021 17:48 [facility] Albumin/Globulin Ratio 1.7 1.0 - 2.5 05/08/2021 17:48 [facility] Anion Gap 7 5 - 14 05/08/2021 17:48 [facility] Blood VENOUS BLOOD / Unknown Venipuncture / Unknown 05/08/2021 16:53 EST 05/08/2021 17:15 EST Tj Grewal MD CHEMISTRY & BLOOD GA S ORDERABLES Performing Organization Address City/State/[facility] Co de Phone Number [facility] [address] [place] [address] * (ABNORMAL) COMPLETE BLOOD COUNT AND DIFFERENTIAL (05/08/2021 16:53 EST) WBC 6.63 4.00 - 10.40 K/cmm 05/08/2021 17:21 [facility] RBC 4.40 4.36 - 5.78 M/cmm 05/08/2021 17:21 [facility] Hemoglobin 14.4 13.8 - 17.3 gm/dL 05/08/2021 17:21 [facility] HCT 43.8 39.5 - 50.2 % 05/08/2021 17:21 [facility] MCV 100(H) 81 - 95 fl 05/08/2021 17:21 [facility] MCH 32.7 27.6 - 33.0 pg 05/08/2021 17:21 [facility] MCHC 32.9 32.8 - 36.4 gm/dL 05/08/2021 17:21 [facility] RDW-CV 13.8 <14.2 % 05/08/2021 17:21 [facility] RDW-SD 51.0(H) <46.0 fl 05/08/2021 17:21 [facility] PLT 239 141 - 377 K/cmm 05/08/2021 17:21 [facility] MPV 9.9 9.5 - 12.7 fl 05/08/2021 17:21 [facility] % Neutrophils 58.3 % 05/08/2021 17:21 [facility] % Lymphocytes 29.9 % 05/08/2021 17:21 [facility] % Monocytes 10.4 % 05/08/2021 17:21 [facility] % Eosinophils 0.6 % 05/08/2021 17:21 [facility] % Basophils 0.5 % 05/08/2021 17:21 [facility] % Immature Grans 0.3 % 05/09/19 17:21 [facility] Absolute Neutrophils 3.87 2.20 - 8.85 K/cmm 05/08/2021 17:21 [facility] Absolute Lymphocytes 1.98 1.09 - 3.30 K/cmm 05/08/2021 17:21 [facility] Absolute Monocytes 0.69 0.10 - 0.80 K/cmm 05/08/2021 17:21 [facility] Absolute Eosinophils 0.04 0.03 - 0.61 K/cmm 05/08/2021 17:21 [facility] ABS Basophils 0.03 0.01 - 0.11 K/cmm 05/08/2021 17:21 [facility] Absolute Immature Grans 0.02 0.00 - 0.06 K/cmm 05/08/2021 17:21 [facility] Type of Differential: Auto 05/08/2021 17:21 [facility] Blood VENOUS BLOOD / Unknown Venipuncture / Unknown 05/08/2021 16:53 EST 05/08/2021 17:15 EST Tj Grewal MD PACKAGES & DNA PROBE ORDERABLES [facility] [address] [place] [address] * SED RATE (05/08/2021 16:53 EST) Sed Rate 2 0 - 20 mm/hr 05/08/2021 19:05 EST [facility] Blood VENOUS BLOOD / Unknown Venipuncture / Unknown 05/08/2021 16:53 EST 05/08/2021 17:15 EST Tj Grewal MD HEMATOLOGY & PF4 ORD ERABLES Performing Organization Address City/[facility]/ZIP Co de Phone Number [facility] [address] [place] [address] * (ABNORMAL) C REACTIVE PROTEIN (05/08/2021 16:53 EST) [facility] C-Reactive Protein 16.9(H) <10.0 mg/L 05/08/2021 17:48 EST [facility] Blood VENOUS BLOOD / Unknown Venipuncture / Unknown 05/08/2021 16:53 EST 05/08/2021 17:15 EST Tj Grewal MD CHEMISTRY & BLOOD GA S ORDERABLES Performing Organization Address City/[facility] Co de Phone Number [facility] [address] [place] [address] documented in this encounter Visit Diagnoses Diagnosis Polyarthralgia Pain in joint, multiple sites Screening for viral disease Special screening examination for unspecified viral disease documented in this encounter Care Teams Certified Addiction Counselor Relationship Specialty Start Date End Date None, Provider PCP - General 06/07/20 09/05/21 documented as of this encounter
--- OUTSIDE RECORDS SUMMARY | 2023-09-30 01:44 | XMS_ITS | Encounter Summary ---
Author Organization [facility] Address [address] [place] [address] Care Team Providers Care Abseiling Instructor Name Role Phone Tish Mayer MD Primary Care Provider [phone] None, Provider Primary Care Provider [facility] Primary Care Provider [phone] Flavia Syed MD Primary Care Provider [phone] Encounter Details Date Type Department Care Team (Late st Contact Info) Description 09/21/2019 Lab Requisition [facility] Pathology & Laboratory Medicine - [facility] [address] [place], [place] [id number] Outr Resulting Lab, Provider Social History Tobacco [...] Info) Description 10/08/2023 13:00 EDT Office Visit [facility] Endocrinology - [address] [phone] May Cerna MD [address] [place] [address] 10/09/2023 14:00 EDT Office Visit [facility] Rheumatology & Immunology - [facility] [address] [place], [place] [address] Tj Grewal MD [address] [facility], [address] [place] [address] documented as of this encounter Procedures Procedure Name Priority Date/Time Associated Diagnosis Comments HOLD SST Routine 09/21/2019 22:14 EDT PROLACTIN Routine 09/21/2019 14:25 EDT DHEA SULFATE Routine 09/21/2019 14:25 EDT ESTRADIOL, ADULTS Routine 09/21/2019 14: 25 EDT LH Routine 09/21/2019 14:25 EDT FSH Routine 09/21/2019 14:25 EDT documented in this encounter Results * HOLD SST (09/21/2019 22:14 EDT) Hold Hold 09/21/2019 23:15 EDT [facility] Blood VENOUS BLOOD / Unknown 09/21/2019 22:14 EDT 09/21/2019 22:14 EDT Provider Outr Resulting Lab LAB INFO SER VICE AND SUPPORT & PHONE RESULT [facility] [address] [place] [address] * (ABNORMAL) LH (09/21/2019 14:25 EDT) Luteinizing Hormone 0.4(L) 1.5 - 9.3 mIU/mL 09/22/2019 9:34 EDT [facility] Blood VENOUS BLOOD / Unknown 09/21/2019 14:25 EDT 09/21/2019 22:13 EDT Provider Outr Resulting Lab CHEMISTRY & BLOOD GAS ORDERABLES [facility] [address] [place] [address] * FSH (09/21/2019 14:25 EDT) FSH 2.8 1.4 - 18.1 mIU/mL 09/22/2019 9:33 EDT [facility] Blood VENOUS BLOOD / Unknown 09/21/2019 14:25 EDT 09/21/2019 22:13 EDT Provider Outr Resulting Lab CHEMISTRY & BLOOD GAS ORDERABLES [facility] [address] [place] [address] * PROLACTIN (09/21/2019 14:25 EDT) Prolactin 5.2 2.1 - 17.7 ng/mL 09/22/2019 9:32 EDT [facility] Blood VENOUS BLOOD / Unknown 09/21/2019 14:25 EDT 09/21/2019 22:13 EDT Provider Outr Resulting Lab CHEMISTRY & BLOOD GAS ORDERABLES [facility] [address] [place] [address] * ESTRADIOL, ADULTS (09/21/2019 14:25 EDT) Estradiol 30 <40 pg/mL 09/21/2019 22:57 EDT [facility] Blood VENOUS BLOOD / Unknown 09/21/2019 14:25 EDT 09/21/2019 22:13 EDT Provider Outr Resulting Lab CHEMISTRY & BLOOD GAS ORDERABLES [facility] [address] [place] [address] * (ABNORMAL) DHEA SULFATE (09/21/2019 14:25 EDT) DHEA Sulfate 769(H) 228 - 284 ug/dL 09/22/2019 9:31 EDT [facility] Blood VENOUS BLOOD / Unknown 09/21/2019 14:25 EDT 09/21/2019 22:13 EDT Provider Outr Resulting Lab CHEMISTRY & BLOOD GAS ORDERABLES [facility] [address] [place] [address] documented in this encounter Visit Diagnoses Not on filedocumented in this encounter Care Teams Abseiling Instructor Relationship Specialty Start Date End Date Tish Mayer MD PCP - General 01/21/15 05/09/20 None, Provider PCP - General 06/07/20 09/05/21 [facility], [address] [place] [address] PCP - General 09/06/21 01/08/22 Flavia Syed MD [address] [place] [address] PCP - General Family Medicine - Primary Care 01/09/22 documented as of this encounter
--- OUTSIDE RECORDS SUMMARY | 2023-09-30 01:44 | XMS_ITS | Encounter Summary ---
Author Organization [facility] Address [address] [place] [address] Care Team Providers Care Shaker Operator Name Role Phone Unavailable Primary Care Provider Unavailabl e Encounter Details Date Type Department Care Team (Late st Contact Info) Description 10/18/2002 Results Only [facility] - [facility] [address] [place] [address] Santana Carroll MD [address] [place] [id number] Social History Tobacco Use Types Packs/Day Years [...] Info) Description 10/08/2023 13:00 EDT Office Visit [facility] Endocrinology - [address] [address] May Cerna MD [address] [place] [phone] 10/09/2023 14:00 EDT Office Visit [facility] Rheumatology & Immunology - [facility] [address] [place] [address] Tj Grewal MD [address] [facility], [address] [place] [address] documented as of this encounter Procedures Procedure Name Priority Date/Time Associated Diagnosis Comments SURGICAL PATHOLOGY Routine 10/18/2002 0:00 EDT documented in this encounter Results * SURGICAL PATHOLOGY (10/18/2002 0:00 EDT) Pathology Report: SURGICAL PATHOLOGY REPORT Reports generated via electronic interface contain original data; however they are lacking the format of the original report. Caution should be taken when reading/interpreti ng unformatted reports. Name: ? JOSELUIS DEWEY ? Accession #: ? [id number] ? : ? 1950 (Age: 52) ??M ? Collect Date: ? 10/18/2002 ? Location: ? [facility] ? Receive Date: ? 10/19/2002 ? Provider: SANTANA CARROLL MD Copy to: LORRIE VAZQUEZ MD ? Final Pathologic Diagnosis: A. ?Colon, 20 cm, polyp, polypectomy: 1. ?Hyperplastic polyp. 2. ?No adenomatous mucosa identified. B. ?Colon, rectum, polyp, biopsy: 1. ?Fragments of hyperplastic polyp. 2. ?No adenomatous mucosa identified. Document reviewed and electronically signed by: ALLISON CASTRO MD Report ??Date: 10/21/2002 18:53 By the signature above, the attending physician certifies that he/she has personally conducted a gross and/or microscopic examination of the described specimens and rendered or confirmed the above diagnosis. Specimen(s) Received: A. ?Colon 20 cm B. ?Rectum Clinical History: ? Screening colonoscopy Gross Description: ? Received in Hollande' s fixative labeled Dewey and polyp 20 cm is one piece of burkett-white soft tissue which measures 0.4 x 0.4 x 0.3 cm. ??Submitted intact in one cassette as (A). Received in Hollande' s fixative labeled Dewey and bx rectum are three fragments of burkett-white, irregular soft tissue which vary in size from 0.4 x 0.3 x 0.2 cm to 0.2 x 0.2 x 0.2 cm. ??The entire specimen is submitted in one cassette as (B). ??(Dr. Jimenez-)/corinne End of Report [facility] 10/18/2002 10/19/2002 15: 20 EDT Santana Carroll MD PATHOLOGY ORDERABLE S Performing Organization Address City/State/[facility] Co de Phone Number [facility] [address] [place] [address] documented in this encounter Visit Diagnoses Not on filedocumented in this encounter
--- OUTSIDE RECORDS SUMMARY | 2023-09-30 01:44 | XMS_ITS | Encounter Summary ---
Author Organization [facility] Address [address] [place] [address] Care Team Providers Care Front Edger Name Role Phone Unavailable Primary Care Provider Unavailabl e Reason for Visit * Reason Comments New Patient Visit Telemedicine Video Visit * Referral (Routine) - Closed Specialty Diagnoses / Procedures Referred By Hadley valerio Referred To Contact Neurology Diagnoses Paresthesia of skin Flavia Syed MD [address] [place] [phone] Neurology 2c, Resident Referral ID Status Reason Start Date Expiration Date Visits Re quested Visits Authorized [id number] Closed 1 1 Encounter Details Date Type Department Care Team (Late st Contact Info) Description 05/10/2020 14:30 EST Telemedicine [facility] Adult Neurology - [place] [address] [place] [address] Riri Sanabria, DO [address] [phone] Other chronic pain (Primary Dx) Social History Tobacco Use Types [...] :23 EDT documented as of this encounter Progress Notes * Riri Sanabria, DO - 05/10/2020 1430 EST Neurology Resident Clinic Initial H&P: PATIENT NAME: Joseluis Dewey PCP: Tish Mayer DATE OF SERVICE: 05/10/2020 NEUROLOGY ATTENDING: Dr. Chen History of Present Illness: Mr.Michael Dewey is a 69 y.o. 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 Joseluis and I are meeting by [employer] today for his concerns of Guillain-BarreSyndrome (GBS) as the cause for his chronic pain. The history is obtained from the patient, his extensive paper records (both official medical records and self-written reports) he brought in for me to review prior to our meeting, and review of the EMR. In brief, his records and letters he asked me to review include but are not limited to documentation of the following (will have documents scanned in to his chart): 5 page letter outlining his medical history which references Tetanus booster shot he had in April 2000 which was followed by chronic pain to include severe neck pain and lumbar pain in low back, tingling in arms, shoulders, pins and needles in hands, fingers, and legs. He references concern of immune system compromise and mentions juana Lyme and babesia in August 1998. Multiple tests have been done for various infections. Various neuroimages have been obtained and he reports radiowave ablation for neck and what he describes as cranial nerve pain. He has concern for GBS and mention of notes which he is wondering if they describe brachial neuritis. He has been treated for Lyme disease for about 4 years in total ([id number] and [id number]). He describes challenges of being dismissed from various medical practices due to pain medication management challenges. 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 Medical records include neurosurgical evaluation who originally felt he had cervical spondylosis that did not require surgical intervention though he later got a second opinion and had cervical discectomy and fusion from C3-C5 in 2004. He had a pet scan after incidental liver findings on T-spine MRI and PET scan was negative. Now, Joseluis reports he has been improving cognitively over the past month but he has been dealing with chronic pain for 20 years and this has been a very lonely and challenging existence for him. Hehas found life very challenging because they have not found an answer for his pain. His biggest question today is about his Guillain Casselberry Syndrome or Transverse Myelitis. He states that he has symptoms of GBS, AMSAN, and probably Hilton Hull. He describes that he is always cold, he has blurry vision, gait imbalance, ringing in his ears, feeling like [he] has meningitis, amongst other symptoms. Symptoms have not changed over time. He did have an EMG done a [facility] which he reports was normal (I do not see record of this but he states was performed by JOSEPH Singletary). I asked Joseluis to describe his pain quality multiple times but he was unable to do this for me. Hewas able to say that it's the kind of pain that he could live with though it's upsetting and previous caused him suicidal thoughts. He describes tingling in his hands. He feels like his nerves in hisbody and in his neck are inflamed. He feels like he has sciatica in his upper back and down the arms. He has pain in his lower back as well. He feels weak all over. He has bladder issues. He has pins and needles in his feet. Joseluis's biggest concern throughout our conversation is that he has GBS for the past 20 years (as well as Lyme which he feels he is recovering from) and that he is concerned he has never received a diagnosis. He has questions about a lumbar puncture and remains quite focused that if he were to go down a checklist with all the symptoms of GBS he has many of them. ROS: 12 systems reviewed and negative other than as in HPI. Past Medical and Surgical History: Active Ambulatory Problems Diagnosis Date Noted ??? No Active Ambulatory Problems Resolved Ambulatory Problems Diagnosis Date Noted ??? No Resolved Ambulatory Problems No Additional Past Medical History No past surgical history on file. Allergies: No Known Allergies Medications: Current Outpatient Medications Medication ??? buprenorphine-naloxone (SUBOXONE) 12-3 mg film ??? DULoxetine (CYMBALTA) 30 mg delayed release capsule ??? fluocinolone acetonide (SYNALAR) 0.01 % external solution ??? FLUoxetine (PROZAC) 20 mg capsule ??? gabapentin (NEURONTIN) 600 mg tablet ??? hydrocortisone (CORTEF) 5 mg tablet ??? ketoconazole (NIZORAL) 2 % cream ??? ketoconazole (NIZORAL) 2 % shampoo ??? prasterone, dhea, (DHEA) 50 mg tablet ??? TESTOSTERONE TD ??? traZODone (DESYREL) 100 mg tablet ??? UNABLE TO FIND ??? valGANciclovir (VALCYTE) 450 mg tablet No current facility-administered medications for this visit. Social History: Mr.Michael Dewey reports that he has quit smoking. His smoking use included cigarettes. He has never used smokeless tobacco. Family History: No family history on file. Physical Exam: Vitals: There were no vitals filed for this visit. General Exam: General: Awake and alert, sitting comfortably, in no acute distress. Eyes: No scleral icterus or injection. No ocular discharge. Pupils grossly symmetric within limits of videoconferencing software. Head, Ears, Nose and Throat: Atraumatic. No nasal discharge. MMM. Neck: Trachea is midline. No grossly visible goiter or lymphadenopathy. Pulmonary: Non-labored breathing with no use of accessory muscles. Symmetrical chest rise. No stridor or wheezing. Cardiac: No grade 6/6 heart murmur. No apparent JVD. Extremities appear well-perfused. Extremities/Musculoskeletal: No cyanosis or clubbing. No visible deformities. Skin: No jaundice. No visible rashes, gross nodules or ulcers on exposed skin, though formal skin exam was not preformed. Neurologic: Cognition: Not formally tested. Alert and oriented, able to give a clear and fluent history of recent and remote events. Language: No evidence of aphasia. Cranial Nerves: III, IV and : EOM intact. No nystagmus. VII: Symmetric muscles of facial expression bilaterally. VIII: Hearing is grossly intact to conversation. IX and X: No dysarthria. XII: Tongue protrudes midline. Motor: Muscle strength is antigravity in all four extremities. No tremor or other abnormal movements noted. Sensory: Romberg testing is negative. Coordination: Finger to nose is intact bilaterally without evidence of dysmetria. Gait: Gait is normal without need of any assistive device. Tandem gait is intact with only minimal imbalance. Able to walk on heels and toes. Ancillary Studies: I personally independently reviewed the imaging studies: MRI T-spine 07/14/2015: no acute abnormalities MRI head 12/15/2014: no acute abnormalities; some chronic white matter changes MRI C-spine 10/10/2010: no acute abnormalities I personally independently reviewed the laboratory studies including: CBC, CMP CRP, iron labs, vitamin D, TSH, free T4, T3, CMV IgG and IgM, chlamydia Abs, MMA, DHEA sulfate, NK CD56, HHV-6, mycoplasma pneumonia antibodies, zinc, magnesium, testosterone amongst other labs from 2009 which will be scanned in to the patient's chart. Impression & Plan: Mr.Michael Dewey is a 69 y.o. right-handed man with a very complicated medical history that has been outlined in the HPI. He is here today concerned about Guillain-Casselberry syndrome as the cause for his chronic pain. We did discuss GBS and that it is an acute illness, not a chronic disease. Joseluis perseverates on the diagnosis, repeatedly stating he has all of the symptoms. We did discuss that there are other causes of neuropathy and I think it's possible that he could have an underlying neuropathy though of course this is very difficult to tell without a formal examination. His clinical course does not fit with CIDP diagnosis either. Joseluis does report a normal EMG in the distant past though I wonder if there has been any change since that time or if there could be a small fiber neuropathy contributing. He is quite eager to have a lumbar puncture performed but based on his history and what I can do of an exam at this time I see no indication for that procedure. I would like to see him in person to do a formal physical exam and hopefully better clarify Joseluis's pain though I am quite aware that he has had extensive workup in the past including normal imaging and EMG as well as evaluation by multiple specialists in other locations which has not shown a primary neurologic cause of his symptoms. - Follow-up in person for physical examination and determination for any further testing Riri Sanabria, DO Department of Neurology, PGY-4 05/10/2020 Teleneurology consultation: Based on the recommendations from the [facility] in the setting of the COVID19 pandemic, we are working to minimize patient exposure in our medical center. All patients who have routine follow up visits or are not on urgent infusion based treatments treatments, or have an urgent need for physical examination will have visits postponed for an appropriate interval (as decided by the physician) or these visits may be offered by telemedicine or phone consultation. This consultation has been reviewed by appropriate clinical staff and has been deemed appropriate for a Zoom consultation at this time. The concept of ???Telemedicine?? has been described to the patient.? Patient has been informed of the anticipated benefits and possible risks.? Patient understands the information provided regardingtelemedicine, has had the opportunity to ask questions about this information, and all questions have been answered to patient's satisfaction. Patient consents for the use of telemedicine in his/her medical care and authorizes the transmission of any relevant medical information to providers and their staff involved in patient's medical or mental health care. TELEMEDICINE VIDEO VISIT Today's visit was provided through telemedicine video conferencing: The location of the patient: Home The location of the provider: Home Office The following staff and their role did participate in today's encounter visit: Riri Sanabria DO (resident) Maxine Chen MD (attending) * Maxine Chen MD - 05/10/2020 1430 EST Attending Attestation: I discussed the case with Dr. Sanabria on 05/10/2020. I joined the zoom call anddiscussed the plan with patient and answered their questions. I agree with residents documentation and have edited the note as indicated. 69 yo gentleman with a complicated history, very well outlined by Dr. Sanabria who is referred to us for evaluation of long standing history of chronic pain and paresthesia. He does not have any reported weakness. He has had extensive work up including neuroimaging and electrodiagnostics at other institutions and his concern is that he is suffering from GBS, which he related to a tetanus shot back in early . He notably has had a normal EMG/NCS at that time, though he states it was too earlyin the course. He is requesting an LP. We extensively discussed with him that his clinical course does not appear to be consistent with a demyelinating polyneuropathy. I recommended that we evaluatehim in an in person visit and determine the need for further diagnostic work up and he is in agreement. He will follow up with Dr. Sanabria in her next available in person clinic. Maxine Chen MD Neurology Attending documented in this encounter Miscellaneous Notes * Addendum Note - Maxine Chen MD - 05/10/2020 1430 ESTAddended by: MAXINE CHEN on: 05/14/2020 20:25 Modules accepted: Level of Service documented in this encounter Plan of Treatment Upcoming Encounters Date Type Department Care Team (Late st Contact Info) Description 10/08/2023 13:00 EDT Office Visit [facility] Endocrinology - [address] [address] May Cerna MD [address] [place] [phone] 10/09/2023 14:00 EDT Office Visit [facility] Rheumatology & Immunology - [address] [phone] Tj Grewal MD [address] [place] [address], [facility] [address] [place] [address] documented as of this encounter Visit Diagnoses Diagnosis Other chronic pain- Primary documented in this encounter
--- OUTSIDE RECORDS SUMMARY | 2023-09-30 01:44 | XMS_ITS | Encounter Summary ---
Author Organization [facility] Address [address] [place] [address] Care Team Providers Care Orthodontic Band Maker Name Role Phone None, Provider Primary Care Provider Unavailabl e Reason for Visit * Reason Comments Follow-up Encounter Details Date Type Department Care Team (Late st Contact Info) Description 06/07/2020 14:20 EDT Office Visit [facility] Adult Neurology - [facility] [address] [place] [address] Riri Sanabria M, DO [address] [phone] Other chronic pain (Primary Dx) [...] 14:00 EDT documented as of this encounter Last Filed Vital Signs Vital Sign Reading Time Taken Comments Blood Pressure 118/74 06/07/2020 1436 EDT Pulse 72 06/07/2020 1436 EDT Temperature - - Respiratory Rate - - Oxygen Saturation 96% 06/07/2020 1436 EDT Inhaled Oxygen Concentration - - Weight 70.3 kg (155 lb) 06/07/2020 1436 EDT Height 170.2 cm (5' 7) 06/07/2020 1436 EDT Body Mass Index 24.28 06/07/2020 1436 EDT documented in this encounter Progress Notes * Riri Sanabria, DO - 06/07/2020 1420 EDT NEUROLOGY CLINIC FOLLOW UP PATIENT NAME: Joseluis Dewey PCP: No primary care provider on file. DATE OF SERVICE: 06/07/2020 NEUROLOGY ATTENDING: Dr. John PROBLEM: Chronic Pain HPI: Joseluis Dewey is a 69 y.o. 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 He presented originally to neurology in May 2020 due to his concern for Guillain- Gauley Bridge Syndrome. In brief, his records and letters he asked me to review include but are not limited to documentation of the following (see scanned files for original documents): 5 page letter outlining his medical history [...] disease for about 4 years in total ([id number] and [id number]). He describes challenges of being dismissed from [...] T-spine MRI and PET scan was negative. INTERVAL HISTORY Joseluis Deewy returns to the neurology clinic on 06/07/2020 after last being seen by Zoom earlier this month on 05/10/2020. Since then, there have been no major changes in his overall health or symptoms. He re-confirms his symptoms as outlined above. He continues to express that nobody who has seen him in the past knew about the Lyme and Babesia when he got the tetanus vaccine and is concerned about Guillain-Gauley Bridge or other neurologic issue. He went 15 years before being treated for Lyme. CURRENT MEDICATIONS Current Outpatient Medications Medication ??? buprenorphine-naloxone (SUBOXONE) 12-3 mg film ??? DULoxetine (CYMBALTA) 30 mg delayed release capsule ??? fluocinolone acetonide (SYNALAR) 0.01 % external solution ??? FLUoxetine (PROZAC) 20 mg capsule ??? gabapentin (NEURONTIN) 600 mg tablet ??? hydrocortisone (CORTEF) 5 mg tablet ??? ketoconazole (NIZORAL) 2 % cream ??? ketoconazole (NIZORAL) 2 % shampoo ??? lisinopriL (PRINIVIL) 10 mg tablet ??? prasterone, dhea, (DHEA) 50 mg tablet ??? TESTOSTERONE TD ??? traZODone (DESYREL) 100 mg tablet ??? UNABLE TO FIND ??? valGANciclovir (VALCYTE) 450 mg tablet No current facility-administered medications for this visit. ALLERGIES Allergies Allergen Reactions ??? Ciprofloxacin Other (See Comments) and Rash fever ??? Diclofenac Rash ??? Meloxicam Palpitations ??? Sulfa (Sulfonamide Antibiotics) Rash REVIEW OF SYSTEMS: Complete 12-point ROS performed with pertinent positives and negatives as per subjective. PHYSICAL EXAMINATION: BP 118/74 Pulse 72 Ht 170.2 cm (67) Wt 70.3 kg (155 lb) SpO2 96% BMI 24.28 kg/m?? General: cooperative, well-dressed HEENT: NC/AT, no oral lesions Lungs: breathing comfortably on room air Extremities: all extremities warm and well perfused Neurologic exam: Mental Status/Language: Awake and alert. Oriented to situation. Language is fluent without evidenceof aphasia. Cranial Nerves: CN I: not assessed CN II: PERRLA communications assistant III, IV, : EOMI with smooth pursuit, no nystagmus CN V: sensation intact to light touch in V1, V2, and V3 distributions CN VII: symmetric eyebrow raise and smile, nasolabial folds symmetric and present CN VIII: hearing intact to finger rub bilaterally CN IX, X: symmetric uvula raise CN XII: tongue protrusion midline, symmetric, and without fasciculations Motor: Bulk and tone as expected for age. Strength 5/5 bilaterally in upper extremities in shoulderabduction and adduction, elbow flexion and extension, wrist flexion and extension, finger abduction, and hand ror engineer. Strength of 5/5 in bilateral lower extremities for hip flexion and extension, knee flexion and extension, dorsiflexion and plantarflexion. Reflexes: 2/4 bilaterally in biceps, brachioradialis, triceps, and achilles. 2/4 in right patellar and 3/4 in the left (chronic per patient) Sensation: Intact to light touch in all extremities except perhaps slightly diminished (~35%) belowthe knees bilaterally. Intact to cold in all extremities though in the legs has somewhat diminishedsensation to cold in a stocking distribution; normalizes at the knee. Vibration intact though interestingly he continues to feel vibratory sensation for long after the tuning fork stops moving. Proprioception intact at bilateral great toes. Romberg negative. Cerebellar: Ujbswo-jgsk-vtrtgg intact. Xtup-xq-voje intact. Gait: Symmetric with narrow base and without the use of assistive device. Able to maintain adequatearm swing and heel strike. Tandem gait is stable. LABORATORY: Reviewed in [facility]; no new labs since last visit. MICROBIOLOGY: Reviewed in [facility]. None available. RADIOLOGICAL STUDIES: No new imaging since last visit. Prior neuro-imaging as below: MRI T-spine 07/14/2015: no acute abnormalities MRI head 12/15/2014: no acute abnormalities; some chronic white matter changes MRI C-spine 10/10/2010: no acute abnormalities OTHER DIAGNOSTIC STUDIES: N/A ASSESSMENT: Joseluis Dewey is a 69 y.o. right-handed man with a very complicated medical history who is here for follow-up and first time neurologic exam by me for his chronic pain and his personal concern for Guillain-Gauley Bridge or CIDP. Exam today is very reassuring, notable only for a hyperreflexic left knee which is apparently chronic and diminished sensation in a stocking distribution in the bilateral legs which is fairly mild. The majority of his symptoms are in the neck and arms as well as the low back so I suspect this possible neuropathy is non- contributory. Overall the etiology of his pain is unclear but there is no obvious primary neurologic cause to explain this including that his symptoms are not consistent with GBS (which is an acute, short-term illness) or CIDP. PLAN: - No further neurologic workup indicated at this time including no indication for CSF testing. - Follow-up as needed if new neurologic symptoms arise. Riri Sanabria DO Department of Neurology, PGY-4 06/07/2020 15:36 06/07/20 * Osito John IV, MD - 06/07/2020 1420 EDT I saw and examined the patient with the resident on 06/07/2020. I agree with the findings and plan of care documented with appropriate edits in the resident's note. Osito John MD Neurology Attending documented in this encounter Plan of Treatment Upcoming Encounters Date Type Department Care Team (Late st Contact Info) Description 10/08/2023 13:00 EDT Office Visit [facility] Endocrinology - [address] [phone] May Cerna MD [address] [place] [phone] 10/09/2023 14:00 EDT Office Visit [facility] Rheumatology & Immunology - [address] [phone] Tj Grewal MD [address] [place] [address], [address] [place] [phone] documented as of this encounter Visit Diagnoses Diagnosis Other chronic pain- Primary documented in this encounter Historical Medications * This list may reflect changes made after this encounter. Medication Sig Dispensed Refills Start Date End Date lisinopriL (PRINIVIL) 10 mg tablet Take 1 Tablet by mouth daily. added in this encounter Care Teams Orthodontic Band Maker Relationship Specialty Start Date End Date None, Provider PCP - General 06/07/20 09/05/21 documented as of this encounter
--- OUTSIDE RECORDS SUMMARY | 2023-09-30 01:44 | XMS_ITS | Encounter Summary ---
Author Organization [facility] Address [address] [place] [address] Care Team Providers Care Aerospace Physiological Technician Name Role Phone None, Provider Primary Care Provider Unavailabl e Reason for Visit * Reason Onset Date Comments Appointment Related 05/16/2020 Encounter Details Date Type Department Care Team (Late st Contact Info) Description 05/16/2020 Telephone [facility] Adult Neurology - [facility] [address] [place] [address] Riri Sanabria M, DO [address] [phone] Appointment Related Social History Tobacco [...] Telephone Encounter - Laila Crespo MA - 05/16/2020 1432 EST TC to patient to schedule In Person FUR with Dr. Sanabria per her request Scheduled for 06/07 at 2:20 pm Explained current COVID-19 and visitor guidelines and pt verbalized understanding. documented in this encounter Plan of Treatment Upcoming Encounters Date Type Department Care Team (Late st Contact Info) Description 10/08/2023 13:00 EDT Office Visit [facility] Endocrinology - [address] [address] May Cerna MD [address] [place] [phone] 10/09/2023 14:00 EDT Office Visit [facility] Rheumatology & Immunology - [address] [phone] Tj Grewal MD [address] [place] [address], [address] [place] [phone] documented as of this encounter Visit Diagnoses Not on filedocumented in this encounter Care Teams Aerospace Physiological Technician Relationship Specialty Start Date End Date None, Provider PCP - General 06/07/20 09/05/21 documented as of this encounter
--- OUTSIDE RECORDS SUMMARY | 2023-09-30 01:44 | XMS_ITS | Encounter Summary ---
Author Organization [facility] Address [address] [place] [address] Care Team Providers Care Armoured Car Escort Name Role Phone Unavailable Primary Care Provider Unavailabl e Encounter Details Date Type Department Care Team (Late st Contact Info) Description 11/20/2004 12:42 EDT - 12/07/2004 11:59 EDT Hospital Encounter [facility] conversion [address] [place] [address] Avis Miramontes MD [address] [facility] [address] [place] [address] Tish Mayer MD [address] [place] [phone] Discharge Disposition: Auto Discharge Social History Tobacco Use Types Packs/Day Years Used Date Smoking Tobacco: Never Assessed Sex and Gender Information Value Date Recorded Sex Assigned at Male 06/06/2020 14:23 EDT Gender Identity Male 06/06/2020 14:23 EDT Sexual Orientation Straight 06/06/2020 14 :23 EDT documented as of this encounter Discharge Disposition Disposition Code Departure Means Destination Auto Discharge documented in this encounter Plan of Treatment Upcoming Encounters Date Type Department Care Team (Late st Contact Info) Description 10/08/2023 13:00 EDT Office Visit [facility] Endocrinology - [address], [place] [phone] May Cerna MD [address] [place] [phone] 10/09/2023 14:00 EDT Office Visit [facility] Rheumatology & Immunology - [address] [address] Tj Grewal MD [address] [facility], [address] [place] [address] documented as of this encounter Visit Diagnoses Not on filedocumented in this encounter
--- OUTSIDE RECORDS SUMMARY | 2023-09-30 01:44 | XMS_ITS | Encounter Summary ---
Author Organization [facility] Address [address] [place] [address] Care Team Providers Care Pocket Builder Name Role Phone None, Provider Primary Care Provider [facility] Primary Care Provider [phone] Flavia Syed MD Primary Care Provider [phone] Reason for Visit * Reason Comments Other Encounter Details Date Type Department Care Team (Late st Contact Info) Description 04/22/2021 Refill [facility] Dermatology 5th Floor [address] [phone] Gokul Menezes MD [address] [facility], [address] [place] [address] Other Social History Tobacco Use [...] TWO TIMES A DAY 60 mL 3 04/23/2021 07/16/2021 documented in this encounter Miscellaneous Notes * Telephone Encounter - Sydnee Prasad MA - 04/23/2021 1257 EST Medication: fluocinolone acetonide (SYNALAR) 0.01 % external solution Diagnosis: Arash derm Last Office Visit: 02/14/2020 Next Office Visit: prn Last Refill: 03/15/21 documented in this encounter Plan of Treatment Upcoming Encounters Date Type Department Care Team (Late st Contact Info) Description 10/08/2023 13:00 EDT Office Visit [facility] Endocrinology - [address] [phone] May Cerna MD [address] [place] [phone] 10/09/2023 14:00 EDT Office Visit [facility] Rheumatology & Immunology - [address] [phone] Tj Grewal MD [address] [place] [address], [address] [place] [phone] documented as of this encounter Visit Diagnoses Not on filedocumented in this encounter Discontinued Medications Medication Sig Discontinue Reason Start Date End Da te fluocinolone acetonide (SYNALAR) 0.01 % external solution APPLY TO AFFECTED AREA(S) ON SCALP TWO TIMES A DAY 05/09/2020 04/23/2021 documented as of this encounter Care Teams Pocket Builder Relationship Specialty Start Date End Date None, Provider PCP - General 06/07/20 09/05/21 [facility], [address] [place] [address] PCP - General 09/06/21 01/08/22 Flavia Syed MD [address] [place] [address] PCP - General Family Medicine - Primary Care 01/09/22 documented as of this encounter
--- OUTSIDE RECORDS SUMMARY | 2023-09-30 01:44 | XMS_ITS | Encounter Summary ---
Author Organization [facility] Address [address] [place] [address] Care Team Providers Care Phone Engineer Name Role Phone Unavailable Primary Care Provider Unavailabl e Encounter Details Date Type Department Care Team (Late st Contact Info) Description 06/06/2000 Results Only [facility] conversion [address] [place], [place] [phone] Kimberly Bowen MD [address] [place] [phone] Social History Tobacco Use Types Packs/Day Years [...] Description 10/08/2023 13:00 EDT Office Visit [facility] Endocrinology - [address] [address] May Cerna MD [address] [place] [phone] 10/09/2023 14:00 EDT Office Visit [facility] Rheumatology & Immunology - [facility] [address] [place] [address] Tj Grewal MD [address] [facility], [address] [place] [address] documented as of this encounter Procedures Procedure Name Priority Date/Time Associated Diagnosis Comments SURGICAL PATHOLOGY Routine 06/06/2000 0:00 EST documented in this encounter Results * SURGICAL PATHOLOGY (06/06/2000 0:00 EST) Pathology Report: SURGICAL PATHOLOGY REPORT Reports generated via electronic interface contain original data; however they are lacking the format of the original report. Caution should be taken when reading/interpreti ng unformatted reports. Name: ? JOSELUIS DEWEY ? Accession #: ? [id number] ? : ? 1950 (Age: 49) ??M ? Collect Date: ? 06/06/2000 ? Location: ? [facility] ? Receive Date: ? 06/06/2000 ? Provider: KIMBERLY BOWEN MD Copy to: LORRIE RASMUSSEN MD ? Final Pathologic Diagnosis: A. ?Epididymis and vas deferens, left, epididymectomy and vasectomy: 1. ?Full cross sections of vas deferens were examined. 2. ?Epididymal tissue with slight luminal dilation. ??See comment. B. ?Vas deferens, right, vasectomy: 1. ?Full cross sections of vas deferens were examined. Comment: ? No apparent inflammation involving the epididymal tissue is identified. Recommend clinical correlation. ??This case has been shown at the intradepartmental consultation conference. ??(Dr. Zhao)/víctor Document reviewed and electronically signed by: CARRIE ALBERT MD Report ??Date: 06/10/2000 15:05 By the signature above, the attending physician certifies that he/she has personally conducted a gross and/or microscopic examination of the described specimens and rendered or confirmed the above diagnosis. Specimen(s) Received: A. ?L epididymis B. ?R vas deferens, seg Clinical History: ? Chronic L epididymitis, desires sterilization Gross Description: ? Received in formalin labelled Dewey and left epididymis is an epididymis measuring 2.0 x 0.5 x 0.7 cm and attached segment of spermatic cord measuring 5.0 cm in length and 0.6 cm in diameter. ??A portion of vas deferens is received from the spermatic cord and measures 2.5 cm in length and 0.2 cm in diameter. ??Serial sectioning of the epididymis reveals an attenuated epididymis overlying a thickened fibrotic tunica vaginalis. ??Serial sectioning of the vas deferens reveals no gross abnormalities. BLOCK CERNA A1 ?Two cross sections of vas deferens ? A2 ? Collar Setter Overlock section of epididymis and underlying tunica vaginalis, and two cross sections of spermatic cord A3 ? Additional fundraising sale representative section of epididymis ? Received in formalin labelled Dewey and seg R vas deferens is a portion of vas deferens measuring 3.8 cm in length and 0.2 cm in diameter. Serial sectioning reveals a rubbery, burkett-white wall measuring 0.1 cm in diameter with a central pinpoint lumen. ??Serial sectioning reveals no gross abnormalities. ??Four fundraising sale representative sections are submitted as (B). ??(Dr. Esteban)/víctor End of Report [facility] 06/06/2000 06/06/2000 15: 30 EST Kimberly Bowen MD PATHOLOGY ORDERABLES [facility] [address] [place] [address] documented in this encounter Visit Diagnoses Not on filedocumented in this encounter
--- OUTSIDE RECORDS SUMMARY | 2023-09-30 01:44 | XMS_ITS | Encounter Summary ---
Author Organization [facility] Address [address] [place] [address] Care Team Providers Care Senior Business Architect Name Role Phone Tish Mayer MD Primary Care Provider [phone] None, Provider Primary Care Provider [facility], Primary Care Provider [phone] Flavia Syed MD Primary Care Provider [phone] Reason for Visit * Reason Comments Other Encounter Details Date Type Department Care Team (Late st Contact Info) Description 05/08/2020 Refill [facility] Dermatology 5th [address] [phone] Gokul Menezes MD [address] [facility], [address] [place] [address] Other Social History Tobacco Use [...] TWO TIMES A DAY 60 mL 3 05/09/2020 04/23/2021 documented in this encounter Miscellaneous Notes * Telephone Encounter - Sydnee Prasad MA - 05/09/2020 [id number] EST Medication: Fluocinolone 0.01% solution Diagnosis: Seborrheic dermatitis Last Office Visit: 02/14/20 Next Office Visit: None Last Refill: 04/15/20 documented in this encounter Plan of Treatment Upcoming Encounters Date Type Department Care Team (Late st Contact Info) Description 10/08/2023 13:00 EDT Office Visit [facility] Endocrinology - [address] [address] May Cerna MD [address] [place] [phone] 10/09/2023 14:00 EDT Office Visit [facility] Rheumatology & Immunology - [address] [phone] Tj Grewal MD [address] [facility], [address] [place] [phone] documented as of this encounter Visit Diagnoses Not on filedocumented in this encounter Discontinued Medications Medication Sig Discontinue Reason Start Date End Da te fluocinolone acetonide (SYNALAR) 0.01 % external solution Apply topically 2 times daily. to scalp 02/14/2020 05/09/2020 documented as of this encounter Care Teams Senior Business Architect Relationship Specialty Start Date End Date Tish Mayer MD PCP - General 01/21/15 05/09/20 None, Provider PCP - General 06/07/20 09/05/21 [facility], [address] [place] [address] PCP - General 09/06/21 01/08/22 Flavia Syed MD [address] [place] [address] PCP - General Family Medicine - Primary Care 01/09/22 documented as of this encounter
--- OUTSIDE RECORDS SUMMARY | 2023-09-30 01:44 | XMS_ITS | Encounter Summary ---
Author Organization [facility] Address [address] [place] [address] Care Team Providers Care Dietitian Teaching Name Role Phone None, Provider Primary Care Provider Unavailabl e Encounter Details Date Type Department Care Team (Latest Contact Info) Description 06/07/2020 Travel Social History Tobacco Use Types Packs/Day Years [...] Info) Description 10/08/2023 13:00 EDT Office Visit [facility] Endocrinology - [address] [address] May Cerna MD [address] [place] [phone] 10/09/2023 14:00 EDT Office Visit [facility] Rheumatology & Immunology - [address] [address] Tj Grewal MD [address] [place] [address], [address] [place] [address] documented as of this encounter Visit Diagnoses Not on filedocumented in this encounter Care Teams Dietitian Teaching Relationship Specialty Start Date End Date None, Provider PCP - General 06/07/20 09/05/21 documented as of this encounter
[2023-09-30 09:49] LABS: Abs Immature Grans 0.02 10^3/uL (0.0-0.06); Absolute Basophil Count 0.05 10^3/uL (0.0-0.2); Absolute Eosinophil Count 0.36 10^3/uL (0.0-0.7); Absolute Lymphocyte Count 1.98 10^3/uL (1.2-3.4); Absolute Monocyte Count 0.93 10^3/uL (0.1-0.8); Absolute Neutrophil Count 5.77 10^3/uL (1.2-6.7); Basophils % 0.5 %; HCT 41.6 % (40.0-50.0); HGB 13.9 g/dL (13.5-17.5); Immature Grans % 0.2 %; Lymphocytes % 21.7 %; MCH 32.9 pg (27.0-33.0); MCHC 33.4 % (32.0-36.0); MCV 98 fL (80-95); MPV 9.9 fL (8.0-11.0); Monocytes % 10.2 %; Neutrophils % 63.4 %; Platelet Count 203 10^3/uL (130-400); RBC 4.23 10^6/uL (4.36-5.78); RDW 13.8 % (11.8-14.1); WBC 9.11 10^3/uL (4.4-10.8)
[2023-09-30 10:17] LABS: ALT 23 U/L (16-63); AST 15 U/L (15-37); Albumin 3.7 g/dL (3.4-5.0); Alkaline Phosphatase 97 U/L (46-116); Anion Gap 3.3 mmol/L (3-11); BUN 14 mg/dL (7-18); Bilirubin, Total 0.66 mg/dL (0.2-1.0); CO2 35.7 mmol/L (21.0-32.0); CREATININE 0.9 mg/dL (0.70-1.30); Calcium 9.2 mg/dL (8.5-10.1); Chloride 102 mmol/L (98-107); Estimated GFR 90.74 (mL/min/1.73m2); Glucose 96 mg/dL (74-106); Potassium 4.2 mmol/L (3.5-5.1); Sodium 141 mmol/L (136-145); Total Protein 6.9 g/dL (6.4-8.2)
[2023-09-30 10:25] LABS: TSH 3.81 uIU/Ml (0.36-3.74)
[2023-10-01 20:04] LABS: Adrenocorticotropic Hormone, P 57 pg/mL
[2023-10-05 13:23] LABS: Testosterone, Free 6.26 ng/dL (3.28-12.2); Testosterone, Total 285 ng/dL (240-950)
== END 2023-09-30 01:34 | disposition home or self-care (01) ==
LOC: LBO 01:33
PROVIDERS: Student in an Organized Health Care Education/Training Program; PCP Family Medicine; Visit Provider Family Medicine
DX: Z79.2 Long term (current) use of antibiotics (principal); E27.49 Other adrenocortical insufficiency
CPT/HCPCS: 36415; 80053; 84402; 84403; 82024; 84439; 84443; 85025

== ENCOUNTER → 2023-11-24 15:01 | Outpatient (BNVA) | payer MEDICARE, SELFPAY | PROVIDERS: PCP Family Medicine; Visit Provider Nurse Practitioner Gerontology | DX: N40.1 Benign prostatic hyperplasia with lower urinary tract symptoms (principal); N13.8 Other obstructive and reflux uropathy | CPT/HCPCS: 51798; 99214 ==

== ENCOUNTER → 2024-05-13 14:57 | Outpatient (BNVA) | payer MEDICARE, SELFPAY | PROVIDERS: PCP Family Medicine; Referring Provider Family Medicine; Visit Provider Nurse Practitioner Gerontology | DX: R35.0 Frequency of micturition (principal); N40.1 Benign prostatic hyperplasia with lower urinary tract symptoms; N13.8 Other obstructive and reflux uropathy | CPT/HCPCS: 51798; 99215 ==

== ENCOUNTER 2024-10-24 13:09 | Emergency (ER) | payer MEDICARE, SELFPAY ==
[2024-10-24 13:13] VITALS: BP 150/59; PULSE 79; RESP 16; TEMP 36.6; O2SAT 96
--- NOTE | 2024-10-24 13:45 | DI.RAD_ITS ---
Exam(s) XR HIP RT COMPLETE AP PELVIS EXAM: XR HIP RT COMPLETE AP PELVIS CLINICAL HISTORY: Fall, right hip pain. TECHNIQUE: 2D digital imaging was performed. Two views COMPARISON: No exams were available for comparison FINDINGS: BONES: No acute fracture is present. No bony destructive lesion is seen. JOINTS: No dislocation present. The hip joint spaces are maintained. Joints and pubic symphysis are unremarkable. SOFT TISSUE: Vascular calcifications. IMPRESSION: No acute abnormality. The preliminary [facility] report was reviewed. DATA REPOSITORY: RADIATION DOSE DELIVERED:
--- NOTE | 2024-10-24 13:49 | W.ED.GENAD ---
Discharge Plan Discharge Details Chief Complaint: Orthopedic Clinical Impression: Greater trochanteric pain syndrome of right lower extremity Primary Care Provider: Flavia Syed ED Provider: Avni Alvarez Home Meds and New Rx's Prescriptions: New hydromorphone [Dilaudid] 2 mg tablet 2 mg PO Q6H PRNQty: 12 0RF acetaminophen [Tylenol] 325 mg tablet 975 mg PO ONCE PRNQty: 60 0RF Continued DHEA 50 mg capsule 50 mg PO DAILY lisinopril 10 mg tablet 10 mg PO DAILY testosterone 10 mg/0.5 gram /actuation gel in metered-dose pump 1 pump transdermal BID Rx Instructions: apply evenly over front and inner area of one thigh; avoid water for >=2 hrs famciclovir 250 MG tablet 500 mg PO BID Patient Comments: 04/13/13 Dr Sotelo in [place]. aspirin [Adult Aspirin Regimen] 81 mg tablet,delayed release (DR/EC) 81 mg PO DAILY duloxetine [Cymbalta] 60 mg capsule,delayed release(DR/EC) 30 mg PO DAILY Patient Comments: 04/13/13 Dr Sotelo in [place] sildenafil 100 mg tablet 100 mg PO DAILY PRN Rx Instructions: administer 30 minutes to 4 hours before activity buprenorphine-naloxone [Suboxone] 12-3 mg film 1 film buccal Q24H terazosin 2 mg capsule 2 mg PO DAILY Qty: 90 3RF fluoxetine 20 MG capsule 20 mg PO DAILY gabapentin 600 mg tablet 600 mg PO TID Patient Comments: TAKE ONE TABLET BY MOUTH THREE TIMES A DAY trazodone 100 mg tablet 100 mg PO QHS Patient Comments: TAKE 1 TABLET BY MOUTH DAILY AT BEDTIME hydrocortisone 5 mg tablet 10 mg PO DAILY Patient Comments: TAKE ONE TABLET BY MOUTH THREE TIMES A DAY Discharge Instructions Instructions: Managing acute pain at home, Hip Pain ED Additional Instructions: Please follow-up with physical therapy, your primary care provider as well as orthopedics. Please follow-up with your primary care provider regarding your visit to the emergency department today. Be sure to discuss results of all test performed here today to include radiology, and laboratory testing as well as results for any pending cultures. Should your symptoms worsen, or if you develop new concerning symptoms, please return immediately emergency department for further evaluation. Activity:: Activity as Tolerated Activity:: Activity as Tolerated HPI General Date/Time Provider Initiated Documentation: 10/24/24 13:17. HPI Narrative: 74-year-old male with multiple medical problems to include Coral Danlos syndrome, chronic pain, chronic fatigue reportedly chronic First diagnosed in 1989, presents for evaluation of acute on chronic right hip pain. He notes that 4 days ago while ambulating in a dark hallway tripped over an object he did not see and fell forward and since then has been having pain which he rates at a 8 or 9 out of 10 to the right hip in certain positions. Denies any associated fever, chills, rash, nausea, vomiting or any other new or concerning symptoms. Related Data Home Medications ?Medication ?Instructions ?Recorded ?Confirmed famciclovir 250 mg tablet 500 mg PO BID 04/13/13 10/24/24 fluoxetine 20 mg capsule 20 mg PO DAILY 08/11/14 10/24/24 gabapentin 600 mg tablet 600 mg PO TID 01/08/20 10/24/24 trazodone 100 mg tablet 100 mg PO QHS 01/08/20 10/24/24 aspirin 81 mg tablet,delayed 81 mg PO DAILY 11/02/20 10/24/24 release (Adult Aspirin Regimen) duloxetine 60 mg capsule,delayed 30 mg PO DAILY 11/09/20 10/24/24 release (Cymbalta) lisinopril 10 mg tablet 10 mg PO DAILY 11/09/20 10/24/24 prasterone (DHEA) 50 mg capsule 50 mg PO DAILY 11/09/20 10/24/24 (DHEA) testosterone 10 mg/0.5 1 pump transdermal BID 11/09/20 10/24/24 gram/actuation transdermal gel pump hydrocortisone 5 mg tablet 10 mg PO DAILY 05/27/22 10/24/24 buprenorphine 12 mg-naloxone 3 mg 1 film buccal Q24H 08/14/22 10/24/24 sublingual film (Suboxone) sildenafil 100 mg tablet 100 mg PO DAILY PRN 08/14/22 10/24/24 terazosin 2 mg capsule 2 mg PO DAILY #90 caps 01/12/24 10/24/24 acetaminophen 325 mg tablet 975 mg (3 x 325 mg) PO ONCE PRN 10/24/24 (Tylenol) #60 tabs hydromorphone 2 mg tablet 2 mg PO Q6H PRN #12 tabs 10/24/24 (Dilaudid) Previous Rx's ?Medication ?Instructions ?Recorded terazosin 2 mg capsule 2 mg PO DAILY #90 caps 01/12/24 acetaminophen 325 mg tablet 975 mg (3 x 325 mg) PO ONCE PRN 10/24/24 (Tylenol) #60 tabs hydromorphone 2 mg tablet 2 mg PO Q6H PRN #12 tabs 10/24/24 (Dilaudid) Allergies Allergy/AdvReac Type Severity Reaction Status Date / Time ciprofloxacin Allergy Unknown skin Unverified 10/24/24 13:20 rash,fever Penicillins Allergy Unknown rash Unverified 10/24/24 13:20 Sulfa (Sulfonamide Allergy Unknown skin rash Unverified 10/24/24 13:20 Antibiotics) NSAIDS (Non-Steroidal AdvReac Unknown GI Bleeding Unverified 10/24/24 13:20 Anti-Inflamma General Stated Complaint: Orthopedic SERENA: 4 Review of Systems All systems reviewed & are unremarkable except as noted in HPI and below Exam Narrative Exam Narrative: Gen: A&O NAD HEENT: NCAT, EOMI, not icteric. External ears normal. No rhinorrhea. Moist mucous membranes. Neck: Supple, full range of motion, no observable masses, No meningeal sign. Lungs: No Respiratory distress. CV: RRR, no edema. Abdomen: Soft, nondistended, No rebound tenderness. Back: No step offs or deformity, no tenderness to palpation of the C/T/ L-spine MSK: No joint swelling, no redness. Reported tenderness to the right greater trochanter, without associated erythema, fluctuance, swelling, wound, ecchymosis, or bony point tenderness. Skin: No rashes, petechiae, lesions. Normal color per patient. Neuro: Normal Gait, Grossly intact. Psych: Appropriate for situation. Course Reevaluation(s) Reevaluation: On reassessment, patient notes significant improvement in pain, as well as mobility. Results shared with and discussed with the patient is agreeable with the plan for discharge to follow-up with physical therapy, orthopedics, and return for any new or worsening symptoms. Time: 14:45 Vital Signs Vital signs: Vital Signs Temperature 36.6 C 10/24/24 13:13 Pulse 79 10/24/24 13:13 Respiratory Rate 16 10/24/24 13:13 Blood Pressure 150/59 H 10/24/24 13:13 Pulse Oximetry 96 10/24/24 13:13 Temperature 36.6 C 10/24/24 13:13 Pulse 79 10/24/24 13:13 Respiratory Rate 16 10/24/24 13:13 Blood Pressure 150/59 H 10/24/24 13:13 Pulse Oximetry 96 10/24/24 13:13 Pain Level 8 10/24/24 13:13 Medical Decision Making Patient presents with above. Vital signs within normal limits outside of mild hypertension. Physical exam without obvious signs of acute traumatic injury, infection, or other life-threatening etiology of the patient's pain. Given recent fall, will assess patient's area of pain with x-rays to rule out fracture. Otherwise we will attempt to improve patient's acute on chronic pain. Currently rates pain at 8-9 out of 10, will aim to improve pain to 4-5 out of 10. PFSH All Active Problems (Updated 10/24/24 @ 14:46 by Avni Alvarez MD) Greater trochanteric pain syndrome of right lower extremity (Acute) Stiffness of finger joint of right hand (Acute) Sprain of right ring finger (Acute 07/08/22) BPH w urinary obs/LUTS (Acute) Osteoarthritis of left knee (Acute) Left knee pain (Acute) Lyme disease (Acute 04/13/13) Chronic pain (Acute) Chronic fatigue syndrome (Acute 04/13/13) Asthma without status asthmaticus (Acute 04/07/13) Medical History (Updated 10/24/24 @ 14:46 by Avni Alvarez MD) LEA (obstructive sleep apnea) Social History Smoking/Tobacco Use Status: Former Tobacco Use Smoking risk assessment performed?: Yes Alcohol Intake: never Drug use: Daily Substance use type: marijuana Current gender identity: male Do you feel safe at home: Yes Do you feel safe in your relationship?: Yes
[2024-10-24] MEDS: HYDROmorphone 2 MG TAB PO (13:54)
[2024-10-24] MEDS: Acetaminophen 500 MG TAB 1000 MG PO (13:54)
[2024-10-24 14:36] VITALS: BP 117/52; PULSE 70; RESP 16; O2SAT 94
[2024-10-24 14:53] VITALS: BP 125/49; PULSE 61; RESP 16; TEMP 36.8; O2SAT 94
[2024-10-24 14:57] VITALS: BP 125/49; PULSE 61; RESP 16; TEMP 36.8; O2SAT 94
--- NOTE | 2024-10-24 15:34 | DI.[facility]AD_ITS ---
PROCEDURE INFORMATION: Exam: XR Right Hip Exam date and time: 10/24/2024 2:07 PM Age: 74 years old Clinical indication: Hip pain; Right hip; Possible fall TECHNIQUE: Imaging protocol: Radiologic exam of the right hip. Views: 2 or 3 views hip with pelvis when performed. COMPARISON: CR XR HIP RT COMPLETE AP PELVIS 01/29/2021 2:47 PM FINDINGS: Bones/joints: Unremarkable. No acute fracture. Soft tissues: Unremarkable. IMPRESSION: No evidence for fracture. Dictated and Authenticated by: Sandi Dunn MD. Orderin Antonio Holly MD
== END 2024-10-24 14:59 | disposition home or self-care (01) ==
LOC: ER 13:18
PROVIDERS: Emergency Provider General Practice; PCP Family Medicine
DX: M25.551 Pain in right hip (principal); M79.661 Pain in right lower leg
CPT/HCPCS: 99283 ×2; 73502

== ENCOUNTER → 2024-11-03 11:07 | Outpatient (BNVA) | payer MEDICARE, SELFPAY | PROVIDERS: PCP Family Medicine; Referring Provider Family Medicine; Visit Provider Student in an Organized Health Care Education/Training Program | DX: M25.551 Pain in right hip (principal) | CPT/HCPCS: 99213; 20610; J1010 ==